=== PATIENT | female | born 2000 | race Caucasian/White ===

== ENCOUNTER 2019-07-27 10:28 | Emergency (ER) | payer OTHER, SELFPAY ==
--- NOTE | ~2019-07-27 | XR_ITS ---
EXAMINATION: XR chest 2V DATE: 07/27/2019 11:31 INDICATION: Chest pain. TECHNIQUE: Frontal and lateral views of the chest were obtained. COMPARISON: Chest 2 views 02/06/2019 FINDINGS: The chest demonstrates clear lungs without pneumonia, pleural effusion, or pneumothorax. Th e heart size is normal. IMPRESSION: 1. No acute cardiopulmonary disease. Reviewed, dictated and finalized at location A.
--- NOTE | 2019-07-27 10:30 | ECG_ITS ---
Measurements Intervals [place] Rate: 88 P: 65 SD: 150 QRS: 83 QRSD: 92 T: 60 QT: 338 QTc: 410 Interpretive Statements SINUS RHYTHM BASELINE ARTIFACT- I, AVR, AVL NORMAL ECG Electronically Signed On 07-27-2019 11:29:17 CDT by Axel Nelson D.O.
[2019-07-27 10:42] VITALS: BP 95/68; PULSE 73; RESP 16; TEMP 36.7; O2SAT 99
[2019-07-27 11:09] LABS: Blood Urea Nitrogen 13 mg/dL (7-17); Carbon Dioxide 23 mmol/L (22-30); Chloride 104 mmol/L (98-107); Estimated CRCL calculation 77 ml/min; Estimated Glomerular Filt Rate > 60; Potassium 3.8 mmol/L (3.4-5.0); Sodium 134 mmol/L (137-145)
[2019-07-27 11:10] LABS: Calcium 9.1 mg/dL (8.4-10.2); Glucose 92 mg/dL (65-105)
[2019-07-27 11:21] LABS: Troponin I < 0.012 ng/mL (0.000-0.034)
--- NOTE | 2019-07-27 11:25 | PC.NURSE ---
Pt taken to Xray
[2019-07-27 11:27] LABS: Hematocrit 36.9 % (37.0-47.0); Mean Corpuscular HGB Conc 35.2 g/dl (32-36); Mean Corpuscular Hemoglobin 30.8 pg (26-34); Mean Corpuscular Volume 87.4 fl (80-100); Mean Platelet Volume 10.4 fl (7.4-10.4); Platelet Count Result 282 k/mm3 (150-375); Red Blood Count 4.22 M/mm3 (4.2-5.4); White Blood Count 6.3 K/mm3 (4.5-10.0)
[2019-07-27 11:28] LABS: Basophils Percent Auto 0.5 % (0.2-1.2); Eosinophils Absolute Auto 0.1 K/mm3 (0-0.3); Eosinophils Percent Auto 2.1 % (0-4.4); Immature Granulocyte Absolute 0.02 K/mm3 (0.00-0.031); Immature Granulocyte Percent A 0.3 % (0-0.5); Lymphocytes Percent Auto 39.7 % (18.3-44.2); Monocytes Absolute Auto 0.4 K/mm3 (0.1-0.6); Monocytes Percent Auto 6.5 % (2.6-8.5); Neutrophils Absolute Auto 3.2 K/mm3 (1.3-6.7); Neutrophils Percent Auto 50.9 % (45.5-73.1)
--- NOTE | 2019-07-27 12:03 | ED.CHESTPAIN ---
HPI - Chest Pain General Chief Complaint: Chest Pain Stated Complaint: CHEST PAIN FOR AWHILE Time Seen by Provider: 07/27/19 11:13 Source: patient Mode of arrival: ambulatory Limitations: no limitations History of Present Illness HPI narrative: Patient is a 19-year-old female who presents to emergency department for evaluation of left-sided chest pain x1 month occurs daily aching pain worse with deep breathing sometimes has some associated nausea. Patient denies injury trauma or URI symptoms. Patient has not taken anything for her symptoms nor she been seen for this. Pain does not radiate Related Data Home Medications Medication Instructions Recorded Confirmed citalopram [Celexa] 30 mg PO DAILY 01/28/19 02/06/19 fludrocortisone 0.2 mg PO DAILY 01/28/19 02/06/19 prednisone 2 mg PO DAILY 01/28/19 02/06/19 Allergies Allergy/AdvReac Type Severity Reaction Status Date / Time No Known Allergies Allergy Verified 01/28/19 21:02 Review of Systems Review of Systems: All systems reviewed & are unremarkable except as noted in HPI and below PMFSH Past Medical History Medical History (Updated 07/27/19 @ 14:34 by Micheal Montana PA-C) Addisons disease Social History Social History Smoking status: Never smoker Gender identity (if verbalized by the patient): Female Exam Narrative: Exam Narrative: GENERAL: Well-appearing, well-nourished, and in no acute distress. HEAD: Normocephalic, atraumatic. EYES: PERRLA and EOMI. ENT: Nares clear, no rhinorrhea or epistaxis. Mucous membranes moist. Oropharynx without tonsillar hypertrophy exudate or other lesions. NECK: Supple. No adenopathy or masses. CHEST: Clear to auscultation. No respiratory distress. No wheezes rales or rhonchi. Tenderness of the left chest HEART: Regular rate and rhythm. No murmur heard. Normal peripheral pulses. ABDOMEN: Soft, nontender, nondistended EXTREMITIES: Normal range of motion. No edema. SKIN: Warm, dry, no rash. NEURO: No focal deficits. Alert and oriented x3. PSYCH: Normal mood and affect. Course Course Emergency Course: Patient in the room in no distress aware of case findings treatment plan and diagnosis agreeing to follow-up as directed or to return if symptoms worsen or concern Vital Signs Vital signs: Vital Signs Temperature 98.0 F 07/27/19 10:42 Pulse Rate 73 07/27/19 10:42 Respiratory Rate 16 07/27/19 10:42 Blood Pressure 95/68 L 07/27/19 10:42 Pulse Oximetry 99 07/27/19 10:42 Temperature 98.0 F 07/27/19 10:42 Pulse Rate 78 07/27/19 13:34 Respiratory Rate 19 07/27/19 13:34 Blood Pressure 103/62 07/27/19 13:34 Pulse Oximetry 99 07/27/19 13:34 MDM - Chest Pain MDM Narrative Medical decision making narrative: Paitents EKGs and labs are without significant high risk changes. Cardiac risk facotrs were reviewd. Patient is felt likely to be low risk for ACS and resonable for further risk stratification testing as an outpatient. Pain was not suddne or maximal in onset without tearing or ripping. quality. No other signs or symptoms to suggest aortic dissection. A low-risk Wells criteria is noted. PE is felt to be unlikely. No pneumonia or URI symptoms were seen on evaluation today. Patient is felt to b resonable for continued evaluation as an outpatient. Lab Data Result diagrams: 07/27/19 10:42 07/27/19 10:42 Labs: Lab Results 07/27/19 07/27/19 07/27/19 Range/Units 10:42 10:42 10:42 WBC 6.3 (4.5-10.0) K/mm3 RBC 4.22 (4.2-5.4) M/mm3 Hgb 13.0 (12.0-15.0) g/dL Hct 36.9 L (37.0-47.0) % MCV 87.4 (80-100) fl MCH 30.8 (26-34) pg MCHC 35.2 (32-36) g/dl RDW 12.0 (11.5-14.5) % Plt Count 282 (150-375) k/mm3 MPV 10.4 (7.4-10.4) fl Immature Gran % (Auto) 0.3 (0-0.5) % Neut % (Auto) 50.9 (45.5-73.1) % Lymph % (Auto) 39.7 (18.3-44.2) % [place] % (Auto
[2019-07-27 13:07] LABS: Prothrombin Time 12.6 Seconds (11.1-14.7)
[2019-07-27 13:08] LABS: Partial Thromboplastin Time 37.7 SECONDS (22.3-36.8)
[2019-07-27 13:34] VITALS: BP 103/62; PULSE 78; RESP 19; O2SAT 99
[2019-07-27 14:21] LABS: Troponin I < 0.012 ng/mL (0.000-0.034)
[2019-07-27 15:01] VITALS: BP 96/57; PULSE 66; RESP 16; O2SAT 98
[2019-07-27 15:20] LABS: D Dimer < 0.22 ug/mL (<0.48)
== END 2019-07-27 15:40 | disposition home or self-care (01) ==
PROVIDERS: Emergency Medicine Emergency Medical Services; Emergency Provider Emergency Medicine; PCP Pediatrics
DX: E27.1 Primary adrenocortical insufficiency (principal); R07.9 Chest pain, unspecified
CPT/HCPCS: 36415; 71046; 80048; 84484; 85025; 85380; 85610; 85730; 93005; 99284

== ENCOUNTER 2019-09-28 16:53 | Emergency (ER) | payer OTHER, SELFPAY ==
[2019-09-28 16:55] VITALS: BP 125/87; PULSE 130; RESP 18; TEMP 36.5; O2SAT 98
[2019-09-28 17:14] LABS: Basophils Absolute Auto 0.1 K/mm3 (0.0-0.1); Basophils Percent Auto 0.6 % (0.2-1.2); Eosinophils Absolute Auto 0.1 K/mm3 (0-0.3); Eosinophils Percent Auto 1.4 % (0-4.4); Hematocrit 35.6 % (37.0-47.0); Hemoglobin 13.1 g/dL (12.0-15.0); Immature Granulocyte Absolute 0.02 K/mm3 (0.00-0.031); Immature Granulocyte Percent A 0.2 % (0-0.5); Lymphocytes Absolute Auto 1.77 K/mm3 (0.9-3.2); Lymphocytes Percent Auto 20.9 % (18.3-44.2); Mean Corpuscular HGB Conc 36.8 g/dl (32-36); Mean Corpuscular Hemoglobin 31.6 pg (26-34); Mean Platelet Volume 10.1 fl (7.4-10.4); Monocytes Absolute Auto 0.5 K/mm3 (0.1-0.6); Monocytes Percent Auto 5.3 % (2.6-8.5); Neutrophils Absolute Auto 6.1 K/mm3 (1.3-6.7); Neutrophils Percent Auto 71.6 % (45.5-73.1); Platelet Count Result 294 k/mm3 (150-375); Red Blood Count 4.14 M/mm3 (4.2-5.4); Red Cell Distribution Width 11.8 % (11.5-14.5); White Blood Count 8.5 K/mm3 (4.5-10.0)
[2019-09-28 17:26] LABS: Alanine Aminotransferase 13 U/L (4-35); Albumin Level 4.9 g/dL (3.5-5.1); Alkaline Phosphatase 57 U/L (38-126); Aspartate Amino Transferase 28 U/L (14-36); Blood Urea Nitrogen 13 mg/dL (7-17); Calcium 9.5 mg/dL (8.4-10.2); Carbon Dioxide 22 mmol/L (22-30); Chloride 99 mmol/L (98-107); Estimated CRCL calculation 101 ml/min; Estimated Glomerular Filt Rate > 60; Glucose 95 mg/dL (65-105); Sodium 132 mmol/L (137-145)
[2019-09-28 17:27] LABS: Ethanol < 10 mg/dL (<10)
[2019-09-28 17:42] LABS: Add Urine Microscopic? YES; Appearance Urine Clear (Clear); Bilirubin Urine Negative (Negative); Blood Urine Negative (Negative); Color Urine Yellow (Yellow); Glucose Urine UA Negative (Negative); Ketones Urine 2+ mg/dL (Negative); Leukocyte Esterase Ur Trace LEU/UL (Negative); Mucus Urine Rare /lpf; Nitrate Urine Negative (Negative); Protein Urine 1+ mg/dL (Negative); RBC Urine 0-2 /hpf (0-2); Squamous Epithelial Cell Urine Many /hpf (Few); Urobilinogen Urine Negative mg/dL (<2.0); WBC Urine 0-3 /hpf
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
[2019-09-28 17:51] LABS: Specific Grav Ur 1.032 (1.001-1.035)
--- NOTE | 2019-09-28 18:18 | PC.NURSE ---
Pt mother at desk and wishes to be updated on any pt status.
[2019-09-28 19:01] LABS: Amphetamine Screen Urine Negative (Negative); Barbiturate Screen Urine Negative (Negative); Benzodiazepines Screen Urine Negative (Negative); Cannabinoid Screen Urine Negative (Negative); Cocaine Screen Urine Negative (Negative); Methadone Screen Urine Negative (Negative); Opiate Screen Urine Negative (Negative); Phencyclidine Screen Urine Negative (Negative)
--- NOTE | 2019-09-28 19:56 | PC.NURSE ---
Spoke with Kari who stated that [facility] will have to contacted and deny patient prior to them coming to assess the patient. log chain worker notified and [facility] contacted
--- NOTE | 2019-09-28 22:22 | PC.NURSE ---
[address] Dr[address] [place] made aware Crisis looking for placement.
--- NOTE | 2019-09-28 22:28 | PC.NURSE ---
Mother Ashlee Patrick -[phone] would like to be kept up to date on any transfers or facility placement.
--- NOTE | 2019-09-28 23:04 | PC.NURSE ---
Per Nigel worker Maranda [facility]. and we must covid swab her.
--- NOTE | 2019-09-28 23:11 | PC.NURSE ---
RN at bedside to collect covid swab.
[2019-09-29] VITALS: BP 119/68; PULSE 68; RESP 18; TEMP 36.6; O2SAT 98
--- NOTE | 2019-09-29 00:13 | PC.NURSE ---
Ghada from [facility] called and said that they have no female beds at this time. If patient is still not found placement by morning then recheck with them as they have some discharges coming up
[2019-09-29] MEDS: predniSONE 1 MG TABLET 2 MG PO (01:25)
[2019-09-29] MEDS: FLUDROCORTISONE ACETATE 0.1 MG TABLET 0.2 MG PO (01:25)
[2019-09-29] MEDS: ZOLPIDEM TARTRATE 5 MG TABLET PO (01:26)
--- NOTE | 2019-09-29 06:28 | PC.NURSE ---
SPOKE WITH CAYDEN AT [facility]- [phone], SHE GAVE ANOTHER FAX NUMBER TO TRY- [phone] ATTN:PSYCH, THE FAX NUMBER [phone] HAS NOT BEEN ACCEPTING OUR FAXES.
--- NOTE | 2019-09-29 10:37 | PC.NURSE ---
rn dispensed pt's home meds: prednisone 1 mg x 2 tabs, citalopram 20 mg and fludrocortsone 0.1mg. pt allowed to make phone call in hallway with sitter present. pt pleasant and cooperative
--- NOTE | 2019-09-29 11:05 | PC.NURSE ---
[facility] have gone through correctly [facility]
[2019-09-29 11:47] VITALS: BP 102/67; PULSE 103; RESP 16; TEMP 36.9; O2SAT 99
[2019-09-29 14:10] LABS: SARS-CoV-2 RNA PCR Negative
--- NOTE | 2019-09-29 16:46 | PC.NURSE ---
[facility] declined transfer [facility] not available until 8a wednesdayoct 01 [facility] declined transfer [facility] declined transfer [facility] declined transfer [facility] declined transfer [facility] accepted coming from [place]
--- NOTE | 2019-09-29 16:49 | PC.NURSE ---
pt aware of transfer to [facility] pt allowed to make several calls to immediate family. mom to bring clothing items to ed for pt to take to new facility
--- NOTE | 2019-09-29 16:58 | PC.NURSE ---
informed by smelter charger that no local [facility] crews can transport pt to [facility] until wednesday
--- NOTE | 2019-09-29 17:28 | PC.NURSE ---
[facility] transport service will arrive to [facility] pt at approx 1830. [id number] will need to be called once pt picked up at 1830. call [phone]
--- NOTE | 2019-09-29 18:38 | PC.NURSE ---
[facility] service accepted [facility] cancelled
--- NOTE | 2019-09-29 18:42 | PC.NURSE ---
transport present to take pt to [facility]. phone, bunny and black bag of personal effects given to bf per pt request. home meds and red bag full of clothing sent with diesel pile driver operator. pt tearful saying good bye to but cooperative
== END 2019-09-29 18:52 ==
PROVIDERS: Emergency Medicine; Emergency Provider Emergency Medicine; PCP Family Medicine
DX: F99 Mental disorder, not otherwise specified (principal); R45.850 Homicidal ideations; Z20.828 Contact with and (suspected) exposure to other viral communicable diseases; E27.1 Primary adrenocortical insufficiency
CPT/HCPCS: 36415; 80053; 80307; 81001; 81025; 84443; 85025; 87635; 99285; A9270; C9803; U0003

== ENCOUNTER 2020-01-04 17:42 | Emergency (ER) | payer OTHER, SELFPAY ==
[2020-01-04 17:54] VITALS: BP 104/61; PULSE 99; RESP 14; TEMP 37.1; O2SAT 100
--- NOTE | 2020-01-04 18:02 | ED.GENADULT ---
HPI - General Adult General Chief complaint: Extremity Injury, Upper Stated complaint: shoulder pain Time Seen by Provider: 01/04/20 18:02 Source: patient Mode of arrival: ambulatory Limitations: no limitations History of Present Illness HPI narrative: 19-year-old female patient presents to the [facility] with complaints of left shoulder neck pain for the past 2 days. Patient states that she tripped over her dog and fell on landing on a tile floor hitting her head neck and left shoulder. Patient states this was approximately 2 days ago. Patient states that since then she has been trying to take ibuprofen and Aleve without much relief. Patient states that her neck is pretty painful especially when turning it to the left side. Patient also complaining most painful left shoulder. Patient states she is also had a headache with some nausea. Denies any loss of consciousness at the time of the fall. Denies any lightheadedness dizziness or vision changes. Related Data Home Medications Medication Instructions Recorded Confirmed fludrocortisone 0.2 mg PO DAILY 01/28/19 11/23/19 prednisone 2 mg PO DAILY 01/28/19 11/23/19 clonazepam 0.5 mg tablet 0.5 mg PO BID PRN tablet 10/18/19 11/23/19 aripiprazole 5 mg tablet 5 mg PO DAILY 11/23/19 11/23/19 escitalopram oxalate 10 mg tablet 15 mg PO DAILY tablet 11/23/19 11/23/19 Allergies Allergy/AdvReac Type Severity Reaction Status Date / Time No Known Allergies Allergy Verified 01/04/20 18:01 Review of Systems Review of Systems: Narrative: CONSTITUTIONAL: Denies fever, chills, or sweats. EYES: Denies visual changes, redness, or discharge. ENT: Denies rhinorrhea, congestion, sore throat, or otalgia. CARDIOVASCULAR: Denies chest pain, palpitations, or edema. RESPIRATORY: Denies cough or dyspnea. GASTROINTESTINAL: Denies abdominal pain, nausea, vomiting, or diarrhea. GENITOURINARY: Denies dysuria or hematuria. SKIN: Denies rash or itching. MUSCULOSKELETAL: Denies back pain, joint pain, or myalgia. Positive left shoulder and neck pain NEUROLOGIC: Positive headache, numbness, or weakness. PSYCHIATRIC: Denies anxiety or depression. [facility] Past Medical History Medical History (Updated 01/04/20 @ 18:21 by KRISTINA Tapia) Addisons disease Anxiety Depression Hypothyroidism OCD (obsessive compulsive disorder) Surgical History Surgical History H/O wrist surgery Social History Social History Smoking status: Never smoker Gender identity (if verbalized by the patient): Female Comments At the time of my signature I agree with nursing past medical history, surgical, social, and family history. There is no relevant family history pertinent to the presenting complaint. Exam Narrative: Exam Narrative: GENERAL: Well-appearing, well-nourished, and in no acute distress. HEAD: Normocephalic, atraumatic. EYES: PERRLA and EOMI. ENT: Nares clear, no rhinorrhea or epistaxis. Mucous membranes moist. NECK: Supple, no lymphadenopathy. No surface trauma, no soft tissue or muscle tenderness or spasm noted. Trachea midline. No subq emphysema or crepitus. cinthia tendernessto firm Palpation at posterior midline to the C5 and C6 area. Pain to the left lateral and posterior neck with movement towards the left. CHEST: Clear to auscultation. No respiratory distress. HEART: Regular rate and rhythm. No murmur heard. Normal peripheral pulses. ABDOMEN: Soft, nontender, nondistended, normal active bowel sounds. EXTREMITIES: The L shoulder is without obvious asymmetry or deformity when compared to the R shoulder. No surface trauma, ecchymosis, crepitus. No bony deformity or prominence of the humeral head No erythema, warmth, swelling. no tenderness to palpation to clavicle, A to C joint, acromion, scapula or humeral head. Patient does have some muscle spasms noted to the left scapular area. No tenderne
[2020-01-04 18:05] VITALS: BP 104/61; PULSE 99; RESP 14; TEMP 37.1; O2SAT 100
== END 2020-01-04 18:20 | disposition short-term general hospital (02) ==
PROVIDERS: Emergency Provider Nurse Practitioner Family; PCP Nurse Practitioner Family
DX: S09.90XA Unspecified injury of head, initial encounter (principal); W01.0XXA Fall on same level from slipping, tripping and stumbling without subsequent striking against object, initial encounter; S19.9XXA Unspecified injury of neck, initial encounter; M62.838 Other muscle spasm; E27.1 Primary adrenocortical insufficiency; E03.9 Hypothyroidism, unspecified; F41.9 Anxiety disorder, unspecified; F32.9 Major depressive disorder, single episode, unspecified
CPT/HCPCS: 99212; G0463; L0140

== ENCOUNTER → 2021-02-19 02:59 | Outpatient (CLI) | payer OTHER, SELFPAY ==
[2021-02-20 02:22] LABS: SARS-CoV-2 RNA PCR Negative
== END ==
PROVIDERS: PCP Family Medicine; Visit Provider Nurse Practitioner Family
DX: R09.89 Other specified symptoms and signs involving the circulatory and respiratory systems (principal); Z20.822 Contact with and (suspected) exposure to COVID-19
CPT/HCPCS: C9803; U0003; U0005

== ENCOUNTER 2021-11-18 14:46 | Outpatient (CLI) | payer OTHER, SELFPAY ==
--- NOTE | ~2021-11-18 | XR_ITS ---
EXAMINATION: XR chest 2V 11/18/2021 15:03 INDICATION: Personal history of pneumonia PROCEDURE: 2 view chest COMPARISON: Comparison to multiple prior studies sequentially, with oldest reviewed study dated 09/2018. FINDINGS: The lungs are clear. The cardiomediastinal silhouette is within normal limits. There are no pleural effusions. There is no pneumothorax suspected. IMPRESSION: 1: NO ACUTE CARDIOPULMONARY DISEASE. Reviewed, dictated and finalized at location B.
== END 2021-11-18 14:47 | disposition home or self-care (01) ==
PROVIDERS: PCP Family Medicine; Visit Provider Nurse Practitioner Family
DX: Z87.01 Personal history of pneumonia (recurrent) (principal); R06.02 Shortness of breath; R05.9 Cough, unspecified
CPT/HCPCS: 71046

== ENCOUNTER 2022-07-03 08:33 | Emergency (ER) | payer OTHER, SELFPAY ==
--- NOTE | ~2022-07-03 | XR_ITS ---
XR hand RT min 3V 07/03/2022 09:00 INDICATION: Right hand pain PROCEDURE: 3 views right hand COMPARISON: No prior studies for comparison. FINDINGS: Fracture, dislocation or subluxation is not identified. The soft tissues appear within norm al limits. No foreign bodies are identified. IMPRESSION: 1: NO ACUTE BONE OR JOINT ABNORMALITY IDENTIFIED. Reviewed, dictated and finalized at location B.
--- NOTE | 2022-07-03 08:41 | ED.UPPEXIN ---
HPI - Extremity Injury (Upper) General Chief Complaint: Extremity Injury, Upper Stated Complaint: HEAD/NECK/R HAND INJURY Time Seen by Provider: 07/03/22 08:41 Source: patient Mode of arrival: ambulatory Limitations: no limitations History of Present Illness HPI narrative: Patient is a 22-year-old female who presents with right hand pain primarily in her ring finger along with left sided neck pain after falling off of a horse last night. Patient denies LOC but does state she hit her forehead on the ground. Patient does state she has had a headache since the fall but denies any vision changes, numbness, tingling or weakness in extremities. Patient also reports mild nausea. Has taken 400 mg of ibuprofen for pain with moderate relief. Related Data Home Medications Medication Instructions Recorded Confirmed fludrocortisone 0.1 mg tablet 0.1 mg PO DAILY 01/28/19 07/03/22 hydrocortisone 5 mg tablet 5 mg PO TID 06/03/22 07/03/22 Allergies Allergy/AdvReac Type Severity Reaction Status Date / Time No Known Allergies Allergy Verified 07/03/22 08:42 Review of Systems Review of Systems: All systems reviewed & are unremarkable except as noted in HPI and below Constitutional: Constitutional: Denies body ache(s), Denies fever(s), Reports headache(s), Denies malaise and Denies weakness Eyes: Eyes: Denies loss of vision ENT: Denies otalgia, Reports headache(s), Denies nasal discharge, Denies sinus pain and Denies sore throat Cardiovascular: Cardiovascular: Denies chest pain, Denies irregular heart rhythm and Denies dyspnea Respiratory: Respiratory: Denies dyspnea Gastrointestinal: Gastrointestinal: Denies abdominal pain, Denies melena, Denies hematochezia, Denies diarrhea, Denies nausea and Denies vomiting Musculoskeletal: Musculoskeletal: Denies back pain, Denies myalgias and Reports arthralgias Integumentary/Breasts: Skin/Breast: Denies pruritus and Denies rash Neurologic: Denies headache(s), Denies loss of vision and Denies weakness Psychiatric: Psychiatric: Reports no additional psychiatric complaints [facility] Past Medical History Medical History Addisons disease Adult BMI 26.0-26.9 kg/sq m Anxiety BMI 24.0-24.9, adult BMI 25.0-25.9,adult BMI 28.0-28.9,adult BMI 32.0-32.9,adult COVID-19 Depression Hypothyroidism OCD (obsessive compulsive disorder) SARS-CoV-2 positive Surgical History Surgical History H/O wrist surgery Family History Family History Father Rheumatoid arthritis COVID-19 Mother COVID-19 Sibling Mental and behavioral disorders d/t use of alcohol, acute intoxication COVID-19 Social History Social History Smoking status: Never smoker Second hand tobacco smoke exposure: Yes Alcohol intake: current Alcohol use details: occasionally Substance use: never Substance use type: does not use Lack of Transportation: No Lack of Food: Never True Current Housing: I Have Housing Concerned About Future Housing: No Difficulty Paying Gas/Electric Bills: No Difficulty Paying for Meds: No Currently Unemployed: No Education: High School Diploma/GED Difficulty w/ Childcare or Family Care: No Living arrangements: with family Additional living arrangements comments: [place] [address] [place] [address] [facility] [address]. 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 There is no relevant family history pertinent to the presenting complaint. Exam Const: General: cooperative, healthy appearing, comfortable, no acute distress and well nourished Nutriti
[2022-07-03 08:42] VITALS: BP 119/84; PULSE 94; RESP 16; TEMP 36.3; O2SAT 98
[2022-07-03 08:43] VITALS: BP 119/84; PULSE 94; RESP 16; TEMP 36.3; O2SAT 98
== END 2022-07-03 09:22 | disposition home or self-care (01) ==
PROVIDERS: Emergency Provider Nurse Practitioner Family; PCP Family Medicine
DX: S63.654A Sprain of metacarpophalangeal joint of right ring finger, initial encounter (principal); V80.010A Animal-rider injured by fall from or being thrown from horse in noncollision accident, initial encounter; S09.90XA Unspecified injury of head, initial encounter; E27.1 Primary adrenocortical insufficiency; E03.9 Hypothyroidism, unspecified; Z86.16 Personal history of COVID-19; F32.A Depression, unspecified
CPT/HCPCS: 73130; 99213; G0463

== ENCOUNTER 2022-08-25 09:27 | Emergency (ER) | payer OTHER, SELFPAY ==
[2022-08-25 09:49] VITALS: BP 120/79; PULSE 92; RESP 16; TEMP 36.7; O2SAT 100
--- NOTE | 2022-08-25 10:12 | ED.SKABFB ---
HPI - Skin/Abscess/Foreign Bdy General Chief complaint: Skin/Abscess/Foreign Body Stated complaint: HIVES Time Seen by Provider: 08/25/22 10:12 Source: patient, RN notes reviewed and old records reviewed Mode of arrival: ambulatory Limitations: no limitations History of Present Illness HPI narrative: 22-year-old female presents to the [facility] complaints of hives to her bilateral hands and arms. Patient states it started on her hands a couple of days ago after wearing gloves. States that the gloves at work sometimes breaks her out because of the powder. Denies any chest pain, shortness of breath. No lip or tongue swelling. States that she tried increasing her steroid that she takes normally as well as taking Benadryl with minimal relief. Onset (ago): day(s) (For) Related Data Home Medications Medication Instructions Recorded Confirmed fludrocortisone 0.1 mg tablet 0.1 mg PO DAILY 01/28/19 08/25/22 hydrocortisone 5 mg tablet 5 mg PO TID 06/03/22 08/25/22 Allergies Allergy/AdvReac Type Severity Reaction Status Date / Time No Known Allergies Allergy Verified 08/25/22 09:51 Review of Systems Review of Systems: All systems reviewed & are unremarkable except as noted in HPI and below Constitutional: Constitutional: Reports no additional constitutional complaints Eyes: Eyes: Reports no additional eye complaints ENT: Reports system reviewed and no additional complaints, except as documented Cardiovascular: Cardiovascular: Reports no additional cardiovascular complaints, Denies chest pain and Denies dyspnea Respiratory: Respiratory: Reports no additional respiratory complaints, Denies chest congestion, Denies cough and Denies dyspnea Gastrointestinal: Gastrointestinal: Reports no additional gastrointestinal complaints, Denies abdominal pain, Denies nausea and Denies vomiting Musculoskeletal: Musculoskeletal: Reports no additional musculoskeletal complaints Integumentary/Breasts: Skin/Breast: Reports as per HPI and Reports rash Neurologic: Reports system reviewed and no additional complaints, except as documented Psychiatric: Psychiatric: Reports no additional psychiatric complaints Allergic/Immunologic: Allergic/Immunologic: Reports no additional allergic/immunologic complaints PMFSH Past Medical History Medical History Addisons disease Adult BMI 26.0-26.9 kg/sq m Anxiety BMI 24.0-24.9, adult BMI 25.0-25.9,adult BMI 28.0-28.9,adult BMI 32.0-32.9,adult COVID-19 Depression Hypothyroidism OCD (obsessive compulsive disorder) SARS-CoV-2 positive Surgical History Surgical History H/O wrist surgery Family History Family History Father Rheumatoid arthritis COVID-19 Mother COVID-19 Sibling Mental and behavioral disorders d/t use of alcohol, acute intoxication COVID-19 Social History Social History Smoking status: Never smoker Second hand tobacco smoke exposure: Yes Alcohol intake: current Alcohol use details: occasionally Substance use: never Substance use type: does not use Lack of Transportation: No Lack of Food: Never True Current Housing: I Have Housing Concerned About Future Housing: No Difficulty Paying Gas/Electric Bills: No Difficulty Paying for Meds: No Currently Unemployed: No Education: High School Diploma/GED Difficulty w/ Childcare or Family Care: No Living arrangements: with family Additional living arrangements comments: [facility] [address] [id number]. 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
== END 2022-08-25 10:31 | disposition home or self-care (01) ==
PROVIDERS: Emergency Provider Nurse Practitioner; PCP Family Medicine
DX: L50.9 Urticaria, unspecified (principal); E27.1 Primary adrenocortical insufficiency; E03.9 Hypothyroidism, unspecified; Z86.16 Personal history of COVID-19; F41.9 Anxiety disorder, unspecified; F32.A Depression, unspecified
CPT/HCPCS: 99213; G0463

== ENCOUNTER 2022-12-07 17:38 | Emergency (ER) | payer OTHER, SELFPAY ==
--- NOTE | 2022-12-07 17:43 | ED.URI ---
HPI - URI/Sore Throat General Chief Complaint: Upper Respiratory Infection Stated Complaint: COUGH/SOB/CHEST PRESSURE Time Seen by Provider: 12/07/22 17:43 Source: patient Mode of arrival: ambulatory Limitations: no limitations History of Present Illness HPI Narrative: Patient is a 22-year-old female who presents with cough, wheezing and chest pressure with coughing for 3 days. Denies any fever, chills, ear pain, congestion, sore throat. Reports she had pneumonia in September and was treated in the hospital. Has history of [place]illas's disease. Related Data Home Medications Medication Instructions Recorded Confirmed fludrocortisone 0.1 mg tablet 0.1 mg PO DAILY 01/28/19 12/07/22 hydroxyzine HCl 25 mg tablet 25 mg PO ONCE 11/12/22 12/07/22 levothyroxine 75 mcg tablet 75 mcg PO DAILY 12/07/22 12/07/22 Allergies Allergy/AdvReac Type Severity Reaction Status Date / Time No Known Allergies Allergy Verified 12/07/22 18:12 Review of Systems Review of Systems: All systems reviewed & are unremarkable except as noted in HPI and below Constitutional: Constitutional: Denies body ache(s), Denies chills, Denies fatigue, Denies fever(s), Denies headache(s), Denies malaise and Denies weakness Eyes: Eyes: Denies blurry vision, Denies itchy eyes and Denies loss of vision ENT: Denies otalgia, Denies headache(s), Denies nasal congestion, Denies sinus pain and Denies sore throat Cardiovascular: Cardiovascular: Denies chest pain, Denies irregular heart rhythm and Denies dyspnea Respiratory: Respiratory: Reports chest congestion, Reports cough, Denies dyspnea and Reports dyspnea on exertion Gastrointestinal: Gastrointestinal: Denies abdominal pain, Denies diarrhea, Denies nausea and Denies vomiting Musculoskeletal: Musculoskeletal: Denies back pain, Denies myalgias and Denies arthralgias Integumentary/Breasts: Skin/Breast: Denies pruritus and Denies rash Neurologic: Denies headache(s), Denies loss of vision and Denies weakness Psychiatric: Psychiatric: Reports no additional psychiatric complaints Endocrine: Endocrine: Denies fatigue Allergic/Immunologic: Allergic/Immunologic: Denies itchy eyes PMFSH Past Medical History Medical History Addisons disease Adult BMI 26.0-26.9 kg/sq m Anxiety BMI 24.0-24.9, adult BMI 25.0-25.9,adult BMI 27.0-27.9,adult BMI 28.0-28.9,adult BMI 32.0-32.9,adult COVID-19 Depression Hypothyroidism OCD (obsessive compulsive disorder) SARS-CoV-2 positive Surgical History Surgical History H/O wrist surgery Family History Family History Father Rheumatoid arthritis COVID-19 Mother COVID-19 Sibling Mental and behavioral disorders d/t use of alcohol, acute intoxication COVID-19 Social History Social History Smoking status: Never smoker Second hand tobacco smoke exposure: Yes Alcohol intake: current Alcohol use details: occasionally Substance use: never Substance use type: does not use Lack of Transportation: No Lack of Food: Never True Current Housing: I Have Housing Concerned About Future Housing: No Difficulty Paying Gas/Electric Bills: No Difficulty Paying for Meds: No Currently Unemployed: No Education: High School Diploma/GED Difficulty w/ Childcare or Family Care: No Living arrangements: with family Additional living arrangements comments: [facility] [address] [facility] [id number]. 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 There is no relevant family history pertinent to the presenting complaint. Exam Co
[2022-12-07 17:47] VITALS: BP 115/68; PULSE 85; RESP 16; TEMP 36.7; O2SAT 100
== END 2022-12-07 18:20 | disposition home or self-care (01) ==
PROVIDERS: Emergency Provider Nurse Practitioner Family; PCP Family Medicine
DX: J40 Bronchitis, not specified as acute or chronic (principal); E27.1 Primary adrenocortical insufficiency; E03.9 Hypothyroidism, unspecified; F41.9 Anxiety disorder, unspecified; Z86.16 Personal history of COVID-19; F32.A Depression, unspecified
CPT/HCPCS: 99213; G0463

== ENCOUNTER 2022-12-16 16:37 | Outpatient (CLI) | payer OTHER, SELFPAY ==
--- NOTE | ~2022-12-16 | MR_ITS ---
EXAMINATION: MR brain/brain stem wo con DATE: 12/16/2022 17:39 INDICATION: Pituitary tumor. Other specified abnormal findings of blood chemistry. TECHNIQUE: Magnetic resonance imaging (MRI) of the brain and brainstem was performed without intraven ous contrast. COMPARISON: Head CT 02/06/2019 FINDINGS: The pituitary is normal in size with height of 3 mm and concave superior margin. The cerebe llar tonsils extend 6 mm inferior to foramen magnum, consistent with Chiari I malformation. There is no intracranial hemorrhage, acute infarction, or abnormal intracranial mass lesion. The ventricles ar e normal in size. The paranasal sinuses are clear. The orbits are normal. The mastoid air cells are n ormal. IMPRESSION: 1. Normal pituitary. 2. Chiari I malformation. Reviewed, dictated and finalized at location E.
== END 2022-12-16 16:38 | disposition home or self-care (01) ==
PROVIDERS: PCP Family Medicine; Visit Provider Nurse Practitioner Family
DX: G93.5 Compression of brain (principal); R79.89 Other specified abnormal findings of blood chemistry
CPT/HCPCS: 70551

== ENCOUNTER 2023-03-28 13:41 | Emergency (ER) | payer OTHER, SELFPAY ==
[2023-03-28] VITALS (8 sets, daily range): BP systolic 72–98; BP diastolic 35–59; PULSE 104–132; RESP 16; TEMP 36.8; O2SAT 100
--- NOTE | 2023-03-28 13:58 | PC.NURSE ---
PT TAKEN TO ROOM IN WHEELCHAIR
--- NOTE | 2023-03-28 14:29 | ED.NAVMDI ---
HPI - Nausea/Vomiting/Diarrhea General Chief complaint: Nausea/Vomiting/Diarrhea Stated complaint: Light Headed/Vomiting/Headache Time Seen by Provider: 03/28/23 14:05 Source: patient, RN notes reviewed and old records reviewed Mode of arrival: ambulatory Limitations: no limitations History of Present Illness HPI Narrative: 22 year old female accompanied by father presents to express care with complaints of being ill since Wednesday evening with nausea and vomiting, body aches, dizziness. Patient is 7weeks verified per ultrasound, states menses are irregular. Patient reports that she does have a sore throat. denies any acute cough,states some headache discomfort. Patient reports that she is not able to eat or drink. 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 MD elicited complaint: nausea, vomiting and other (body aches) Pertinent past history: other (7 weeks ) Onset (ago): day(s) (day 3 of symptoms) Associated nausea: Yes Pain scale (0-10): 3 Treatment prior to arrival: other (Tylenol) Related Data Home Medications Medication Instructions Recorded Confirmed fludrocortisone 0.1 mg tablet 0.1 mg PO BID 01/28/19 03/29/23 hydrocortisone 5 mg tablet 5 mg PO DIRECTED 03/28/23 03/29/23 levothyroxine 88 mcg tablet 88 mcg PO DAILY 03/29/23 03/29/23 Allergies Allergy/AdvReac Type Severity Reaction Status Date / Time No Known Allergies Allergy Verified 03/29/23 07:43 Review of Systems Review of Systems: CONSTITUTIONAL: Denies fever, chills, or sweats. ENT: Denies rhinorrhea, congestion, reports sore throat, no otalgia. CARDIOVASCULAR: Denies chest pain, palpitations, or edema. RESPIRATORY: Denies cough or dyspnea. GASTROINTESTINAL: Reports no abdominal pain, positive for nausea, vomiting,no diarrhea. GENITOURINARY: Denies dysuria or hematuria. SKIN: Denies rash or itching. MUSCULOSKELETAL: Denies back pain, joint pain, or myalgia. NEUROLOGIC: Denies headache, numbness, reports weakness. All systems reviewed & are unremarkable except as noted in HPI and below PMFSH Past Medical History Medical History Addisons disease Adult BMI 26.0-26.9 kg/sq m Anxiety BMI 24.0-24.9, adult BMI 25.0-25.9,adult BMI 27.0-27.9,adult BMI 28.0-28.9,adult BMI 32.0-32.9,adult COVID-19 Depression Hypothyroidism OCD (obsessive compulsive disorder) SARS-CoV-2 positive Surgical History Surgical History H/O wrist surgery Family History Family History (Updated 03/29/23 @ 15:08 by Mary Seals RN) Father Rheumatoid arthritis COVID-19 Mother COVID-19 Sibling COVID-19 Mental and behavioral disorders d/t use of alcohol, acute intoxication Grandparent Congestive heart failure Social History Social History Smoking status: Never smoker Second hand tobacco smoke exposure: Yes Alcohol intake: former Alcohol use details: occasionally Substance use: never Substance use type: does not use Do You Feel Safe in your Home?: Yes Lack of Transportation: No Lack of Food: Never True Current Housing: I Have Housing Concerned About Future Housing: No Difficulty Paying Gas/Electric Bills: No Difficulty Paying for Meds: No Currently Unemployed: No Education: Trade/Vocational Certificate Difficulty w/ Childcare or Family Care: No Living arrangements: with family Additional living arrangements comments: [facility] [address] [facility] [id number]. 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 There is no relevant family history pertinent to the prese
[2023-03-28] MEDS: ONDANSETRON HCL ODT 4 MG TABLET SUBLINGUAL (14:46)
--- NOTE | 2023-03-28 15:00 | PC.NURSE ---
PT DENIES ACTIVE NAUSEA AFTER ZOFRAN GIVEN AND WILL START FLUID CHALLENGE AT THIS TIME.
--- NOTE | 2023-03-28 16:10 | PC.NURSE ---
AMBULATORY TO BATHROOM WITH STANDBY. PT AMBULATED WITH STEADY GAIT AND REPORTS SHE FEELS BETTER. HAS DRANK 360 ML
== END 2023-03-28 16:30 | disposition home or self-care (01) ==
PROVIDERS: Emergency Provider Registered Nurse; PCP Family Medicine
DX: O98.511 Other viral diseases complicating pregnancy, first trimester (principal); B34.9 Viral infection, unspecified; Z3A.01 Less than 8 weeks gestation of pregnancy; O99.891 Other specified diseases and conditions complicating pregnancy; R42 Dizziness and giddiness; O21.9 Vomiting of pregnancy, unspecified; Z20.822 Contact with and (suspected) exposure to COVID-19; O99.280 Endocrine, nutritional and metabolic diseases complicating pregnancy, unspecified trimester; E27.1 Primary adrenocortical insufficiency; E03.9 Hypothyroidism, unspecified; E06.3 Autoimmune thyroiditis; Z86.16 Personal history of COVID-19
CPT/HCPCS: 81003; 87081; 87426; 87804; 87880; 99213; A9270; G0463

== ENCOUNTER 2023-03-29 06:09 | Inpatient (IN) | payer OTHER, SELFPAY ==
[2023-03-29] VITALS (63 sets, daily range): BP systolic 61–98; BP diastolic 44–66; PULSE 84–129; RESP 12–24; TEMP 36.3–37.2; O2SAT 93–100; BMI 26.2
--- NOTE | ~2023-03-29 | US_ITS ---
EXAMINATION: US OB <=14 wk fetus w TV INDICATION: new TECHNIQUE: Sonography of the pelvis was performed by transabdominal and transvaginal techniques. COMPARISON: None. RESULT: Uterus: 6.2 x 5.1 x 5.8 cm. Retroverted. Homogenous myometrium. Intrauterine gestational sac: Single present. Mean Sac Diameter: 2.27 cm, corresponding gestational age 7 week 2 days. Yolk sac: 0.6 cm . Embryo: Single present. [place] rump length: 0.95 cm, corresponding gestational age 7 weeks, 0 days. Gestational heart rate: present 150 bpm. Subgestational hematoma: Absent . Right ovary: Obscured by bowel. Left ovary: Obscured by bowel. Pelvis free fluid: None. IMPRESSION: Single, live intrauterine gestation. Estimated Gestational Age: 7 weeks, 2 days by crown rump length. CONNIE by ultrasound 11/14/2023. Reviewed, dictated and finalized at location K. 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 Estimated Gestational Age: 7 weeks, 2 days by crown rump length. CONNIE by ultras ound 11/14/2023.
--- NOTE | 2023-03-29 07:17 | ED.GENADULT ---
HPI - General Adult General Chief complaint: Nausea/Vomiting/Diarrhea Stated complaint: lightheaded, can't keep anything down, N/V Time Seen by Provider: 03/29/23 06:57 History of Present Illness HPI narrative: 22-year-old female that is 7 weeks presents to the emergency department for evaluation nausea vomiting lightheaded dizziness. Patient did follow up with the urgent care and was diagnosed with influenza B. patient was provided a prescription for Zofran but states she has not been able to fill it. Patient states she still has persistent nausea vomiting and lightheadedness. Patient denies any vaginal bleeding, vaginal discharge or abdominal pain. Patient does have history of Merlin's and has been unable to keep down her steroids since Wednesday. Related Data Home Medications Medication Instructions Recorded Confirmed fludrocortisone 0.1 mg tablet 0.1 mg PO BID 01/28/19 03/29/23 hydrocortisone 5 mg tablet 5 mg PO DIRECTED 03/28/23 03/29/23 levothyroxine 88 mcg tablet 88 mcg PO DAILY 03/29/23 03/29/23 Allergies Allergy/AdvReac Type Severity Reaction Status Date / Time No Known Allergies Allergy Verified 03/29/23 07:43 Review of Systems Review of Systems: All systems reviewed & are unremarkable except as noted in HPI and below PMFSH Past Medical History Medical History Addisons disease Adult BMI 26.0-26.9 kg/sq m Anxiety BMI 24.0-24.9, adult BMI 25.0-25.9,adult BMI 27.0-27.9,adult BMI 28.0-28.9,adult BMI 32.0-32.9,adult COVID-19 Depression Hypothyroidism OCD (obsessive compulsive disorder) SARS-CoV-2 positive Surgical History Surgical History H/O wrist surgery Family History Family History (Updated 03/29/23 @ 15:08 by Mary Seals RN) Father Rheumatoid arthritis COVID-19 Mother COVID-19 Sibling COVID-19 Mental and behavioral disorders d/t use of alcohol, acute intoxication Grandparent Congestive heart failure Social History Social History Smoking status: Never smoker Second hand tobacco smoke exposure: Yes Alcohol intake: former Alcohol use details: occasionally Substance use: never Substance use type: does not use Do You Feel Safe in your Home?: Yes Lack of Transportation: No Lack of Food: Never True Current Housing: I Have Housing Concerned About Future Housing: No Difficulty Paying Gas/Electric Bills: No Difficulty Paying for Meds: No Currently Unemployed: No Education: Trade/Vocational Certificate Difficulty w/ Childcare or Family Care: No Living arrangements: with family Additional living arrangements comments: Lives with boyfriend [address] [place] [id number]. 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 HEAD: normocephalic, atraumatic. EYES: PERRLA/EOMI, conjunctivae clear. NOSE: Normal no drainage NECK: Supple. No adenopathy, no masses. RESPIRATORY: Airway patent, respirations nonlabored. Clear to auscultation bilaterally, no rales, rhonchi, wheezing. CARDIOVASCULAR: Regular rate and rhythm without murmurs rubs or gallops. ABDOMINAL: Soft, nontender, nondistended, normal bowel sounds MUSCULOSKELETAL: Moves all extremities. Strength/ROM intact, No edema, No calf tenderness. NEURO: Alert. Cranial nerves II through XII intact. Good gait. Good coordination SKIN: Warm, dry. Normal Color Course Course Emergency Course: 22-year-old female presenting ED for evaluation nausea vomiting diarrhea with influenza B diagnosis. Patient states he has not been able to keep her steroids down since Wednesday afternoon. Patient was treated with 2 L
[2023-03-29 07:20] LABS: Basophils Percent Auto 0.3 % (0.2-1.2); Eosinophils Absolute Auto 0.3 K/mm3 (0-0.3); Eosinophils Percent Auto 2.6 % (0-4.4); Hematocrit 37.7 % (37.0-47.0); Hemoglobin 13.5 g/dL (12.0-15.0); Immature Granulocyte Absolute 0.08 K/mm3 (0.00-0.031); Immature Granulocyte Percent A 0.7 % (0-0.5); Lymphocytes Absolute Auto 1.57 K/mm3 (0.9-3.2); Lymphocytes Percent Auto 13.4 % (18.3-44.2); Mean Corpuscular HGB Conc 35.8 g/dl (32-36); Mean Corpuscular Volume 86.7 fl (80-100); Mean Platelet Volume 9.6 fl (7.4-10.4); Monocytes Percent Auto 8.3 % (2.6-8.5); Neutrophils Absolute Auto 8.8 K/mm3 (1.3-6.7); Neutrophils Percent Auto 74.7 % (45.5-73.1); Platelet Count Result 201 k/mm3 (150-375); Red Blood Count 4.35 M/mm3 (4.2-5.4); Red Cell Distribution Width 12.3 % (11.5-14.5); White Blood Count 11.8 K/mm3 (4.5-10.0)
[2023-03-29] MEDS: ONDANSETRON INJ 4 MG/2 ML VIAL IV PUSH (07:21)
[2023-03-29] MEDS: SODIUM CHLORIDE 0.9% IV 1,000 ML 999 ML IV CONT ×3 (07:21→09:33)
[2023-03-29 07:30] LABS: Alanine Aminotransferase 11 U/L (6-35); Albumin Level 4.1 g/dL (3.5-5.1); Alkaline Phosphatase 71 U/L (38-126); Anion Gap 14 mmol/L (8-16); Aspartate Amino Transferase 25 U/L (14-36); Bilirubin,Total 1.5 mg/dL (0.2-1.3); Blood Urea Nitrogen 13 mg/dL (7-17); Calcium 9.5 mg/dL (8.4-10.2); Carbon Dioxide 20 mmol/L (22-30); Chloride 94 mmol/L (98-107); Estimated CRCL calculation 76 ml/min; Estimated Glomerular Filt Rate > 60; Glucose 74 mg/dL (65-110); Lipase 43 U/L (23-300); Potassium 3.5 mmol/L (3.4-5.0); Sodium 128 mmol/L (137-145)
[2023-03-29 08:02] LABS: Strep Group A RT-PCR NOT DETECTED (Negative)
[2023-03-29 08:14] LABS: Influenza A QL RT-PCR Negative (Negative); Influenza B QL RT-PCR Negative (Negative); RSV RNA, RT-PCR Negative (Negative); SARS-CoV-2 RNA PCR Negative (Negative)
[2023-03-29 08:38] LABS: Appearance Urine Cloudy (Clear); Bacteria Urine Rare /hpf; Bilirubin Urine Negative (Negative); Blood Urine 1+ (Negative); Color Urine Yellow (Yellow); Glucose Urine UA Negative (Negative); Ketones Urine 4+ mg/dL (Negative); Leukocyte Esterase Ur 2+ LEU/UL (Negative); Nitrate Urine Negative (Negative); Protein Urine Negative (Negative); RBC Urine 0-2 /hpf (0-2); Specific Grav Ur 1.011 (1.001-1.035); Squamous Epithelial Cell Urine Moderate /hpf (Few); WBC Urine 21-50 /hpf
[2023-03-29 08:50] LABS: Add Urine Microscopic? YES
[2023-03-29] MEDS: FLUDROCORTISONE ACETATE 0.1 MG TABLET PO (09:45)
[2023-03-29] MEDS: HYDROCORTISONE 5 MG TABLET PO (09:54)
[2023-03-29] MEDS: HYDROCORTISONE 10 MG TABLET PO (09:54)
[2023-03-29] MEDS: HYDROCORTISONE SODIUM SUCCINATE 100 MG/2 ML VIAL IV PUSH (11:36)
--- NOTE | 2023-03-29 12:27 | PM.IMHP ---
H&P: HPI History of Present Illness Date/Time: 03/29/23 12:27 Chief Complaint: Nausea vomiting and lightheadedness Narrative: 22-year-old female that is 7 weeks presents to the emergency department for evaluation nausea vomiting lightheaded dizziness.? Patient did follow up with the urgent care and was diagnosed with influenza B. patient was provided a prescription for Zofran but states she has not been able to fill it.? Patient states she still has persistent nausea vomiting and lightheadedness.? Patient denies any vaginal bleeding, vaginal discharge or abdominal pain. Patient came to ED for evaluation treatment, in the ED, patient was found have hypertension, tachycardia tachypnea, leukocytosis 11,800, with a left shift, hyponatremia 128, metabolic acidosis 20 bicarbonate glucose 74, glucose 74, urinalysis shows cloudy urine, positive ketone, 4+, pyuria white blood cell 21-50, urine casts 3-5 Review of Systems Review of Systems: ROS negative except above PMFSH Past Medical History Medical History Addisons disease Adult BMI 26.0-26.9 kg/sq m Anxiety BMI 24.0-24.9, adult BMI 25.0-25.9,adult BMI 27.0-27.9,adult BMI 28.0-28.9,adult BMI 32.0-32.9,adult COVID-19 Depression Hypothyroidism OCD (obsessive compulsive disorder) SARS-CoV-2 positive Surgical History Surgical History H/O wrist surgery Family History Family History (Updated 03/29/23 @ 15:08 by Mary Seals RN) Father Rheumatoid arthritis COVID-19 Mother COVID-19 Sibling COVID-19 Mental and behavioral disorders d/t use of alcohol, acute intoxication Grandparent Congestive heart failure Social History Social History Smoking status: Never smoker Second hand tobacco smoke exposure: Yes Alcohol intake: former Alcohol use details: occasionally Substance use: never Substance use type: does not use Do You Feel Safe in your Home?: Yes Lack of Transportation: No Lack of Food: Never True Current Housing: I Have Housing Concerned About Future Housing: No Difficulty Paying Gas/Electric Bills: No Difficulty Paying for Meds: No Currently Unemployed: No Education: Trade/Vocational Certificate Difficulty w/ Childcare or Family Care: No Living arrangements: with family Additional living arrangements comments: Lives with boyfriend [address] [id number]. 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 patient): Female Spiritual care concerns: No Meds Home Medications and Allergies Home Medications Medication Instructions Recorded Confirmed Type fludrocortisone 0.1 mg tablet 0.1 mg PO BID 01/28/19 03/29/23 History inhalational spacing device #1 ea 12/07/22 03/28/23 Rx (Aerochamber MV spacer) hydrocortisone 5 mg tablet 5 mg PO DIRECTED 03/28/23 03/29/23 History levothyroxine 88 mcg tablet 88 mcg PO DAILY 03/29/23 03/29/23 History Allergies Allergy/AdvReac Type Severity Reaction Status Date / Time No Known Allergies Allergy Verified 03/29/23 07:43 Vital Signs Vital Signs - 24 hr 03/29/23 06:12 03/29/23 07:26 03/29/23 07:26 Temperature 97.3 F L Pulse Rate 129 H 84 107 H Respiratory Rate 16 Blood Pressure 98/56 L 82/56 L 85/63 L Pulse Oximetry 100 Oxygen Delivery Room Air 03/29/23 07:26 03/29/23 07:20 03/29/23 07:21 Temperature Pulse Rate 123 H 101 H 99 Respiratory Rate 20 21 H Blood Pressure 69/59 L 81/57 L 82/56 L Pulse Oximetry 100 100 Oxygen Delivery 03/29/23 07:22 03/29/23 07:23 03/29/23 07:26 Temperature Pulse Rate 94 107 H 102 H Respiratory Rate 22 H 17 16 Blood Pressure 85/63 L 69/59 L Pulse Oximetry 100 100 98 Oxygen Delivery 03/29/23 07:30 03/29/23 07:31
--- NOTE | 2023-03-29 13:06 | ADMGEN ---
This patient, Rafael Pat, was admitted to IMU Room 207-01. Patient/family oriented to hospital policies and general routines including ID bracelet, bed and alarms, visiting hours, pain management, procedures, bathroom and other care routines, personal items, smoking policy, room service/diet, and visiting hours. Information on how to activate the Rapid Response Team has been discussed. Patient/Family are encouraged to report perceived risks to care and to ask questions if they do not understand what they are told or what they should do.
[2023-03-29 14:12] LABS: Magnesium 1.8 mg/dL (1.6-2.3); Phosphorus 3.1 mg/dL (2.5-4.5)
[2023-03-29] MEDS: DEXTROSE 5%/0.9% SOD CHL 1,000 ML 150 ML IV CONT (14:51)
--- NOTE | 2023-03-29 16:28 | PC.NURSE ---
Dr. Quinonez at bedside, orders to give Solu-Cortef now
[2023-03-29] MEDS: HYDROCORTISONE SODIUM SUCCINATE 100 MG/2 ML VIAL 50 MG IV PUSH ×2 (16:31→23:41)
[2023-03-29 18:20] LABS: Glucose Point of Care 277 mg/dl (65-105)
--- NOTE | 2023-03-29 19:04 | WPDCN ---
Assessment and Plan Assessment and plan (1) First trimester : Code(s): Z34.91 - Encounter for supervision of normal , unspecified, first trimester Status: Acute Assessment and Plan: this patient is 22 year old female 1 at eight weeks gestation who presented to the emergency department for severe nausea and vomiting. She is found to be an adrenal crisis. Has [employer]'s disease. She was admitted to the hospital. She denies any cramping or vaginal bleeding. She denies any movement. She has no known complications of her thus far. This is her 1st . We have ordered ultrasound. She should complete this ultrasound shortly. She is believed to be 8 weeks gestation. She had ultrasound last week showed a 7 week 4 day gestation. HPI Data of Consult Date/Time: 03/29/23 19:04 Requesting Physician: Stanford Keith MD Primary Care Provider: Steven Garcia MD Consult Narrative Narrative: this patient is 22 year old female 1 at eight weeks gestation who presented to the emergency department for severe nausea and vomiting. She is found to be an adrenal crisis. Has Merlin's disease. She was admitted to the hospital. She denies any cramping or vaginal bleeding. She denies any movement. She has no known complications of her thus far. This is her 1st . We have ordered ultrasound. She should complete this ultrasound shortly. She is believed to be 8 weeks gestation. She had ultrasound last week showed a 7 week 4 day gestation. Review of Systems Review of Systems: All systems reviewed & are unremarkable except as noted in HPI and below Constitutional: Constitutional: Denies chills, Denies fatigue, Denies fever(s) and Denies weakness Eyes: Eyes: Denies blurry vision, Denies change in vision, Denies loss of peripheral vision, Denies loss of vision, Denies other visual disturbances and Denies eye pain ENT: Denies vertigo, Denies dizziness, Denies hearing loss, Denies mouth pain, Denies nasal obstruction, Denies neck mass and Denies neck pain Cardiovascular: Cardiovascular: Denies chest pain, Denies diaphoresis, Denies syncope, Denies leg edema and Denies dyspnea Respiratory: Respiratory: Denies chest congestion, Denies cough, Denies hemoptysis, Denies dyspnea and Denies wheezing Gastrointestinal: Gastrointestinal: Denies abdominal pain, Denies constipation, Denies diarrhea, Denies nausea and Denies vomiting Genitourinary: Genitourinary: Denies hematuria, Denies change in libido, Denies nocturia, Denies genital lesions, Denies flank pain and Denies urinary urgency Musculoskeletal: Musculoskeletal: Denies abnormal gait, Denies back pain, Denies myalgias, Denies arthralgias, Denies joint swelling, Denies muscle weakness and Denies neck pain Integumentary/Breasts: Skin/Breast: Denies swelling, Denies breast pain, Denies breast mass, Denies dry skin, Denies nipple discharge, Denies unusual bruising and Denies jaundice Neurologic: Denies Neuro-related abnormal movements, Denies Abnormal speech present, Denies abnormal gait, Denies behavioral changes, Denies confusion, Denies vertigo, Denies dizziness, Denies syncope, Denies loss of vision, Denies memory loss, Denies convulsions and Denies weakness Psychiatric: Psychiatric: Denies abnormal sleep pattern, Denies behavioral changes, Denies change in libido, Denies confusion, Denies depression, Denies anhedonia and Denies memory loss Endocrine: Endocrine: Reports no additional endocrine complaints, Denies change in libido and Denies fatigue Hematologic/Lymphatic: Hematologic/Lymphatic: Reports no additional hematologic/lymphatic complaints Allergic/Immunologic: Allergic/Immunologic: Reports no additional allergic/immunologic complaints and Denies wheezing PMFSH Past Medical History Medical History Addisons disease Adult BMI 26.0-26.9
[2023-03-30] VITALS (20 sets, daily range): BP systolic 81–100; BP diastolic 40–66; PULSE 60–104; RESP 14–18; TEMP 36.2–36.8; O2SAT 99–100
[2023-03-30 00:01] LABS: Glucose Point of Care 139 mg/dl (65-105)
[2023-03-30] MEDS: DEXTROSE 5%/0.9% SOD CHL 1,000 ML 100 ML IV CONT (01:54)
[2023-03-30] MEDS: LEVOTHYROXINE SODIUM 75 MCG TABLET PO (06:21)
[2023-03-30] MEDS: HYDROCORTISONE SODIUM SUCCINATE 100 MG/2 ML VIAL 50 MG IV PUSH (06:22)
[2023-03-30 06:26] LABS: Glucose Point of Care 158 mg/dl (65-105)
--- NOTE | 2023-03-30 08:35 | PC.NURSE ---
BP 87/56. Dr. Keith made aware. New orders noted for 500 ml NS bolus, change maintenance fluids to NS at 100 ml/hr.
[2023-03-30] MEDS: SODIUM CHLORIDE 0.9% IV 1,000 ML 100 ML IV CONT ×2 (09:16→21:12)
[2023-03-30] MEDS: SODIUM CHLORIDE 0.9% IV 500 ML 999 ML IV CONT (09:16)
[2023-03-30] MEDS: FLUDROCORTISONE ACETATE 0.1 MG TABLET PO ×2 (09:21→17:07)
[2023-03-30 09:51] LABS: Basophils Percent Auto 0.3 % (0.2-1.2); Hematocrit 29.6 % (37.0-47.0); Hemoglobin 10.2 g/dL (12.0-15.0); Immature Granulocyte Absolute 0.14 K/mm3 (0.00-0.031); Immature Granulocyte Percent A 1.3 % (0-0.5); Lymphocytes Absolute Auto 0.52 K/mm3 (0.9-3.2); Lymphocytes Percent Auto 4.9 % (18.3-44.2); Mean Corpuscular HGB Conc 34.5 g/dl (32-36); Mean Corpuscular Hemoglobin 30.4 pg (26-34); Mean Corpuscular Volume 88.4 fl (80-100); Mean Platelet Volume 10.4 fl (7.4-10.4); Monocytes Absolute Auto 0.3 K/mm3 (0.1-0.6); Monocytes Percent Auto 3.2 % (2.6-8.5); Neutrophils Absolute Auto 9.5 K/mm3 (1.3-6.7); Neutrophils Percent Auto 90.3 % (45.5-73.1); Platelet Count Result 174 k/mm3 (150-375); Red Blood Count 3.35 M/mm3 (4.2-5.4); Red Cell Distribution Width 12.9 % (11.5-14.5); White Blood Count 10.5 K/mm3 (4.5-10.0)
[2023-03-30 10:03] LABS: Alanine Aminotransferase 14 U/L (6-35); Albumin Level 3.3 g/dL (3.5-5.1); Alkaline Phosphatase 56 U/L (38-126); Anion Gap 6 mmol/L (8-16); Aspartate Amino Transferase 19 U/L (14-36); Bilirubin,Total 0.4 mg/dL (0.2-1.3); Blood Urea Nitrogen 3 mg/dL (7-17); Calcium 8.7 mg/dL (8.4-10.2); Carbon Dioxide 19 mmol/L (22-30); Chloride 110 mmol/L (98-107); Estimated CRCL calculation 115 ml/min; Estimated Glomerular Filt Rate > 60; Glucose 214 mg/dL (65-110); Potassium 3.4 mmol/L (3.4-5.0); Sodium 135 mmol/L (137-145)
--- NOTE | 2023-03-30 10:57 | PC.NURSE ---
Repeat BP 93/56. Dr. Keith made aware. New orders noted to increase Solu-Cortef to 100 mg q 8 hours.
[2023-03-30 11:54] LABS: Glucose Point of Care 136 mg/dl (65-105)
[2023-03-30] MEDS: HYDROCORTISONE SODIUM SUCCINATE 100 MG/2 ML VIAL IV PUSH ×2 (14:09→21:13)
--- NOTE | 2023-03-30 17:00 | PM.IMPN ---
Progress Note: A&P Assessment and Plan (1) Adrenal crisis syndrome: Code(s): E27.2 - Addisonian crisis Status: Acute Assessment and Plan: Patient with nausea, vomiting and weakness. She tested positive for influenza B at urgent care center but was negative here. Suspect she has either viral gastroenteritis and/or influenza causing the adrenal crisis. She was HoTN from Addisons crisis +/- hypovolemia. Started on Solu-Cortef 50mg Q6hr. BP still soft so dose advances. Glucose elevated due to steroids - add slidiing scale She is feeling better and now able to tolerate oral intake Continue S-C. Add back her Florinef (2) Severe sepsis: Code(s): A41.9 - Sepsis, unspecified organism; R65.20 - Severe sepsis without septic shock Status: Acute Assessment and Plan: Related to to viral syndrome BCx NGTD Symptoms better. Continue to monitor off abx (3) Acute gastroenteritis: Code(s): K52.9 - Noninfective gastroenteritis and colitis, unspecified Status: Acute Assessment and Plan: As above Toleratinig oral intake Follow (4) Hyponatremia: Code(s): E87.1 - Hypo-osmolality and hyponatremia Status: Acute Assessment and Plan: Sodium mildly low but dropped to 128 felt related to Addiosns With above treatment, Na level tiff Follow (5) 7 weeks gestation of : Code(s): Z3A.01 - Less than 8 weeks gestation of Status: Acute Assessment and Plan: No vaginal bleeding or spotting She was aware about the potential side effects of hydrocortisone including cleft lip. Explained the hydrocortisone is the drug of choice for female patients. She voices understanding and all questions asnwered. (6) Metabolic acidosis: Code(s): E87.20 - Acidosis, unspecified Status: Acute Assessment and Plan: Patient with mild nongap acidosis. [place] related to above Follow (7) Addisons disease: Code(s): E27.1 - Primary adrenocortical insufficiency Status: Acute Assessment and Plan: As above Resume Florinef Continue IV Solu-Coretef and transtion to oral in 1-2 days (8) Hypothyroidism: Qualifiers: Hypothyroidism type: unspecified Qualified Code(s): E03.9 - Hypothyroidism, unspecified Code(s): E03.9 - Hypothyroidism, unspecified Status: Acute Assessment and Plan: TSH normal. Continue Synthroid (9) Complicated UTI (urinary tract infection): Code(s): N39.0 - Urinary tract infection, site not specified Status: Acute Assessment and Plan: UCx negative. UTI ruled out Plan DVT prophylaxis - SCDs Code status - full Subjective Date/time seen: 03/30/23 17:00 Interval history: 22yo female 7weeks IUP and [place]'s disease here for nausea, vomiting and lightheadedness. She is feeling better today. No CP or SOb. Tolerating oral intake. No further nausea. Weakness is better. Exam Narrative: AF 98.0 100/66 80 16 100% ra Gen - NARD Chest - CTA bilaterally, nml RR CV - RRR S1/S2. Tele showing occasional sinus arrhythmias Abd - Soft, NT/ND, Positive BS Ext - No pedal edema Neuro - Alert and oriented. Nonfocal exam. Psych - Nml mood and affect Skin - Warm and dry Objective Data Vital Signs Vital Signs: Vital Signs - 24 hr 03/29/23 18:31 03/29/23 19:42 03/29/23 20:00 Temperature 98.7 F Pulse Rate 103 H 88 Respiratory Rate 16 Blood Pressure 90/49 L 92/51 L Pulse Oximetry 100 Oxygen Delivery 03/29/23 20:00 03/29/23 22:00 03/29/23 23:54 Temperature 97.9 F Pulse Rate 93 87 Respiratory Rate 16 Blood Pressure 96/54 L Pulse Oximetry 98 Oxygen Delivery Room Air 03/30/23 00:00 03/30/23 00:00 03/30/23 03:21 Temperature 98.2 F Pulse Rate 73 77 Respiratory Rate 18 Blood Pressure 81/50 L Pulse Oximetry 100 Oxygen Delivery Room Air 03/30/23 0
--- NOTE | 2023-03-30 18:48 | PM.OBPNVD ---
OB - PN: Subj Subjective Date/time seen: 03/30/23 18:48 Patient's status is unchanged. She denies any cramping or bleeding. Too early to appreciate heart tones. Continue observation. Interval history: 22yo female 7weeks IUP and [place]'s disease here for nausea, vomiting and lightheadedness. She is feeling better today. No CP or SOb. Tolerating oral intake. No further nausea. Weakness is better. OB - PN: Obj Data Labs 03/30/23 09:24 03/30/23 09:24 Labs: Laboratory Results - last 24 hr 03/29/23 03/29/23 03/30/23 13:28 23:58 06:23 WBC RBC Hgb Hct MCV MCH MCHC RDW Plt Count MPV Immature Gran % (Auto) Neut % (Auto) Lymph % (Auto) [place] % (Auto) Eos % (Auto) Baso % (Auto) Lymph # (Auto) [place] # (Auto) Eos # (Auto) Baso # (Auto) Abs Immat Gran (auto) Absolute Neuts (auto) Absolute Nucleated RBC Nucleated RBC % Sodium Potassium Chloride Carbon Dioxide Anion Gap BUN Creatinine Estim Creat Clear Calc Estimated GFR Glucose POC Capillary Glucose 139 H 158 H Calcium Total Bilirubin AST ALT Alkaline Phosphatase Total Protein Albumin TSH (Reflex) Beta HCG, Quant 03184.00 03/30/23 03/30/23 09:24 11:23 WBC 10.5 H RBC 3.35 L Hgb 10.2 L D Hct 29.6 L MCV 88.4 MCH 30.4 MCHC 34.5 RDW 12.9 Plt Count 174 MPV 10.4 Immature Gran % (Auto) 1.3 H Neut % (Auto) 90.3 H Lymph % (Auto) 4.9 L [place] % (Auto) 3.2 Eos % (Auto) 0.0 Baso % (Auto) 0.3 Lymph # (Auto) 0.52 L [place] # (Auto) 0.3 Eos # (Auto) 0.0 Baso # (Auto) 0.0 Abs Immat Gran (auto) 0.14 H Absolute Neuts (auto) 9.5 H Absolute Nucleated RBC 0.0 Nucleated RBC % 0.0 Sodium 135 L Potassium 3.4 Chloride 110 H Carbon Dioxide 19 L Anion Gap 6 L BUN 3 L D Creatinine 0.50 L Estim Creat Clear Calc 115 Estimated GFR > 60 Glucose 214 H POC Capillary Glucose 136 H Calcium 8.7 Total Bilirubin 0.4 AST 19 ALT 14 Alkaline Phosphatase 56 Total Protein 6.0 L Albumin 3.3 L TSH (Reflex) 2.680 Beta HCG, Quant Imaging Radiologist's impression: Impressions Obstetrics Ultrasound 03/29/23 20:14 IMPRESSION: Single, live intrauterine gestation. Estimated Gestational Age: 7 weeks, 2 days by crown rump length. CONNIE by ultrasound 11/14/2023. OB - PN A/P Assessment and Plan (1) 7 weeks gestation of : Code(s): Z3A.01 - Less than 8 weeks gestation of Status: Acute Assessment and Plan: Patient's status is unchanged. She denies any cramping or bleeding. Too early to appreciate heart tones. Continue observation. Time Spent With Patient Time: Total time spent is greater than 50% in coordination of care (as documented) at patient's floor/unit and/or counseling patient:
[2023-03-30 20:36] LABS: Glucose Point of Care 117 mg/dl (65-105)
[2023-03-31] VITALS (17 sets, daily range): BP systolic 90–116; BP diastolic 53–75; PULSE 55–94; RESP 15–23; TEMP 36.5–36.9; O2SAT 99–100
[2023-03-31] MEDS: SODIUM CHLORIDE 0.9% IV 1,000 ML 100 ML IV CONT ×3 (00:26→20:51)
[2023-03-31] MEDS: LEVOTHYROXINE SODIUM 88 MCG TABLET PO (05:19)
[2023-03-31] MEDS: HYDROCORTISONE SODIUM SUCCINATE 100 MG/2 ML VIAL IV PUSH ×3 (05:19→22:35)
[2023-03-31 05:29] LABS: Hematocrit 27.3 % (37.0-47.0); Hemoglobin 9.6 g/dL (12.0-15.0); Mean Corpuscular HGB Conc 35.2 g/dl (32-36); Mean Corpuscular Hemoglobin 31.2 pg (26-34); Mean Corpuscular Volume 88.6 fl (80-100); Mean Platelet Volume 10.6 fl (7.4-10.4); Platelet Count Result 178 k/mm3 (150-375); Red Blood Count 3.08 M/mm3 (4.2-5.4); White Blood Count 10.5 K/mm3 (4.5-10.0)
[2023-03-31 05:40] LABS: Albumin Level 3.2 g/dL (3.5-5.1); Anion Gap 7 mmol/L (8-16); Blood Urea Nitrogen 4 mg/dL (7-17); Calcium 8.4 mg/dL (8.4-10.2); Carbon Dioxide 20 mmol/L (22-30); Chloride 110 mmol/L (98-107); Estimated CRCL calculation 130 ml/min; Estimated Glomerular Filt Rate > 60; Glucose 121 mg/dL (65-110); Magnesium 1.8 mg/dL (1.6-2.3); Phosphorus 3.4 mg/dL (2.5-4.5); Potassium 3.2 mmol/L (3.4-5.0); Sodium 137 mmol/L (137-145)
[2023-03-31 08:00] LABS: Glucose Point of Care 114 mg/dl (65-105)
[2023-03-31] MEDS: FLUDROCORTISONE ACETATE 0.1 MG TABLET PO ×2 (09:11→17:23)
[2023-03-31 10:49] LABS: Hemoglobin A1C 4.7 % (<5.7)
[2023-03-31 11:52] LABS: Glucose Point of Care 95 mg/dl (65-105)
--- NOTE | 2023-03-31 13:29 | PM.IMPN ---
Progress Note: A&P Assessment and Plan (1) Adrenal crisis syndrome: Code(s): E27.2 - Addisonian crisis Status: Acute Assessment and Plan: Patient with nausea, vomiting and weakness. She tested positive for influenza B at urgent care center but was negative here. Suspect she has either viral gastroenteritis and/or influenza causing the adrenal crisis. She was HoTN from Addisons crisis +/- hypovolemia. Started on Solu-Cortef 50mg Q6hr. BP still soft so dose advances. Glucose elevated due to steroids - add slidiing scale She is feeling better and now able to tolerate oral intake Continue S-C. Add back her Florinef (2) Severe sepsis: Code(s): A41.9 - Sepsis, unspecified organism; R65.20 - Severe sepsis without septic shock Status: Acute Assessment and Plan: Related to to viral syndrome BCx NGTD Symptoms better. Continue to monitor off abx (3) Acute gastroenteritis: Code(s): K52.9 - Noninfective gastroenteritis and colitis, unspecified Status: Acute Assessment and Plan: As above Toleratinig oral intake Follow (4) Hyponatremia: Code(s): E87.1 - Hypo-osmolality and hyponatremia Status: Acute Assessment and Plan: Sodium mildly low but dropped to 128 felt related to Addioson's 03/31/23: Improved Na (5) 7 weeks gestation of : Code(s): Z3A.01 - Less than 8 weeks gestation of Status: Acute Assessment and Plan: No vaginal bleeding or spotting She was aware about the potential side effects of hydrocortisone including cleft lip. Explained the hydrocortisone is the drug of choice for female patients. She voices understanding and all questions asnwered. (6) Metabolic acidosis: Code(s): E87.20 - Acidosis, unspecified Status: Acute Assessment and Plan: Patient with mild nongap acidosis. [place] related to above Follow (7) Addisons disease: Code(s): E27.1 - Primary adrenocortical insufficiency Status: Acute Assessment and Plan: As above Resume Florinef Continue IV Solu-Coretef and transtion to oral in 1-2 days (8) Hypothyroidism: Qualifiers: Hypothyroidism type: unspecified Qualified Code(s): E03.9 - Hypothyroidism, unspecified Code(s): E03.9 - Hypothyroidism, unspecified Status: Acute Assessment and Plan: TSH normal. Continue Synthroid (9) Complicated UTI (urinary tract infection): Code(s): N39.0 - Urinary tract infection, site not specified Status: Acute Assessment and Plan: UCx negative. UTI ruled out (10) Hypokalemia: Code(s): E87.6 - Hypokalemia Status: Acute Assessment and Plan: Replete and monitor Plan Disposition: Will DC once electrolytes are improved DVT prophylaxis - SCDs Code status - nc manager Spent With Patient Time with patient: 25 - 35 minutes Subjective Date/time seen: 03/31/23 13:29 Interval history: 22yo female 7weeks IUP and [place]'s disease here for nausea, vomiting and lightheadedness. She is feeling better today. No CP or SOb. Tolerating oral intake. No further nausea. Weakness is better. Review of Systems Review of Systems: ROS negative except above Exam Narrative: AF 98.0 100/66 80 16 100% ra Gen - NARD Chest - CTA bilaterally, nml RR CV - RRR S1/S2. Tele showing occasional sinus arrhythmias Abd - Soft, NT/ND, Positive BS Ext - No pedal edema Neuro - Alert and oriented. Nonfocal exam. Psych - Nml mood and affect Skin - Warm and dry Objective Data Vital Signs Vital Signs: Vital Signs - 24 hr 03/30/23 15:44 03/30/23 16:00 03/30/23 14:00 Temperature 98 F Pulse Rate 80 82 Respiratory Rate 16 Blood Pressure 100/66 Pulse Oximetry 100 Oxygen Delivery Room Air 03/30/23 16:00 03/30/23 18:00 03/30/23 20:15 Temperature 97.9 F Pulse Rate 71 104 H 75 Respiratory
[2023-03-31] MEDS: POTASSIUM CHLORIDE 20 MEQ PACKET (FOR LIQUID) 40 MEQ PO (14:36)
[2023-03-31 15:10] LABS: Basophils Percent Auto 0.3 % (0.2-1.2); Hematocrit 29.8 % (37.0-47.0); Hemoglobin 9.9 g/dL (12.0-15.0); Immature Granulocyte Absolute 0.12 K/mm3 (0.00-0.031); Immature Granulocyte Percent A 1.2 % (0-0.5); Mean Corpuscular HGB Conc 33.2 g/dl (32-36); Mean Corpuscular Hemoglobin 30.5 pg (26-34); Mean Corpuscular Volume 91.7 fl (80-100); Mean Platelet Volume 10.3 fl (7.4-10.4); Monocytes Absolute Auto 0.5 K/mm3 (0.1-0.6); Monocytes Percent Auto 5.2 % (2.6-8.5); Neutrophils Absolute Auto 7.8 K/mm3 (1.3-6.7); Neutrophils Percent Auto 78.3 % (45.5-73.1); Platelet Count Result 188 k/mm3 (150-375); Red Blood Count 3.25 M/mm3 (4.2-5.4); Red Cell Distribution Width 13.3 % (11.5-14.5)
[2023-03-31 16:54] LABS: Glucose Point of Care 102 mg/dl (65-105)
[2023-03-31 20:20] LABS: Glucose Point of Care 136 mg/dl (65-105)
[2023-04-01] VITALS: PULSE 52; O2SAT 100
[2023-04-01 04:00] VITALS: PULSE 51; O2SAT 100
[2023-04-01 04:46] VITALS: BP 108/71; PULSE 67; RESP 18; TEMP 36.9; O2SAT 100
[2023-04-01] MEDS: HYDROCORTISONE SODIUM SUCCINATE 100 MG/2 ML VIAL IV PUSH (05:30)
[2023-04-01] MEDS: LEVOTHYROXINE SODIUM 88 MCG TABLET PO (05:31)
[2023-04-01 05:55] LABS: Basophils Percent Auto 0.2 % (0.2-1.2); Hematocrit 29.2 % (37.0-47.0); Hemoglobin 9.9 g/dL (12.0-15.0); Immature Granulocyte Absolute 0.13 K/mm3 (0.00-0.031); Immature Granulocyte Percent A 1.6 % (0-0.5); Lymphocytes Absolute Auto 1.37 K/mm3 (0.9-3.2); Mean Corpuscular HGB Conc 33.9 g/dl (32-36); Mean Corpuscular Volume 91.5 fl (80-100); Mean Platelet Volume 10.6 fl (7.4-10.4); Monocytes Absolute Auto 0.3 K/mm3 (0.1-0.6); Monocytes Percent Auto 4.1 % (2.6-8.5); Neutrophils Absolute Auto 6.2 K/mm3 (1.3-6.7); Neutrophils Percent Auto 77.1 % (45.5-73.1); Platelet Count Result 194 k/mm3 (150-375); Red Blood Count 3.19 M/mm3 (4.2-5.4); Red Cell Distribution Width 13.2 % (11.5-14.5); White Blood Count 8.1 K/mm3 (4.5-10.0)
[2023-04-01 06:09] LABS: Alanine Aminotransferase 14 U/L (6-35); Albumin Level 3.1 g/dL (3.5-5.1); Alkaline Phosphatase 48 U/L (38-126); Anion Gap 6 mmol/L (8-16); Aspartate Amino Transferase 17 U/L (14-36); Bilirubin,Total 0.2 mg/dL (0.2-1.3); Blood Urea Nitrogen 4 mg/dL (7-17); Calcium 8.3 mg/dL (8.4-10.2); Carbon Dioxide 24 mmol/L (22-30); Chloride 108 mmol/L (98-107); Estimated CRCL calculation 132 ml/min; Estimated Glomerular Filt Rate > 60; Glucose 112 mg/dL (65-110); Potassium 3.2 mmol/L (3.4-5.0); Sodium 138 mmol/L (137-145)
[2023-04-01 07:39] VITALS: BP 108/71; PULSE 58; RESP 14; TEMP 36.4; O2SAT 100
[2023-04-01 08:00] VITALS: PULSE 60
[2023-04-01 08:52] LABS: Glucose Point of Care 115 mg/dl (65-105)
[2023-04-01] MEDS: POTASSIUM CHLORIDE 20 MEQ PACKET (FOR LIQUID) 40 MEQ PO (09:22)
[2023-04-01] MEDS: FLUDROCORTISONE ACETATE 0.1 MG TABLET PO (09:22)
[2023-04-01 10:00] VITALS: PULSE 95
[2023-04-01 12:07] LABS: Glucose Point of Care 92 mg/dl (65-105)
--- NOTE | 2023-04-01 13:14 | PM.DS ---
DS: Admitting Diagnosis Discharge Date 04/01/2023 Admitting Diagnosis 1. Gastroenteritis 2. Sepsis 3. UTI 4. Hyponatremia 5. Cyesis 6. Hypothyroidism 7. Influenza B infection 8. Adrenal crisis syndrome DS: Discharge Diagnosis Discharge Diagnosis (1) Acute gastroenteritis: Code(s): K52.9 - Noninfective gastroenteritis and colitis, unspecified Status: Acute (2) Hypotension due to hypovolemia: Code(s): E86.1 - Hypovolemia Status: Acute (3) 7 weeks gestation of : Code(s): Z3A.01 - Less than 8 weeks gestation of Status: Acute (4) Metabolic acidosis: Code(s): E87.20 - Acidosis, unspecified Status: Acute (5) Adrenal crisis syndrome: Code(s): E27.2 - Addisonian crisis Status: Acute (6) Orthostatic hypotension: Code(s): I95.1 - Orthostatic hypotension Status: Acute (7) Hypokalemia: Code(s): E87.6 - Hypokalemia Status: Acute (8) Complicated UTI (urinary tract infection): Code(s): N39.0 - Urinary tract infection, site not specified Status: Acute (9) Severe sepsis: Code(s): A41.9 - Sepsis, unspecified organism; R65.20 - Severe sepsis without septic shock Status: Acute DS: Summary Time Spent with Patient Time attestation: Total time spent providing and/or coordinating discharge services: DS: Data Data Completed and Pending Labs on day of discharge: Labs from last 24 hours 04/01/23 04/01/23 04/01/23 11:34 07:33 04:53 WBC 8.1 RBC 3.19 L Hgb 9.9 L Hct 29.2 L MCV 91.5 MCH 31.0 MCHC 33.9 RDW 13.2 Plt Count 194 MPV 10.6 H Immature Gran % (Auto) 1.6 H Neut % (Auto) 77.1 H Lymph % (Auto) 17.0 L [place] % (Auto) 4.1 Eos % (Auto) 0.0 Baso % (Auto) 0.2 Lymph # (Auto) 1.37 [place] # (Auto) 0.3 Eos # (Auto) 0.0 Baso # (Auto) 0.0 Abs Immat Gran (auto) 0.13 H Absolute Neuts (auto) 6.2 Absolute Nucleated RBC 0.0 Nucleated RBC % 0.0 Sodium 138 Potassium 3.2 L Chloride 108 H Carbon Dioxide 24 Anion Gap 6 L BUN 4 L Creatinine 0.50 L Estim Creat Clear Calc 132 Estimated GFR > 60 Glucose 112 H POC Capillary Glucose 92 115 H Calcium 8.3 L Total Bilirubin 0.2 AST 17 ALT 14 Alkaline Phosphatase 48 Total Protein 6.0 L Albumin 3.1 L 03/31/23 03/31/23 03/31/23 20:10 16:46 15:02 WBC 10.0 RBC 3.25 L Hgb 9.9 L Hct 29.8 L MCV 91.7 MCH 30.5 MCHC 33.2 RDW 13.3 Plt Count 188 MPV 10.3 Immature Gran % (Auto) 1.2 H Neut % (Auto) 78.3 H Lymph % (Auto) 15.0 L [place] % (Auto) 5.2 Eos % (Auto) 0.0 Baso % (Auto) 0.3 Lymph # (Auto) 1.50 [place] # (Auto) 0.5 Eos # (Auto) 0.0 Baso # (Auto) 0.0 Abs Immat Gran (auto) 0.12 H Absolute Neuts (auto) 7.8 H Absolute Nucleated RBC 0.0 Nucleated RBC % 0.0 Sodium Potassium Chloride Carbon Dioxide Anion Gap BUN Creatinine Estim Creat Clear Calc Estimated GFR Glucose POC Capillary Glucose 136 H 102 Calcium Total Bilirubin AST ALT Alkaline Phosphatase Total Protein Albumin Preliminary micro results at discharge 03/29/23 13:28 Blood Culture - Preliminary Blood 03/29/23 13:28 Blood Culture - Preliminary Blood Discharge Plan Discharge Attending physician on discharge: Edward Sanchez Consulting providers: Adolph Steven Discharging Clinician: Edward Sanchez Patient Disposition: Home, Self-Care Activity: as tolerated Diet: regular Patient Instructions: Antibiotic Form Stand Alone Forms: General Discharge Information Follow-up/Referrals: Adolph Steven MD [Physician] - Steven Garcia MD [Primary Care Provider] - Discharge Medications: Continued fludrocortisone 0.1 mg tablet 0.1 mg PO BID hydrocortisone 5 mg tablet 5 mg PO DIRE
--- NOTE | 2023-04-01 13:49 | PM.DS ---
DS: Admitting Diagnosis Discharge Date 04/01/23 Admitting Diagnosis 1. Influenza B infection 2. Gastroenteritis 3. Sepsis 4. Cyesis 5. Merlin's disease 6. Hypothyroidism 7. Suspected UTI 8. Hypokalemia 9. Nausea; Vomiting; Dehydration DS: Discharge Diagnosis Discharge Diagnosis (1) Acute gastroenteritis: Code(s): K52.9 - Noninfective gastroenteritis and colitis, unspecified Status: Acute Assessment and Plan: As above Toleratinig oral intake Follow (2) Hypotension due to hypovolemia: Code(s): E86.1 - Hypovolemia Status: Acute (3) 7 weeks gestation of : Code(s): Z3A.01 - Less than 8 weeks gestation of Status: Acute Assessment and Plan: No vaginal bleeding or spotting She was aware about the potential side effects of hydrocortisone including cleft lip. Explained the hydrocortisone is the drug of choice for female patients. She voices understanding and all questions asnwered. (4) Metabolic acidosis: Code(s): E87.20 - Acidosis, unspecified Status: Acute Assessment and Plan: Patient with mild nongap acidosis. [place] related to above Follow (5) Adrenal crisis syndrome: Code(s): E27.2 - Addisonian crisis Status: Acute Assessment and Plan: Patient with nausea, vomiting and weakness. She tested positive for influenza B at urgent care center but was negative here. Suspect she has either viral gastroenteritis and/or influenza causing the adrenal crisis. She was HoTN from Addisons crisis +/- hypovolemia. Started on Solu-Cortef 50mg Q6hr. BP still soft so dose advances. Glucose elevated due to steroids - add slidiing scale She is feeling better and now able to tolerate oral intake Continue S-C. Add back her Florinef (6) Orthostatic hypotension: Code(s): I95.1 - Orthostatic hypotension Status: Acute (7) Hypokalemia: Code(s): E87.6 - Hypokalemia Status: Acute Assessment and Plan: Replete and monitor (8) Complicated UTI (urinary tract infection): Code(s): N39.0 - Urinary tract infection, site not specified Status: Acute Assessment and Plan: UCx negative. UTI ruled out (9) Severe sepsis: Code(s): A41.9 - Sepsis, unspecified organism; R65.20 - Severe sepsis without septic shock Status: Acute Assessment and Plan: Related to to viral syndrome BCx NGTD Symptoms better. Continue to monitor off abx Plan Disposition: Will DC once electrolytes are improved DVT prophylaxis - SCDs Code status - full DS: Summary Hospital Course Reason for hospitalization: 1. Influenza B infection 2. Gastroenteritis 3. Sepsis 4. Cyesis 5. Hoke's disease 6. Hypothyroidism 7. UTI, complicated 8. Hypokalemia 9. Nausea; Vomiting; Dehydration 10. Leucocytosis. due to steroids. Hospital Course: 22-year-old female that is 7 weeks presents to the emergency department for evaluation nausea vomiting lightheaded dizziness.? Patient did follow up with the urgent care and was diagnosed with influenza B. patient was provided a prescription for Zofran but states she has not been able to fill it.? Patient states she still has persistent nausea vomiting and lightheadedness.? Patient denies any vaginal bleeding, vaginal discharge or abdominal pain.? Patient came to ED for evaluation treatment, in the ED, patient was found have hypertension, tachycardia tachypnea, leukocytosis 11,800, with a left shift, ECG: NSR; no ST-T wave changes hyponatremia 128, metabolic acidosis 20 bicarbonate glucose 74, glucose 74, urinalysis shows cloudy urine, positive ketone, 4+, pyuria white blood cell 21-50, urine casts 3-5 Obstetric US: IMPRESSION: Single, live intrauterine gestation. She was placed on Solu-cortef, Potassium, ; UTI was ruled out. With her electrolytes and vitals signs improved, she was discharged on 04/01/2023 Status at Discharg
== END 2023-04-01 13:27 | disposition home or self-care (01) | DRG 872 ==
LOC: ANHED 07:41 → ANHIMU 12:42
PROVIDERS: Emergency Medicine; Hospitalist; Obstetrics & Gynecology; Admitting Provider Internal Medicine; Emergency Provider Emergency Medicine; PCP Family Medicine; Visit Provider Internal Medicine
DX: A41.9 Sepsis, unspecified organism (principal); O98.811 Other maternal infectious and parasitic diseases complicating pregnancy, first trimester; A08.39 Other viral enteritis; E27.2 Addisonian crisis; E87.1 Hypo-osmolality and hyponatremia; O16.1 Unspecified maternal hypertension, first trimester; R65.20 Severe sepsis without septic shock; O99.281 Endocrine, nutritional and metabolic diseases complicating pregnancy, first trimester; E03.9 Hypothyroidism, unspecified; E87.6 Hypokalemia; Z20.822 Contact with and (suspected) exposure to COVID-19
CPT/HCPCS: 36415; 76801; 76817; 80053; 80069; 81001; 81025; 82533; 82948; 83036; 83690; 83735; 84100; 84443; 84702; 85025; 85027; 87040; 87086; 87637; 87651; 96361; 96374; 96375; 96376; 99285; A9270; G0378; J1720; J2405; J7030; J7042

== ENCOUNTER 2023-08-02 20:21 | Emergency (ER) | payer OTHER, SELFPAY ==
--- NOTE | 2023-08-02 20:22 | ECG_ITS ---
Test Date: 2023-08-02 20:27:03 Measurements Intervals [place] Rate: 93 P: 29 CO: 144 QRS: 65 QRSD: 86 T: 38 QT: 304 QTc: 379 Interpretive Statements SINUS RHYTHM No previous ECG available for comparison Electronically Signed On 08-03-2023 10:51:44 CDT by Sherley Light M.D.
[2023-08-02 20:38] VITALS: BP 107/69; PULSE 96; RESP 20; TEMP 36.4; O2SAT 100
[2023-08-02 21:04] LABS: Basophils Absolute Auto 0.1 K/mm3 (0.0-0.1); Basophils Percent Auto 0.4 % (0.2-1.2); Eosinophils Absolute Auto 0.1 K/mm3 (0-0.3); Eosinophils Percent Auto 0.3 % (0-4.4); Hematocrit 35.6 % (37.0-47.0); Hemoglobin 12.7 g/dL (12.0-15.0); Immature Granulocyte Absolute 0.57 K/mm3 (0.00-0.031); Immature Granulocyte Percent A 3.3 % (0-0.5); Lymphocytes Absolute Auto 1.95 K/mm3 (0.9-3.2); Lymphocytes Percent Auto 11.4 % (18.3-44.2); Mean Corpuscular HGB Conc 35.7 g/dl (32-36); Mean Corpuscular Hemoglobin 33.2 pg (26-34); Mean Platelet Volume 9.9 fl (7.4-10.4); Monocytes Absolute Auto 0.8 K/mm3 (0.1-0.6); Monocytes Percent Auto 4.9 % (2.6-8.5); Neutrophils Absolute Auto 13.6 K/mm3 (1.3-6.7); Neutrophils Percent Auto 79.7 % (45.5-73.1); Platelet Count Result 258 k/mm3 (150-375); Red Blood Count 3.83 M/mm3 (4.2-5.4); Red Cell Distribution Width 13.2 % (11.5-14.5); White Blood Count 17.1 K/mm3 (4.5-10.0)
[2023-08-02 21:14] LABS: INR 0.9; Partial Thromboplastin Time 28.2 Seconds (22.3-36.8); Prothrombin Time 12.8 Seconds (11.1-14.7)
[2023-08-02 21:19] LABS: Alanine Aminotransferase 9 U/L (6-35); Albumin Level 4.1 g/dL (3.5-5.1); Alkaline Phosphatase 70 U/L (38-126); Anion Gap 8 mmol/L (4-12); Aspartate Amino Transferase 16 U/L (14-36); Bilirubin,Total 0.4 mg/dL (0.2-1.3); Blood Urea Nitrogen 7 mg/dL (7-17); Calcium 9.3 mg/dL (8.4-10.2); Carbon Dioxide 22 mmol/L (22-30); Chloride 104 mmol/L (98-107); Estimated CRCL calculation 137 ml/min; Estimated Glomerular Filt Rate > 60; Glucose 99 mg/dL (65-110); Lipase 47 U/L (23-300); Potassium 3.8 mmol/L (3.4-5.0); Sodium 134 mmol/L (137-145)
[2023-08-02 21:31] LABS: Troponin I < 0.012 ng/mL (0.000-0.034)
[2023-08-02 22:08] VITALS: O2SAT 100
[2023-08-02 22:09] VITALS: PULSE 106
[2023-08-02 22:10] VITALS: BP 107/72; PULSE 106; RESP 20; O2SAT 100
[2023-08-02 22:35] LABS: D Dimer 0.75 ug/mL (<0.48)
--- NOTE | 2023-08-02 22:37 | ED.GENADULT ---
HPI - General Adult General Chief complaint: Arrhythmia/Palpitations Stated complaint: chest pain, heart palpitations Time Seen by Provider: 08/02/23 22:13 Source: patient Mode of arrival: ambulatory Limitations: no limitations History of Present Illness HPI narrative: 23-year-old male here for chest pain. Has been on and off with some associated on of shortness of breath the last 5 days as well as on the palpitations it places it centrally in her chest. The it was being caused by her but not sure this point. Nothing seems to make it better or worse. She gets worsening shortness of breath however when she does walk up stairs. Denies any related complaints Related Data Home Medications Medication Instructions Recorded Confirmed fludrocortisone 0.1 mg tablet 0.1 mg PO BID 01/28/19 04/14/23 hydrocortisone 5 mg tablet 5 mg PO DIRECTED 03/28/23 04/14/23 levothyroxine 88 mcg tablet 88 mcg PO DAILY 03/29/23 04/14/23 albuterol sulfate 90 mcg/actuation inhalation 06/02/23 aerosol inhaler vitamin no.167-folic acid tablet PO 06/02/23 400 mcg-dha 25 mg chewable tablet Allergies Allergy/AdvReac Type Severity Reaction Status Date / Time No Known Allergies Allergy Verified 06/02/23 11:22 Review of Systems Review of Systems: All systems reviewed & are unremarkable except as noted in HPI and below PMFSH Past Medical History Medical History Addisons disease Adult BMI 26.0-26.9 kg/sq m Anxiety BMI 24.0-24.9, adult BMI 25.0-25.9,adult BMI 27.0-27.9,adult BMI 28.0-28.9,adult BMI 32.0-32.9,adult COVID-19 Depression Hypothyroidism OCD (obsessive compulsive disorder) SARS-CoV-2 positive Surgical History Surgical History H/O wrist surgery Family History Family History Father Rheumatoid arthritis COVID-19 Mother COVID-19 Sibling COVID-19 Mental and behavioral disorders d/t use of alcohol, acute intoxication Grandparent Congestive heart failure Social History Social History Smoking status: Never smoker Second hand tobacco smoke exposure: Yes Alcohol intake: former Alcohol use details: occasionally Substance use: never Substance use type: does not use Do You Feel Safe in your Home?: Yes Lack of Transportation: No Lack of Food: Never True Current Housing: I Have Housing Concerned About Future Housing: No Difficulty Paying Gas/Electric Bills: No Difficulty Paying for Meds: No Currently Unemployed: No Education: Trade/Vocational Certificate Difficulty w/ Childcare or Family Care: No Living arrangements: with family Additional living arrangements comments: Lives with boyfriend Yashira [place] [id number]. 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 Eyes: Pupils equal, round, and reactive to light. Neck: Supple, no tracheal deviation, no JVD. ENMT: Mucous membranes moist Cardiovascular: tachycardicS1, S2 auscultated. No murmurs, rubs, or gallops. No S3/S4. Normal Distal pulses. No peripheral edema. Respiratory: Lung sounds equal. No wheezes, rales, or rhonchi. Gastrointestinal: Abdomen was soft and non-tender. Non-distended. No rebound or guarding. Genitourinary: Deferred Musculoskeletal: Normal muscle tone and bulk. No obvious deformities or tenderness over extremities. Skin: No rashes. Neurological: Strength 5/5 in extremities. Cranial nerves I-XII grossly intact. Distal sensation intact. Mental Status: Awake, alert and oriented x3. Follows commands C
--- NOTE | 2023-08-02 22:48 | PC.NURSE ---
Patient states she is 26 weeks and does not want to have a CT scan done. Notified EDP Dr. Lopes
[2023-08-02] MEDS: SODIUM CHLORIDE 0.9% IV 1,000 ML 999 ML IV CONT (22:53)
[2023-08-02 23:20] LABS: NT Pro B Type Natriuretic Pept < 20 pg/mL (19.9-100)
--- NOTE | 2023-08-02 23:39 | ECG_ITS ---
Test Date: 2023-08-02 23:43:24 Measurements Intervals [place] Rate: 86 P: 27 [place]: 137 QRS: 52 QRSD: 87 T: 38 QT: 330 QTc: 395 Interpretive Statements SINUS RHYTHM Compared to ECG 08/02/2023 20:27:03 No significant changes Electronically Signed On 08-03-2023 10:52:17 CDT by Sherley Light M.D.
[2023-08-02 23:46] LABS: Troponin I < 0.012 ng/mL (0.000-0.034)
[2023-08-03 00:37] VITALS: BP 95/68; PULSE 103; RESP 20; O2SAT 100
== END 2023-08-03 01:08 | disposition home or self-care (01) ==
PROVIDERS: Student in an Organized Health Care Education/Training Program; Emergency Provider Emergency Medicine; PCP Family Medicine
DX: R07.9 Chest pain, unspecified (principal); R06.02 Shortness of breath; E27.1 Primary adrenocortical insufficiency; E03.9 Hypothyroidism, unspecified; Z86.16 Personal history of COVID-19; Z79.899 Other long term (current) drug therapy
CPT/HCPCS: 36415; 80053; 83690; 83880; 84443; 84484; 85025; 85380; 85610; 85730; 93005; 96360; 99284; J7030

== ENCOUNTER 2023-08-17 12:34 | Outpatient (CLI) | payer OTHER, SELFPAY ==
--- NOTE | 2023-08-23 12:05 | WPDHOLTEREM ---
Holter/Event Monitor Holter/Event Monitor Date of procedure: 08/17/23 Holter/Event Procedure: 48 Hr Holter Monitor Indications: Palpitations Conclusion: 1. 48 hour holter monitor on 08/17/23. 2. Underlying rhythm is sinus rhythm. HR range 70-188 bpm; average HR 107 bpm. HR at 188 bpm was at 11:03. 3. There are 25 premature supraventricular complexes. No supraventricular tachycardia. 4. There are 7 premature ventricular complexes and 2 ventricular couplets. No ventricular tachycardia. 5. No sinoatrial or atrioventricular blocks. No significant pauses greater than 2 seconds. 6. Patient reports symptoms of palpitations which demonstrate sinus rhythm, HR range 103-124 bpm.
== END 2023-08-17 12:35 | disposition home or self-care (01) ==
LOC: ANHCARD 12:35
PROVIDERS: PCP Family Medicine; Visit Provider Obstetrics & Gynecology
DX: R00.2 Palpitations (principal)
CPT/HCPCS: 93225; 93226

== ENCOUNTER 2023-09-02 15:50 | Observation (INO) | payer OTHER, SELFPAY ==
[2023-09-02 16:24] VITALS: BP 102/72; PULSE 93; BMI 33.0
--- NOTE | 2023-09-02 16:24 | OBADM ---
This patient, Rafael Pat, admitted to the OB room 116 for observation for vaginal spotting. Patient/family oriented to hospital policies and general routines including ID bracelet, bed and alarms, visiting hours, pain management, procedures, bathroom and other care routines, personal items, smoking policy, room service/diet, and visiting hours. Patient/Family are encouraged to report perceived risks to care and to ask questions if they do not understand what they are told or what they should do.
[2023-09-02 16:30] VITALS: BP 109/80; PULSE 92
[2023-09-02 16:45] VITALS: BP 102/75; PULSE 96
[2023-09-02 17:00] VITALS: BP 107/73; PULSE 103
--- NOTE | 2023-10-03 21:21 | PM.OBTRLD ---
OB - Triage/Final Diagnosis Visit Information Comments/Additional reasons for admission: I have assessed the risk for this patient, Rafael Clarke Bi, and determined that she would benefit from observation care. Final Diagnosis (1) Vaginal bleeding during : Code(s): O46.90 - Antepartum hemorrhage, unspecified, unspecified trimester Status: Acute
== END 2023-09-02 18:01 | disposition home or self-care (01) ==
PROVIDERS: Admitting Provider Obstetrics & Gynecology; PCP Family Medicine; Visit Provider Obstetrics & Gynecology
DX: O46.90 Antepartum hemorrhage, unspecified, unspecified trimester (principal)
CPT/HCPCS: G0378; G0379

== ENCOUNTER 2023-10-11 13:50 | Observation (INO) | payer OTHER, SELFPAY ==
--- NOTE | 2023-10-11 13:50 | LDADM ---
This patient, Rafael Pat, was admitted to OB Post 116 on 10/11/23 at 13:50. Plans for labor, pain management and were discussed with patient. Patient/family oriented to hospital policies and general routines including ID bracelet, bed and alarms, visiting hours, pain management, procedures, bathroom and other care routines, personal items, smoking policy, room service/diet and guest tray routines, infant security routines, and visiting hours. Patient/Family are encouraged to report perceived risks to care and to ask questions if they do not understand what they are told or what they should do. See OBIX for further documentation.
--- NOTE | 2023-10-11 14:54 | PC.NURSE ---
Dr Steven notified of c/o of fall and hitting the left side of abd on stairs. Informed of no bleeding, no leaking, reactive tracing and RH positive. Monitor for 2 hours and dc home with precautions if FHT's remain reactive.
--- NOTE | 2023-11-02 08:12 | PM.OBTRLD ---
OB - Triage/Final Diagnosis Visit Information Comments/Additional reasons for admission: I have assessed the risk for this patient, Rafael Pat, and determined that she would benefit from observation care. Final Diagnosis (1) Fall: Code(s): W19.XXXA - Unspecified fall, initial encounter Status: Acute
== END 2023-10-11 16:10 ==
PROVIDERS: Admitting Provider Obstetrics & Gynecology; PCP Family Medicine; Visit Provider Obstetrics & Gynecology
DX: O9A.219 Injury, poisoning and certain other consequences of external causes complicating pregnancy, unspecified trimester (principal); S39.91XA Unspecified injury of abdomen, initial encounter; W19.XXXA Unspecified fall, initial encounter
CPT/HCPCS: G0378; G0379

== ENCOUNTER 2023-10-11 21:02 | Observation (INO) | payer OTHER, SELFPAY ==
[2023-10-11] VITALS (43 sets, daily range): BP systolic 94–109; BP diastolic 61–73; PULSE 79–141; TEMP 36.8; O2SAT 95–100; BMI 32.0
--- NOTE | 2023-10-11 21:02 | PC.NURSE ---
Pt arrives to unit with decreased movement post fall this afternoon.
--- NOTE | 2023-10-11 21:27 | OBADM ---
This patient, Rafael Pat, admitted to the OB room OB Post 117 for observation. Patient/family oriented to hospital policies and general routines including ID bracelet, bed and alarms, visiting hours, pain management, procedures, bathroom and other care routines, personal items, smoking policy, room service/diet, and visiting hours. Patient/Family are encouraged to report perceived risks to care and to ask questions if they do not understand what they are told or what they should do.
--- NOTE | 2023-10-11 22:09 | PC.NURSE ---
Called Dr. Steven, update on pt, DFM, lower abdomen and hip pain, tachycardia, and tracing. Orders received to administer Flexeril 10 mg and continuous heart monitoring through the night.
[2023-10-11] MEDS: CYCLOBENZAPRINE HCL 10 MG TABLET PO (22:32)
[2023-10-12] VITALS (94 sets, daily range): BP systolic 89–99; BP diastolic 46–67; PULSE 70–122; RESP 14; TEMP 36.3–36.9; O2SAT 93–100
== END 2023-10-12 08:00 | disposition home or self-care (01) ==
PROVIDERS: Admitting Provider Obstetrics & Gynecology; PCP Family Medicine; Visit Provider Obstetrics & Gynecology
DX: O36.8190 Decreased fetal movements, unspecified trimester, not applicable or unspecified (principal); O99.891 Other specified diseases and conditions complicating pregnancy; R00.0 Tachycardia, unspecified; M25.559 Pain in unspecified hip; O26.899 Other specified pregnancy related conditions, unspecified trimester; R10.30 Lower abdominal pain, unspecified
CPT/HCPCS: A9270; G0378; G0379

== ENCOUNTER 2023-11-03 06:03 | Inpatient (IN) | payer OTHER, SELFPAY ==
[2023-11-03] VITALS (264 sets, daily range): BP systolic 47–138; BP diastolic 20–89; PULSE 25–186; TEMP 36.4–36.6; O2SAT 78–100; BMI 32.0
--- NOTE | 2023-11-03 07:00 | LDADM ---
This patient, Rafael Pat, was admitted to Labor/Delivery/Recovery 101 on 11/03/23 at 06:03. Plans for labor, pain management and were discussed with patient. Patient/family oriented to hospital policies and general routines including ID bracelet, bed and alarms, visiting hours, pain management, procedures, bathroom and other care routines, personal items, smoking policy, room service/diet and guest tray routines, security routines, and visiting hours. Patient/Family are encouraged to report perceived risks to care and to ask questions if they do not understand what they are told or what they should do. See OBIX for further documentation.
[2023-11-03 07:22] LABS: Basophils Percent Auto 0.3 % (0.2-1.2); Eosinophils Percent Auto 0.1 % (0-4.4); Hematocrit 33.2 % (37.0-47.0); Hemoglobin 11.4 g/dL (12.0-15.0); Immature Granulocyte Absolute 0.15 K/mm3 (0.00-0.031); Immature Granulocyte Percent A 1.4 % (0-0.5); Immature Platelet Fraction Pct 3.6 % (0.9-11.2); Lymphocytes Absolute Auto 2.25 K/mm3 (0.9-3.2); Lymphocytes Percent Auto 21.7 % (18.3-44.2); Mean Corpuscular HGB Conc 34.3 g/dl (32-36); Mean Corpuscular Hemoglobin 32.2 pg (26-34); Mean Corpuscular Volume 93.8 fl (80-100); Mean Platelet Volume 10.4 fl (7.4-10.4); Monocytes Absolute Auto 0.7 K/mm3 (0.1-0.6); Monocytes Percent Auto 7.1 % (2.6-8.5); Neutrophils Absolute Auto 7.2 K/mm3 (1.3-6.7); Neutrophils Percent Auto 69.4 % (45.5-73.1); Platelet Count Result 209 k/mm3 (150-375); Red Blood Count 3.54 M/mm3 (4.2-5.4); Red Cell Distribution Width 13.1 % (11.5-14.5); White Blood Count 10.4 K/mm3 (4.5-10.0)
[2023-11-03 08:01] LABS: Glucose Point of Care 68 mg/dl (65-105)
[2023-11-03 08:03] LABS: Rapid Plasma Reagin Non-Reactive (NonReactive)
[2023-11-03 08:22] LABS: HIV 1/2 Ab P24 Ag Result Negative (Negative)
[2023-11-03] MEDS: OXYTOCIN 30 UNITS/NS 500 ML 30 UNITS/500 ML BAG 6 UNITS IV CONT (08:29)
[2023-11-03] MEDS: LACTATED RINGERS 1,000 ML 125 ML IV CONT ×3 (08:29→17:50)
--- NOTE | 2023-11-03 09:35 | WPDHPUPDATE1 ---
History and Physical Update Update Date/Time: 11/03/23 09:35 23-year-old multiparous female and 39 weeks gestation who presents induction of labor. She has [place]'s disease. She is 2 cm/ 50%/ -3. Artificial rupture membranes was performed. Clear fluid. Pitocin was started earlier. Reassuring status. Expectant management. stress dose of steroids will be required. History and Physical has been reviewed, including an updated exam of the patient. There are NO changes in the patient's condition. Risks, benefits, and alternatives have been discussed and questions answered. Patient agrees to proceed with procedure.
[2023-11-03 12:14] LABS: Glucose Point of Care 74 mg/dl (65-105)
--- NOTE | 2023-11-03 12:22 | WPDANESEPP ---
Anes - Eval Pre Procedure Procedure: labor Epidural Date/Time: 11/03/23 12:22 Surgeon: Maurizio Preop Diagnosis: Labor Pain Pre Op Diagnosis: IOL Patient Data Age: 23 Gender: F Height: 1.57 m Weight: 79.5 kg Last Vital Signs Temp 36.6 C 11/03/23 12:07 Pulse 81 11/03/23 12:15 BP 61/32 L 11/03/23 12:15 Pulse Ox 100 11/03/23 12:19 O2 Del Method Room Air 11/03/23 07:14 Allergies Allergy/AdvReac Type Severity Reaction Status Date / Time No Known Allergies Allergy Verified 11/03/23 06:57 Home Medications Medication Instructions Recorded Confirmed Type fludrocortisone 0.1 mg tablet 0.1 mg PO BID 01/28/19 10/11/23 History inhalational spacing device #1 ea 12/07/22 10/11/23 Rx (Aerochamber MV spacer) albuterol sulfate 90 mcg/actuation 2 puff inhalation Q4H PRN 06/02/23 11/03/23 History aerosol inhaler Shortness Of Breath Or Wheezing vitamin no.167-folic acid 1 tablet PO DAILY 06/02/23 10/11/23 History 400 mcg-dha 25 mg chewable tablet levothyroxine 100 mcg tablet 100 mcg PO DAILY 09/02/23 10/11/23 History Laboratory Tests 11/03/23 11/03/23 11/03/23 06:22 07:49 12:08 WBC 10.4 H K/mm3 (4.5-10.0) RBC 3.54 L M/mm3 (4.2-5.4) Hgb 11.4 L g/dL (12.0-15.0) Hct 33.2 L % (37.0-47.0) MCV 93.8 fl (80-100) MCH 32.2 pg (26-34) MCHC 34.3 g/dl (32-36) RDW 13.1 % (11.5-14.5) Plt Count 209 k/mm3 (150-375) MPV 10.4 fl (7.4-10.4) Immature Gran % (Auto) 1.4 H % (0-0.5) Neut % (Auto) 69.4 % (45.5-73.1) Lymph % (Auto) 21.7 % (18.3-44.2) Knox % (Auto) 7.1 % (2.6-8.5) Eos % (Auto) 0.1 % (0-4.4) Baso % (Auto) 0.3 % (0.2-1.2) Lymph # (Auto) 2.25 K/mm3 (0.9-3.2) Knox # (Auto) 0.7 H K/mm3 (0.1-0.6) Eos # (Auto) 0.0 K/mm3 (0-0.3) Baso # (Auto) 0.0 K/mm3 (0.0-0.1) Abs Immat Gran (auto) 0.15 H K/mm3 (0.00-0.031) Absolute Neuts (auto) 7.2 H K/mm3 (1.3-6.7) Absolute Nucleated RBC 0.000 K/mm3 (0.0-0.012) Nucleated RBC % 0.0 % (0.0-0.2) % Immature Plt Fraction 3.6 % (0.9-11.2) POC Capillary Glucose 68 mg/dl 74 mg/dl (65-105) (65-105) RPR Non-reactive (NonReactive) HIV 1&2 Ab/P24 Ag 4thGn Negative (Negative) Blood Type O Positive Antibody Screen Negative : gestational age (, CONNIE 11/09/23) Patient hx anesthesia problems: none Family hx anesthesia problems: none Results Review: All pre-operative results and documents have been reviewed as part of the pre-operative evaluation. [facility] Past Medical History Medical History Addisons disease Adult BMI 26.0-26.9 kg/sq m Anxiety BMI 24.0-24.9, adult BMI 25.0-25.9,adult BMI 27.0-27.9,adult BMI 28.0-28.9,adult BMI 32.0-32.9,adult COVID-19 Depression Hypothyroidism OCD (obsessive compulsive disorder) SARS-CoV-2 positive Surgical History Surgical History H/O wrist surgery Family History Family History Father Rheumatoid arthritis COVID-19 Mother COVID-19 Sibling COVID-19 Mental and behavioral disorders d/t use of alcohol, acute intoxication Grandparent Congestive heart failure Social History Social History Smoking status: Never smoker Second hand tobacco smoke exposure: No Alcohol intake: former Alcohol use details: occasionally Substance use: never Substance use type: does not use Do You Feel Safe in your Home?: Yes Lack of Transportation: No Lack of Food: Never True Current Housing: I Do Not Have Housing Concerned About Future H
[2023-11-03] MEDS: ONDANSETRON INJ 4 MG/2 ML VIAL IV PUSH (12:24)
[2023-11-03 16:27] LABS: Glucose Point of Care 67 mg/dl (65-105)
[2023-11-03] MEDS: HYDROCORTISONE SODIUM SUCCINATE 100 MG/2 ML VIAL IV PUSH (18:28)
[2023-11-03 18:38] LABS: Glucose Point of Care 97 mg/dl (65-105)
--- NOTE | 2023-11-03 19:24 | PM.OBPRVD ---
OB - Vaginal Delivery Note Procedure Delivery date: 11/03/23 Induction method: AROM and Per Pitocin Protocol Delivery monitor: External FHT and Internal Uterine Route of delivery: Episiotomy description: Midline Laceration Description: None Delivery repair: vicryl Quantitative Blood Loss (ml): 200 Complications: No immediate complications Baby Date of : 11/03/23 Time of : 19:11 score one minute: 7 score five minutes: 8
[2023-11-03] MEDS: OXYTOCIN 30 UNITS/NS 500 ML 30 UNITS/500 ML BAG 125 UNITS IV CONT (19:39)
[2023-11-03] MEDS: OXYTOCIN 30 UNITS/NS 500 ML 30 UNITS/500 ML BAG 999 UNITS IV CONT (19:39)
--- NOTE | 2023-11-03 23:43 | OBPPTRN ---
Patient transferred to post room #278 via wheelchair @ [id number]. Support person present. Oriented to unit, room, information board, rooming in, admission packet and security measures. Patient verbalizes understanding.
[2023-11-04 00:12] VITALS: BP 89/54; PULSE 72; RESP 20; TEMP 37.6; O2SAT 97
[2023-11-04] MEDS: HYDROCORTISONE SODIUM SUCCINATE 100 MG/2 ML VIAL 50 MG IV PUSH ×3 (00:37→23:55)
[2023-11-04] MEDS: ACETAMINOPHEN 325 MG TABLET 650 MG PO ×4 (00:37→20:53)
[2023-11-04 03:54] VITALS: BP 83/50; PULSE 52; RESP 12; TEMP 36.9; O2SAT 95
[2023-11-04 04:33] LABS: Hematocrit 34.1 % (37.0-47.0); Hemoglobin 11.6 g/dL (12.0-15.0)
[2023-11-04] MEDS: SODIUM CHLORIDE 0.9% IV 1,000 ML 999 ML IV CONT (06:02)
[2023-11-04] MEDS: HYDROCORTISONE SODIUM SUCCINATE 100 MG/2 ML VIAL IV PUSH (06:02)
[2023-11-04] MEDS: LEVOTHYROXINE SODIUM 100 MCG TABLET PO (07:12)
[2023-11-04] MEDS: IBUPROFEN 600 MG TABLET PO ×3 (07:12→20:53)
[2023-11-04 07:15] VITALS: BP 95/63; PULSE 61; RESP 16; TEMP 36.4; O2SAT 100
[2023-11-04 07:19] LABS: Anion Gap 7 mmol/L (4-12); Blood Urea Nitrogen 3 mg/dL (7-17); Carbon Dioxide 20 mmol/L (22-30); Chloride 107 mmol/L (98-107); Estimated CRCL calculation 141 ml/min; Estimated Glomerular Filt Rate > 60; Glucose 94 mg/dL (65-110); Potassium 3.8 mmol/L (3.4-5.0); Sodium 134 mmol/L (137-145)
--- NOTE | 2023-11-04 08:36 | P.PNOB_ITS ---
OB - PN: Subj Subjective Date/time seen: 11/04/23 08:36 Interval history: Denies any syncope, shortness of breath, dizziness, diaphoresis, tremor Patient comments: no complaints, pain well controlled, incisional pain, tolerat ing diet and flatus present OB - PN: Obj Data Labs 11/04/23 04:12 11/04/23 06:54 Labs: Laboratory Results - last 24 hr 11/03/23 11/03/23 11/03/23 12:08 16:25 18:30 Hgb Hct Sodium Potassium Chloride Carbon Dioxide Anion Gap BUN Creatinine Estim Creat Clear Calc Estimated GFR Glucose POC Capillary Glucose 74 67 97 Calcium Blood Type Antibody Screen Screen Baby's Blood Type Baby's MADELEINE Doses of RhIg Required 11/04/23 11/04/23 04:12 06:54 Hgb 11.6 L Hct 34.1 L Sodium 134 L Potassium 3.8 Chloride 107 Carbon Dioxide 20 L Anion Gap 7 BUN 3 L Creatinine 0.50 L Estim Creat Clear Calc 141 Estimated GFR > 60 Glucose 94 POC Capillary Glucose Calcium 8.0 L Blood Type O Positive Antibody Screen Negative Screen Not Reportable Baby's Blood Type A neg Baby's MADELEINE Negative Doses of RhIg Required 0 OB - PN A/P Assessment and Plan (1) Addisons disease: 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 Seen by Medicine. Treated. Will need to taper down to regular steroid dose. Plan day: 1 Plan: routine care Comments: No problems, routine care Time Spent With Patient Time: Total time spent is greater than 50% in coordination of care (as documented) at patient's floor/unit and/or counseling patient: Exam Const: General: comfortable, no acute distress and alert Resp: Effort & Inspection: normal respiratory effort Auscultation: no crackles, no rales and no rhonchi Cardio: Rate: regular rate Heart sounds: no click, no murmurs and no rubs GI: Inspection: non-distended GI Palp: No Tenderness to palpation present (GI) Auscultation: normal bowel sounds Other: Incision - CDI Extrem: General: normal to inspection, no pedal edema and no calf tenderness
--- NOTE | 2023-11-04 09:40 | PC.NURSE ---
Introductions were made, then consulted with patient to assess needs related to . Mother led the conversation with her?plans to feed?her and the?experience so far. Mother works well with her . Reviewed positioning and ear, shoulder, hip alignment, supporting the breast to facilitate a deep latch, asymmetrical latch (off-center), leading with the chin with a big, open, wide gape and body close to mother. latched optimally to the right breast in cross cradle position. Mother was able to latch independently without pain. Education given to the mother of how to visualize the suckling (with good rocking jaw motion), swallows (dropping of the lower jaw) and how to listen for drinking at the breast (the ka sound). was able to maintain latch without pain to mother protecting the nipple with optimal positioning and latching. Mother voiced understanding of skin to skin, stimulating with massage touch, responsive feedings, hand expressed colostrum, talking to to encourage if it has been 2 -2.5 hours since the start of the last , to call if does not latch, or if there is discomfort with . Name written on the communication board with telephone number. Parents voiced understanding of information, demonstrated learning and will call if there is a request for assistance. Reported to the Primary RN.
--- NOTE | 2023-11-04 09:48 | PM.IMPN ---
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 -Patient electrolytes including the glucose are within normal limits. -Patient was previously on hydrocortisone 50 mg q.6 hours that has been recently changed to hydrocortisone 100 mg Q 8hrs. -Started the fluid and change the hydrocortisone to 50 mg q.6 hours. -Since the patient received the stress dose hydrocortisone upon discharge she can continue only her home medication fludrocortisone 0.1 mg P O b.i.d. and does not need oral hydrocortisone. 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 Subjective Date/time seen: 11/04/23 09:48 Interval history: Patient is a 23-year-old female with a past medical history of Mccormick's and hypothyroidism. Patient was consulted due to low blood pressure. We believe the low blood pressure secondary to the stress of the . Patient electrolytes including the glucose are within normal limits. Patient is asymptomatic in regards to hypotension. Patient was previously on hydrocortisone 50 mg q.6 hours that has been recently changed to hydrocortisone 100 mg Q 8hrs. We started the fluid and changed the hydrocortisone to 50 mg q.6 hours. Since the patient received the stress dose hydrocortisone upon discharge she can continue only her home medication fludrocortisone 0.1 mg P O b.i.d. and does not need oral hydrocortisone. Also patient needs to follow-up with her cloth shearing supervisor in a week. Exam Const: General: comfortable, no acute distress and alert Resp: Effort & Inspection: normal respiratory effort Auscultation: no crackles, no rales and no rhonchi Cardio: Rate: regular rate Heart sounds: no click, no murmurs and no rubs GI: Inspection: non-distended Auscultation: normal bowel sounds Other: Incision - CDI Extrem: General: normal to inspection, no pedal edema and no calf tenderness Objective Data Vital Signs Vital Signs: Vital Signs - 24 hr 11/03/23 09:50 11/03/23 09:55 11/03/23 10:00 Temperature Pulse Rate Respiratory Rate Blood Pressure Pulse Oximetry 95 100 100 Oxygen Delivery 11/03/23 10:04 11/03/23 10:07 11/03/23 10:07 Temperature Pulse Rate Respiratory Rate Blood Pressure Pulse Oximetry 100 100 100 Oxygen Delivery 11/03/23 10:12 11/03/23 10:17 11/03/23 10:19 Temperature Pulse Rate Respiratory Rate Blood Pressure Pulse Oximetry 100 100 100 Oxygen Delivery 11/03/23 10:19 11/03/23 10:20 11/03/23 10:24 Temperature Pulse Rate 91 Respiratory Rate Blood Pressure 100/62 Pulse Oximetry 100 100 Oxygen Delivery 11/03/23 10:25 11/03/23 10:25 11/03/23 10:25 Temperature Pulse Rate Respiratory Rate Blood Pressure Pulse Oximetry 100 100 100 Oxygen Delivery 11/03/23 10:29 11/03/23 10:30 11/03/23 10:30 Temperature Pulse Rate 108 H Respiratory Rate Blood Pressure 101/65 Pulse Oximetry 87 L 98 99 Oxygen Delivery 11/03/23 10:31 11/03/23 10:32 11/03/23 10:34 Temperature Pulse Rate Respiratory Rate Blood Pressure Pulse Oximetry 98 98 91 Oxygen Delivery 11/03/23 10:35 11/03/23 10:35 11/03/23 10:40 Temperature Pulse Rate Respiratory Rate Blood Pressure Pulse Oximetry 90 90 100 Oxygen Delivery 11/03/23 10:45 11/03/23 10:49 11/03/23 10:54 Temperature Pulse Rate 102 H Respiratory Rate Blood Pressure 104/72 Pulse Oximetry 100 100 100 Oxygen Delivery 11/03/23 10:57 11/03/23 11:00 11/03/23 11:02 Temperature Pulse Rate 96 Respiratory Rate Blood Pressure 100/66 Pulse Oximetry 100 90 Oxygen Delivery 11/03/23 11:02 11/03/23 11:02 11/03/23 11:10 Temperature Pulse R
[2023-11-04] MEDS: MULTIVIT/MIN/PREN/FOL AC/IRON TABLET 1 TAB PO (09:51)
[2023-11-04] MEDS: DOCUSATE SODIUM 100 MG CAPSULE PO ×2 (09:51→17:10)
[2023-11-04] MEDS: SODIUM CHLORIDE 0.9% IV 1,000 ML 100 ML IV CONT ×2 (10:28→20:49)
--- NOTE | 2023-11-04 10:50 | WPDANLDPN2 ---
Anes-Prog Note L&D Date/Time: 11/04/23 10:50 Comfortable throughout: labor and delivery Neuraxial method: epidural Epidural/Spinal procedure site: clean & non-tender Neuro status: Neuro function grossly intact. Cardiovascular status: normal Respiratory status: normal Airway patency: baseline Mental status: baseline Post-Op hydration status: normal Vital Signs: Last Vital Signs Temp 36.4 C 11/04/23 07:15 Pulse 61 11/04/23 07:15 Resp 16 11/04/23 07:15 BP 95/63 L 11/04/23 07:15 Pulse Ox 100 11/04/23 07:15 O2 Del Method Room Air 11/04/23 07:15 Pain score (VAS): 03/03 I/O: Intake & Output 11/03/23 11/04/23 11/04/23 23:59 07:59 15:59 Intake Total 1000 1000 Output Total 75 Balance 925 1000 Post-procedural complaints: none Patient feedback: Patient satisfied with anesthetic care.
[2023-11-04 11:30] VITALS: BP 98/61; PULSE 85; RESP 16; TEMP 36.5; O2SAT 98
[2023-11-04] MEDS: TETANUS,DIPHTHERIA,AC PERTUSSIS ADULT (0.5 ML) BOOSTRIX IM (13:46)
--- NOTE | 2023-11-04 14:53 | PC.NURSE ---
1430. Mom called for assistance with latch. Mom expressed that she had been trying to latch baby for the last hour or so on and off and baby has been super sleepy. Baby last ate @1045. Attempts made to latch infant. Infant sleepy/reluctant, showing no feeding cues. Reviewed hand expression with mom. Mom expressed 6-8 drops of colostrum and fed to . Attempted to latch on the opposite R breast and infant remained sleepy/reluctant. Mom plans to do S2S for 20-30 min and repeat attempts. Mom encouraged to call again for assistance if needed.
[2023-11-04 15:45] VITALS: BP 100/67; PULSE 75; RESP 16; TEMP 36.8; O2SAT 100
[2023-11-04 19:26] VITALS: BP 102/62; PULSE 70; RESP 12; TEMP 36.9; O2SAT 99
[2023-11-05 04:42] LABS: Hematocrit 27.6 % (37.0-47.0); Hemoglobin 9.4 g/dL (12.0-15.0); Mean Corpuscular HGB Conc 34.1 g/dl (32-36); Mean Corpuscular Hemoglobin 33.2 pg (26-34); Mean Corpuscular Volume 97.5 fl (80-100); Mean Platelet Volume 10.5 fl (7.4-10.4); Platelet Count Result 211 k/mm3 (150-375); Red Blood Count 2.83 M/mm3 (4.2-5.4); Red Cell Distribution Width 13.2 % (11.5-14.5)
[2023-11-05 04:58] LABS: Alanine Aminotransferase 9 U/L (6-35); Albumin Level 2.3 g/dL (3.5-5.1); Alkaline Phosphatase 104 U/L (38-126); Anion Gap 7 mmol/L (4-12); Aspartate Amino Transferase 16 U/L (14-36); Bilirubin,Total < 0.1 mg/dL (0.2-1.3); Blood Urea Nitrogen 6 mg/dL (7-17); Calcium 8.2 mg/dL (8.4-10.2); Carbon Dioxide 20 mmol/L (22-30); Chloride 109 mmol/L (98-107); Estimated CRCL calculation 141 ml/min; Estimated Glomerular Filt Rate > 60; Glucose 120 mg/dL (65-110); Potassium 3.2 mmol/L (3.4-5.0); Sodium 136 mmol/L (137-145)
[2023-11-05 07:45] VITALS: BP 98/63; PULSE 61; RESP 16; TEMP 36.4; O2SAT 98
--- NOTE | 2023-11-05 08:00 | PM.OBPNVD ---
OB - PN: Subj Subjective Date/time seen: 11/05/23 08:00 Interval history: pp day 2 will await orders from hospitalist pt still receiving IV fluids no complaints OB - PN: Obj Data Labs 11/05/23 04:33 11/05/23 04:33 Labs: Laboratory Results - last 24 hr 11/05/23 04:33 WBC 18.0 H RBC 2.83 L Hgb 9.4 L Hct 27.6 L MCV 97.5 MCH 33.2 MCHC 34.1 RDW 13.2 Plt Count 211 MPV 10.5 H Sodium 136 L Potassium 3.2 L Chloride 109 H Carbon Dioxide 20 L Anion Gap 7 BUN 6 L Creatinine 0.50 L Estim Creat Clear Calc 141 Estimated GFR > 60 Glucose 120 H Calcium 8.2 L Total Bilirubin < 0.1 L AST 16 ALT 9 Alkaline Phosphatase 104 Total Protein 5.0 L Albumin 2.3 L OB - PN A/P Plan day: 2 Plan: routine care Time Spent With Patient Time: Total time spent is greater than 50% in coordination of care (as documented) at patient's floor/unit and/or counseling patient: Review of Systems Review of Systems: All systems reviewed & are unremarkable except as noted in HPI and below Exam Const: General: cooperative, healthy appearing and comfortable Chest: Chest palpation & inspection: normal inspection of the chest Resp: Effort & Inspection: normal respiratory effort GI: Inspection: normal to inspection Skin: General skin exam: normal color
[2023-11-05] MEDS: SODIUM CHLORIDE 0.9% IV 1,000 ML 100 ML IV CONT (08:19)
[2023-11-05] MEDS: POTASSIUM CHLORIDE 20 MEQ ER TABLET 40 MEQ PO (08:19)
[2023-11-05] MEDS: HYDROCORTISONE SODIUM SUCCINATE 100 MG/2 ML VIAL 50 MG IV PUSH (08:19)
[2023-11-05] MEDS: MULTIVIT/MIN/PREN/FOL AC/IRON TABLET 1 TAB PO (08:20)
[2023-11-05] MEDS: LEVOTHYROXINE SODIUM 100 MCG TABLET PO (08:20)
[2023-11-05] MEDS: DOCUSATE SODIUM 100 MG CAPSULE PO (08:20)
[2023-11-05] MEDS: ACETAMINOPHEN 325 MG TABLET 650 MG PO (08:25)
--- NOTE | 2023-11-05 09:00 | PC.NURSE ---
This RN was called to room to observe latch and evaluate nipple soreness. is latched appropriately and mother denies pain while infant is latched. Mother states that it is just a little sore. Hydrogel cooling pads given, explained to mother that she should follow the instructions on the hydrogel pads and place them on her nipples after feedings to relieve some of the soreness. Mother states understanding and will call for further questions or concerns. Otherwise, mother is independently feeding infant. Mother is feeding appropriately for growth of and understands stimulating to eat if needed. Infant has had appropriate feedings in the last 24 hours meets the outcomes for weight, output, blood sugar and jaundice at this time. Reinforced understanding of milk production, transition of milk, signs of adequate intake, transition of stool, prevention/relief of engorgement, plugged ducts, mastitis, responsive watching for feeding cues, the different methods of stimulating infant to breastfeed 1-3 hours after the start of the last feeding, community resources, and when to call a provider using the resource of the feeding sheet along with the mom and baby guide. Mother voiced understanding of the information shared, is confident to continue effectively her infant at home, when to call for assistance, denies any additional assistance or education at this time. Reported to the Primary RN.
--- NOTE | 2023-11-05 10:35 | PM.OBDSVD ---
DS: Admitting Diagnosis Discharge Date 11/05/23 Admitting Diagnosis IOL OB - DS: Summary OB Procedures : None OB Procedures Intrapartum: Spontaneous Vag Delivery OB Procedures: : None Peripartum Data Laceration Description: None Episiotomy description: Midline Time Spent with Patient Time attestation: Total time spent providing and/or coordinating discharge services: DS: Data Data Completed and Pending Labs on day of discharge: Labs from last 24 hours 11/05/23 04:33 WBC 18.0 H RBC 2.83 L Hgb 9.4 L Hct 27.6 L MCV 97.5 MCH 33.2 MCHC 34.1 RDW 13.2 Plt Count 211 MPV 10.5 H Sodium 136 L Potassium 3.2 L Chloride 109 H Carbon Dioxide 20 L Anion Gap 7 BUN 6 L Creatinine 0.50 L Estim Creat Clear Calc 141 Estimated GFR > 60 Glucose 120 H Calcium 8.2 L Total Bilirubin < 0.1 L AST 16 ALT 9 Alkaline Phosphatase 104 Total Protein 5.0 L Albumin 2.3 L Discharge Plan Discharge Attending physician on discharge: Carloz Steven Consulting providers: Susie Rojo V. Discharging Clinician: Comfort Dumont Patient Disposition: Home, Self-Care Activity: pelvic rest Diet: as tolerated Patient Instructions: Antibiotic Form Stand Alone Forms: General Discharge Information Follow-up/Referrals: Carloz Steven MD [Physician] - 4 Weeks Discharge Medications: Continued fludrocortisone 0.1 mg tablet 0.1 mg PO BID albuterol sulfate 90 mcg/actuation HFA aerosol inhaler 2 puff inhalation Q4H PRN (Reason: Shortness Of Breath Or Wheezing) no.167-folic acid-dha 400 mcg- 25 mg tablet,chewable 1 tablet PO DAILY levothyroxine 100 mcg tablet 100 mcg PO DAILY No Action (DME) Aerochamber MV Spacer See Rx Instructions .Route Qty: 1 0RF Rx Instructions: As directed Date of admission: 11/03/23 06:03 Primary Care Provider: Steven Garcia Admitting Provider: Carloz Steven Attending physician on admission: Carloz Steven Condition: Stable
--- NOTE | 2023-11-05 11:22 | PM.IMPN ---
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 -Patient electrolytes including the glucose are within normal limits. -Patient was previously on hydrocortisone 50 mg q.6 hours that has been recently changed to hydrocortisone 100 mg Q 8hrs. -Started the fluid and change the hydrocortisone to 50 mg q.6 hours. -Since the patient received the stress dose hydrocortisone upon discharge she can continue only her home medication fludrocortisone 0.1 mg P O b.i.d. and does not need oral hydrocortisone. -Also patient needs to follow-up with her coke still cleaner in a week. Subjective Date/time seen: 11/05/23 11:22 Interval history: Patient is a 23-year-old female with a past medical history of Cassia's and hypothyroidism. Patient was consulted due to low blood pressure. We believe the low blood pressure secondary to the stress of the . Patient electrolytes including the glucose are within normal limits. Patient is asymptomatic in regards to hypotension. Patient was previously on hydrocortisone 50 mg q.6 hours that has been recently changed to hydrocortisone 100 mg Q 8hrs. We started the fluid and changed the hydrocortisone to 50 mg q.6 hours. Since the patient received the stress dose hydrocortisone upon discharge she can continue only her home medication fludrocortisone 0.1 mg P O b.i.d. and does not need oral hydrocortisone. Also patient needs to follow-up with her coke still cleaner in a week. 11/05/2023: Patient denies any complaint. Patient completed the stress dose of hydrocortisone. Patient can be discharged home with the fludrocortisone 0.1 mg p.o. b.i.d. and follow-up with her coke still cleaner within a week of discharge. Recommended to check her blood pressure at home regularly. Exam Const: General: comfortable, no acute distress and alert Resp: Effort & Inspection: normal respiratory effort Auscultation: no crackles, no rales and no rhonchi Cardio: Rate: regular rate Heart sounds: no click, no murmurs and no rubs GI: Inspection: non-distended Auscultation: normal bowel sounds Other: Incision - CDI Extrem: General: normal to inspection, no pedal edema and no calf tenderness Objective Data Vital Signs Vital Signs: Vital Signs - 24 hr 11/04/23 11:30 11/04/23 11:30 11/04/23 15:45 Temperature 97.7 F 98.3 F Pulse Rate 85 75 Respiratory Rate 16 16 Blood Pressure 98/61 L 100/67 Pulse Oximetry 98 100 Oxygen Delivery Room Air 11/04/23 19:26 11/05/23 07:45 Temperature 98.4 F 97.6 F Pulse Rate 70 61 Respiratory Rate 12 16 Blood Pressure 102/62 98/63 L Pulse Oximetry 99 98 Oxygen Delivery Intake/Output Intake/Output: Intake & Output 11/02/23 11/03/23 11/04/23 11/05/23 23:59 23:59 23:59 23:59 Intake Total 1999 1999 102 Output Total Balance 1924 1999 1023 Meds/Results Medications: Active Medications Generic Name Dose Route Start Last Admin Trade Name Freq PRN Reason Stop Dose Admin Acetaminophen 650 mg 11/03/23 21:13 11/05/23 08:25 Acetaminophen 325 Mg Tablet PO 650 mg Q6H PRN Administration Mild Pain (1-3) or Headache Albuterol 2 puff 11/03/23 21:13 Albuterol Sulfate (*Sp) Aerosol 1 Puff INHALATION Q4HRT PRN Shortness Of Breath Or Wheezing Benzocaine 1 spray 11/03/23 21:13 Benzocaine 20% Aer Spr (*Sp) 56 Gm Can TOPICAL PRN PRN Perineal Discomfort Dibucaine 1 applic 11/03/23 21:13 Dibucaine 1% Ointment 30 Gm Tube TOPICAL PRN PRN Hemorrhoids Docusate Sodium 100 mg 11/03/23 21:13 11/05/23 08:20 Docusate Sodium 100 Mg Capsule PO 100 mg BID PRN Administration Constipation Emollient Ointment 1 applic 11/03/23 21:13 Lanolin (Lansinoh) 7.5 Gm Cream T
[2023-11-05] MEDS: POLYSACCHARIDE IRON COMPLEX 150 MG CAPSULE PO (13:13)
--- NOTE | 2023-11-05 13:17 | PC.NURSE ---
Patient viewed the discharge video Mother & Baby Care, The First Two Weeks . Patient was given the opportunity and encouraged to ask questions. Patient verbalized understanding of information shared and has been given the mother/baby guide for home reference.
--- NOTE | 2023-11-08 07:49 | PM.OBDSVD ---
DS: Admitting Diagnosis Discharge Date 11/05/23 Admitting Diagnosis IOL DS: Discharge Diagnosis Discharge Diagnosis (1) Vaginal delivery: Code(s): O80 - Encounter for full-term uncomplicated delivery Status: Acute OB - DS: Summary OB Procedures : None OB Procedures Intrapartum: Spontaneous Vag Delivery OB Procedures: : None Peripartum Data Laceration Description: None Episiotomy description: Midline Time Spent with Patient Time attestation: Total time spent providing and/or coordinating discharge services: Discharge Plan Discharge Attending physician on discharge: Carloz Steven Consulting providers: Susie Rojo V. Discharging Clinician: Comfort Dumont Patient Disposition: Home, Self-Care Activity: pelvic rest Diet: as tolerated Discharge Instructions: Education: Mom and Baby Guide Given to: Mother Follow-Up: Call your delivering provider's office for an appointment to be seen in: 4 Weeks [facility]. Appointment Date/Time: November 06, 2023 at 8:00 am What to expect at your follow-up visit: Physical Assessment Call [phone] if you are unable to keep your appointment time. BREAST CARE: * Wear a snug supportive bra. * For engorgement discomfort: Breast Feeding: * Apply warm moist washcloths * Express milk as needed to relieve engorgement * Wear loose clothing Bottle Feeding: * May apply ice packs * For sore nipples: * Identify correct latch-on * Apply warm moist washcloths before and after nursing * Air dry nipples after nursing * May apply Lansinoh cream to nipples ABDOMINAL INCISION: (if applicable) * Allow incision to air dry * Do NOT use lotions for powders on your incision * When showering, allow soap and water to run over the incision, but do not wash incision EPISIOTOMY/PERINEAL CARE: * Until bleeding stops, use your tanisha bottle after urinating * Change your pad frequently throughout the day * You may take sitz baths several times a day (fill your bathtub with warm water and soak for 20 minutes.) Do NOT bathe in the water * No tub baths until seen by your physician - You may shower ACTIVITY: * Rest as much as possible. * Do not exercise or lift anything heavier than your baby (such as laundry or other children.) * Avoid stairs or driving as much as possible. * Do not put anything into the vagina. No douching, tampons, or sexual activity until seen by physician. NOTIFY PHYSICIAN IF YOU HAVE ANY QUESTIONS OR IF ANY OF THE FOLLOWING SYMPTOMS OCCUR: * If your episiotomy or incision becomes red, swollen, or more painful than what you have experienced in the hospital. * If your vaginal bleeding becomes foul smelling. * If your vaginal bleeding becomes more heavy than a period or if your bleeding changes from pink to bright red. However, you may pass an occasional walnut-sized clot once or twice for the first week . * If you experience a sharp, shooting pain in you calves. * If you discover a hard, reddened area on your breast or if you experience flu-like symptoms. DIET: * Eat regular, well-balanced meals. * Drink plenty of fluids daily. If , drink to thirst. Patient Instructions: Antibiotic Form, Depression (DC), and Nipple Soreness (DC), Vaginal Delivery (DC) Stand Alone Forms: General Discharge Information Follow-up/Referrals: Carloz Steven MD [Physician] - 4 Weeks Discharge Medications: Continued fludrocortisone 0.1 mg tablet 0.1 mg PO BID albuterol sulfate 90 mcg/actuation HFA aerosol inhaler 2 puff inhalation Q4H PRN (Reason: Shortness Of Breath Or Wheezing) no.167-folic acid-dha 400 mcg- 25 mg tablet,chewable 1 tablet PO DAILY levothyroxine 100 mcg t
== END 2023-11-05 14:10 | disposition home or self-care (01) | DRG 806 ==
LOC: ANHLDR 06:08 → ANHOB2 23:50
PROVIDERS: General Practice; Admitting Provider Obstetrics & Gynecology; PCP Family Medicine; Visit Provider Obstetrics & Gynecology
DX: O99.284 Endocrine, nutritional and metabolic diseases complicating childbirth (principal); E27.1 Primary adrenocortical insufficiency; Z37.0 Single live birth; E03.9 Hypothyroidism, unspecified; O24.429 Gestational diabetes mellitus in childbirth, unspecified control; O62.3 Precipitate labor; O69.82X0 Labor and delivery complicated by other cord entanglement, without compression, not applicable or unspecified; O26.53 Maternal hypotension syndrome, third trimester; Z3A.39 39 weeks gestation of pregnancy
CPT/HCPCS: 36415; 80048; 80053; 82948; 85014; 85018; 85025; 85027; 85055; 85461; 86592; 86703; 86850; 86900; 86901; 90715; A9270; G0432; J1720; J2405; J2590; J2795; J7030; J7040; J7120

== ENCOUNTER 2024-03-22 08:58 | Outpatient (CLI) | payer OTHER, SELFPAY ==
--- OUTSIDE RECORDS SUMMARY | 2024-03-22 09:27 | XMS_ITS | Encounter Summary ---
Author Organization [facility] Address [address] [place] [address] Care Team Providers Care Bariatric Surgeon Name Role Phone Maureen Rodriguez MD Primary Care Provider [phone] Mark Amaral PA-C Unavailable [phone] Reason for Visit * Reason Onset Date Comments Refill Request 05/25/2018 injectable stres s dose Update 05/25/2018 Rafael was vomit ing yesterday, given injectable stress dose. Please call mom to discuss next appt and transfer of care due to age Encounter Details Date Type Department Care Team (Late st Contact Info) Description 05/25/2018 Telephone [facility] Pediatrics - Endocrinology [address] [place] [address] Kirsten Menjivar Refill Request (injectable stress dose); Update (Rafael was vomiting yesterday, given injectable stress dose. Please call mom to discuss next appt and transfer of care due to age) Social History Tobacco Use Types Packs/Day Years Used Date Smoking Tobacco: Passive Smo ke Exposure - Never Smoker Smokeless Tobacco: Never Alcohol Use Standard Drinks/Week Comments No 0 (1 standard drink = 0.6 oz pur e alcohol) Sex and Gender Information Value Date Recorded Sex Assigned at Not on file Gender Identity Not on file Sexual Orientation Not on file documented as of this encounter Functional Status Functional Status Response Date of Assess ment Is person deaf or have serious hearing difficult y? No 09/16/2013 Is person blind or have serious difficulty seein g? No 09/16/2013 Does person have serious dif ficulty walking/climbing stairs? No 09/16/2013 Does person have difficulty dressing/bathing? No 09/16/2013 Does person have difficulty doing errands alone? No 09/16/2013 Cognitive Status Response Date of Assessm ent Does person have difficulty concentrating/remembering/making decisions? No 09/16/2013 documented as of this encounter Miscellaneous Notes * Telephone Encounter - Sherlyn Martinez DO - 06/14/2018 10:08 AM CDT Rafael had labs collected 05/30/18 at 1340 at [facility]. BMP is normal, TSH is normal. Her renin is elevated, though consistent with her recent baseline and decreased from last renin. documented in this encounter Plan of Treatment Not on file documented as of this encounter Visit Diagnoses Not on filedocumented in this encounter Care Teams Bariatric Surgeon Relationship Specialty Start Date End Date Maureen Rodriguez MD PCP - General Pediatrics 03/31/12 Mark Amaral PA-C [address] [place] [address] Covering Provider Orthopedic 04/05/12 documented as of this encounter
--- OUTSIDE RECORDS SUMMARY | 2024-03-22 09:27 | XMS_ITS | Encounter Summary ---
Author Organization [facility] Address [address] [place] [address] Care Team Providers Care Physician Assistant Psychiatry Name Role Phone Maureen Rodriguez MD Primary Care Provider [phone] Mark Amaral-Johnny Unavailable [phone] Reason for Visit * Reason Onset Date Comments Results 10/06/2013 mom called for r courtney Encounter Details Date Type Department Care Team (Late st Contact Info) Description 10/06/2013 Telephone [facility] Pediatric[facility] - Endocrinology [address] [place] [address] Delma Solis MD [address] [place] [phone] Results (mom called for results) Social History Tobacco Use Types Packs/Day Years Used Date Smoking Tobacco: Never Alcohol Use Standard Drinks/Week Comments [...] No 09/16/2013 documented as of this encounter Plan of Treatment Not on file documented as of this encounter Visit Diagnoses Not on filedocumented in this encounter Care Teams Physician Assistant Psychiatry Relationship Specialty Start Date End Date Maureen Rodriguez MD PCP - General Pediatrics 03/31/12 Mark Amaral, JOSEPHC [address] [place] [phone] Covering Provider Orthopedic 04/05/12 documented as of this encounter
--- OUTSIDE RECORDS SUMMARY | 2024-03-22 09:27 | XMS_ITS | Encounter Summary ---
Author Organization [facility] Address [address] [place] [address] Care Team Providers Care Outbound Supervisor Name Role Phone Maureen Rodriguez MD Primary Care Provider [phone] Mark Amaral PA-C Unavailable Reason for Visit * Reason Onset Date Comments Update 05/25/2017 Patient was at [facility] last night complaining of back pain. PCP calling for instructions. (this message was left on the voicemail of the centralized scheduling department of [facility] at 4:16PM last night) Encounter Details Date Type Department Care Team (Late st Contact Info) Description 05/25/2017 Telephone [facility] Pediatrics - Endocrinology [address] [place] [id number] Delma Solis MD [address] [place] [id number] Update (Patient was at PCP last night complaining of back pain. PCP calling for instructions. (this message was left on the voicemail of the centralized scheduling department of [facility] at 4:16PM last night)) Social History Tobacco Use Types Packs/Day Years [...] encounter Miscellaneous Notes * Telephone Encounter - Delma Solis MD - 05/31/2017 4:32 PM CDT I spoke to a nurse and with Dr. 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 She was seen by Dr. Rodriguez who reports that Rafael had full range of motion, was able to move her legs, ambulate without problems and get up and off the exam table without problems. I am not aware of any Vienna's specific back pain beyondconcern for osteopenia causing a fracture or generalize myopathy causing more generalized aches andpains. She is due for repeat levels after changing to prednisone BID from dexamethasone once daily.If ACTH level is highly elevated, may increase her prednisone dose. Labs ordered for [facility]. documented in this encounter Plan of Treatment Not on file documented as of this encounter Visit Diagnoses Not on filedocumented in this encounter Care Teams Outbound Supervisor Relationship Specialty Start Date End Date Maureen Rodriguez MD PCP - General Pediatrics 03/31/12 Mark Amaral PA-C [facility] [place] [address] Covering Provider Orthopedic 04/05/12 documented as of this encounter
--- OUTSIDE RECORDS SUMMARY | 2024-03-22 09:27 | XMS_ITS | Clinical Summary ---
Author Organization [facility] Address [facility] [facility] [place] [address] [place] [address] Care Team Providers Care Parts Counter Representative Name Role Phone None, Provider MD Primary Care Provider Unavaila ble Allergies No known active allergies Medications levothyroxine (SYNTHROID) 200 MCG tablet Take 1 tablet (200 mcg total) by mouth every morning. Active hydrocortisone (CORTIZONE) 0.5 % cream Apply topically daily. Active fludrocortisone (FLORINEF) 0.1 MG tablet Take 1 tablet (0.1 mg total) by mouth daily. Active vitamin, low iron, ( VITAMIN WITH IRON) 27-0.8 MG tablet Take 1 tablet by mouth daily. Active Social History Tobacco Use Types Packs/Day Years Used Date Smoking Tobacco: Never Smokeless Tobacco: Never Tobacco Cessation:Counseling Given: Not Answered Alcohol Use Standard Drinks/Week Comments Not Currently 0 (1 standard drink = 0.6 oz pur e alcohol) Comments No Sex and Gender Information Value Date Recorded Sex Assigned at Not on file Legal Sex Female 11:07 PM CDT Gender Identity Not on file Sexual Orientation Not on file Last Filed Vital Signs Vital Sign Reading Time Taken Comments Blood Pressure 118/72 09/19/2023 11:14 PM CDT Pulse 96 09/19/2023 11:14 PM CDT Temperature - - Respiratory Rate 16 09/19/2023 11:14 PM CDT Oxygen Saturation - - Inhaled Oxygen Concentration - - Weight 77.1 kg (170 lb) 09/19/2023 11:14 PM CDT Height 157.5 cm (5' 2 ) 09/19/2023 11:14 PM CDT Body Mass Index 31.09 09/19/2023 11:14 PM CDT Plan of Treatment Health Maintenance Due Date Last Done Comments Cervical Cancer Screening Pa p Smear (Age 21 to 29) Every 3 Years 1999 Cervical Cancer Screening 1999 Annual Physical 04/30/2002 HPV Vaccines (1 - 3-dose series) 04/30/2014 Chlamydia Screening Females ages 16-24 2015 Hepatitis C 04/30/2017 DTaP, Tdap and Td Vaccines ( 1 - Tdap) 04/30/2018 Hepatitis B Vaccines (1 of 3 - 19+ 3-dose series) 04/30/2018 COVID-19 Vaccine (4 - 2023-2 5 season) 2023 05/30/2021, 03/26/2020, 02/27/2020 Influenza Adult (#1) 2023 12/12/2021 Meningococcal B Vaccine Aged Out No l onger eligible based on patient's age to complete this topic Meningococcal Vaccine Aged Out No clark eric eligible based on patient's age to complete this topic Pneumococcal Vaccine: Pediatrics (0 to 5 Years) and At-Risk Patients (6 to 64 Years) Aged Out No longer eligible b ased on patient's age to complete this topic RSV Immunizations Under 20 Months Aged Out No longer eligible b ased on patient's age to complete this topic Insurance [employer] Care Teams Parts Counter Representative Relationship Specialty Start Date End Date None, Provider, MD PCP - General UNKNOWN PHYSICIAN SPECIALTY 09/19/23
--- OUTSIDE RECORDS SUMMARY | 2024-03-22 09:27 | XMS_ITS | Encounter Summary ---
Author Organization [facility] Address [address] [facility] [place] [address] Care Team Providers Care Linter Saw Sharpener Name Role Phone Maureen Rodriguez MD Primary Care Provider [phone] Mark Amaral-Johnny Unavailable [phone] Reason for Visit * Reason Onset Date Comments Results 06/23/2017 Please give mom a call with lab results. Encounter Details Date Type Department Care Team (Late st Contact Info) Description 06/23/2017 Telephone [facility] Pediatric[facility] - Endocrinology [address] [place] [address] Delma Solis MD [address] [place] [phone] Results (Please give mom a call with lab results.) Social History Tobacco Use Types Packs/Day Years [...] Telephone Encounter - Delma Solis MD - 06/23/2017 2:43 PM CDT I returned the call to Rafael's mother and left a message for her to call back. documented in this encounter Plan of Treatment Not on file documented as of this encounter Visit Diagnoses Not on filedocumented in this encounter Care Teams Linter Saw Sharpener Relationship Specialty Start Date End Date Maureen Rodriguez MD PCP - General Pediatrics 03/31/12 Mark Amaral, PAAshleeC [address] [place] [address] Covering Provider Orthopedic 04/05/12 documented as of this encounter
--- OUTSIDE RECORDS SUMMARY | 2024-03-22 09:27 | XMS_ITS | Referral Summary ---
Author Organization [facility] Address [address] [place] [address] Care Team Providers Care Commercial Fisherman Name Role Phone Maureen Rodriguez MD Primary Care Provider [phone] Mark Amaral PA-C Unavailable [phone] Source Comments [facility],non-owned Affiliates and Associated Physician Practices is amultiple site organization consisting of ambulatory clinics and hospital sitesin [place], [place], [place] and [place]. This disclosure is being madepursuant to the Care Everywhere program and may not contain all information available regarding this patient. Last updated 17.[facility] Allergies No known active allergies Medications * Be aware that medications may not be up to date on this document. Alwaysverify current medications with the patient. Medication Sig Dispensed Refills Start Date End Date Status fludrocortisone (FLORINEF) 0.1 MG tabletIndication s:Leander disease (HCC) Take 1 tab in AM and 1 tab in the evening. 180 tablet 1 05/05/2018 Active hydrocortisone (Cortef) 5 MG tablet TAKE 3 TABLETS WITH BREAKFAST, ONE TABLET WITH LUNCH AND TWO TABLETS WITH DINNER 11/01/2022 Active levothyroxine (Synthroid) 100 MCG tablet 04/30/2023 Active Vit-Fe Fumarate-FA ( vitamin) 28-0.8 MG tablet Take 1 (one) tablet by mouth once daily Active hydrocortisone sodium succinate PF (Solu-CORTEF) injectionIndicat ions:Leander's disease (HCC) 100 (one hundred) mg by Intravenous route as needed for Hypersensitivity (lightheadedness, unconsciousness, inability to tolerate oral mediations) 3 Each 1 07/09/2023 Active Active Problems Problem Noted Date Diagnosed Date consult 09/10/2023 GERD (gastroesophageal reflux disease) 4 Chest pain 05/07/2023 Arnold-Chiari malformation 05/07/2023 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 Barrientos tapered UP, repeat labs 4-6 wks 100mcg/daily as of [address] 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 Found to have undetectable cortisol level <1 ug/dL and elevated ACTH 956 pg/mL. Rafael has required high doses of hydrocortisone (12-15 mg/m2/day) and fludrocortisone (0.25 mg/day) with concern about compliance with elevated ACTH and renin levels. Clinical picture initially complicated by onset of anxiety disorder and panic attacks which were similar to her symptoms of Leander's disease. At her visit in September 2014, Rafael was switched to dexamethasone once a day to improve compliance. January 2016 with low ACTH level so decreased dexamethasone to 0.5 mg tablets - take 1/2 tablet (0.25 mg) daily in morning. (Equivalent to 1 mg dex = 50 mg hydocortisone -> 6.8 mg/m2/day of hydrocortisone.) Stress dose coverage with dexamethasone 1-1/2 tablets (0.75 mg) PO daily or dexamethasone injection 4 mg IM. Continued on Fludrocortisone (0.1 mg tablet): take 2 tablets (0.2 mg) daily in AM. 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 Continue home medications at current doses while lab results pending. Maintenance daily dose: - Dexamethasone (0.75 mg tablet) - take a half tablet (0.375 mg) daily in the morning. - Fludrocortisone (0.1 mg tablet) - take 2 tablets (0.2 mg) daily in the morning and 1 tablet (0.1 mg) at night. Recommend for stress dose steroids: 1) for moderate stress (moderate fever 101-103; illness resulting in poor PO intake; vomiting once or twice in a 24-hour period) oral dexamethasone (0.75 mg tablets) take 1-1/2 tablets. We should be notified if there is a need for more than 3 days on this. ?? 2) for severe stress (anesthesia or surgery; fever >103; repeated vomiting; loss of consciousness for any reason including seizure, trauma) 4 mg dexamethasone IM and we should be notified. 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 Plan to change to dexamethasone for the next month to get ACTH levels suppressed. Maintenance daily dose: - Dexamethasone (0.75 mg tablet) - take a half tablet (0.375 mg) daily in the morning. - Fludrocortisone (0.1 mg tablet) - take 2 tablets daily in the morning Recommend for stress dose steroids: 1) for moderate stress (moderate fever 101-103; illness resulting in poor PO intake; vomiting once or twice in a 24-hour period) oral dexamethasone (0.75 mg tablets) take 3 tablets. We should be notified if there is a need for more than 3 days on this. 2) for severe stress (anesthesia or surgery; fever >103; repeated vomiting; loss of consciousness for any reason including seizure, trauma) 4 mg dexamethasone IM and we should be notified. Plan to get repeat labs in one month (ACTh, renin and BMP) - lab slip given to mother. If develop muscle cramping - call the office to discuss getting potassium and sodium levels checked sooner (given change in Fludrocortisone dose) Follow up in clinic in 3 months. Assessment & Plan (04/01/2014 3:28 PM INTERNATIONAL MARKETING EXECUTIVE): Rafael is a 13 year old girl with Merlin's disease/primary adrenal insufficiency. - Wean maintenance hydrocortisone dose slowly Hydrocortisone (5 mg tablets): Morning take 10 mg (2 tablets); afternoon take 5 mg (1 tablet); evening take 2.5 mg (1/2 tablet) (gives 10.5 mg/m2/day) In one month, decrease dose again: Morning take 7.5 mg (1.5 tablets); afternoon take 5 mg (1 tablet); evening take 2.5 mg (1/2 tablet) (gives 9 mg/m2/day) - For stress dose: hydrocortisone 15 mg (3 tablets) 3 times a day (Stress is fever >101; vomiting/diarrheal illness or sedation/anesthesia for a procedure) If unable to tolerate oral dose, take dexamethasone injection 4 mg (1 mL) She will require IV Hydrocortisone (80 mg) [50 mg/meter sq/dose] for any procedure involving general anesthesia; folowed by 40 mg IV every 6 hours [100 mg/m2/day] until recovered. If she develops hypotension, hypoglycemia or hypoperfusion for unclear reasons, assume that adrenal insufficiency and give Hydrocortisone 80 mg. - Fludrocortisone - no change in dose: Morning take 1.5 tablets (0.15 mg) and evening take 1 tablet (0.1 mg) - Get and wear a medic alert identifications (cortisol dependent). - Will get repeat lab values (BMP, ACTH and Renin) at next appointment. Follow up in 2 months Assessment & Plan (01/09/2014 8:23 PM INTERNATIONAL MARKETING EXECUTIVE): 1. Cortef (5 mg tablet) 10 mg am; 7.5 mg mid-day; 5 mg pm (15 mg/meter sq/day) 2. Cortef 22.5 mg (4.5 tablets) every 8 hours as needed for vomiting or febrile illness. 3. Dexamethasone (4 mg/mL) 1 mL IM in case of emergency. 4. Fludrocortisone (0.1 mg tablet) 1.5 tablets daily 5. NaCl 1 g tablets - 1 tablet three times daily 6. Wear medic-alert identification ( cortisol dependent ) at all times. 7. Child with Leander's disease and at risk of adrenal insufficiency at times of stress. She will require IV Hydrocortisone (80 mg) [50 mg/meter sq/dose] for any procedure involving general anesthesia; followed by 40 mg IV every 6 hours [100 mg/meter sq/day] until recovered. If patient develops hypotension, hypoglycemia, or hypoperfusion for unclear reasons, assume that adrenal insufficiency and give 80 mg (50 mg meter/sq) hydrocortisone. 8. Obtain serum ACTH and plasma renin in one month. 9. I will contact Rafael's mother by telephone ([phone]) when I have received a copy of these test results and make the necessary medication dose adjustments. 10. Return appointment in two months. 11. I reviewed my impression and recommendations with Rafael's mother at the time of the office visit and she was in agreement. Assessment & Plan (12/29/2013 4:42 PM INTERNATIONAL MARKETING EXECUTIVE): Clinically stable. 1. Cortef (5 mg tablet) 10 mg am; 7.5 mg mid-day; 5 mg pm (15 mg/meter sq/day) 2. Cortef 22.5 mg (4.5 tablets) every 8 hours as needed for vomiting or febrile illness. 3. Dexamethasone (4 mg/mL) 1 mL IM in case of emergency. 4. Fludrocortisone (0.1 mg tablet) 1 tablet in am; 0.5 tablet in pm 5. Obtain and wear medic-alert identification ( cortisol dependent ) at all times. 6. Child with Merlin's disease and at risk of adrenal insufficiency at times of stress. She will require IV Hydrocortisone (80 mg) [50 mg/meter sq/dose] for any procedure involving general anesthesia; followed by 40 mg IV every 6 hours [100 mg/meter sq/day] until recovered. If patient develops hypotension, hypoglycemia, or hypoperfusion for unclear reasons, assume that adrenal insufficiency and give 80 mg (50 mg meter/sq) hydrocortisone. 7. Obtain serum ACTH and plasma renin level following today's office appointment. 8. I will contact Rafael's mother by telephone ([phone]) when I have received a copy of these test results and make the necessary medication dose adjustments. 9. Return appointment in three months. 10. I reviewed my impression and recommendations with Rafael's mother at the time of the office visit and she was in agreement. Assessment & Plan (10/17/2013 11:19 AM CDT): Rafael is a 13 year old girl with Merlin's disease. Screening for thyroid, celiac and hypocalcemia negative. Treatment plan - Increase hydrocortisone to: 7.5 mg in the morning (1 and a half tablets) 5 mg in the afternoon (1 tablet) 5 mg in the evening (1 tablet) - Continue the fludrocortisone 0.1 mg 1 tablet - Stress dose: Hydrocortisone 15 mg (3 tablets) three times a day or Dexamethasone injection if unable to tolerate oral pills. - Give stress dose if fever >101 or vomiting illness or trauma (broken bones,) or prior to surgical procedures involving anesthesia. - Wear medic alert at all times. Postural lightheadedness 09/12/2013 Resolved Problems Problem Noted Date Diagnosed Date Resolved Date Club foot of fetus affecting antepartum care of mother 07/08/2023 11/16/2023 Overview (07/08/2023): MFM Referral faxed 06/23 [facility]- Scheduled [facility] 07/07 US & Consult INTERMEDIATE: abnormality in pr anthonycy (HCC) - Bilateral club feet 07/08/2023 11/16/2023 Overview (09/14/2023): Images from the original note were not included. Care Provider: Dr. Adolph Steven [place] [facility] consultants involved: RN-Aníbal; Ped Ortho- Moses Tijerina Diagnosis: Bilateral club feet Planned surveillance: Ortho consult only - Patient was not seen by MFM in INTERMEDIATE follow up per Pediatric Orthopedics: I invited Ms. Pat to contact us once the baby has been born to let us know whether the baby has a clubfoot or not. If the baby does, we would be happy to evaluate the baby and start casting at one to two months of age. To schedule, patient should call [phone], option 4 Bioprocess Engineer: Care plan based on evaluation and is subject to change based on assessment. See Images or Cardiac under Chart Review for US/ ECHO/ MRI reports. Immunizations Name Administration Dates Next Due INFLUENZA VACCINE, QUADR. (F LUZONE; FLULAVAL; FLUARIX; AFLURIA QUADRIVALENT; 6MO+), 0.5 ML (IIV4) 12/12/2021 Social History Tobacco Use Types Packs/Day Years Used Date Smoking Tobacco: Passive Smo ke Exposure - Never Smoker Smokeless Tobacco: Never Alcohol Use Standard Drinks/Week Comments No 0 (1 standard drink = 0.6 oz pur e alcohol) AUDIT-C Answer Date Recorded Q1: How often do you have a drink containing alcohol? Never 09/08/2023 Q2: How many drinks containi ng alcohol do you have on a typical day when you are drinking? Patient does not drink Q3: How often do you have si x or more drinks on one occasion? Never 09/08/2023 Overall Financial Resource Strain (CARDIA) Answe r Date Recorded How hard is it for you to pa y for the very basics like food, housing, medical care, and heating? Not very hard 09/08/2023 [facility] - Occupational Stress Questionnaire Answer Date Recorded Do you feel stress - tense, restless, nervous, or anxious, or unable to sleep at night because your mind is troubled all the time - these days? Not at all 09/08/2023 Hunger Vital Sign Answer Date Recorded Within the past 12 months, y ou worried that your food would run out before you got the money to buy more. Never true 09/08/19 24 Within the past 12 months, t he food you bought just didn't last and you didn't have money to get more. Never true 09/08/2023 PRAPARE - Transportation Answer Date Re corded In the past 12 months, has l ack of transportation kept you from medical appointments or from getting medications? No 08/22 In the past 12 months, has l ack of transportation kept you from meetings, work, or from getting things needed for daily living? No 09/08/2023 Housing Stability Vital Sign Answer Wojciech e Recorded In the last 12 months, was t here a time when you were not able to pay the mortgage or rent on time? No 09/08/2023 In the last 12 months, how many places have you lived? 2 09/08/2023 In the last 12 months, was t here a time when you did not have a steady place to sleep or slept in a retirement (including now)? No 09/08/2023 [place] Depression Scale Answer Date Recorded [place] Depression Scale Total 7 05/06/2023 The thought of harming myself has occurred to me . Hardly ever 05/06/2023 Sex and Gender Information Value Date Recorded Sex Assigned at Not on file Gender Identity Not on file Sexual Orientation Not on file Last Filed Vital Signs Vital Sign Reading Time Taken Comments Blood Pressure 101/71 09/13/2023 9:00 AM CDT Pulse 117 09/13/2023 10:15 AM CDT Temperature 36.2 ??C (97.2 ??F) 12/03/2016 8:13 AM CD T per pcp Respiratory Rate 16 05/06/2023 10:48 AM CDT Oxygen Saturation 98% 09/16/2013 11:20 AM CDT Inhaled Oxygen Concentration 100% 09/15/2013 7 :42 AM CDT Weight 78.9 kg (174 lb) 09/13/2023 8:55 AM CDT Height 159.3 cm (5' 2.7 ) 09/13/2023 8:55 AM CDT Body Mass Index 31.12 09/13/2023 8:55 AM CDT Functional Status Functional Status Response Date of [...] person have difficulty concentrating/remembering/making decisions? No 09/16/2013 Plan of Treatment Not on file Care Teams Commercial Fisherman Relationship Specialty Start Date End Date Maureen Rodriguez MD PCP - General Pediatrics 03/31/12 Mark Amaral, PAAshleeC [address] [place] [address] Covering Provider Orthopedic 04/05/12
--- OUTSIDE RECORDS SUMMARY | 2024-03-22 09:27 | XMS_ITS | Clinical Summary ---
Author Organization [facility] Address [address] [place] [address] Phone Care Team Providers Care Corporate Development Officer Name Role Phone Jayden Noriega APRN, CNP Primary Care Provider Floyd Hsieh MD Unavailable Allergies No known active allergies Medications diclofenac (VOLTAREN) 50 MG Tablet Delayed Response Take 1 Tab by mouth 3 times daily. 45 Tab 01/04/20 20 Active diazePAM (VALIUM) 5 MG Tablet Take 1 Tab by mouth every 8 hours as needed for Muscle spasms. 30 Tab 01/04/20 20 Active escitalopram (LEXAPRO) 20 MG Tablet Take 30 mg by mouth daily. Active hydrOXYzine (ATARAX) 25 MG Tablet hydroxyzine HCl 25 mg tablet Active ondansetron (ZOFRAN) 4 MG Tablet Take 1 Tablet by mouth every 8 hours as needed for Nausea - 1st line. 10 Tablet 06/19/19 21 Active zolpidem (AMBIEN) 5 MG Tablet zolpidem 5 mg tablet Active triamcinolone (KENALOG) 0.1 % Cream triamcinolone acetonide 0.1 % topical cream Active traMADol (ULTRAM) 50 MG Tablet tramadol 50 mg tablet Active Syringe/Needle , Disp, (SYRINGE 3CC/23GX1 ) 23G X 1 3 ML Misc To be used for dexamethasone administration 08/13/19 18 Active prochlorperazi ne (COMPAZINE) 10 MG Tablet prochlorperazine maleate 10 mg tablet Acti ve predniSONE (DELTASONE) 1 MG Tablet prednisone 1 mg tablet 08/13/19 18 Active Norgestimate-e thinyl estradiol (Estarylla) 0.25-35 MG-MCG Tablet Take 1 Tablet by mouth daily. 05/04/19 18 Active naproxen (NAPROSYN) 500 MG Tablet naproxen 500 mg tablet 01/01/20 17 Active mupirocin (BACTROBAN) 2 % Ointment mupirocin 2 % topical ointment Active metoclopramide (REGLAN) 10 MG Tablet metoclopramide 10 mg tablet Active meloxicam (MOBIC) 15 MG Tablet meloxicam 15 mg tablet TAKE 1 TABLET BY MOUTH DAILY Active Hydrocortisone Sod Suc, PF, (Solu-CORTEF) 100 MG Recon Soln 100 mg. Active Etonogestrel-E thinyl Estradiol 0.12-0.015 MG/24HR RING EluRyng 0.12 mg-0.015 mg/24 hr vaginal ring Active dexamethasone (DECADRON) 4 MG/ML Solution 1 mL. 05/26/19 19 Active cyclobenzaprin e (FLEXERIL) 10 MG Tablet cyclobenzaprine 10 mg tablet TAKE 1 TABLET BY MOUTH 3 TIMES DAILY NEEDED FOR MUSCLE SPASM Active clonazePAM (KlonoPIN) 0.5 MG Tablet clonazepam 0.5 mg tablet Active citalopram (CeleXA) 20 MG Tablet citalopram 20 mg tablet 12/12/19 17 Active ARIPiprazole (ABILIFY) 10 MG Tablet aripiprazole 10 mg tablet Active fludrocortison e (FLORINEF) 0.1 MG Tablet TAKE 1 TABLET BY MOUTH TWICE A DAY 180 Tablet 05/12/19 24 Active fludrocortison e (FLORINEF) 0.1 MG Tablet Take 1 Tablet by mouth 2 times daily. 180 Tablet 09/27/19 24 Active levothyroxine (SYNTHROID) 100 MCG Tablet Take 1 Tablet by mouth daily. 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 Never 01/04/2020 Average Number of Drinks Not on file Frequency of Binge Drinking Not on file 12/23 Comments Unknown Sex and Gender Information Value Date Recorded Sex Assigned at Female 03/08/2023 9:40 AM TRAUMA PROGRAM MANAGER Legal Sex Female 10:15 PM TRAUMA PROGRAM MANAGER Gender Identity Female 03/08/2023 9:40 AM TRAUMA PROGRAM MANAGER Sexual Orientation Straight 03/08/2023 9: 40 AM TRAUMA PROGRAM MANAGER Last Filed Vital Signs Vital Sign Reading Time Taken Comments Blood Pressure 109/63 09/27/2023 9:42 AM CDT Pulse 128 09/27/2023 9:42 AM CDT Temperature 36.7 ??C (98.1 ??F) 09/27/2023 9:42 AM CD T Respiratory Rate 18 09/27/2023 9:42 AM CDT Oxygen Saturation 99% 09/27/2023 9:42 AM CDT Inhaled Oxygen Concentration - - Weight 79.4 kg (175 lb) 09/27/2023 9:42 AM CDT Height 157.5 cm (5' 2 ) 03/11/2023 7:41 PM TRAUMA PROGRAM MANAGER Body Mass Index 32.01 03/11/2023 7:41 PM TRAUMA PROGRAM MANAGER Plan of Treatment Health Maintenance Due Date Last Done Comments TdaP Immunization 1999 Human Papillomavirus (HPV) Immunization (1 - 3-dose series) 04/30/2014 Hepatitis B Immunization (1 of 3 - 19+ 3-dose series) 04/30/2018 Pap Smear 04/30/2020 Influenza Immunization (#1) 2023 12/12/2021 SARS-COV-2 Immunization ( season) 2023 05/30/2021, 03/26/2020, 02/27/2020 Respiratory Syncytial Virus (RSV) Immunization (Adult) (1 - 1-dose 75+ series) 04/30/2074 Hepatitis C Virus (HCV) Screening Completed 04/26/2023 Meningococcal Immunization (ACWY) Aged Out No longer eligible b ased on patient's age to complete this topic Pneumococcal Immunization Combined Aged Out No longer eligible b ased on patient's age to complete this topic Rotavirus Immunization Aged Out No lo nger eligible based on patient's age to complete this topic Insurance [employer] Advance Directives * Full Code (Latest Code Status on File) Date Activated Date Inactivated Comments 09/22/2021 3:36 PM 09/24/2021 3:33 PM CPR-Full Treat ment: FULL ARREST: Attempt Resuscitation/CPR wit intubation and mechanical ventilation. PRE-ARREST: Use entire range of life support measures to stabilize the patient. Care Teams Corporate Development Officer Relationship Specialty Start Date End Date Jayden Noriega APRN, DISTRICT MANAGER PRIMARY CARE SALES [address] [place] [address] PCP - General Advanced Practice Nurse 01/04/20 Floyd Hsieh MD [address] [address] Consulting Physician Endocrinology 10/23/21
--- OUTSIDE RECORDS SUMMARY | 2024-03-22 09:27 | XMS_ITS | Encounter Summary ---
Author Organization [facility] Address [address] [facility] [place] [address] Care Team Providers Care Lens Coating Technician Name Role Phone Maureen Rodriguez MD Primary Care Provider [phone] Mark Amaral-Johnny Unavailable [phone] Reason for Visit * Reason Onset Date Comments Request Lab Order 03/07/2015 Mom is request ing an order for labs to be sent lab on file. Encounter Details Date Type Department Care Team (Late st Contact Info) Description 03/07/2015 Telephone [facility] Pediatrics - Endocrinology [address] [place] [id number] Delma Solis MD [address] [place] [address] [phone] Request Lab Order (Mom is requesting an order for labs to be sent lab on file.) Social History Tobacco Use Types Packs/Day Years [...] on filedocumented in this encounter Care Teams Lens Coating Technician Relationship Specialty Start Date End Date Maureen Rodriguez MD PCP - General Pediatrics 03/31/12 Mark Amaral, PAAshleeC [facility] [place] [address] Covering Provider Orthopedic 04/05/12 documented as of this encounter
--- OUTSIDE RECORDS SUMMARY | 2024-03-22 09:27 | XMS_ITS | Clinical Summary ---
Author Organization [facility] Address [address] [facility] [place] [address] Care Team Providers Care Shop Coordinator Name Role Phone Maureen Rodriguez MD Primary Care Provider [phone] Mark Amaral PA-C Unavailable [phone] Source Comments [facility],non-owned Affiliates and Associated Physician Practices is amultiple site organization consisting of ambulatory clinics and hospital sitesin [place], [place], [place] and [place]. This disclosure is being madepursuant to the Care Everywhere program and may not contain all information available regarding this patient. Last updated 17.[facility] Allergies No known active allergies Medications * Be aware that medications may not be up to date on this document. Alwaysverify current medications with the patient. Medication Sig Dispensed Refills Start Date End Date Status fludrocortisone (FLORINEF) 0.1 MG tabletIndication s:Charlestown disease (HCC) Take 1 tab in AM [...] Active hydrocortisone sodium succinate PF (Solu-CORTEF) injectionIndicat ions:Charlestown's disease (HCC) 100 (one hundred) mg by [...] which were similar to her symptoms of Charlestown's disease. At her visit in September 2014, [...] recent adrenal crisis, treated with steroids by process manager recent adrenal crisis, treated with steroids by process manager- 05/[address] 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 Assessment & Plan (04/01/2014 3:28 PM ENTRY CLERK): Rafael is a 13 year old girl [...] months Assessment & Plan (01/09/2014 8:23 PM ENTRY CLERK): 1. Cortef (5 mg tablet) 10 mg [...] ) at all times. 7. Child with Charlestown's disease and at risk of adrenal insufficiency [...] I will contact Rafael's mother by telephone ([phone]) when I have received a copy of these test results and make the necessary medication dose adjustments. 10. Return appointment in two months. 11. I reviewed my impression and recommendations with Rafael's mother at the time of the office visit and she was in agreement. Assessment & Plan (12/29/2013 4:42 PM ENTRY CLERK): Clinically stable. 1. Cortef (5 mg tablet) [...] I will contact Rafael's mother by telephone ([phone]) when I have received a copy of [...] 11/16/2023 Overview (07/08/2023): MFM Referral faxed 06/23 [facility]- Scheduled [facility] 07/07 US & Consult LONG-TERM: abnormality in pr anthonycy (HCC) - Bilateral club feet 07/08/2023 11/16/2023 Overview (09/14/2023): Images from the original note were not included. Care Provider: Dr. Adolph Steven [place] [facility] consultants involved: RN-Aníbal; Ped Ortho- Moses Tijerina Diagnosis: Bilateral club feet Planned surveillance: Ortho consult only - Patient was not seen by MFM in LONG-TERM follow up per Pediatric Orthopedics: I invited Ms. Pat to contact us once the baby has been born to let us know whether the baby has a clubfoot or not. If the baby does, we would be happy to evaluate the baby and start casting at one to two months of age. To schedule, patient should call [phone], option 4 Personnel Arbitrator: Care plan based on evaluation and is subject to change based on assessment. See Images or Cardiac under Chart Review for US/ ECHO/ MRI reports. Immunizations Name Administration Dates Next Due INFLUENZA VACCINE, QUADR. (F LUZONE; FLULAVAL; FLUARIX; AFLURIA QUADRIVALENT; 6MO+), 0.5 ML (IIV4) 12/12/2021 Family History Medical History Relation Name Comments SD<65(female) Maternal Grandmother Other Paternal Grandfather palpita tions Arrhythmia Neg Hx CVA<55(male) Neg Hx CVA<65(female) Neg Hx Cardiomyopathy Neg Hx Congenital Heart defect Neg Hx Heart Surgery Neg Hx Long QT Syndrome Neg Hx SD<55(male) Neg Hx Marfan Syndrome Neg Hx Pacemaker Neg Hx Sudd. <30 Neg Hx Relation Name Status Comments Maternal Grandmother Paternal Grandfather Social History Tobacco Use Types Packs/Day Years [...] care, and heating? Not very hard 09/08/2023 [facility] [place] of Occupat ional Health - Occupational Stress [...] place to sleep or slept in a usp (including now)? No 09/08/2023 [place] Depression Scale Answer Date Recorded [place] Depression Scale Total 7 05/06/2023 The thought [...] Mass Index 31.12 09/13/2023 8:55 AM CDT Plan of Treatment Health Maintenance Due Date Last Done Comments HIV SCREENING 04/30/2014 HPV VACCINE (1 - 3-dose series) 04/30/2014 CHLAMYDIA/GONORRHEA SCREENING 2015 HEPATITIS C SCREENING 04/26/2017 DTAP/TDAP/TD VACCINES (1 - Tdap) 04/30/2018 HEPATITIS B VACCINE (1 of 3 - 19+ 3-dose series) 04/30/2018 COVID-19 VACCINE (4 - season) 2023 05/30/2021, 03/26/2020, 02/27/2020 INFLUENZA VACCINE (#1) 2023 12/12/2021 DEPRESSION SCREENING 02/23/2024 05/06/2023 PAP SMEAR 10/28/2026 10/29/2023, 09/22, 03/23/2023, Additional history exists ZOSTER VACCINE (1 of 2) 04/30/2049 HIB VACCINE Aged Out No longer eligi ble based on patient's age to complete this topic MENINGOCOCCAL (Group B) VACCINE Aged Out No longer eligible based on patient's age to complete this topic MENINGOCOCCAL VACCINE Aged Out No clark eric eligible based on patient's age to complete this topic PNEUMOCOCCAL VACCINE Aged Out No long er eligible based on patient's age to complete this topic Care Teams Shop Coordinator Relationship Specialty Start Date End Date Maureen Rodriguez MD PCP - General Pediatrics 03/31/12 Mark Amaral PA-C [address] [place] [address] Covering Provider Orthopedic 04/05/12
--- OUTSIDE RECORDS SUMMARY | 2024-03-22 09:27 | XMS_ITS | Referral Summary ---
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 Never 10/20/2023 Q2: How many drinks containi ng alcohol do you have on a typical day when you are drinking? Patient does not drink 4 Q3: How often do you have si x or more drinks on one occasion? Never 10/20/2023 Overall Financial Resource Strain (CARDIA) Answe r Date Recorded How hard is it for you to pa y for the very basics like food, housing, medical care, and heating? Not hard at all 10/20/2023 PHQ-2 Answer Date Recorded PHQ-2 Total Score (If total score is 3 or more points, staff should administer the PHQ-9) 0 10/20/2023 [facility] [place] of Occupat ional Health - Occupational Stress Questionnaire Answer Date Recorded Do you feel stress - tense, restless, nervous, or anxious, or unable to sleep at night because your mind is troubled all the time - these days? To some extent 10/20/2023 Hunger Vital Sign Answer Date Recorded Within the past 12 months, y ou worried that your food would run out before you got the money to buy more. Never true 10/20/19 24 Within the past 12 months, t he food you bought just didn't last and you didn't have money to get more. Never true 10/20/2023 PRAPARE - Transportation Answer Date Re corded In the past 12 months, has l ack of transportation kept you from medical appointments or from getting medications? No 09/23 In the past 12 months, has l ack of transportation kept you from meetings, work, or from getting things needed for daily living? No 10/20/2023 Housing Stability Vital Sign Answer Wojciech e Recorded In the last 12 months, was t here a time when you were not able to pay the mortgage or rent on time? No 10/20/2023 In the past 12 months, how m any times have you moved where you were living? 1 10/20/2023 At any time in the past 12 m onths, were you homeless or living in a prison (including now)? No 10/20/2023 Personal Safety Answer Date Recorded Have you ever been in or are you currently in a harmful physical or emotional relationship or is someone making you feel afraid or unsafe? Denies 10/20/2023 Comments No Sex and Gender Information Value Date Recorded Sex Assigned at Not on file Legal Sex Female 5:01 AM ROOM SERVER Gender Identity Not on file Sexual Orientation Not on file Last Filed Vital Signs Vital Sign Reading Time Taken Comments Blood Pressure 89/59 10/20/2023 2:48 PM CDT Pulse 109 10/20/2023 2:48 PM CDT Temperature 36.7 ??C (98 ??F) 10/20/2023 1:19 PM CDT Respiratory Rate 20 10/20/2023 1:19 PM CDT Oxygen Saturation 99% 11/02/2022 4:03 PM CDT Inhaled Oxygen Concentration - - Weight 70 kg (154 lb 4.8 oz) 11/02/2022 4:03 PM CDT Height 156.2 cm (5' 1.5 ) 11/02/2022 4:03 PM CDT Body Mass Index 28.69 11/02/2022 4:03 PM CDT Plan of Treatment Not on file Insurance AETNA SELECT AETNA SELECT Care Teams Stroboroma Operator Relationship Specialty Start Date End Date Steven Garcia MD [address] [place] [address] PCP - General Family Medicine 10/20/23
--- OUTSIDE RECORDS SUMMARY | 2024-03-22 09:28 | XMS_ITS | Clinical Summary ---
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 Medical History Medical History Date Comments Personal history of other di seases of the nervous system and sense organs History of amblyop ia - (Added by TW Conv) Strabismic amblyopia Strabismic amblyopia - (Added by TW Conv) Greenfield's disease (HCC) Diabetes mellitus (HCC) Mazin's disease Social History Tobacco Use Types Packs/Day Years [...] staff should administer the PHQ-9) 0 10/20/2023 [facility] of Occupat ional [facility] - Occupational Stress Questionnaire Answer Date Recorded [...] any time in the past 12 m [facility], were you homeless or living in a long-term (including now)? No 10/20/2023 Personal Safety Answer Date Recorded Have you ever been in or are you currently in a harmful physical or emotional relationship or is someone making you feel afraid or unsafe? Denies 10/20/2023 Comments No Sex and Gender Information Value Date Recorded Sex Assigned at Not on file Legal Sex Female 5:01 AM DRUG SAFETY SPECIALIST Gender Identity Not on file Sexual Orientation Not on file Obstetrics History Para Term AB IAB SAB Ectopic Multiple Livin g Live Births 1 Date Outcome GA Total Labor Labor/2nd/3rd Weight Sex Type Anes PTL Rica A1 A5 Name Clin Last Filed Vital Signs Vital Sign Reading [...] 11/02/2022 4:03 PM CDT Plan of Treatment Health Maintenance Due Date Last Done Comments Cervical Cancer Screening 1999 Hepatitis C Screening 1999 DTaP/Tdap/Td Vaccine (1 - Tdap) 04/30/2010 Varicella Vaccines (1 of 2 - 13+ 2-dose series) 04/30/2012 HPV Vaccines (1 - 3-dose series) 04/30/2014 Hepatitis B Screening 04/30/2017 Regular Well Visit/Exam 18-64 04/30/2017 Covid-19 Vaccine ( - 2023-2 5 season) 2023 05/30/2021, 03/26/2020, 02/27/2020 Influenza Vaccine (#1) 2023 12/12/2021 Depression Screening 10/19/2024 10/20/2023 Pneumococcal vaccine <65 Aged Out No longer eligible based on patient's age to complete this topic Insurance AETNA SELECT AETNA SELECT Care Teams Mineral Surveyor Relationship Specialty Start Date End Date Steven Garcia MD [address] [place] [address] PCP - General Family Medicine 10/20/23
--- OUTSIDE RECORDS SUMMARY | 2024-03-22 09:28 | XMS_ITS | Encounter Summary ---
Author Organization [facility] Address [address] [address] Care Team Providers Care Middle School Humanities Teacher Name Role Phone Maureen Rodriguez MD Primary Care Provider [phone] Mark Amaral-C Unavailable Reason for Visit * Reason Onset Date Comments Letter for School or Work 04/08/2016 2nd re quest: Mother is requesting a letter stating Rafael should NOT participate in gym for the school year. Please fax to [phone], [place]. Encounter Details Date Type Department Care Team (Late st Contact Info) Description 04/08/2016 Telephone [facility] Pediatrics - Endocrinology [address] [place] [address] Delma Solis MD [address] [place] [id number] Letter for School or Work (2nd request: Mother is requesting a letter stating Rafael should NOT participate in gym for the school year. Please fax to [phone], [place]. ) Social History Tobacco Use Types Packs/Day Years [...] on filedocumented in this encounter Care Teams Middle School Humanities Teacher Relationship Specialty Start Date End Date Maureen Rodriguez MD PCP - General Pediatrics 03/31/12 Mark Amaral, PAAshleeC [address] [place] [address] Covering Provider Orthopedic 04/05/12 documented as of this encounter
--- OUTSIDE RECORDS SUMMARY | 2024-03-22 09:28 | XMS_ITS | Encounter Summary ---
Author Organization [facility] Address [address] [facility] [place] [address] Care Team Providers Care Conflict Resolution Professional Name Role Phone Maureen Rodriguez MD Primary Care Provider [phone] Mark Amaral-Johnny Unavailable [phone] Reason for Visit * Reason Onset Date Comments Refill Request 07/04/2014 Please call in D ex injection Encounter Details Date Type Department Care Team (Late st Contact Info) Description 07/04/2014 Telephone [facility] Pediatrics - Endocrinology [address] [place] [address] Delma Soils MD [address] [place] [phone] Refill Request (Please call in Dex injection) Social History Tobacco Use Types Packs/Day Years [...] on filedocumented in this encounter Care Teams Conflict Resolution Professional Relationship Specialty Start Date End Date Maureen Rodriguez MD PCP - General Pediatrics 03/31/12 Mark Amaral, JOSEPHC [address] [place] [phone] Covering Provider Orthopedic 04/05/12 documented as of this encounter
--- OUTSIDE RECORDS SUMMARY | 2024-03-22 09:28 | XMS_ITS | Encounter Summary ---
Author Organization [facility] Address [address] [facility] [place] [address] Care Team Providers Care Camp Guard Name Role Phone Maureen Rodriguez MD Primary Care Provider [phone] Mark Amaral-Johnny Unavailable [phone] Reason for Visit * Reason Onset Date Comments Question 03/15/2014 Mom wanted to to uch base with you regarding treatment. She was supposed to call some time ago, but had a in the family. Encounter Details Date Type Department Care Team (Late st Contact Info) Description 03/15/2014 Telephone [facility] Pediatrics - Endocrinology [address] [place] [address] Delma Solis MD [address] [place] [phone] Question (Mom wanted to touch base with you regarding treatment. She was supposed to call some time ago, but had a in the family. ) Social History Tobacco Use Types Packs/Day [...] on filedocumented in this encounter Care Teams Camp Guard Relationship Specialty Start Date End Date Maureen Rodriguez MD PCP - General Pediatrics 03/31/12 Mark Amaral, PAAshleeC [address] [place] [address] Covering Provider Orthopedic 04/05/12 documented as of this encounter
--- OUTSIDE RECORDS SUMMARY | 2024-03-22 09:28 | XMS_ITS | Encounter Summary ---
Author Organization [facility] Address [address] [place] [address] Care Team Providers Care Dramatic Coach Name Role Phone Maureen Rodriguez MD Primary Care Provider [phone] Mark Amaral-Johnny Unavailable [phone] Reason for Visit * Reason Onset Date Comments Request Lab Order 06/19/2014 Appt on 06/21 , mom need lab orders for renin,Dhea, and acth put in for [facility] Encounter Details Date Type Department Care Team (Late st Contact Info) Description 06/19/2014 Telephone [facility] Pediatrics - Endocrinology [address] [place] [address] Delma Solis MD [address] [place] [phone] Request Lab Order (Appt on 06/21 , mom need lab orders for renin,Dhea, and acth put in for [facility]) Social History Tobacco Use Types Packs/Day Years [...] encounter Miscellaneous Notes * Telephone Encounter - Mariah Coyne RN - 06/19/2014 12:39 PM CDT What labs need to be ordered? documented in this encounter Plan of Treatment Not on file documented as of this encounter Visit Diagnoses Not on filedocumented in this encounter Care Teams Dramatic Coach Relationship Specialty Start Date End Date Maureen Rodriguez MD PCP - General Pediatrics 03/31/12 Mark Amaral PAAshleeC [address] [place] [address] Covering Provider Orthopedic 04/05/12 documented as of this encounter
--- OUTSIDE RECORDS SUMMARY | 2024-03-22 09:28 | XMS_ITS | Patient Health Summary ---
Author Organization [facility] Address [address] [place] [address] Care Team Providers Care Behaviour Support Teacher Name Role Phone Maureen Rodriguez MD Primary Care Provider [phone] Mark Amaral-Johnny Unavailable [phone] Note from [facility],non-owned Affiliates and Associated Physician Practices is amultiple site organization consisting of ambulatory clinics and hospital sitesin [place] and [place]. This disclosure is being madepursuant to the Care Everywhere program and may not contain all information available regarding this patient. Last updated 17.[facility] Allergies No known active allergies Medications * Be aware that medications may not be up to date on this document. Alwaysverify current medications with the patient. * fludrocortisone (FLORINEF) 0.1 MG tablet(Started 05/05/2018) Take 1 tab in AM and 1 tab in the evening. 1 refill remaining * hydrocortisone (Cortef) 5 MG tablet(Started 11/01/2022) TAKE 3 TABLETS WITH BREAKFAST, ONE TABLET WITH LUNCH AND TWO TABLETS WITH DINNER * levothyroxine (Synthroid) 100 MCG tablet(Started 04/30/2023) * Vit-Fe Fumarate-FA ( vitamin) 28-0.8 MG tablet Take 1 (one) tablet by mouth once daily * hydrocortisone sodium succinate PF (Solu-CORTEF) injection(Started 07/09/2023) 100 (one hundred) mg by Intravenous route as needed for Hypersensitivity (lightheadedness, unconsciousness, inability to tolerate oral mediations) 1 refill by 07/08/2024 Active Problems Problem Noted Date Diagnosed Date consult 09/10/2023 GERD (gastroesophageal reflux disease) 4 Chest pain 05/07/2023 Arnold-Chiari malformation 05/07/2023 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 (FLUZONE; FLULAVAL; FLUARIX; AFLURIA QUADRIVALENT; 6MO+), 0.5 ML (IIV4)(Given 12/12/2021) Social History Tobacco Use Types Packs/Day Years [...] Not very hard 09/08/2023 [facility] [place] [facility] - Occupational Stress [...] place to sleep or slept in a care home (including now)? No 09/08/2023 Brock[place] Depression Scale Answer Date Recorded [place] Depression Scale Total 7 05/06/2023 The thought [...] Mass Index 31.12 09/13/2023 8:55 AM CDT Procedures * T4 FREE(Performed 09/13/2023) Performed for Hypothyroidism, unspecified type * TSH(Performed 09/13/2023) Performed for Hypothyroidism, unspecified type * URINALYSIS - POCT (IP) BEAKER INTERFACE(Performed 09/13/2023) * SONOGRAM - COMPLETE(Performed 09/13/2023) Performed for Encounter for follow-up ultrasound of anatomy (HCC) * URINALYSIS - POCT (IP) BEAKER INTERFACE(Performed 07/08/2023) * SONOGRAM - COMPLETE(Performed 07/08/2023) Performed for Queens's disease (HCC), Abnormal finding on ultrasound * HEMOGLOBIN A1C(Performed 05/06/2023) Performed for Supervision of high risk , antepartum (HCC) * COMPREHENSIVE METABOLIC PANEL(Performed 05/06/2023) Performed for Supervision of high risk , antepartum (HCC) * URINALYSIS - POCT (IP) BEAKER INTERFACE(Performed 05/06/2023) * SONOGRAM - COMPLETE(Performed 05/06/2023) Performed for Encounter for routine screening for malformation using ultrasound, Queens's disease (HCC) * TSH(Performed 05/30/2018) * RENIN ACTIVITY(Performed 05/30/2018) * BASIC METABOLIC PANEL (CALCIUM TOTAL)(Performed 05/30/2018) * RENIN ACTIVITY(Performed 08/12/2017) Performed for Merlin's disease (HCC) * BASIC METABOLIC PANEL (CALCIUM TOTAL)(Performed 08/12/2017) Performed for Queens's disease (HCC) * ACTH(Performed 05/28/2017) * RENIN ACTIVITY(Performed 05/28/2017) * BASIC METABOLIC PANEL (CALCIUM TOTAL)(Performed 05/28/2017) * THYROID PEROXIDASE ANTIBODY(Performed 03/31/2017) Performed for Queens's disease (HCC) * TSH(Performed 03/31/2017) Performed for Queens's disease (HCC) * RENIN ACTIVITY(Performed 03/31/2017) Performed for Queens's disease (HCC) * ACTH(Performed 03/31/2017) Performed for Merlin's disease (HCC) * BASIC METABOLIC PANEL (CALCIUM TOTAL)(Performed 03/31/2017) Performed for Queens's disease (HCC) * MRI BRAIN WWO CONTRAST(Performed 01/20/2017) Performed for New daily persistent headache * RENIN ACTIVITY(Performed 11/17/2016) Performed for Merlin disease (HCC), Nausea and vomiting, intractability of vomiting not specified,unspecified vomiting type * CBC W AUTO DIFFERENTIAL(Performed 11/17/2016) Performed for Queens disease (HCC), Nausea and vomiting, intractability of vomiting not specified,unspecified vomiting type * COMPREHENSIVE METABOLIC PANEL(Performed 11/17/2016) Performed for Queens disease (HCC), Nausea and vomiting, intractability of vomiting not specified,unspecified vomiting type * ACTH(Performed 11/17/2016) Performed for Queens's disease (HCC) * ACTH(Performed 10/27/2016) * RENIN ACTIVITY(Performed 10/27/2016) * BASIC METABOLIC PANEL (CALCIUM TOTAL)(Performed 10/27/2016) * ACTH(Performed 08/05/2016) Performed for Queens's disease (HCC) * RENIN ACTIVITY(Performed 08/05/2016) Performed for Queens's disease (HCC) * BASIC METABOLIC PANEL (CALCIUM TOTAL)(Performed 08/05/2016) Performed for Queens's disease (HCC) * TSH(Performed 02/06/2016) Performed for Merlin's disease (HCC) * RENIN ACTIVITY(Performed 02/06/2016) Performed for Merlin's disease (HCC) * ACTH(Performed 02/06/2016) Performed for Queens's disease (HCC) * BASIC METABOLIC PANEL (CALCIUM TOTAL)(Performed 02/06/2016) Performed for Queens's disease (HCC) * RENIN ACTIVITY(Performed 10/16/2015) Performed for Queens's disease (HCC) * ACTH(Performed 10/16/2015) Performed for Queens's disease (HCC) * BASIC METABOLIC PANEL (CALCIUM TOTAL)(Performed 10/16/2015) Performed for Queens's disease (HCC) * ACTH(Performed 08/09/2015) * RENIN ACTIVITY(Performed 08/09/2015) * BASIC METABOLIC PANEL (CALCIUM TOTAL)(Performed 08/09/2015) * ACTH(Performed 03/25/2015) Performed for Queens's disease (HCC) * BASIC METABOLIC PANEL (CALCIUM TOTAL)(Performed 03/25/2015) Performed for Queens's disease (HCC) * RENIN ACTIVITY(Performed 01/29/2015) Performed for Queens's disease (HCC) * BASIC METABOLIC PANEL (CALCIUM TOTAL)(Performed 01/29/2015) Performed for Queens disease (HCC) * RENIN ACTIVITY(Performed 12/28/2014) Performed for Merlin's disease (HCC) * BASIC METABOLIC PANEL (CALCIUM TOTAL)(Performed 12/28/2014) Performed for Queens's disease (HCC) * TISSUE TRANSGLUTAMINASE AB IGA(Performed 12/28/2014) Performed for Queens's disease (HCC) * RENIN ACTIVITY(Performed 12/04/2014) Performed for Merlin's disease (HCC), Hypercalcemia * BASIC METABOLIC PANEL (CALCIUM TOTAL)(Performed 12/04/2014) Performed for Merlin's disease (HCC), Hypercalcemia * ACTH(Performed 12/04/2014) Performed for Queens's disease (HCC), Hypercalcemia * RENIN ACTIVITY(Performed 10/25/2014) Performed for Merlin's disease (HCC) * ACTH(Performed 10/25/2014) Performed for Queens's disease (HCC) * BASIC METABOLIC PANEL (CALCIUM TOTAL)(Performed 10/25/2014) Performed for Queens's disease (HCC) * CBC W/O DIFFERENTIAL(Performed 09/14/2014) Performed for Queens disease (HCC) * TISSUE TRANSGLUTAMINASE AB IGA(Performed 09/14/2014) Performed for Queens disease (HCC) * C-REACTIVE PROTEIN(Performed 09/14/2014) Performed for Queens disease (HCC) * ERYTHROCYTE SEDIMENTATION RATE(Performed 09/14/2014) Performed for Queens disease (HCC) * COMPREHENSIVE METABOLIC PANEL(Performed 09/14/2014) Performed for Queens disease (HCC) * RENIN ACTIVITY(Performed 09/14/2014) Performed for Queens disease (HCC) * ACTH(Performed 09/14/2014) Performed for Queens disease (HCC) * CBC W AUTO DIFFERENTIAL(Performed 06/21/2014) Performed for Queens's disease (HCC) * FERRITIN(Performed 06/21/2014) Performed for Merlin's disease (HCC) * IRON BLOOD(Performed 06/21/2014) Performed for Queens's disease (HCC) * PTH INTACT W/O CALCIUM(Performed 06/21/2014) Performed for Merlin's disease (HCC) * COMPREHENSIVE METABOLIC PANEL(Performed 06/21/2014) Performed for Merlin's disease (HCC) * THYROID AB PANEL (TPO AB+THYROGLOB AB)(Performed 06/21/2014) Performed for Merlin's disease (HCC) * T4 TOTAL(Performed 06/21/2014) Performed for Merlin's disease (HCC) * T4 FREE(Performed 06/21/2014) Performed for Queens's disease (HCC) * TSH(Performed 06/21/2014) Performed for Queens's disease (HCC) * RENIN ACTIVITY(Performed 06/21/2014) Performed for Queens's disease (HCC) * ACTH(Performed 06/21/2014) Performed for Queens's disease (HCC) * MAGNESIUM BLOOD(Performed 03/19/2014) Performed for Queens's disease (HCC) * BASIC METABOLIC PANEL (CALCIUM TOTAL)(Performed 03/19/2014) Performed for Queens's disease (HCC) * RENIN ACTIVITY(Performed 02/06/2014) Performed for Queens's disease (HCC) * ACTH(Performed 02/06/2014) Performed for Queens's disease (HCC) * BASIC METABOLIC PANEL (CALCIUM TOTAL)(Performed 02/06/2014) Performed for Queens's disease (HCC) * LAB RESULTS ORDER(Performed 01/30/2014) * HCG URINE QUALITATIVE - POCT (IP) BEAKER(Performed 01/25/2014) * DHEA SULFATE(Performed 01/25/2014) * DHEA(Performed 01/25/2014) * RENIN ACTIVITY(Performed 01/25/2014) * ACTH(Performed 01/25/2014) * BASIC METABOLIC PANEL (CALCIUM TOTAL)(Performed 01/25/2014) * LAB RESULTS ORDER(Performed 01/16/2014) * LAB RESULTS ORDER(Performed 12/09/2013) * RENIN ACTIVITY(Performed 10/04/2013) Performed for Adrenal insufficiency, primary (HCC) * TISSUE TRANSGLUTAMINASE AB IGA(Performed 10/04/2013) Performed for Adrenal insufficiency, primary (HCC) * IGA BLOOD(Performed 10/04/2013) Performed for Adrenal insufficiency, primary (HCC) * THYROID AB PANEL (TPO AB+THYROGLOB AB)(Performed 10/04/2013) Performed for Adrenal insufficiency, primary (HCC) * BASIC METABOLIC PANEL (CALCIUM TOTAL)(Performed 10/04/2013) Performed for Adrenal insufficiency, primary (HCC) * CYTOMEGALOVIRUS ANTIBODY IGG/IGM BLOOD(Performed 09/16/2013) * MADAN-BARRON VIRUS ANTIBODY PANEL(Performed 09/16/2013) * LAB MISC TEST(Performed 09/16/2013) * PHOSPHORUS BLOOD(Performed 09/16/2013) * MAGNESIUM BLOOD(Performed 09/16/2013) * BASIC METABOLIC PANEL (CALCIUM TOTAL)(Performed 09/16/2013) * PHOSPHORUS BLOOD(Performed 09/15/2013) * MAGNESIUM BLOOD(Performed 09/15/2013) * BASIC METABOLIC PANEL (CALCIUM TOTAL)(Performed 09/15/2013) * XR CHEST 1VW(Performed 09/15/2013) Performed for Hypoxia * BASIC METABOLIC PANEL (CALCIUM TOTAL)(Performed 09/15/2013) * PHOSPHORUS BLOOD(Performed 09/15/2013) * MAGNESIUM BLOOD(Performed 09/15/2013) * BASIC METABOLIC PANEL (CALCIUM TOTAL)(Performed 09/14/2013) * PHOSPHORUS BLOOD(Performed 09/14/2013) * MAGNESIUM BLOOD(Performed 09/14/2013) * BASIC METABOLIC PANEL (CALCIUM TOTAL)(Performed 09/14/2013) * PHOSPHORUS BLOOD(Performed 09/13/2013) * MAGNESIUM BLOOD(Performed 09/13/2013) * BASIC METABOLIC PANEL (CALCIUM TOTAL)(Performed 09/13/2013) * MRI BRAIN WWO CONTRAST(Performed 09/13/2013) Performed for Hypocortisolism (HCC) * ECHO CONSULT - PEDIATRIC(Performed 09/13/2013) * MISAEL BLOOD SCREEN W/REFLEX TITER(Performed 09/13/2013) * C-REACTIVE PROTEIN(Performed 09/13/2013) * ERYTHROCYTE SEDIMENTATION RATE(Performed 09/13/2013) * CT ABDOMEN PELVIS W CONTRAST(Performed 09/13/2013) Performed for Hypocortisolism (HCC) * XR CHEST 1VW(Performed 09/13/2013) Performed for S/P PICC central line placement * BASIC METABOLIC PANEL (CALCIUM TOTAL)(Performed 09/13/2013) * PHOSPHORUS BLOOD(Performed 09/13/2013) * MAGNESIUM BLOOD(Performed 09/13/2013) * BLOOD GASES CAP + LYTES GLUC CA+ PANEL(Performed 09/13/2013) * ACTH(Performed 09/12/2013) * CARDIAC RHYTHM STRIP ORDER(Performed 09/12/2013) * CORTISOL BLOOD(Performed 09/12/2013) * PHOSPHORUS BLOOD(Performed 09/12/2013) * MAGNESIUM BLOOD(Performed 09/12/2013) * PTH INTACT(Performed 09/12/2013) * URINE MICROSCOPIC ONLY(Performed 09/12/2013) * URINALYSIS REFLEX TO MICROSCOPIC NO CULTURE(Performed 09/12/2013) * CULTURE URINE(Performed 09/12/2013) * DRUG ABUSE URINE PANEL(Performed 09/12/2013) * HCG URINE QUALITATIVE - POCT (IP) BEAKER(Performed 09/12/2013) * T3 FREE(Performed 09/12/2013) * PREALBUMIN(Performed 09/12/2013) * T4 TOTAL(Performed 09/12/2013) * T4 FREE(Performed 09/12/2013) * TSH(Performed 09/12/2013) * LDH BLOOD(Performed 09/12/2013) * COMPREHENSIVE METABOLIC PANEL(Performed 09/12/2013) * CBC W AUTO DIFFERENTIAL(Performed 09/12/2013) * ECHO CONSULT - PEDIATRIC(Performed 09/07/2013) Performed for Palpitations * EKG 15-LEAD(Performed 09/07/2013) Performed for Palpitations * IMAGING/RADIOLOGY/XRAY RESULTS ORDER(Performed 05/10/2012) Results * TSH (09/13/2023 9:45 AM CDT) Only the most recent of6 resultswithin the time period is included. TSH 1.2098 0.35 - 4.94 uIU/mL 09/13/2023 12:19 PM CDT [facility] Blood BLOOD SPECIMEN / Unknown Venipuncture / Unknown 09/13/2023 9:45 AM CDT 09/13/2023 11:39 AM CDT Domonique Tatum MD LAB - C HEMISTRY ORDERABLES [facility] [address] [place] [address] * T4 FREE (09/13/2023 9:45 AM CDT) Only the most recent of3 resultswithin the time period is included. T4 Free 1.05 0.70 - 1.50 ng/dL 09/13/2023 12:19 PM CDT [facility] Blood BLOOD SPECIMEN / Unknown Venipuncture / Unknown 09/13/2023 9:45 AM CDT 09/13/2023 11:39 AM CDT Domonique Tatum MD LAB - C HEMISTRY ORDERABLES Performing Organization Address City/[facility]/ZIP Co de Phone Number [facility] [address] [phone] * (ABNORMAL) URINALYSIS - POCT (IP) BEAKER INTERFACE (09/13/2023 9:04 AM CDT) Only the most recent of3 resultswithin the time period is included. Color UA POCT Light Yellow Straw, Yellow, Dark Yellow, Light Yellow 09/13/2023 9:05 AM CDT [facility] Clarity UA POCT Slightly Cloudy(A) Clear 09/13/2023 9:05 AM CDT [facility] Specific [place] UA POCT 1.015 1.005 - 1.030 09/13/2023 9:05 AM CDT [facility] pH UA POCT 7.0 5.0 - 8.0 pH 09/13/2023 9:05 AM CDT [facility] Protein UA POCT Negative Negative 9:05 AM CDT [facility] Blood UA POCT Negative Negative 09/13/2023 9:05 AM CDT [facility] Leukocyte UA POCT 2+(A) Negative 09/13/2023 9:05 AM CDT [facility] Nitrite UA POCT Negative Negative 9:05 AM CDT [facility] Glucose UA POCT Trace(A) Negative 9:05 AM CDT [facility] Ketone UA POCT Negative Negative 09/13/2023 9:05 AM CDT [facility] Bilirubin UA POCT Negative Negative 09/13/2023 9:05 AM CDT [facility] Urobilinogen UA POCT 0.2 0.1 - 1.0 EU/dL 09/13/2023 9:05 AM CDT [facility] Urine URINE / Unknown 09/13/2023 9 :04 AM CDT 09/13/2023 9:05 AM CDT Domonique Tatum MD LAB - P OINT OF CARE ORDERABLES Performing Organization Address City/[facility]/ZIP Co de Phone Number [facility] [address] [place] [address] [phone] * SONOGRAM - COMPLETE (09/13/2023 8:31 AM CDT) Only the most recent of3 resultswithin the time period is included. Anatomical Region Laterality Modality Other 09/13/2023 8:31 AM CDT Narrative 09/13/2023 9:08 AM CDT ?[facility] [place] [facility] ?PHONE: ??FAX: Pat. Name: ?MYA PAT Pat. No: ?[id number] Study Date: ?? 09/13/2023 ??8:31am , Age: ? 2000, 23 Pregnancies: ?? 1, Para 0000 Height: ? 62 in Weight: ? 140 lb LMP: ?Unknown GA by Base: ?? 31w6d ?? CONNIE: 11/09/2023 GA by US: ? 32w0d ?? CONNIE: 11/08/2023 GA Selected: ??31w6d (From [facility]) CONNIE: ?11/09/2023 Referring MD: Carloz Steven MD Stick Inserter: ??Ashia Lynne RDMS CPT4: ? 70243 BMI: ?25.6 Hist/Ind: ? Bilateral club feet, Low-risk cf-DNA ?Addisons disease on hydrocortisone & fludrocortisone ?Hypothyroid on levothyroxine MEASUREMENTS & AGE ? GROWTH EVALUATION Measurement ??GA ? Range ? Srce %for GA Ratios ----- ---- ------- BPD ??8.1 cm 32w3d (10h3p-31u2e) Hadl BPD 56% FL/BPD 0.73 (0.71 - 0.87) HC ??29.0 cm 31w6d (78l2c-49k7t) Hadl HC ??14% FL/AC ??0.20 (0.20 - 0.24) AC ??28.9 cm 32w6d (82j0x-73m8l) Hadl AC ??76% HC/AC ??1.00 (0.96 - 1.15) FL ?? 5.9 cm 30w5d (49n1x-23w9v) Hadl FL ??12% CI ? 0.81 (0.70 - 0.86) HL ?? 5.2 cm 30w2d (98x8q-96p0w) Noe HL ??25% Cere 3.9 cm 32w0d (56j7u-60l2s) Hill Cere53% GA for sonogram 32w0d (29f1f-10t5o) ?? Weight Estimate: based on (BPD,HC,AC,FL) Avg ?Weight: 1901 gm (1623-2178gm) Had ? : 4lbs, 3oz ? Normal: 1924 gm (1443- 2405gm) Had ? Wt% ? 46% for 31w6d Heart Rate: 143 bpm Amniotic Fluid Index: 12.0cm (08.6-24.1) Q1: 1.5cm ??Q2: 4.0cm ??Q3: 3.7cm ??Q4: 2.8cm ?? PROCEDURE, TECHNIQUE Procedure: Rate of growth Technique: transabdominal EVAL, PLACENTA Presentation: cephalic Umbilical Cord: 3 Vessels Placenta: posterior Heart Rate: 143 bpm Amniotic Fluid Volume: normal Anatomy!Normal!Abnormal!Suboptimal!Prev. Seen!Comments Cranium ?! ?! ?! ?! ? x ?! Mdl (CSP/Thal! ?! ?! ?! ? x ?! Ventricles ?? ! ?! ?! ?! ? x ?! Choroid Plexu! ?! ?! ?! ? x ?! Cerebellum ?? ! ?? x ??! ?! ?! ?! Cisterna M. ??! ?! ?! ?! ? x ?! Nuchal Fold ??! ?! ?! ?! ? x ?! Orbits ? ! ?! ?! ?! ? x ?! Profile ?! ?! ?! ?! ? x ?! Nasal Bone ?? ! ?! ?! ?! ? x ?! Lip ?! ?! ?! ?! ? x ?! Spine ?! ?? x ??! ?! ?! ?! Lungs ?! ?? x ??! ?! ?! ?! 4 Chamber Hea! ?? x ??! ?! ?! ?! LVOT ? ! ?! ?! ?! ? x ?! RVOT ? ! ?! ?! ?! ? x ?! 3 Vessel View! ?! ?! ?! ? x ?! 3 Vessel Trac! ?! ?! ?! ? x ?! Cross-over ?? ! ?! ?! ?! ? x ?! Ductal Arch ??! ?! ?! ?! ? x ?! Aortic Arch ??! ?! ?! ?! ? x ?! Caval View ?? ! ?! ?! ?! ? x ?! Situs ?! ?! ?! ?! ? x ?! Diaphragm ?! ?? x ??! ?! ?! ? x ?! Stomach ?! ?? x ??! ?! ?! ? x ?! Bowel ?! ?! ?! ?! ? x ?! Kidneys ?! ?? x ??! ?! ?! ? x ?! Bladder ?! ?? x ??! ?! ?! ? x ?! 3 Vessel Cord! ?? x ??! ?! ?! ? x ?! Cord In! ?! ?! ?! ? x ?! Upper Extremi! ?! ?! ?! ? x ?! Hands ?! ?! ?! ?! ? x ?! Lower Extremi! ?! ?! ?! ? x ?! Feet ? ! ?! ?! ?! ? x ?!Bilateral club ?feet previously ?seen External Kirsten! ?! ?! ?! ? x ?! Placental Cor! ?! ?! ?! ? x ?! CLINICAL SUMMARY IMPRESSION: Single, live, intrauterine at 31w6d ?? size & amniotic fluid volume are within normal limits ?? No malformations were seen within the limitations of ultrasound RECOMMEND: Ultrasound in 4 weeks for growth & amniotic fluid volume Thank you for allowing us the opportunity to care for your patient Won Head MD <Electronic Signature> ??09/13/2023 09:08am Chelita Steven MD [facility] ORDERABLES * HEMOGLOBIN A1C (05/06/2023 12:02 PM CDT) Pathologist [facility] Hemoglobin A1c 4.8 <5.7 % 05/06/2023 12:55 PM CDT [facility] Estimated Average Glucose 91 mg/dL 05/06/2023 12:55 PM CDT [facility] Blood BLOOD SPECIMEN / Unknown Venipuncture / Unknown 05/06/2023 12:02 PM CDT 05/06/2023 12:42 PM CDT Narrative [facility] - 05/06/2023 12:55 PM CDT HbA1c Interpretation: Normal: < 5.7% Pre-diabetes: 5.7-6.4% Diabetes: Equal to or greater than 6.5% Test results diagnostic of diabetes should be repeated for confirmation. Treatment target values recommended by ADA and other clinical organizations should be used to evaluate metabolic control in patients. This test should not replace glucose testing for patients with Type 1 diabetes, pediatric patients, or women. ??Falsely low HbA1c results may be observed in patients with clinical conditions that shorten erythrocyte life span or decrease mean erythrocyte age such as the presence of unstable hemoglobin variants, elevated hemoglobin F level or other causes of hemolytic anemia. ??HbA1c may not accurately reflect glycemic control when clinical conditions that affect erythrocyte survival are present. ??Severe Iron deficiency anemia may yield falsely high results. ??Hemoglobin A1c assay should not be used to diagnose or monitor diabetes in patients with malignancy, recent blood transfusion, chronic kidney or liver disease. ?? This method may yield falsely low results when hemoglobin (HbF) exceeds 5% in the specimen. The [employer] Alinity assay for the measurement of HbA1c is a National Glycohemoglobin Standardization Program (NGSP) certified method. Atif Ko MD LAB - CHEMISTRY DESIRAE [facility] Organization Address City/State/ZIP Co de Phone Number [facility] [address] [place] [address] * (ABNORMAL) COMPREHENSIVE METABOLIC PANEL (05/06/2023 12:02 PM CDT) Only the most recent of5 resultswithin the time period is included. [facility] Glucose 76 70 - 105 mg/dL 05/06/2023 1:02 PM CDT [facility] Sodium 135(L) 136 - 145 mmol/L 05/06/2023 1:02 PM CDT [facility] Potassium 3.8 3.5 - 5.1 mmol/L 05/06/2023 1:02 PM CDT [facility] Chloride 104 98 - 107 mmol/L 05/06/2023 1:02 PM CDT [facility] CO2 23 22 - 29 mmol/L 05/06/2023 1:02 PM CDT [facility] Calcium 9.8 8.4 - 10.4 mg/dL 05/06/2023 1:02 PM [facility] Anion Gap 8 6 - 16 mmol/L 05/06/2023 1:02 PM CDT [facility] BUN 6 5.3 - 18.7 mg/dL 05/06/2023 1:02 PM T [facility] Creatinine 0.69 0.57 - 1.11 mg/dL 05/06/2023 1:02 PM [facility] Alkaline Phosphatase 51 40 - 150 U/L 05/06/2023 1:02 PM T [facility] ALT 8 0 - 55 U/L 05/06/2023 1:02 PM [facility] AST 14 5 - 34 U/L 05/06/2023 1:02 PM [facility] Protein Total 7.8 6.4 - 8.3 gm/dL 05/06/2023 1:02 PM [facility] Albumin 4.2 3.4 - 5.0 gm/dL 05/06/2023 1:02 PM [facility] Bilirubin Total 0.8 0.2 - 1.2 mg/dL 05/06/2023 1:02 PM [facility] eGFR by CKD-EPI >90 >=90 mL/min/1.7 3 m2 05/06/2023 1:02 PM [facility] Blood BLOOD SPECIMEN / Unknown Venipuncture / Unknown 05/06/2023 12:02 PM CDT 05/06/2023 12:42 PM CDT Atif Ko MD LAB - CHEMISTRY ORDE [facility] Organization Address City/State/ZIP Co de Phone Number [facility] [address] [place] [address] * (ABNORMAL) RENIN ACTIVITY (05/30/2018 1:40 PM CDT) Only the most recent of19 resultswithin the time period is included. [facility] Signature Plasma Renin Activity 14.31(H) 0.25 - 5.82 ng/mL/h [facility] Comment: This test was developed and its analytical performance characteristics have been determined by [facility]. It has not been cleared or approved by FDA. This assay has been validated pursuant to the CLIA regulations and is used for clinical purposes. Test Performed at: [facility] [place] [address] [place], [place] ??[id number] PEYTON MONTES MD,PHD,CHERRI 05/30/2018 1:40 PM CDT 05/30/2018 1:41 PM CDT Delma Solis MD LAB - CHEMISTRY DESIRAE CHARLES Performing Organization Address City/[facility] Co de Phone Number [facility] [phone] [place] [address] * BASIC METABOLIC PANEL (CALCIUM TOTAL) (05/30/2018 1:40 PM CDT) Only the most recent of25 resultswithin the time period is included. Pathologist [facility] Glucose 92 65 - 139 mg/dL [facility] Comment: ? Non-fasting reference interval BUN 9 7 - 20 mg/dL [facility] Creatinine 0.74 0.50 - 1.00 mg/dL [facility] eGFR by MDRD 117 > OR = 60 mL/min/1. 73m2 [facility] eGFR by MDRD 136 > OR = 60 mL/min/1. 73m2 [facility] BUN/Creatinine Ratio NOT APPLICABLE 6 - 22 (calc) [facility] Sodium 138 135 - 146 mmol/L [facility] Potassium 4.2 3.8 - 5.1 mmol/L [facility] Chloride 104 98 - 110 mmol/L [facility] CO2 26 20 - 32 mmol/L [facility] Calcium 9.2 8.9 - 10.4 mg/dL [facility] Comment: Test Performed at: [facility] [address] [place], [place] ??[phone] HOLLY GRAHAM DO,MPH 05/30/2018 1:40 PM CDT 05/30/2018 1:41 PM CDT Delma Solis MD LAB - CHEMISTRY DESIRAE CHARLES Performing Organization Address City/[facility] Co de Phone Number [facility] [address] [place] [address] * (ABNORMAL) ACTH (05/28/2017 9:16 AM CDT) Only the most recent of16 resultswithin the time period is included. [facility] ACTH 526(H) 6 - 50 pg/mL [facility] Comment: Reference range applies only to specimens collected between 7am-10am REPORT COMMENT: FASTING:NO Test Performed at: [facility] [address] ??[phone] HOLLY GRAHAM DO,MPH 05/28/2017 9:16 AM CDT 05/28/2017 9:17 AM CDT Delma Solis MD LAB - CHEMISTRY DESIRAE CHARLES Performing Organization Address City/[facility]/ZIP Co de Phone Number [facility] [address] [place] [address] * THYROID PEROXIDASE ANTIBODY (03/31/2017 11:16 AM END FINDER TWISTING DEPARTMENT) [facility] Thyroid Peroxidase TPO Antibody 16 0 - 26 IU/mL 04/01/2017 5:13 AM END FINDER TWISTING DEPARTMENT [facility] ([facility]) Blood BLOOD SPECIMEN / Unknown Lab Venipuncture / Unknown 03/31/2017 11:16 AM END FINDER TWISTING DEPARTMENT 03/31/2017 12:04 PM END FINDER TWISTING DEPARTMENT Narrative [facility] ([facility]) - 04/01/2017 5:13 AM END FINDER TWISTING DEPARTMENT Performed at: ??01 - [facility] [address] ??[id number] Shear Tender: Tyler Grigsby PhD, Phone: ??[phone] Delma Solis MD LAB - CHEMISTRY DESIRAE CHARLES Performing Organization Address City/[facility]/ZIP Co de Phone Number [facility] ([facility]) [address] [place] [address] * MRI BRAIN WITH AND WITHOUT CONTRAST (01/20/2017 3:21 PM END FINDER TWISTING DEPARTMENT) Only the most recent of2 resultswithin the time period is included. Anatomical Region Laterality Modality Head Magnetic Resonan ce 01/20/2017 3:45 PM END FINDER TWISTING DEPARTMENT Impressions 01/20/2017 4:16 PM END FINDER TWISTING DEPARTMENT 1. Normal MRI of the brain. Dictated by Astrid Arita on 01/20/2017 4:16 PM I, Driss Lal, have personally reviewed the images and I agree with this report. Narrative 01/20/2017 4:16 PM END FINDER TWISTING DEPARTMENT EXAMINATION: Magnetic resonance imaging (MRI) of the brain without and with contrast HISTORY: New daily persistent headache TECHNIQUE: MRI of the brain was performed prior to and following the uneventful administration of 8 mL intravenous gadolinium contrast according to standard protocol. FINDINGS: Comparison is made with MR brain dated 09/13/2013. No evidence of acute or chronic hemorrhage is identified. No evidence of acute cerebral infarction is seen. The ventricles are of normal size, shape, and morphology. No mass effect or midline shift is seen. The corpus callosum and sella appear normal. The posterior fossa, brainstem, and craniocervical junction appear normal. There is a small focus of apparent enhancement within the anterior cervical spine at the level of C2-3 which most likely represents artifact. This is only seen on coronal postcontrast images. The visualized portions of the orbits, paranasal sinuses, and mastoids appear normal. Normal flow voids are demonstrated in the carotid arteries and basilar artery. The calvarium and visualized cervical spine otherwise appear normal. Procedure Note Driss Lal MD - 01/20/2017 EXAMINATION: Magnetic resonance imaging (MRI) of the brain without and with contrast HISTORY: New daily persistent headache TECHNIQUE: MRI of the brain was performed prior to and following the uneventful administration of 8 mL intravenous gadolinium contrast according to standard protocol. FINDINGS: Comparison is made with MR brain dated 09/13/2013. No evidence of acute or chronic hemorrhage is identified. No evidence of acute cerebral infarction is seen. The ventricles are of normal size, shape, and morphology. No mass effect or midline shift is seen. The corpus callosum and sella appear normal. The posterior fossa, brainstem, and craniocervical junction appear normal. There is a small focus of apparent enhancement within the anterior cervical spine at the level of C2-3 which most likely represents artifact. This is only seen on coronal postcontrast images. The visualized portions of the orbits, paranasal sinuses, and mastoids appear normal. Normal flow voids are demonstrated in the carotid arteries and basilar artery. The calvarium and visualized cervical spine otherwise appear normal. IMPRESSION 1. Normal MRI of the brain. Dictated by Astrid Arita on 01/20/2017 4:16 PM I, Driss Lal, have personally reviewed the images and I agree with this report. Deborahmana Still COMM[facility]ICATION CENTER COORDINATOR-SLABBING MACHINE OPERATOR MR ORDERAB LES * CBC W DIFFERENTIAL (11/17/2016 10:16 AM CDT) Only the most recent of3 resultswithin the time period is included. White Blood Cell Count 10.9 4.5 - 13.0 Thousand/u L [facility] RBC 4.41 3.80 - 5.10 Million/uL [facility] Hemoglobin 13.1 11.5 - 15.3 g/dL [facility] Hematocrit 38.6 34.0 - 46.0 % [facility] MCV 87.5 78.0 - 98.0 fL [facility] MCH 29.7 25.0 - 35.0 pg [facility] MCHC 33.9 31.0 - 36.0 g/dL [facility] RDW 12.3 11.0 - 15.0 % [facility] Platelet Count 310 140 - 400 Thousand/u L [facility] MPV 10.4 7.5 - 12.5 fL [facility] Neutrophil Absolute 7870 1800 - 8000 cells/uL [facility] Lymphocytes Absolute 2322 1200 - 5200 cells/uL [facility] Absolute Monocytes 556 200 - 900 cells/uL [facility] Eosinophils Absolute 98 15 - 500 cells/uL [facility] Basophils Absolute 55 0 - 200 cells/uL [facility] Granulocytes % 72.2 % [facility] Lymphocytes % 21.3 % [facility] Monocytes % 5.1 % [facility] Eosinophils % 0.9 % [facility] Basophils % 0.5 % [facility] Comment: Test Performed at: [facility] [address] ??[phone] HOLLY GRAHAM DO,MPH Blood BLOOD SPECIMEN / Unknown 11/17/2016 10:16 AM CDT 11/17/2016 10:17 AM CDT Delma Solis MD LAB - HEMATOLOGY ORD ERABLES [facility] [address] [place] [address] * TISSUE TRANSGLUTAMINASE AB IGA (12/28/2014 8:08 AM END FINDER TWISTING DEPARTMENT) Only the most recent of3 resultswithin the time period is included. Pathologist [facility] TTG Antibody IgA 1 <4 U/mL [facility] Comment: ?Value ??Interpretation ?<4 U/mL: No Antibody Detected ? >or=4 U/mL: Antibody Detected REPORT COMMENT: 1 OF 2 FASTING:YES Test Performed at: [facility]/[address] ??[phone] PAOLO BABCOCK MD,PHD Blood specimen (specimen) BLOOD SPECIMEN / Unknown 12/28/2014 8:08 AM END FINDER TWISTING DEPARTMENT 12/28/2014 8:09 AM END FINDER TWISTING DEPARTMENT Delma Solis MD LAB - SEROLOGY ORDER ARNAUD Performing Organization Address [facility] de Phone Number [address] [address] * CRP (INFLAMMATORY) (09/14/2014 8:49 AM CDT) Only the most recent of2 resultswithin the time period is included. C-Reactive Protein <0.10 <0.80 mg/dL [facility] Comment: Please be advised that patients taking Carboxypenicillins may exhibit falsely decreased C-Reactive Protein levels due to an analytical interference in this assay. Test Performed at: [facility] [address] [place], [place] ??[phone] HOLLY GRAHAM DO,MPH Blood specimen (specimen) BLOOD SPECIMEN / Unknown 09/14/2014 8:49 AM CDT 09/14/2014 8:51 AM CDT Delma Solis MD LAB - CHEMISTRY ORDE RABLEELA Performing Organization Address [facility] Co de Phone Number [address] [address] * SED RATE WESTERGREN (09/14/2014 8:49 AM CDT) Only the most recent of2 resultswithin the time period is included. Erythrocyte Sedimentation Rate Westergren 5 < OR = 20 mm/h [facility] Comment: Test Performed at: [facility] ??[phone] BRITTNEY VICK MD Blood specimen (specimen) BLOOD SPECIMEN / Unknown 09/14/2014 8:49 AM CDT 09/14/2014 8:51 AM CDT Delma Solis MD LAB - HEMATOLOGY ORD ERABLES Performing Organization Address [facility] Co de Phone Number [address] [address] * CBC NO DIFFERENTIAL (09/14/2014 8:49 AM CDT) Pathologist [facility] White Blood Cell Count 6.4 4.5 - 13.0 Thousand/u L [facility] RBC 3.87 3.80 - 5.10 Million/uL [facility] Hemoglobin 11.5 11.5 - 15.3 g/dL [facility] Hematocrit 35.1 34.0 - 46.0 % [facility] MCV 90.8 78.0 - 98.0 fL [facility] MCH 29.8 25.0 - 35.0 pg [facility] MCHC 32.8 31.0 - 36.0 g/dL [facility] RDW 12.5 11.0 - 15.0 % [facility] Platelet Count 185 140 - 400 Thousand/u L [facility] Comment: Test Performed at: [facility] ??[phone] BRITTNEY VICK MD Blood specimen (specimen) BLOOD SPECIMEN / Unknown 09/14/2014 8:49 AM CDT 09/14/2014 8:51 AM CDT Delma Solis MD LAB - HEMATOLOGY ORD ERABLES Performing Organization Address City/[facility]/ZIP Co de Phone Number [facility] [address] [place] [address] * PTH INTACT W/O CALCIUM (06/21/2014 12:22 PM CDT) Pathologist [facility] PTH Intact 34 14 - 72 pg/mL 06/21/2014 3:56 PM CDT [facility] Blood BLOOD SPECIMEN / Unknown Lab Venipuncture / Unknown 06/21/2014 12:22 PM CDT 06/21/2014 12:42 PM CDT Delma Solis MD LAB - CHEMISTRY DESIRAE CHARLES [facility] [address] [place] [address] * THYROID AB PANEL (TPO AB+THYROGLOB AB) (06/21/2014 12:22 PM CDT) Only the most recent of2 resultswithin the time period is included. Thyroid Peroxidase TPO Antibody 1.0 0.0 - 9.0 IU/mL 06/22/2014 10:18 AM CDT [facility] ([facility]) Thyroglobulin Antibody <0.9 0.0 - 4.0 IU/mL 06/22/2014 10:18 AM CDT [facility] ([facility]) Comment: INTERPRETIVE INFORMATION: Thyroglobulin Antibody ? A value of 4.0 IU/mL or less indicates a negative result for thyroglobulin antibodies. The Thyroglobulin Antibody assay is being performed using the [employer] Access DxI method. Blood specimen (specimen) BLOOD SPECIMEN / Unknown Lab Venipuncture / Unknown 06/21/2014 12:22 PM CDT 06/21/2014 12:42 PM CDT Delma Solis MD LAB - CHEMISTRY DESIRAE CHARLES Performing Organization Address City/[facility]/ZIP Co de Phone Number [facility] ([facility]) [address] * IRON BLOOD (06/21/2014 12:22 PM CDT) Pathologist [facility] Iron 137 25 - 156 ug/dL 06/21/2014 1:42 PM CDT [facility] Blood BLOOD SPECIMEN / Unknown Lab Venipuncture / Unknown 06/21/2014 12:22 PM CDT 06/21/2014 12:41 PM CDT Delma Solis MD LAB - CHEMISTRY DESIRAE CHARLES [facility] [place] [address] * T4 TOTAL (06/21/2014 12:22 PM CDT) Only the most recent of2 resultswithin the time period is included. Pathologist [facility] T4 Total 4.91 4.87 - 11.7 ug/dL 06/21/2014 1:56 PM CDT [facility] Blood BLOOD SPECIMEN / Unknown Lab Venipuncture / Unknown 06/21/2014 12:22 PM CDT 06/21/2014 12:41 PM CDT Delma Solis MD LAB - CHEMISTRY DESIRAE CHARLES Performing Organization Address [facility]/ZIP Co de Phone Number [facility] [address] [place] [address] * FERRITIN (06/21/2014 12:22 PM CDT) [facility] Ferritin 43 10 - 140 ng/mL 06/21/2014 1:44 PM CDT [facility] Blood BLOOD SPECIMEN / Unknown Lab Venipuncture / Unknown 06/21/2014 12:22 PM CDT 06/21/2014 12:41 PM CDT Delma Solis MD LAB - CHEMISTRY DESIRAE CHARLES Performing Organization Address [facility]/ZIP Co de Phone Number [facility] [address] [place] [address] * MAGNESIUM BLOOD (03/19/2014 9:46 AM END FINDER TWISTING DEPARTMENT) Only the most recent of8 resultswithin the time period is included. [facility] Magnesium 2.2 1.5 - 2.5 mg/dL [facility] Comment: Test Performed at: [facility]avorite Words[address] ??[phone] HOLLY GRAHAM DO,MPH Blood specimen (specimen) BLOOD SPECIMEN / Unknown 03/19/2014 9:46 AM END FINDER TWISTING DEPARTMENT 03/19/2014 9:49 AM END FINDER TWISTING DEPARTMENT Delma Solis MD LAB - CHEMISTRY DESIRAE CHARLES Performing Organization Address [facility]/ZIP Co de Phone Number [facility] [address] [place] [address] * LAB RESULTS ORDER (01/30/2014 12:31 PM END FINDER TWISTING DEPARTMENT) Only the most recent of3 resultswithin the time period is included. Narrative 01/30/2014 12:31 PM END FINDER TWISTING DEPARTMENT Ordered by an unspecified provider. Scanned Document LAB - THERAPEUTIC DR EVELIA MONITORING ORDERABLES * HCG URINE QUALITATIVE - POCT (IP) BEAKER (01/25/2014 12:25 PM END FINDER TWISTING DEPARTMENT) Only the most recent of2 resultswithin the time period is included. HCG Qual Urine Negative Negative [facility] POCT TESTING QC Verified Yes Yes [facility] PO CT TESTING Urine specimen (specimen) URINE / Unknown 01/25/2014 12:25 PM END FINDER TWISTING DEPARTMENT Betty Cancino DO LAB - POINT OF CARE ORDERABLES Performing Organization Address [facility] Co de Phone Number [facility] PO[facility] [address] * (ABNORMAL) DHEA SULFATE (01/25/2014 12:14 PM END FINDER TWISTING DEPARTMENT) Dehydroepiandrosterone Sulfate (DHEAS) 7(L) 22 - 255 ug/dL 01/26/2014 3:19 PM END FINDER TWISTING DEPARTMENT [employer] ([facility]) Comment: Brian Stage Reference Intervals ?Male ?Female Brian Stage I ?7-209 ug/dL ? 7-126 ug/dL Brian Stage II ?28-260 ug/dL ?13-241 ug/dL Brian Stage III ? 39-390 ug/dL ?32-446 ug/dL Brian Stage IV and V ??81-488 ug/dL ?65-371 ug/dL REFERENCE INTERVAL: DHEAS Access complete set of age- and/or gender-specific reference intervals for this test in the [employer] Laboratory Test Directory (Ofelia Feliz). Blood specimen (specimen) BLOOD SPECIMEN / Unknown 01/25/2014 12:14 PM END FINDER TWISTING DEPARTMENT 01/25/2014 12:25 PM END FINDER TWISTING DEPARTMENT Betty Cancino DO LAB - CHEMISTRY DESIRAE CHARLES Performing Organization Address [facility] Co de Phone Number [employer] ([facility]) [address] * (ABNORMAL) DHEA (01/25/2014 12:14 PM END FINDER TWISTING DEPARTMENT) Dehydroepiandrosterone (DHEA) 0.329(L) 1.220 - 7.010 ng/mL 01/27/2014 7:35 AM END FINDER TWISTING DEPARTMENT [employer] ([facility]) Comment: INTERPRETIVE INFORMATION: Dehydroepiandrosterone, Female Brian Stage ??Brian Stage I ? 0.14-2.76 ng/mL ??Brian Stage II ?0.83-4.87 ng/mL ??Brian Stage III ?? 1.08-7.56 ng/mL ??Brian Stage IV-V ??1.24-7.88 ng/mL REFERENCE INTERVAL: Dehydroepiandrosterone by TMS Access complete set of age- and/or gender-specific reference intervals for this test in the [employer] Laboratory Test Directory (Ofelia Feliz). Test developed and characteristics determined by [employer] See Compliance Statement B: [employer]/ Blood specimen (specimen) BLOOD SPECIMEN / Unknown 01/25/2014 12:14 PM END FINDER TWISTING DEPARTMENT 01/25/2014 12:24 PM END FINDER TWISTING DEPARTMENT Betty Cancino DO LAB - CHEMISTRY DESIRAE CHARLES Performing Organization Address [facility]/ZIP Co de Phone Number [employer] ([facility]) [address] * IGA BLOOD (10/04/2013 1:24 PM CDT) IgA 115 65 - 421 mg/dL 10/04/2013 5:56 PM CDT [facility] Blood BLOOD SPECIMEN / Unknown Lab Venipuncture / Unknown 10/04/2013 1:24 PM CDT 10/04/2013 2:26 PM CDT Delma Solis MD LAB - CHEMISTRY MORALESVince CHARLES Performing Organization Address [facility] Co de Phone Number [facility] [address] [place] [address] * LAB MISC TEST (09/16/2013 10:06 AM CDT) Pathologist [facility] Test Name 21 hydroxylsae antibody 10/09/2013 9:12 AM CDT [facility] Test Result See Scanned Report 10/09/2013 9:12 AM CDT [facility] Other (qualifier value) BLOOD SPECIMEN / Unknown 09/16/2013 10:06 AM CDT 09/16/2013 10:[address] Gonzalez DO LAB SEND OUT Performing Organization Address [facility] de Phone Number [facility] [address] [place] [address] * CMV ANTIBODY IGG IGM BLOOD PANEL (09/16/2013 10:06 AM CDT) [facility] Cytomegalovirus Antibody IgG <0.20 U/mL 09/18/2013 4:12 AM CDT [facility] [employer] ([facility]) Comment: INTERPRETIVE INFORMATION: Cytomegalovirus Antibody, IgG ??0.59 U/mL or less......... Not Detected ??0.6 - 0.69 U/mL........... Indeterminate-Repeat testing in ? 10-14 days may be helpful. ??0.70 U/mL or greater...... Detected In immunocompromised patients, CMV serology (IgG or IgM antibody titers) may not be reliable and may be misleading in the diagnosis of acute or reactivation CMV disease. The preferred method for diagnosis is culture of virus and/or demonstration of viral antigen in peripheral white cells (buffy coat), bronchoalveolar lavage (BAL) cells, or tissue biopsies. The best evidence for current infection is a significant change on two appropriately timed specimens, where both tests are done in the same laboratory at the same time. Cytomegalovirus Antibody IgM <8.0 <=29.9 AU/mL 09/18/2013 4:12 AM CDT [facility] ([facility]) Comment: INTERPRETIVE INFORMATION: Cytomegalovirus Antibody, IgM ??29.9 AU/mL or Less ....... Not Detected ??30.0-34.9 AU/mL........... Indeterminate-Repeat testing ? in 10-14 days may be helpful. ??35.0 AU/mL or Greater .... Detected-IgM antibody to CMV ? detected which may indicate a ? current or recent infection. ? However, low levels of IgM ? antibodies may occasionally ? persist for more than 12 ? months post-infection. CMV serology is not useful for the evaluation of active or reactivated infection in immunocompromised patients. Molecular diagnostic tests (i.e. PCR)are preferred in these cases. Blood specimen (specimen) BLOOD SPECIMEN / Unknown 09/16/2013 10:06 AM CDT 09/16/2013 10:[address] Gonzalez DO LAB - CHEMISTRY DESIRAE Zamora Organization Address City/State/ZIP Co de Phone Number [facility] ([facility]) [address] * (ABNORMAL) MADAN-BAR VIRUS PANEL (09/16/2013 10:06 AM [facility]) Madan-Barron Virus Antibody IgG Early Antigen <5.0 0.0 - 10.9 U/mL 09/18/2013 4:16 AM [facility] ([facility]) Comment: INTERPRETIVE INFORMATION: Madan-Barron Virus Antibody to ?Early D Antigen (EA-D), IgG ??8.9 U/mL or less........Not Detected ??9.0-10.9 U/mL...........Indeterminate - Repeat testing in ?10-14 may be helpful. ??11.0 U/mL or greater....Detected Interpretive information regarding serologic features of EBV-associated diseases is available at [email or web address]. Madan-Barron Virus Antibody IgG Viral Capsid Antigen 65.7(H) 0.0 - 21.9 U/mL 09/18/2013 4:16 AM [facility] [employer] ([facility]) Comment: INTERPRETIVE INFORMATION: Madan-Barron Virus Antibody to ?Viral Capsid Antigen, IgG ??17.9 U/mL or less.......Not Detected ??18.0-21.9 U/mL..........Indeterminate - Repeat testing in ?10-14 days may be helpful. ??22.0 U/mL or greater....Detected Interpretive information regarding serologic features of EBV-associated diseases is available at [email or web address]. Madan-Barron Virus Antibody IgM Viral Capsid Antigen <10.0 0.0 - 43.9 U/mL 09/18/2013 4:16 AM [facility] [employer] ([facility]) Comment: INTERPRETIVE INFORMATION: Madan-Barron Virus Antibody to ?Viral Capsid Antigen, IgM ??35.9 U/mL or less.......Not Detected ??36.0-43.9 U/mL..........Indeterminate - Repeat testing in ?10-14 days may be helpful. ??44.0 U/mL or greater....Detected Interpretive information regarding serologic features of EBV-associated diseases is available at [email or web address]. Madan-Barron Virus Antibody IgG Nuclear Antigen 562.0(H) 0.0 - 21.9 U/mL 09/18/2013 4:16 AM CDT [facility] [employer] ([facility]) Comment: INTERPRETIVE INFORMATION: Madan-Barron Virus Antibody to ?Nuclear Antigen, IgG ??17.9 U/mL or less.......Not Detected ??18.0-21.9 U/mL..........Indeterminate - Repeat testing in ?10-14 days may be helpful. ??22.0 U/mL or greater....Detected Interpretive information regarding serologic features of EBV-associated diseases is available at [email or web address]. Blood specimen (specimen) BLOOD SPECIMEN / Unknown 09/16/2013 10:06 AM CDT 09/16/2013 10:[address] Gonzalez DO LAB - CHEMISTRY DESIRAE Zamora Organization Address City/State/ZIP Co de Phone Number [facility] [facility]) [address] [place] [id number] * (ABNORMAL) PHOSPHORUS BLOOD (09/16/2013 12:39 AM CDT) Only the most recent of7 resultswithin the time period is included. Phosphorus 2.06(L) 2.94 - 5.67 mg/dL 09/16/2013 1:40 AM CDT [facility] Blood BLOOD SPECIMEN / Unknown 09/16/2013 12:39 AM CDT 09/16/2013 1:00 AM CDT Savannah Paige MD LAB - CHEMISTRY DESIRAE CHARLES [facility] Organization Address City/State/ZIP Co de Phone Number [facility] [address] [place] [address] * XR CHEST PORTABLE/BEDSIDE (09/15/2013 3:05 AM CDT) Only the most recent of2 resultswithin the time period is included. Anatomical Region Laterality Modality Chest Radiographic Mar ging 09/15/2013 8:01 AM CDT Impressions 09/15/2013 11:42 AM CDT Clear lungs. I, Savannah Moran, have personally reviewed the images and I agree with this report. Narrative 09/15/2013 11:42 AM CDT Exam: Chest, one view History: Coarse breath sounds overnight Comparison: September 13, 2013 Findings: Right upper extremity PICC is seen with the tip followed to the SVC/RA junction. The lungs are clear. There is no evidence of pleural effusion or pneumothorax. Heart is within normal limits in size and the pulmonary vascularity is within normal limits. The visualized osseous structures are intact. Procedure Note Savannah Moran MD - 09/15/2013 Exam: Chest, one view History: Coarse breath sounds overnight Comparison: September 13, 2013 Findings: Right upper extremity PICC is seen with the tip followed to the SVC/RA junction. The lungs are clear. There is no evidence of pleural effusion or pneumothorax. Heart is within normal limits in size and the pulmonary vascularity is within normal limits. The visualized osseous structures are intact. IMPRESSION Clear lungs. I, Savannah Moran, have personally reviewed the images and I agree with this report. Alaina Lainez MD DIAGNOSTIC IMAGING O RDERABLES * ECHO CONSULT - PEDIATRIC (09/13/2013 1:24 PM CDT) Only the most recent of2 resultswithin the time period is included. 09/13/2013 1:24 PM CDT Narrative [facility] - 09/13/2013 2:46 PM CDT [facility] , Transthoracic Echocardiogram 2D, M-mode, Doppler, and Color Doppler Name: MYA PAT MR #: [id number] Study date: 09/13/2013 Age: 13 years : 2000 Gender: Female Ht: 62.8 in / 159.5 cm Wt: 112.4 lb / 51.1 kg BSA: 1.51 m?? HR: BP: 78 mmHg / 36 mmHg age: CONNIE: Maternal age: HAND BUTTON SPLITTER: ??Avtar Sweeney MD PEDIATRIC ECHO AIR CONDITIONER INSTALLER HELPER: ??Norman Higgins RDCS History/ Indications: Syncope. Hypotension. Procedure: The procedure was performed at the bedside. Anatomic relationships: Visceral situs: normal. Left sided cardiac apex (levocardia). Normal atrial situs (atrial situs solitus). Concordant atrioventricular alignment. Ventricular d-loop. Normal infundibular anatomy. Concordant ventriculoarterial connection. Normally related great vessels. Systemic veins: SVC: The superior vena cava and left innominate vein appeared of normal caliber, with normal flow. IVC: The inferior vena cava was normal in size and course. IVC Doppler: The flow pattern was normal. Pulmonary veins: The pulmonary veins drained normally to the left atrium. Doppler: Doppler flow pattern was normal in the pulmonary vein(s). Right atrium: Size was normal. Left atrium: Size was normal. Tricuspid valve: The valve structure was normal. Doppler: The transtricuspid velocity was within the normal range. There was no evidence for tricuspid stenosis. There was trivial regurgitation. Mitral valve: Valve structure was normal. There is no mitral valve prolapse. Doppler: The transmitral velocity was within the normal range. There was no evidence for stenosis. There was no regurgitation. Right ventricle: The cavity size was normal. Wall thickness was normal. Systolic function was normal. Doppler: The tricuspid jet envelope definition was inadequate for estimation of RV systolic pressure. There are no indirect findings (abnormal RV volume or geometry, altered pulmonary flow velocity profile, or leftward septal displacement) which would suggest moderate or severe pulmonary hypertension. RV outflow tract: There was no obstruction. Left ventricle: The cavity size was normal. Wall thickness was normal. Systolic function was normal. There were no regional wall motion abnormalities. Doppler: Left ventricular diastolic function parameters were normal. LV outflow tract: There was no outflow obstruction. Ventricular septum: Thickness was normal. The septum was intact. Pulmonic valve: Leaflets exhibited normal thickness and normal cuspal separation. Doppler: The transpulmonic velocity was within the normal range. Aortic valve: The valve was trileaflet. Leaflets exhibited normal thickness and normal cuspal separation. Doppler: Transaortic velocity was within the normal range. There was no stenosis. There was no regurgitation. Pulmonary artery: The main pulmonary artery was normal, with normal-sized, confluent proximal branch pulmonary arteries. Aorta: There was a normal-sized aortic arch with normal brachiocephalic branching. The root was normal in size. The ascending aorta size was normal. Coronary arteries: The size and course of the left main, proximal left anterior descending, and proximal right coronary arteries were normal. Right coronary artery: Flow was normal. Left main coronary artery: Flow was normal. Left anterior descending: Flow was normal. Extracardiac shunting: No ductal shunt was detected by Doppler. Pericardium: There was no pericardial effusion. The pericardium was normal in appearance. Summary: - ??Diagnoses: Normal intracardiac anatomy. Prepared and signed by Avtar Sweeney MD Signed 09/13/2013 14:45:58 System measurement tables CW MPA Vmax: 0.9 m/s MPA maxP.1 mmHg PRend P.4 mmHg PRend Vmax: 1.2 m/s MM %FS: 38.5 % Ao Diam: 24.8 mm EDV(Teich): 64.8 ml EF(Teich): 69.4 % ESV(Teich): 19.8 ml IVSd: 6.5 mm IVSs: 7.4 mm LA Diam: 21.8 mm LA/Ao: 0.9 LVIDd: 38.7 mm LVIDs: 23.8 mm LVPWd: 5.5 mm LVPWs: 11.4 mm LVd Mass: 61.1 g LVd Mass (ASE): 60.3 g LVd Mass Ind (ASE): 43.7 g/m2 LVd Mass Index: 44.2 g/m2 LVs Mass: 53.3 g LVs Mass (ASE): 54.1 g LVs Mass Ind (ASE): 39.2 g/m2 LVs Mass Index: 38.6 g/m2 SV(Teich): 45 ml PW LPA Vmax: 0.7 m/s LPA maxP.9 mmHg RPA Vmax: 0.7 m/s RPA maxP.7 mmHg Procedure Note Unknown, Provider - 09/13/2013 [facility] , Transthoracic Echocardiogram 2D, M-mode, Doppler, and Color Doppler Name: MYA PAT MR #: [id number] Study date: 09/13/2013 Age: 13 years : 2000 Gender: Female Ht: 62.8 in / 159.5 cm Wt: 112.4 lb / 51.1 kg BSA: 1.51 m?? HR: BP: 78 mmHg / 36 mmHg age: CONNIE: Maternal age: HAND BUTTON SPLITTER: Avtar Sweeney MD PEDIATRIC ECHO [employer] CONDITIONER INSTALLER HELPER: Norman Higgins [facility] History/ Indications: Syncope. Hypotension. Procedure: The procedure was performed at the bedside. Anatomic relationships: Visceral situs: normal. Left sided cardiac apex (levocardia). Normal atrial situs (atrial situs solitus). Concordant atrioventricular alignment. Ventricular d-loop. Normal infundibular anatomy. Concordant ventriculoarterial connection. Normally related great vessels. Systemic veins: SVC: The superior vena cava and left innominate vein appeared of normal caliber, with normal flow. IVC: The inferior vena cava was normal in size and course. IVC Doppler: The flow pattern was normal. Pulmonary veins: The pulmonary veins drained normally to the left atrium. Doppler: Doppler flow pattern was normal in the pulmonary vein(s). Right atrium: Size was normal. Left atrium: Size was normal. Tricuspid valve: The valve structure was normal. Doppler: The transtricuspid velocity was within the normal range. There was no evidence for tricuspid stenosis. There was trivial regurgitation. Mitral valve: Valve structure was normal. There is no mitral valve prolapse. Doppler: The transmitral velocity was within the normal range. There was no evidence for stenosis. There was no regurgitation. Right ventricle: The cavity size was normal. Wall thickness was normal. Systolic function was normal. Doppler: The tricuspid jet envelope definition was inadequate for estimation of RV systolic pressure. There are no indirect findings (abnormal RV volume or geometry, altered pulmonary flow velocity profile, or leftward septal displacement) which would suggest moderate or severe pulmonary hypertension. RV outflow tract: There was no obstruction. Left ventricle: The cavity size was normal. Wall thickness was normal. Systolic function was normal. There were no regional wall motion abnormalities. Doppler: Left ventricular diastolic function parameters were normal. LV outflow tract: There was no outflow obstruction. Ventricular septum: Thickness was normal. The septum was intact. Pulmonic valve: Leaflets exhibited normal thickness and normal cuspal separation. Doppler: The transpulmonic velocity was within the normal range. Aortic valve: The valve was trileaflet. Leaflets exhibited normal thickness and normal cuspal separation. Doppler: Transaortic velocity was within the normal range. There was no stenosis. There was no regurgitation. Pulmonary artery: The main pulmonary artery was normal, with normal-sized, confluent proximal branch pulmonary arteries. Aorta: There was a normal-sized aortic arch with normal brachiocephalic branching. The root was normal in size. The ascending aorta size was normal. Coronary arteries: The size and course of the left main, proximal left anterior descending, and proximal right coronary arteries were normal. Right coronary artery: Flow was normal. Left main coronary artery: Flow was normal. Left anterior descending: Flow was normal. Extracardiac shunting: No ductal shunt was detected by Doppler. Pericardium: There was no pericardial effusion. The pericardium was normal in appearance. Summary: - Diagnoses: Normal intracardiac anatomy. Prepared and signed by Avtar Sweeney MD Signed 09/13/2013 14:45:58 System measurement tables CW MPA Vmax: 0.9 m/s MPA maxP.1 mmHg PRend P.4 mmHg PRend Vmax: 1.2 m/s MM %FS: 38.5 % Ao Diam: 24.8 mm EDV(Teich): 64.8 ml EF(Teich): 69.4 % ESV(Teich): 19.8 ml IVSd: 6.5 mm IVSs: 7.4 mm LA Diam: 21.8 mm LA/Ao: 0.9 LVIDd: 38.7 mm LVIDs: 23.8 mm LVPWd: 5.5 mm LVPWs: 11.4 mm LVd Mass: 61.1 g LVd Mass (ASE): 60.3 g LVd Mass Ind (ASE): 43.7 g/m2 LVd Mass Index: 44.2 g/m2 LVs Mass: 53.3 g LVs Mass (ASE): 54.1 g LVs Mass Ind (ASE): 39.2 g/m2 LVs Mass Index: 38.6 g/m2 SV(Teich): 45 ml PW LPA Vmax: 0.7 m/s LPA maxP.9 mmHg RPA Vmax: 0.7 m/s RPA maxP.7 mmHg Jose D Bowman MD ECHO ORDERABLES Performing Organization Address City/[facility]/ZIP Co de Phone Number [facility] [address] [place] [address] * MISAEL BLOOD SCREEN W/REFLEX TITER (09/13/2013 11:53 AM CDT) IMSAEL Negative Negative 09/18/2013 11:13 AM CDT [facility] Blood BLOOD SPECIMEN / Unknown Venipuncture / Unknown 09/13/2013 11:53 AM CDT 09/13/2013 12:13 PM CDT Jose D Bowman MD LAB - CHEMISTRY ORD ERABLES Performing Organization Address [facility] Co de Phone Number [facility] [address] [place] [address] * CT ABDOMEN AND PELVIS WITH IV CONTRAST (09/13/2013 11:32 AM CDT) Anatomical Region Laterality Modality Abdomen, Pelvis Computed Tomogra phy 09/13/2013 12:3 1 PM CDT Impressions 09/13/2013 12:48 PM CDT 1. Bilateral L5 spondylolyses. 2. The solid visceral organs are normal in appearance. There is a trace amount of free intraperitoneal fluid inferior to the spleen. 3. Mesenteric lymph nodes in the right lower quadrant. These are a common finding in children and of uncertain significance relative to the patient's clinical problems. Narrative 09/13/2013 12:48 PM CDT Contrast-enhanced CT scan of the abdomen and pelvis performed September 13, 2013. History: 13-year-old with weakness hypotension anorexia and low cortisol level. Previously diagnosed with mononucleosis. Helical axial sections were obtained from the dome of the diaphragm to the symphysis pubis following the intravenous administration of 90 cc of Optiray-320. Oral contrast was not administered. Coronal and sagittal reformatted images were created. No prior CT scans are available for comparison. Mild dependent atelectasis is present at both lung bases. The lung bases are otherwise unremarkable. The heart is within normal limits in size and the peripheral pulmonary vascularity is within normal limits. The liver and spleen are of normal size and uniform attenuation without focal parenchymal abnormality. Specifically the spleen measures 11.7 cm in length. The gallbladder and pancreas are normal in appearance and there is no evidence of intra-or extra hepatic bile duct dilatation. There is no evidence of adrenal mass. The kidneys are functioning bilaterally without evidence of hydronephrosis or focal cortical abnormality. No abnormal perinephric fluid collections are seen. Without the use of oral contrast evaluation of the gastrointestinal tract is somewhat limited. There is no evidence of intestinal obstruction or free intraperitoneal air. A minimal amount of free fluid is noted along the inferior aspect of the spleen, best seen on the coronal images. No additional free intraperineal fluid is seen in the abdomen or pelvis. A normal appendix is identified. The bladder is moderately distended with urine but otherwise unremarkable. The uterus and adnexal structures are grossly unremarkable as well. The abdominal aorta and inferior vena cava are normal in appearance. There is no evidence of significant retroperitoneal lymphadenopathy. Multiple tiny mesenteric lymph nodes are however identified, most numerous in the right lower quadrant and all well under 1 cm in short axis dimension. There is bilateral spondylolyses involving the pars interarticularis at the level of L5. There is no significant anterior displacement of L5 relative to S1 on the supine sagittal reformatted images. The visualized bony structures are otherwise unremarkable. Procedure Note Faiza Vogel MD - 09/13/2013 Contrast-enhanced CT scan of the abdomen and pelvis performed September 13, 2013. History: 13-year-old with weakness hypotension anorexia and low cortisol level. Previously diagnosed with mononucleosis. Helical axial sections were obtained from the dome of the diaphragm to the symphysis pubis following the intravenous administration of 90 cc of Optiray-320. Oral contrast was not administered. Coronal and sagittal reformatted images were created. No prior CT scans are available for comparison. Mild dependent atelectasis is present at both lung bases. The lung bases are otherwise unremarkable. The heart is within normal limits in size and the peripheral pulmonary vascularity is within normal limits. The liver and spleen are of normal size and uniform attenuation without focal parenchymal abnormality. Specifically the spleen measures 11.7 cm in length. The gallbladder and pancreas are normal in appearance and there is no evidence of intra-or extra hepatic bile duct dilatation. There is no evidence of adrenal mass. The kidneys are functioning bilaterally without evidence of hydronephrosis or focal cortical abnormality. No abnormal perinephric fluid collections are seen. Without the use of oral contrast evaluation of the gastrointestinal tract is somewhat limited. There is no evidence of intestinal obstruction or free intraperitoneal air. A minimal amount of free fluid is noted along the inferior aspect of the spleen, best seen on the coronal images. No additional free intraperineal fluid is seen in the abdomen or pelvis. A normal appendix is identified. The bladder is moderately distended with urine but otherwise unremarkable. The uterus and adnexal structures are grossly unremarkable as well. The abdominal aorta and inferior vena cava are normal in appearance. There is no evidence of significant retroperitoneal lymphadenopathy. Multiple tiny mesenteric lymph nodes are however identified, most numerous in the right lower quadrant and all well under 1 cm in short axis dimension. There is bilateral spondylolyses involving the pars interarticularis at the level of L5. There is no significant anterior displacement of L5 relative to S1 on the supine sagittal reformatted images. The visualized bony structures are otherwise unremarkable. IMPRESSION 1. Bilateral L5 spondylolyses. 2. The solid visceral organs are normal in appearance. There is a trace amount of free intraperitoneal fluid inferior to the spleen. 3. Mesenteric lymph nodes in the right lower quadrant. These are a common finding in children and of uncertain significance relative to the patient's clinical problems. Delfino Alicea MD CT ORDERABLES * (ABNORMAL) BLOOD GASES CAP + LYTES GLUC CA+ PANEL (09/13/2013 3:47 AM CDT) pH Capillary 7.33(L) 7.35 - 7.45 pH 09/13/2013 3:53 AM T [facility] pCO2 Capillary 36 32 - 45 mm hg 09/13/2013 3:53 AM T [facility] pO2 Capillary 59(H) 40 - 50 mm hg 09/13/2013 3:53 AM [facility] Hemoglobin Capillary 10.8(L) 12.0 - 16.0 gm/dL 09/13/2013 3:53 AM [facility] O2 Saturation Capillary 90(L) 95 - 99 % 09/13/2013 3:53 AM [facility] Oxyhemoglobin Capillary 88.4(L) 94 - 98 % 09/13/2013 3:53 AM [facility] Carboxyhemoglobin Capillary 0.9 0.5 - 1.5 % 09/13/2013 3:53 AM [facility] Methemoglobin Capillary 0.7 0.0 - 1.5 % 09/13/2013 3:53 AM [facility] O2 Content Capillary 13.5(L) 15.0 - 23.0 % 09/13/2013 3:53 AM [facility] BE Capillary -6.1(L) -2.0 - 2.0 mmol/L 09/13/2013 3:53 AM [facility] P50 Capillary 27.13(H) 25.3 - 26.8 mm hg 09/13/2013 3:53 AM [facility] Sodium Whole Blood 134(L) 136 - 146 mmol/L 09/13/2013 3:53 AM [facility] Potassium Whole Blood 4.6(H) 3.4 - 4.5 mmol/L 09/13/2013 3:53 AM [facility] Chloride WB 106 98 - 106 mmol/L 09/13/2013 3:53 AM [facility] TCO2 Capillary 19.8 18 - 27 mmol/L 09/13/2013 3:53 AM [facility] Glucose WB 121(H) 70 - 106 mg/dL 09/13/2013 3:53 AM [facility] Calcium Ionized 1.31 mmol/L 09/13/2013 3:53 AM [facility] Calcium Ionized Adjusted 1.26 1.15 - 1.29 mmol/L 09/13/2013 3:53 AM [facility] Temp 37.0 C 09/13/2013 3:53 AM [facility] Blood CAPILLARY BLOOD / Unknown Lab Venipuncture / Unknown 09/13/2013 3:47 AM T 09/13/2013 3:50 AM T Norman Orellana MD LAB - BLOOD GASES OR DERABLES [facility] [address] [place] [address] * CARDIAC RHYTHM STRIP ORDER (09/12/2013 10:28 PM CDT) Provider Unknown CARDIAC SERVICES ORD ERABLES * (ABNORMAL) PTH INTACT (09/12/2013 9:29 PM CDT) PTH Intact <6(L) 14 - 72 pg/mL 09/13/2013 1:04 PM CDT [facility] Calcium 9.1 8.5 - 10.1 mg/dL 09/13/2013 1:04 PM CDT [facility] Blood BLOOD SPECIMEN / Unknown Venipuncture / Unknown 09/12/2013 9:29 PM CDT 09/12/2013 9:48 PM CDT Betsy Young MD LAB - CHEMISTRY OR DERABLES Performing Organization Address City/[facility] Co de Phone Number [facility] [address] [place] [address] * CORTISOL BLOOD (09/12/2013 9:29 PM CDT) Cortisol <1.0 ug/dL 09/12/2013 10:44 PM CDT [facility] Blood BLOOD SPECIMEN / Unknown 09/12/2013 9:29 PM CDT 09/12/2013 9:48 PM CDT Narrative [facility] - 09/12/2013 10:44 PM CDT CORTISOL REFERENCE RANGE COMMENT Cortisol AM (7-10 a.m.) ??3.70 - 19.40 ??ug/dl Cortisol PM (3-5 p.m.) ?? 2.90 - 17.30 ??ug/dl Note: No reference range available for random cortisol levels. All results interpreted by ordering physician. Normal cortisol levels are generally highest in the morning hours and lowest from late evening through the director wholesale hours (8 PM to 4 AM). ??The PM measurements of cortisol run approximately one-half to one-third of the AM values. Jose Oconnor MD LAB - CHEMISTRY ORDERABLES Performing Organization Address [facility] Co de Phone Number [facility] [address] [place] [address] * (ABNORMAL) URINALYSIS ROUTINE AUTO (09/12/2013 9:03 PM CDT) Color UA Straw Straw, Yellow, Dark Yellow 09/12/2013 9:45 PM CDT [facility] Clarity UA Clear 09/12/2013 9:45 PM CDT [facility] Specific [place] UA <=1.005 1.005 - 1.030 09/12/2013 9:45 PM CDT [facility] pH UA 6.0 5.0 - 8.0 pH 09/12/2013 9:45 PM CDT [facility] Protein UA Negative Negative 09/12/2013 9:45 PM CDT [facility] Blood UA Negative Negative 09/12/2013 9:45 PM CDT [facility] Leukocyte UA Trace(A) Negative 09/12/2013 9:45 PM CDT [facility] Nitrite UA Negative Negative 09/12/2013 9:45 PM CDT [facility] Glucose UA Negative Negative 09/12/2013 9:45 PM CDT [facility] Ketone UA Negative Negative 09/12/2013 9:45 PM CDT [facility] Bilirubin UA Negative Negative 09/12/2013 9:45 PM CDT [facility] Urobilinogen UA 0.2 0.1 - 1.0 EU/dL 09/12/2013 9:45 PM T [facility] Urine URINE SPECIMEN OBTAINED BY CLEAN CATCH PROCEDURE / Unknown 09/12/2013 9:03 PM CDT 09/12/2013 9:30 PM CDT Betsy Young MD LAB - URINALYSIS O RDERABLES Performing Organization Address [facility] Co de Phone Number [facility] [address] [place] [address] * URINALYSIS MICROSCOPIC ONLY (09/12/2013 9:03 PM CDT) RBC UA 0-2 0-2, 2-5 # /hpf 09/12/2013 9:51 PM CDT [facility] WBC UA 2-5 0-2, 2-5 # /hpf 09/12/2013 9:51 PM CDT [facility] Bacteria UA None Seen None Seen, Trace 09/12/2013 9:51 PM CDT [facility] Epithelial Cell UA 2-5 0-2, 2-5 09/12/2013 9:51 PM CDT [facility] Urine URINE SPECIMEN OBTAINED BY CLEAN CATCH PROCEDURE / Unknown 09/12/2013 9:03 PM CDT 09/12/2013 9:30 PM CDT Betsy Young MD LAB - URINALYSIS O RDERABLES [facility] [address] [place] [address] * CULTURE URINE (09/12/2013 9:03 PM CDT) [facility] Culture 10,000-50,000 CFU/mL normal urogenital ashley ANGEL 09/15/2013 10:00 AM CDT [facility] Urine URINE SPECIMEN OBTAINED BY CLEAN CATCH PROCEDURE / Unknown 09/12/2013 9:03 PM CDT 09/12/2013 9:31 PM CDT Betsy Young MD LAB - MICROBIOLOGY ORDERABLES [facility] [address] [place] [address] * DRUG ABUSE URINE PANEL (09/12/2013 6:27 PM CDT) Pathologist [facility] Amphetamines Screen Urine Not Detected Not Detected 09/12/2013 9:13 PM CDT [facility] Barbiturates Screen Urine Not Detected Not Detected 09/12/2013 9:13 PM CDT [facility] Benzodiazepines Screen Urine Not Detected Not Detected 09/12/2013 9:13 PM CDT [facility] Cannabinoids Screen Urine Not Detected Not Detected 09/12/2013 9:13 PM CDT [facility] Cocaine Screen Urine Not Detected Not Detected 09/12/2013 9:13 PM CDT [facility] Opiate Screen Urine Not Detected Not Detected 09/12/2013 9:13 PM T [facility] Phencyclidine Screen Urine Not Detected Not Detected 09/12/2013 9:13 PM CDT [facility] Urine URINE / Unknown 09/12/2013 6 :27 PM CDT 09/12/2013 6:33 PM CDT Narrative [facility] - 09/12/2013 9:13 PM CDT Medical urine drug screening is only a qualitative method. A Negative result does not prove the absence of a drug or a drug metabolite. The screening methods used are subject to cross-reactivity from other prescription and nonprescription drugs and should be interpreted carefully along with other pertinent clinical information. Drug Screening Test Cutoff Values: AMPHETAMINES ? 1000 ng/ml BARBITURATES ?200 ng/ml BENZODIAZEPINES ? 200 ng/ml CANNABINOIDS (THC) ?? 50 ng/ml COCAINE ? 300 ng/ml OPIATES ? 300 ng/ml PHENCYCLIDINE (PCP) ??25 ng/ml Betsy Young MD LAB - URINE CHEMIS TRY ORDERABLES Performing Organization Address City/[facility]/ZIP Co de Phone Number [facility] [address] [place] [address] * T3 FREE (09/12/2013 12:57 PM CDT) T3 Free 3.83 2.18 - 3.98 pg/mL 09/12/2013 4:01 PM CDT [facility] Blood BLOOD SPECIMEN / Unknown 09/12/2013 12:57 PM CDT 09/12/2013 1:10 PM CDT Donta Horvath MD LAB - CHEMISTRY ORDE MELVIN Performing Organization Address City/[facility] Co de Phone Number [facility] [address] [place] [address] * (ABNORMAL) PREALBUMIN (09/12/2013 12:04 PM CDT) Prealbumin 12.0(L) 16.0 - 38.0 mg/dL 09/12/2013 12:40 PM CDT [facility] Blood BLOOD SPECIMEN / Unknown 09/12/2013 12:04 PM CDT 09/12/2013 12:16 PM CDT Corey Butterfield MD LAB - CHEMISTRY DESIRAE CHARLES Performing Organization Address [facility] Co de Phone Number [facility] [address] [place] [phone] * LDH BLOOD (09/12/2013 12:03 PM CDT) Pathologist [facility] LDH 202 140 - 260 U/L 09/12/2013 12:39 PM CDT [facility] Blood BLOOD SPECIMEN / Unknown 09/12/2013 12:03 PM CDT 09/12/2013 12:18 PM CDT Donta Horvath MD LAB - CHEMISTRY DESIRAE CHARLES Performing Organization Address [facility] de Phone Number [facility] [address] [place] [phone] * GLUCOSE - POINT OF CARE (09/12/2013 10:49 AM CDT) Blood BLOOD SPECIMEN / Unknown 09/12/2013 10:49 AM CDT 09/12/2013 10:57 AM CDT Provider Unknown LAB - POINT OF CARE ORDERABLES Performing Organization Address [facility] de Phone Number [facility] [address] [place] [id number] * EKG 15-LEAD (09/07/2013 10:12 AM CDT) Ventricular Rate 118 BPM CG MUSE Atrial Rate 118 BPM CG MUSE P-R Interval 148 ms CG MUSE QRS Duration ms 88 ms CG MUSE Q-T Interval ms 320 ms CG MUSE QTC Calculation (Bezet) 448 ms CG MUSE Calculated P [place] 67 degrees CG MUSE Calculated R [place] 88 degrees CG MUSE Calculated T [place] 57 degrees CG MUSE Interpretation EKG * Pediatric ECG Analysis * Normal sinus rhythm Normal ECG No previous ECGs available Confirmed by MD Abrams Wilson ([id number]) on 09/07/2013 10:53:23 AM CG MUSE 09/07/2013 10:1 2 AM CDT 09/07/2013 10:53 AM CDT Renny Abrams MD ECG ORDERABLES CG MUSE * IMAGING/RADIOLOGY/XRAY RESULTS ORDER (05/10/2012 5:20 AM CDT) Anatomical Region Laterality Modality Other Narrative 05/10/2012 5:20 AM CDT Procedure Note Document, Scanned - 05/10/2012 5:20 AM CDT Scanned Document IMAGING Care Teams Behaviour Support Teacher Relationship Specialty Start Date End Date Maureen Rodriguez MD PCP - General Pediatrics 03/31/12 Mark Amaral, PA-C [facility] [place] [address] Covering Provider Orthopedic 04/05/12
--- OUTSIDE RECORDS SUMMARY | 2024-03-22 09:28 | XMS_ITS | Encounter Summary ---
Author Organization [facility] Address [address] [place] [address] Care Team Providers Care Muffle Worker Name Role Phone Maureen Rodriguez MD Primary Care Provider [phone] Mark Amaral PA-C Unavailable [phone] Reason for Visit * Reason Onset Date Comments Results 02/19/2014 Mom called to [facility] lab results. Please call to discuss. Encounter Details Date Type Department Care Team (Late st Contact Info) Description 02/19/2014 Telephone [facility] Pediatrics - Endocrinology [address] [place] [address] Delma Solis MD [address] [place] [address] Results (Mom called to get lab results. Please call to discuss. ) Social History Tobacco Use Types Packs/Day [...] Telephone Encounter - Delma Solis MD - 02/21/2014 2:16 PM CST Spoke to Rafael's mother regarding lab results from February 06, 2014: Component Latest Ref Rng 02/06/2014 01/25/2014 10/04/2013 09/12/2013 ACTH 9 - 57 pg/mL 1318 (H) 209 (H) 956 (H) Renin 17.1 13.9 Plasma Renin Activity 0.25 - 5.82 ng/mL/h 7.71 (H) Component Latest Ref Rng 02/06/2014 Glucose 65 - 99 mg/dL 107 (H) BUN 7 - 20 mg/dL 11 Creatinine 0.40 - 1.00 mg/dL 0.96 BUN/Creat 6 - 22 (calc) NOT APPLICABLE Sodium 135 - 146 mmol/L 139 Potassium 3.8 - 5.1 mmol/L 3.8 Chloride 98 - 110 mmol/L 107 CO2 19 - 30 mmol/L 24 Calcium 8.9 - 10.4 mg/dL 9.3 Rafael has been doing better. She is still having anxiety attacks but mother has decided to not going with psychiatry at this time as she doesn't want Rafael on more medication. Rafael is working with a counselor and will find a psychologist to work with her. Rafael and her mother are happy with this plan for now. 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 For her Jenkins's, Rafael has been taking: - Hydrocortisone 10 mg QAM, 5 mg QPM and 5 mg QHS (BSA - 1.66 m2 give 12 mg/m2/day) - Fludrocortisone 0.15 mg QAM and 0.1 mg QHS (though per my last note, she should be taking 0.15 mgQM and 0.05 mg QHS mother has been giving the higher dose in the evening.) Rafael is also prescribed sodium tablets (1 gram tablets) taking 2 tablets TID but she is not tolerating it and has only been taking 1-2 a day. I discussed this with her mother, if Rafael is doing okotherwise without complaints of dizziness and is salting her food liberally, can try off the sodiumtablets and will get repeat labs in 4-5 days with a basic metabolic panel and mother requests a magnesium level as well. Discussed further decreasing her hydrocortisone dose - will cut back on dose 2-3 weeks prior to next appointment to evaluate on lower dose. Will schedule follow up for end of February 2014. MATION TESTER documented in this encounter Plan of Treatment Not on file documented as of this encounter Visit Diagnoses Diagnosis Adrenogenital disorders (HCC)- Primary Adrenogenital disorders documented in this encounter Care Teams Muffle Worker Relationship Specialty Start Date End Date Maureen Rodriguez MD PCP - General Pediatrics 03/31/12 Mark Amaral, JOSEPHC [address] [place] [address] Covering Provider Orthopedic 04/05/12 documented as of this encounter
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
== END 2024-03-22 08:59 | disposition home or self-care (01) ==
PROVIDERS: PCP Family Medicine; Visit Provider Internal Medicine Cardiovascular Disease
DX: R00.0 Tachycardia, unspecified (principal)
CPT/HCPCS: 93242

== ENCOUNTER 2024-04-18 22:31 | Emergency (ER) | payer OTHER, SELFPAY ==
--- NOTE | ~2024-04-18 | CT_ITS ---
Non-contrast Head CT History: Headache Technique: Axial non-contrast imaging of the brain was performed. Dose reduction technique was used on this scan by utilizing automated exposure control and iterative reconstruction technique. The dose -length product (DLP) was 529.67 mGy-cm. Findings: There is no evidence of intracranial hemorrhage, mass lesion, or acute infarct. Brain par enchyma appears normal. The ventricles and subarachnoid spaces are normal in size. The calvarium ap pears normal. The visualized paranasal sinuses and mastoid air cells are clear. Impression: No significant abnormality seen. Reviewed, dictated and finalized at location . CTOR OF VIDEO ANALYTICS Impression: No significant abnormality seen.
[2024-04-18 22:32] VITALS: BP 101/73; PULSE 90; RESP 16; TEMP 36.2; O2SAT 98
--- OUTSIDE RECORDS SUMMARY | 2024-04-18 22:33 | XMS_ITS | Encounter Summary ---
Author Organization [facility] Address [address] [place] [address] Care Team Providers Care Cylinder Sander Operator Name Role Phone Maureen Rodriguez MD Primary Care Provider [phone] Mark Amaral-Johnny Unavailable [phone] Reason for Visit * Reason Onset Date Comments Results 10/06/2013 mom called for r courtney Encounter Details Date Type Department Care Team (Late st Contact Info) Description 10/06/2013 Telephone [facility] Pediatrics - Endocrinology [address] [place] [address] Delma Solis MD [address] [place] [address] Results (mom called for results) Social [...] on filedocumented in this encounter Care Teams Cylinder Sander Operator Relationship Specialty Start Date End Date Maureen Rodriguez MD PCP - General Pediatrics 03/31/12 Mark Amaral, JOSEPHC [address] [place] [phone] Covering Provider Orthopedic 04/05/12 documented as of this encounter
--- OUTSIDE RECORDS SUMMARY | 2024-04-18 22:33 | XMS_ITS | Encounter Summary ---
Author Organization [facility] Address [address] [facility] [place] [address] Care Team Providers Care Granulating Blender Name Role Phone Maureen Rodriguez MD Primary Care Provider [phone] Mark Amaral-Johnny Unavailable [phone] Reason for Visit * Reason Onset Date Comments Request Lab Order 06/19/2014 Appt on 06/21 , mom need lab orders for renin,Dhea, and acth put in for [facility] Encounter Details Date Type Department Care Team (Late st Contact Info) Description 06/19/2014 Telephone [facility] Pediatrics - Endocrinology [address] [place] [address] Delma Solis MD [address] [place] [address] [phone] Request Lab Order (Appt on 06/21 , [...] on filedocumented in this encounter Care Teams Granulating Blender Relationship Specialty Start Date End Date Maureen Rodriguez MD PCP - General Pediatrics 03/31/12 Mark Amaral PAAshleeC [address] [place] [address] Covering Provider Orthopedic 04/05/12 documented as of this encounter
--- OUTSIDE RECORDS SUMMARY | 2024-04-18 22:33 | XMS_ITS | Encounter Summary ---
Author Organization [facility] Address [address] [facility] [place] [address] Care Team Providers Care Slip Cover Maker Name Role Phone Maureen Rodriguez MD Primary Care Provider [phone] Mark Amaral-Johnny Unavailable [phone] Reason for Visit * Reason Onset Date Comments Request Lab Order 03/07/2015 Mom is request ing an order for labs to be sent lab on file. Encounter Details Date Type Department Care Team (Late st Contact Info) Description 03/07/2015 Telephone [facility] Pediatrics - Endocrinology [address] [place] [address] Delma Solis MD [address] [place] [address] [phone] Request Lab Order (Mom is requesting an [...] on filedocumented in this encounter Care Teams Slip Cover Maker Relationship Specialty Start Date End Date Maureen Rodriguez MD PCP - General Pediatrics 03/31/12 Mark Amaral, PAAshleeC [facility] [place] [address] Covering Provider Orthopedic 04/05/12 documented as of this encounter
--- OUTSIDE RECORDS SUMMARY | 2024-04-18 22:33 | XMS_ITS | Encounter Summary ---
Author Organization [facility] Address [address] [facility] [place] [address] Care Team Providers Care Ranch Rider Name Role Phone Maureen Rodriguez MD Primary Care Provider [phone] Mark Amaral-Johnny Unavailable [phone] Reason for Visit * Reason Onset Date Comments Results 06/23/2017 Please give mom a call with lab results. Encounter Details Date Type Department Care Team (Late st Contact Info) Description 06/23/2017 Telephone [facility] Pediatrics - Endocrinology [address] [place] [address] Delma Solis MD [address] [place] [address] [phone] Results (Please give mom a call with [...] on filedocumented in this encounter Care Teams Ranch Rider Relationship Specialty Start Date End Date Maureen Rodriguez MD PCP - General Pediatrics 03/31/12 Mark Amaral, PAAshleeC [address] [place] [address] Covering Provider Orthopedic 04/05/12 documented as of this encounter
--- OUTSIDE RECORDS SUMMARY | 2024-04-18 22:33 | XMS_ITS | Encounter Summary ---
Author Organization [facility] Address [address] [place] [address] Care Team Providers Care Online Affiliate Marketing Manager Name Role Phone Maureen Rodriguez MD Primary Care Provider [phone] Mark Amaral-C Unavailable [phone] Reason for Visit * Reason Onset Date Comments Letter for School or Work 04/08/2016 2nd re quest: Mother is requesting a letter stating Rafael should NOT participate in gym for the school year. Please fax to [phone], [place]. Encounter Details Date Type Department Care Team (Late st Contact Info) Description 04/08/2016 Telephone [facility] Pediatrics - Endocrinology [address] [place] [address] Delma Solis MD [address] [place] [address] Letter for School or Work (2nd request: Mother is requesting a letter stating Rafael should NOT participate in gym for the school year. Please fax to [phone], [place]. ) Social History Tobacco Use [...] on filedocumented in this encounter Care Teams Online Affiliate Marketing Manager Relationship Specialty Start Date End Date Maureen Rodriguez MD PCP - General Pediatrics 03/31/12 Mark Amaral, PAAshleeC [address] [place] [address] Covering Provider Orthopedic 04/05/12 documented as of this encounter
--- OUTSIDE RECORDS SUMMARY | 2024-04-18 22:33 | XMS_ITS | Referral Summary ---
Author Organization [facility] Address [address] [facility] [place] [address] Care Team Providers Care Director Case Management Name Role Phone Maureen Rodriguez MD Primary Care Provider Mark Amaral PA-C Unavailable [phone] Source Comments [facility],non-owned Affiliates and Associated Physician Practices is amultiple site organization consisting of ambulatory clinics and hospital sitesin [place], [place], [place] and [place]. This disclosure is being madepursuant to the Care Everywhere program and may not contain all information available regarding this patient. Last updated 17.[facility] Allergies No known active allergies Medications * Be aware that medications may not be up to date on this document. Alwaysverify current medications with the patient. 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 Continue [...] 12:43 PM CDT): Rafael has poorly controlled Borden's disease due to medication noncompliance and lack [...] months. 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 - Wean maintenance hydrocortisone [...] months Assessment & Plan (01/09/2014 8:23 PM TRIM MACHINE OPERATOR): 1. Cortef (5 mg tablet) 10 mg [...] ) at all times. 7. Child with Borden's disease and at risk of adrenal insufficiency [...] I will contact Rafael's mother by telephone ([phone]) when I have received a copy of these test results and make the necessary medication dose adjustments. 10. Return appointment in two months. 11. I reviewed my impression and recommendations with Rafael's mother at the time of the office visit and she was in agreement. Assessment & Plan (12/29/2013 4:42 PM TRIM MACHINE OPERATOR): Clinically stable. 1. Cortef (5 mg tablet) [...] ) at all times. 6. Child with Borden's disease and at risk of adrenal insufficiency [...] I will contact Rafael's mother by telephone ([phone]) when I have received a copy of [...] 11/16/2023 Overview (07/08/2023): MFM Referral faxed 06/23 [facility]- Scheduled [facility] 07/07 US & Consult [facility]: abnormality in pr egnancy (HCC) - Bilateral club feet 07/08/2023 11/16/2023 Overview (09/14/2023): Images from the original note were not included. Care Provider: Dr. Adolph [facility] [place] consultants involved: RN-Aníbal; Ped Ortho- Moses Tijerina Diagnosis: Bilateral club feet Planned surveillance: Ortho consult only - Patient was not seen by MFM in [facility] follow up per Pediatric Orthopedics: I invited Ms. Pat to contact us once the baby has been born to let us know whether the baby has a clubfoot or not. If the baby does, we would be happy to evaluate the baby and start casting at one to two months of age. To schedule, patient should call [phone], option 4 Director Internal Control: Care plan based on evaluation and is [...] care, and heating? Not very hard 09/08/2023 [facility] [place] of Occupat ional Health - Occupational Stress [...] place to sleep or slept in a long term (including now)? No 09/08/2023 [place] Depression Scale Answer Date Recorded [place] Depression Scale Total 7 05/06/2023 The thought [...] 117 09/13/2023 10:15 AM CDT Temperature 36.2 C (97.2 F) 12/03/2016 8:13 AM CDT per pcp Respiratory Rate 16 05/06/2023 10:48 [...] of Treatment Not on file Care Teams Director Case Management Relationship Specialty Start Date End Date Maureen Rodriguez MD PCP - General Pediatrics 03/31/12 Mark Amaral, PA-C [address] [place] [phone] Covering Provider Orthopedic 04/05/12
--- OUTSIDE RECORDS SUMMARY | 2024-04-18 22:33 | XMS_ITS | Clinical Summary ---
Author Organization [facility] Address [facility] [place] [address] Care Team Providers Care Banking Pin Adjuster Name Role Phone None, Provider MD Primary [...] Date Last Done Comments Cervical Cancer Screening Carmelo rockwell Smear (Age 21 to 29) Every 3 [...] complete this topic Insurance AETNA Care Teams Banking Pin Adjuster Relationship Specialty Start Date End Date None, Provider, MD PCP - General UNKNOWN PHYSICIAN SPECIALTY 09/19/23
--- OUTSIDE RECORDS SUMMARY | 2024-04-18 22:33 | XMS_ITS | Encounter Summary ---
Author Organization [facility] Address [address] [facility] [place] [address] Care Team Providers Care Assembler Chassis Name Role Phone Maureen Rodriguez MD Primary Care Provider [phone] Mark Amaral-Johnny Unavailable [phone] Reason for Visit * Reason Onset Date Comments Refill Request 07/04/2014 Please call in D ex injection Encounter Details Date Type Department Care Team (Late st Contact Info) Description 07/04/2014 Telephone [facility] Pediatrics - Endocrinology [address] [place] [address] Delma Solis MD [address] [place] [address] Refill Request (Please call in Dex [...] on filedocumented in this encounter Care Teams Assembler Chassis Relationship Specialty Start Date End Date Maureen Rodriguez MD PCP - General Pediatrics 03/31/12 Mark Amaral, JOSEPHC [address] [place] [phone] Covering Provider Orthopedic 04/05/12 documented as of this encounter
--- OUTSIDE RECORDS SUMMARY | 2024-04-18 22:33 | XMS_ITS | Clinical Summary ---
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 Medical History Medical History Date Comments Personal history of other di seases of the nervous system and sense organs History of amblyop ia - (Added by TW Conv) Strabismic amblyopia Strabismic amblyopia - (Added by TW Conv) [place]'s disease (HCC) Diabetes mellitus (HCC) Mazin's disease [...] staff should administer the PHQ-9) 0 10/20/2023 [facility] of Occupat ional [facility] - Occupational Stress Questionnaire Answer Date Recorded [...] any time in the past 12 m [facility], were you homeless or living in a usp (including now)? No 10/20/2023 Personal Safety Answer Date Recorded Have you ever been in or are you currently in a harmful physical or emotional relationship or is someone making you feel afraid or unsafe? Denies 10/20/2023 Comments No Sex and Gender Information Value Date Recorded Sex Assigned at Not on file Legal Sex Female 5:01 AM SUPERVISOR IN CHARGE Gender Identity Not on file Sexual Orientation [...] 109 10/20/2023 2:48 PM CDT Temperature 36.7 C (98 F) 10/20/2023 1:19 PM CDT Respiratory Rate 20 [...] Insurance AETNA SELECT AETNA SELECT Care Teams Larder Cook Relationship Specialty Start Date End Date Steven Garcia MD [address] [place] [address] PCP - General Family Medicine 10/20/23
--- OUTSIDE RECORDS SUMMARY | 2024-04-18 22:33 | XMS_ITS | Encounter Summary ---
Author Organization [facility] Address [address] [facility] [place] [address] Care Team Providers Care Gunner'S Mate Name Role Phone Maureen Rodriguez MD Primary Care Provider [phone] Mark Amaral-Johnny Unavailable [phone] Reason for Visit * Reason Onset Date Comments Question 03/15/2014 Mom wanted to to uch base with you regarding treatment. She was supposed to call some time ago, but had a in the family. Encounter Details Date Type Department Care Team (Late st Contact Info) Description 03/15/2014 Telephone [facility] Pediatrics - Endocrinology [address] [place] [address] Delma Solis MD [address] [place] [address] Question (Mom wanted to touch base [...] on filedocumented in this encounter Care Teams Gunner'S Mate Relationship Specialty Start Date End Date Maureen Rodriguez MD PCP - General Pediatrics 03/31/12 Mark Amaral, PAAshleeC [address] [place] [address] Covering Provider Orthopedic 04/05/12 documented as of this encounter
--- OUTSIDE RECORDS SUMMARY | 2024-04-18 22:33 | XMS_ITS | Clinical Summary ---
Author Organization [facility] Address [address] [place] [address] Phone Care Team Providers Care Engineering Technical Specialist Name Role Phone Jayden Noriega APRN, CNP [...] 09/22/2021 Anxiety 09/22/2021 Depression 09/22/2021 Adrenal insufficiency (Downey's disease) 2021 Hypothyroid 09/22/2021 Chronic hypotension 09/22/2021 [...] Sex Assigned at Female 03/08/2023 9:40 AM SUPERVISOR COOPERAGE SHOP Legal Sex Female 10:15 PM SUPERVISOR COOPERAGE SHOP Gender Identity Female 03/08/2023 9:40 AM SUPERVISOR COOPERAGE SHOP Sexual Orientation Straight 03/08/2023 9: 40 AM SUPERVISOR COOPERAGE SHOP Last Filed Vital Signs Vital Sign Reading Time Taken Comments Blood Pressure 109/63 09/27/2023 9:42 AM CDT Pulse 128 09/27/2023 9:42 AM CDT Temperature 36.7 C (98.1 F) 09/27/2023 9:42 AM CDT Respiratory Rate 18 09/27/2023 9:42 AM CDT Oxygen Saturation 99% 09/27/2023 9:42 AM CDT Inhaled Oxygen Concentration - - Weight 79.4 kg (175 lb) 09/27/2023 9:42 AM CDT Height 157.5 cm (5' 2 ) 03/11/2023 7:41 PM SUPERVISOR COOPERAGE SHOP Body Mass Index 32.01 03/11/2023 7:41 PM SUPERVISOR COOPERAGE SHOP Plan of Treatment Health Maintenance Due Date [...] patient's age to complete this topic Insurance Architectural Daily Advance Directives * Full Code (Latest Code Status on File) Date Activated Date Inactivated Comments 09/22/2021 3:36 PM 09/24/2021 3:33 PM CPR-Full Treat ment: FULL ARREST: Attempt Resuscitation/CPR wit intubation and mechanical ventilation. PRE-ARREST: Use entire range of life support measures to stabilize the patient. Care Teams Engineering Technical Specialist Relationship Specialty Start Date End Date Jayden Noriega APRN, GRAPHICS COORDINATOR [address] [place] [address] PCP - General Advanced Practice Nurse 01/04/20 Floyd Hsieh MD [address] [address] (work) Consulting Physician Endocrinology 10/23/21
--- OUTSIDE RECORDS SUMMARY | 2024-04-18 22:33 | XMS_ITS | Encounter Summary ---
Author Organization [facility] Address [address] [place] [address] Care Team Providers Care Raftsman Name Role Phone Maureen Rodriguez MD Primary Care Provider [phone] Mark Amaral PA-C Unavailable [phone] Reason for Visit * Reason Onset Date Comments Results 02/19/2014 Mom called to [facility] lab results. Please call to discuss. Encounter Details Date Type Department Care Team (Late st Contact Info) Description 02/19/2014 Telephone [facility] Pediatrics - Endocrinology [address] [place] [address] Delma Solis MD [address] [place] [address] Results (Mom called to get lab [...] set up for next week. For her Merlin's, Rafael has been taking: - Hydrocortisone 10 [...] follow up for end of February 2014. ORT MERCHANDISER documented in this encounter Plan of Treatment Not on file documented as of this encounter Visit Diagnoses Diagnosis Adrenogenital disorders (HCC)- Primary Adrenogenital disorders documented in this encounter Care Teams Raftsman Relationship Specialty Start Date End Date Maureen Rodriguez MD PCP - General Pediatrics 03/31/12 Mark Amaral, JOSEPHC [address] [place] [address] Covering Provider Orthopedic 04/05/12 documented as of this encounter
--- OUTSIDE RECORDS SUMMARY | 2024-04-18 22:33 | XMS_ITS | Clinical Summary ---
Author Organization [facility] Address [address] [place] [address] Care Team Providers Care Tax Associate Attorney Name Role Phone Maureen Rodriguez MD Primary Care Provider [phone] Mark Amaral PA-C Unavailable [phone] [facility],non-owned Affiliates and Associated Physician Practices is amultiple site organization consisting of ambulatory clinics and hospital sitesin [place] and [place]. This disclosure is being madepursuant to the Care Everywhere program and may not contain all information available regarding this patient. Last updated 17.[facility] Allergies No known active allergies Medications * Be aware that medications may not be up to date on this document. Alwaysverify current medications with the patient. 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 Continue [...] 12:43 PM CDT): Rafael has poorly controlled Nipomo's disease due to medication noncompliance and lack [...] months. 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 - Wean maintenance hydrocortisone [...] months Assessment & Plan (01/09/2014 8:23 PM GEAR INSPECTOR): 1. Cortef (5 mg tablet) 10 mg [...] ) at all times. 7. Child with Nipomo's disease and at risk of adrenal insufficiency [...] I will contact Rafael's mother by telephone ([phone]) when I have received a copy of these test results and make the necessary medication dose adjustments. 10. Return appointment in two months. 11. I reviewed my impression and recommendations with Rafael's mother at the time of the office visit and she was in agreement. Assessment & Plan (12/29/2013 4:42 PM GEAR INSPECTOR): Clinically stable. 1. Cortef (5 mg tablet) [...] ) at all times. 6. Child with Nipomo's disease and at risk of adrenal insufficiency [...] I will contact Rafael's mother by telephone ([phone]) when I have received a copy of [...] 11/16/2023 Overview (07/08/2023): MFM Referral faxed 06/23 [facility]- Scheduled [facility] 07/07 US & Consult LONG-TERM: abnormality in pr egnancy (HCC) - Bilateral club feet 07/08/2023 11/16/2023 Overview (09/14/2023): Images from the original note were not included. Care Provider: Dr. Adolph [facility] [place] [facility] consultants involved: RN-Aníbal; Ped Ortho- Moses Tijerina [...] of age. To schedule, patient should call [phone], option 4 Assistant Director Of Public Works: Care plan based on evaluation and is subject to change based on assessment. See Images or Cardiac under Chart Review for US/ ECHO/ MRI reports. Immunizations Name Administration Dates Next Due INFLUENZA VACCINE, QUADR. (F LUZONE; FLULAVAL; FLUARIX; AFLURIA QUADRIVALENT; 6MO+), 0.5 ML (IIV4) 12/12/2021 Family History Medical History Relation Name Comments [place]<65(female) Maternal Grandmother Other Paternal Grandfather palpita tions Arrhythmia Neg Hx CVA<55(male) Neg Hx CVA<65(female) Neg Hx Cardiomyopathy Neg Hx Congenital Heart defect Neg Hx Heart Surgery Neg Hx Long QT Syndrome Neg Hx [place]<55(male) Neg Hx Marfan Syndrome Neg Hx Pacemaker [...] care, and heating? Not very hard 09/08/2023 [facility] [place] of Occupat ional Health - Occupational Stress [...] place to sleep or slept in a fci (including now)? No 09/08/2023 [place] Depression Scale Answer Date Recorded [place] Depression Scale Total 7 05/06/2023 The thought [...] 3-dose series) 04/30/2018 COVID-19 VACCINE (4 - 2023- season) 2023 05/30/2021, 03/26/2020, 02/27/2020 INFLUENZA VACCINE [...] age to complete this topic Care Teams Tax Associate Attorney Relationship Specialty Start Date End Date Maureen Rodriguez MD PCP - General Pediatrics 03/31/12 Mark Amaral PA-C [address] [place] [address] Covering Provider Orthopedic 04/05/12
--- OUTSIDE RECORDS SUMMARY | 2024-04-18 22:33 | XMS_ITS | Encounter Summary ---
Author Organization [facility] Address [address] [address] [address] Care [address] Deputy Name Role Phone Maureen Rodriguez MD Primary Care Provider [phone] Mark Amaral PA-C Unavailable [phone] Reason for Visit * Reason Onset Date Comments Update 05/25/2017 Patient was at [facility] last night complaining of back pain. PCP calling for instructions. (this message was left on the voicemail of the centralized scheduling department of [facility] at 4:16PM last night) Encounter Details Date Type Department Care Team (Late st Contact Info) Description 05/25/2017 Telephone [facility] Pediatrics - Endocrinology [address] [place] [id number] Delma Solis MD [address] [place] [id number] Update (Patient was at PCP last night complaining of back pain. PCP calling for instructions. (this message was left on the voicemail of the centralized scheduling department of [facility] at 4:16PM last night)) [...] back pain, which she gets when her [place]'s disease flares up. She was seen by Dr. Rodriguez who reports that Rafael had full range of motion, was able to move her legs, ambulate without problems and get up and off the exam table without problems. I am not aware of any [place]'s specific back pain beyondconcern for osteopenia causing [...] on filedocumented in this encounter Care Teams Court Deputy Relationship Specialty Start Date End Date Maureen Rodriguez MD PCP - General Pediatrics 03/31/12 Mark Amaral PA-C [facility] [place] [address] Covering Provider Orthopedic 04/05/12 documented as of this encounter
--- OUTSIDE RECORDS SUMMARY | 2024-04-18 22:33 | XMS_ITS | Encounter Summary ---
Author Organization [facility] Address [address] [place] [address] Care Team Providers Care Chemistry Quality Control Analyst Name Role Phone Maureen Rodriguez MD Primary Care Provider [phone] Mark Amaral PA-C Unavailable [phone] Reason for Visit * Reason Onset Date Comments Refill Request 05/25/2018 injectable stres s dose Update 05/25/2018 Rafael was vomit ing yesterday, given injectable stress dose. Please call mom to discuss next appt and transfer of care due to age Encounter Details Date Type Department Care Team (Late st Contact Info) Description 05/25/2018 Telephone [facility] Pediatrics - Endocrinology [address] [place] [address] Kirsten Menjivar Refill Request (injectable [...] had labs collected 05/30/18 at 1340 at [facility]. BMP is normal, TSH is normal. Her renin is elevated, though consistent with her recent baseline and decreased from last renin. documented in this encounter Plan of Treatment Not on file documented as of this encounter Visit Diagnoses Not on filedocumented in this encounter Care Teams Chemistry Quality Control Analyst Relationship Specialty Start Date End Date Maureen Rodriguez MD PCP - General Pediatrics 03/31/12 Mark Amaral PA-C [address] [place] [address] Covering Provider Orthopedic 04/05/12 documented as of this encounter
--- OUTSIDE RECORDS SUMMARY | 2024-04-18 22:33 | XMS_ITS | Referral Summary ---
Author Organization [facility] Address [address] [place] [address] Care Team Providers Care Plateman Name Role Phone Steven Garcia MD Primary [...] 1 tablet (100 mcg total) by mouth manufacturing support engineer before breakfast Active Active Problems Problem Noted [...] staff should administer the PHQ-9) 0 10/20/2023 [facility] [place] of Occupat ional Health - Occupational Stress [...] were you homeless or living in a snf (including now)? No 10/20/2023 Personal Safety Answer Date Recorded Have you ever been in or are you currently in a harmful physical or emotional relationship or is someone making you feel afraid or unsafe? Denies 10/20/2023 Comments No Sex and Gender Information Value Date Recorded Sex Assigned at Not on file Legal Sex Female 5:01 AM PROFESSOR OF FAMILY MEDICINE Gender Identity Not on file Sexual Orientation [...] Insurance AETNA SELECT AETNA SELECT Care Teams Plateman Relationship Specialty Start Date End Date Steven Garcia MD [address] [address] PCP - General Family Medicine 10/20/23
--- OUTSIDE RECORDS SUMMARY | 2024-04-18 22:34 | XMS_ITS | Patient Health Summary ---
Author Organization [facility] Address [address] [place] [address] Care Team Providers Care Night Coordinator Name Role Phone Maureen Rodriguez MD Primary Care Provider [phone] Mark Amaral-Johnny Unavailable [phone] Note from [facility],non-owned Affiliates and Associated Physician Practices is amultiple site organization consisting of ambulatory clinics and hospital sitesin [place], [place], [place] and [place]. This disclosure is being madepursuant to the Care Everywhere program and may not contain all information available regarding this patient. 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 Not very hard 09/08/2023 [facility] of Occupat ional Health - Occupational Stress [...] place to sleep or slept in a custodial (including now)? 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 * HEMOGLOBIN A1C(Performed 05/06/2023) Performed for Supervision of high risk , antepartum (HCC) * COMPREHENSIVE METABOLIC PANEL(Performed 05/06/2023) Performed for Supervision of high risk , antepartum (HCC) * URINALYSIS - POCT (IP) BEAKER INTERFACE(Performed 05/06/2023) * SONOGRAM - COMPLETE(Performed 05/06/2023) Performed for Encounter for routine screening for malformation using ultrasound, Merlin's disease (HCC) * TSH(Performed 05/30/2018) * RENIN ACTIVITY(Performed 05/30/2018) * BASIC METABOLIC PANEL (CALCIUM TOTAL)(Performed 05/30/2018) * RENIN ACTIVITY(Performed 08/12/2017) Performed for Itasca's disease (HCC) * BASIC METABOLIC PANEL (CALCIUM TOTAL)(Performed 08/12/2017) Performed for Merlin's disease (HCC) * ACTH(Performed 05/28/2017) * RENIN ACTIVITY(Performed 05/28/2017) * BASIC METABOLIC PANEL (CALCIUM TOTAL)(Performed 05/28/2017) * THYROID PEROXIDASE ANTIBODY(Performed 03/31/2017) Performed for Merlin's disease (HCC) * TSH(Performed 03/31/2017) Performed for Merlin's disease (HCC) * RENIN ACTIVITY(Performed 03/31/2017) Performed for Itasca's disease (HCC) * ACTH(Performed 03/31/2017) Performed for Itasca's disease (HCC) * BASIC METABOLIC PANEL (CALCIUM TOTAL)(Performed 03/31/2017) Performed for Merlin's disease (HCC) * MRI BRAIN WWO CONTRAST(Performed 01/20/2017) Performed for New daily persistent headache * RENIN ACTIVITY(Performed 11/17/2016) Performed for Itasca disease (HCC), Nausea and vomiting, intractability of vomiting not specified,unspecified vomiting type * CBC W AUTO DIFFERENTIAL(Performed 11/17/2016) Performed for [place]asca disease (HCC), Nausea and vomiting, intractability of vomiting not specified,unspecified vomiting type * COMPREHENSIVE METABOLIC PANEL(Performed 11/17/2016) Performed for Merlin disease (HCC), Nausea and vomiting, intractability of vomiting not specified,unspecified vomiting type * ACTH(Performed 11/17/2016) Performed for Itasca's disease (HCC) * ACTH(Performed 10/27/2016) * RENIN ACTIVITY(Performed 10/27/2016) * BASIC METABOLIC PANEL (CALCIUM TOTAL)(Performed 10/27/2016) * ACTH(Performed 08/05/2016) Performed for Itasca's disease (HCC) * RENIN ACTIVITY(Performed 08/05/2016) Performed for Itasca's disease (HCC) * BASIC METABOLIC PANEL (CALCIUM TOTAL)(Performed 08/05/2016) Performed for Merlin's disease (HCC) * TSH(Performed 02/06/2016) Performed for Itasca's disease (HCC) * RENIN ACTIVITY(Performed 02/06/2016) Performed for Itasca's disease (HCC) * ACTH(Performed 02/06/2016) Performed for [place]asca's disease (HCC) * BASIC METABOLIC PANEL (CALCIUM TOTAL)(Performed 02/06/2016) Performed for Merlin's disease (HCC) * RENIN ACTIVITY(Performed 10/16/2015) Performed for Merlin's disease (HCC) * ACTH(Performed 10/16/2015) Performed for Itasca's disease (HCC) * BASIC METABOLIC PANEL (CALCIUM TOTAL)(Performed 10/16/2015) Performed for Merlin's disease (HCC) * ACTH(Performed 08/09/2015) * RENIN ACTIVITY(Performed 08/09/2015) * BASIC METABOLIC PANEL (CALCIUM TOTAL)(Performed 08/09/2015) * ACTH(Performed 03/25/2015) Performed for Merlin's disease (HCC) * BASIC METABOLIC PANEL (CALCIUM TOTAL)(Performed 03/25/2015) Performed for Itasca's disease (HCC) * RENIN ACTIVITY(Performed 01/29/2015) Performed for Itasca's disease (HCC) * BASIC METABOLIC PANEL (CALCIUM TOTAL)(Performed 01/29/2015) Performed for Merlin disease (HCC) * RENIN ACTIVITY(Performed 12/28/2014) Performed for [place]asca's disease (HCC) * BASIC METABOLIC PANEL (CALCIUM TOTAL)(Performed 12/28/2014) Performed for Merlin's disease (HCC) * TISSUE TRANSGLUTAMINASE AB IGA(Performed 12/28/2014) Performed for Merlin's disease (HCC) * RENIN ACTIVITY(Performed 12/04/2014) Performed for Merlin's disease (HCC), Hypercalcemia * BASIC METABOLIC PANEL (CALCIUM TOTAL)(Performed 12/04/2014) Performed for Merlin's disease (HCC), Hypercalcemia * ACTH(Performed 12/04/2014) Performed for Itasca's disease (HCC), Hypercalcemia * RENIN ACTIVITY(Performed 10/25/2014) Performed for Itasca's disease (HCC) * ACTH(Performed 10/25/2014) Performed for Merlin's disease (HCC) * BASIC METABOLIC PANEL (CALCIUM TOTAL)(Performed 10/25/2014) Performed for Itasca's disease (HCC) * CBC W/O DIFFERENTIAL(Performed 09/14/2014) Performed for Merlin disease (HCC) * TISSUE TRANSGLUTAMINASE AB IGA(Performed 09/14/2014) Performed for [place]asca disease (HCC) * C-REACTIVE PROTEIN(Performed 09/14/2014) Performed for Itasca disease (HCC) * ERYTHROCYTE SEDIMENTATION RATE(Performed 09/14/2014) Performed for Itasca disease (HCC) * COMPREHENSIVE METABOLIC PANEL(Performed 09/14/2014) Performed for [place]asca disease (HCC) * RENIN ACTIVITY(Performed 09/14/2014) Performed for Merlin disease (HCC) * ACTH(Performed 09/14/2014) Performed for [place]asca disease (HCC) * CBC W AUTO DIFFERENTIAL(Performed 06/21/2014) Performed for Itasca's disease (HCC) * FERRITIN(Performed 06/21/2014) Performed for Itasca's disease (HCC) * IRON BLOOD(Performed 06/21/2014) Performed for [place]asca's disease (HCC) * PTH INTACT W/O CALCIUM(Performed 06/21/2014) Performed for Itasca's disease (HCC) * COMPREHENSIVE METABOLIC PANEL(Performed 06/21/2014) Performed for Merlin's disease (HCC) * THYROID AB PANEL (TPO AB+THYROGLOB AB)(Performed 06/21/2014) Performed for Itasca's disease (HCC) * T4 TOTAL(Performed 06/21/2014) Performed for Itasca's disease (HCC) * T4 FREE(Performed 06/21/2014) Performed for Merlin's disease (HCC) * TSH(Performed 06/21/2014) Performed for Itasca's disease (HCC) * RENIN ACTIVITY(Performed 06/21/2014) Performed for Merlin's disease (HCC) * ACTH(Performed 06/21/2014) Performed for [place]asca's disease (HCC) * MAGNESIUM BLOOD(Performed 03/19/2014) Performed for Itasca's disease (HCC) * BASIC METABOLIC PANEL (CALCIUM TOTAL)(Performed 03/19/2014) Performed for Itasca's disease (HCC) * RENIN ACTIVITY(Performed 02/06/2014) Performed for Itasca's disease (HCC) * ACTH(Performed 02/06/2014) Performed for [place]asca's disease (HCC) * BASIC METABOLIC PANEL (CALCIUM TOTAL)(Performed 02/06/2014) Performed for Merlin's disease (HCC) * LAB RESULTS ORDER(Performed 01/30/2014) [...] - 4.94 uIU/mL 09/13/2023 12:19 PM CDT [facility] Blood BLOOD SPECIMEN / Unknown Venipuncture / Unknown 09/13/2023 9:45 AM CDT 09/13/2023 11:39 AM CDT Domonique Tatum MD LAB - C HEMISTRY ORDERABLES [facility] [address] [place] [address] * T4 FREE (09/13/2023 9:45 AM CDT) Only the most recent of3 resultswithin the time period is included. T4 Free 1.05 0.70 - 1.50 ng/dL 09/13/2023 12:19 PM CDT [facility] Blood BLOOD SPECIMEN / Unknown Venipuncture / Unknown 09/13/2023 9:45 AM CDT 09/13/2023 11:39 AM CDT Domonique Tatum MD LAB - C HEMISTRY ORDERABLES Performing Organization Address City/[facility]/ZIP Co de Phone Number [facility] [address] [place] [address] * (ABNORMAL) URINALYSIS - POCT (IP) BEAKER INTERFACE (09/13/2023 9:04 AM CDT) Only the most recent of3 resultswithin the time period is included. Color UA POCT Light Yellow Straw, Yellow, Dark Yellow, Light Yellow 09/13/2023 9:05 AM CDT [facility] Clarity UA POCT Slightly Cloudy(A) Clear 09/13/2023 9:05 AM CDT [facility] Specific Reynolds UA POCT 1.015 1.005 - 1.030 09/13/2023 9:05 AM CDT [facility] pH UA POCT 7.0 5.0 - 8.0 pH 09/13/2023 9:05 AM CDT [facility] Protein UA POCT Negative Negative 9:05 AM CDT [facility] Blood UA POCT Negative Negative 09/13/2023 9:05 AM CDT [facility] Leukocyte UA POCT 2+(A) Negative 09/13/2023 9:05 AM CDT [facility] Nitrite UA POCT Negative Negative 9:05 AM CDT [facility] Glucose UA POCT Trace(A) Negative 9:05 AM CDT [facility] Ketone UA POCT Negative Negative 09/13/2023 9:05 AM CDT [facility] Bilirubin UA POCT Negative Negative 09/13/2023 9:05 AM CDT [facility] Urobilinogen UA POCT 0.2 0.1 - 1.0 EU/dL 09/13/2023 9:05 AM CDT [facility] Urine URINE / Unknown 09/13/2023 9 :04 AM CDT 09/13/2023 9:05 AM CDT Domonique Tatum MD LAB - P OINT OF CARE ORDERABLES [facility] [address] [place] [address] * SONOGRAM - COMPLETE (09/13/2023 8:31 AM CDT) Only the most recent of3 resultswithin the time period is included. Anatomical Region Laterality Modality Other 09/13/2023 8:31 AM CDT Narrative 09/13/2023 9:08 AM CDT [facility] PHONE: FAX: Pat. Name: MYA PAT Gina. 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 disease on hydrocortisone & fludrocortisone Hypothyroid on levothyroxine MEASUREMENTS & AGE GROWTH EVALUATION Measurement GA Range Srce %for GA Ratios ----- ---- ------- BPD 8.1 cm 32w3d (57g3e-93c3r) Hadl BPD 56% FL/BPD 0.73 (0.71 - 0.87) HC 29.0 cm 31w6d (29n9c-34d6m) Hadl HC 14% FL/AC 0.20 (0.20 - 0.24) AC 28.9 cm 32w6d (12v2f-34d6z) Hadl AC 76% HC/AC 1.00 (0.96 - 1.15) FL 5.9 cm 30w5d (57g9v-51r9i) Hadl FL 12% CI 0.81 (0.70 - 0.86) HL 5.2 cm 30w2d (25n9n-94o0o) Noe HL 25% Cere 3.9 cm 32w0d (06o9s-54a9y) Luc Cere53% GA for sonogram 32w0d (00f2b-95h2k) Weight Estimate: based on (BPD,HC,AC,FL) Avg Weight: 1901 gm (1623-2178gm) Had : 4lbs, 3oz Normal: 1924 gm (1443-2405gm) Had Wt% 46% for 31w6d Heart Rate: 143 bpm Amniotic Fluid Index: 12.0cm (08.6-24.1) Q1: 1.5cm Q2: 4.0cm Q3: 3.7cm Q4: 2.8cm PROCEDURE, TECHNIQUE Procedure: Rate of growth Technique: transabdominal EVAL, PLACENTA Presentation: cephalic Umbilical Cord: 3 Vessels Placenta: posterior Heart Rate: 143 bpm Amniotic Fluid Volume: normal Anatomy!Normal!Abnormal!Suboptimal!Prev. Seen!Comments Cranium ! ! ! ! x ! Mdl (CSP/Thal! ! ! ! x ! Ventricles ! ! ! ! x ! Choroid Plexu! ! ! ! x ! Cerebellum ! x ! ! ! ! Cisterna M. ! ! ! ! x ! Nuchal Fold ! ! ! ! x ! Orbits ! ! ! ! x ! Profile ! ! ! ! x ! Nasal Bone ! ! ! ! x ! Lip ! ! ! ! x ! Spine ! x ! ! ! ! Lungs ! x ! ! ! ! 4 Chamber Hea! x ! ! ! ! LVOT ! ! ! ! x ! RVOT ! ! ! ! x ! 3 Vessel View! ! ! ! x ! 3 Vessel Trac! ! ! ! x ! Cross-over ! ! ! ! x ! Ductal Arch ! ! ! ! x ! Aortic Arch ! ! ! ! x ! Caval View ! ! ! ! x ! Situs ! ! ! ! x ! Diaphragm ! x ! ! ! x ! Stomach ! x ! ! ! x ! Bowel ! ! ! ! x ! Kidneys ! x ! ! ! x ! Bladder ! x ! ! ! x ! 3 Vessel Cord! x ! ! ! x ! Cord In! ! ! ! x ! Upper Extremi! ! ! ! x ! Hands ! ! ! ! x ! Lower Extremi! ! ! ! x ! Feet ! ! ! ! x !Bilateral club feet previously seen External Kirsten! ! ! ! x ! Placental Cor! ! ! ! x ! CLINICAL SUMMARY IMPRESSION: Single, live, intrauterine at 31w6d size & amniotic fluid volume are within normal limits No malformations were seen within the limitations of ultrasound RECOMMEND: Ultrasound in 4 weeks for growth & amniotic fluid volume Thank you for allowing us the opportunity to care for your patient Won Head MD <Electronic Signature> 09/13/2023 09:08am R Sachin Steven MD [facility] ORDERABLES * HEMOGLOBIN A1C (05/06/2023 12:02 PM CDT) Pathologist [facility] Hemoglobin A1c 4.8 <5.7 % 05/06/2023 12:55 PM CDT [facility] Estimated Average Glucose 91 mg/dL 05/06/2023 12:55 PM CDT [facility] Blood BLOOD SPECIMEN / Unknown Venipuncture / Unknown 05/06/2023 12:02 PM CDT 05/06/2023 12:42 PM CDT [facility] - 05/06/2023 12:55 PM CDT HbA1c [...] Type 1 diabetes, pediatric patients, or women. Falsely low HbA1c results may be observed in patients with clinical conditions that shorten erythrocyte life span or decrease mean erythrocyte age such as the presence of unstable hemoglobin variants, elevated hemoglobin F level or other causes of hemolytic anemia. HbA1c may not accurately reflect glycemic control when clinical conditions that affect erythrocyte survival are present. Severe Iron deficiency anemia may yield falsely high results. Hemoglobin A1c assay should not be used to diagnose or monitor diabetes in patients with malignancy, recent blood transfusion, chronic kidney or liver disease. This method may yield falsely low results when hemoglobin (HbF) exceeds 5% in the specimen. The Reagan Alinity assay for the measurement of HbA1c is a National Glycohemoglobin Standardization Program (NGSP) certified method. Atif Ko MD LAB - CHEMISTRY DESIRAE CHARLES [facility] Organization Address City/State/ZIP Co de Phone Number [facility] [address] [place] [address] * (ABNORMAL) COMPREHENSIVE METABOLIC PANEL (05/06/2023 12:02 PM CDT) Only the most recent of5 resultswithin the time period is included. Glucose 76 70 - 105 mg/dL 05/06/2023 1:02 PM CDT [facility] Sodium 135(L) 136 - 145 mmol/L 05/06/2023 1:02 PM CDT [facility] Potassium 3.8 3.5 - 5.1 mmol/L 05/06/2023 1:02 PM CDT [facility] Chloride 104 98 - 107 mmol/L 05/06/2023 1:02 PM CDT [facility] CO2 23 22 - 29 mmol/L 05/06/2023 1:02 PM CDT [facility] Calcium 9.8 8.4 - 10.4 mg/dL 05/06/2023 1:02 PM T [facility] Anion Gap 8 6 - 16 mmol/L 05/06/2023 1:02 PM CDT [facility] BUN 6 5.3 - 18.7 mg/dL 05/06/2023 1:02 PM T [facility] Creatinine 0.69 0.57 - 1.11 mg/dL 05/06/2023 1:02 PM [facility] Alkaline Phosphatase 51 40 - 150 U/L 05/06/2023 1:02 PM CDT [facility] ALT 8 0 - 55 U/L 05/06/2023 1:02 PM T [facility] AST 14 5 - 34 U/L 05/06/2023 1:02 PM [facility] Protein Total 7.8 6.4 - 8.3 gm/dL 05/06/2023 1:02 PM [facility] Albumin 4.2 3.4 - 5.0 gm/dL 05/06/2023 1:02 PM [facility] Bilirubin Total 0.8 0.2 - 1.2 mg/dL 05/06/2023 1:02 PM [facility] eGFR by CKD-EPI >90 >=90 mL/min/1.7 3 m2 05/06/2023 1:02 PM [facility] Blood BLOOD SPECIMEN / Unknown Venipuncture / Unknown 05/06/2023 12:02 PM CDT 05/06/2023 12:42 PM CDT Atif Ko MD LAB - CHEMISTRY DESIRAE CHARLES Performing Organization Address City/[facility]/ZIP Co de Phone Number [facility] [address] [place] [address] * (ABNORMAL) RENIN ACTIVITY (05/30/2018 1:40 PM CDT) Only the most recent of19 resultswithin the time period is included. Pathologist [facility] Plasma Renin Activity 14.31(H) 0.25 - 5.82 ng/mL/h [facility] Comment: This test was developed and its analytical performance characteristics have been determined by [facility] [employer] [facility]. It has not been cleared or approved by FDA. This assay has been validated pursuant to the CLIA regulations and is used for clinical purposes. Test Performed at: [facility] [address] [place] [address] PEYTON MONTES MD,PHD,CHERRI 05/30/2018 1:40 PM CDT 05/30/2018 1:41 PM CDT Delma Solis MD LAB - CHEMISTRY DESIRAE CHARLES Performing Organization Address [facility] Co de Phone Number [facility] [address] [place] [address] * BASIC METABOLIC PANEL (CALCIUM TOTAL) (05/30/2018 1:40 PM CDT) Only the most recent of25 resultswithin the time period is included. Pathologist [facility] Glucose 92 65 - 139 mg/dL [facility] Comment: Non-fasting reference interval BUN 9 7 - [...] 10.4 mg/dL [facility] Comment: Test Performed at: [facility] [address] [place] [address] HOLLY GRAHAM DO,MPH 05/30/2018 1:40 PM CDT 05/30/2018 1:41 PM CDT Delma Solis MD LAB - CHEMISTRY DESIRAE CHARLES Performing Organization Address [facility] Co de Phone Number [facility] [address] [place] [address] * (ABNORMAL) ACTH (05/28/2017 9:16 AM CDT) Only the most recent of16 resultswithin the time period is included. ACTH 526(H) 6 - 50 pg/mL [facility] Comment: Reference range applies only to specimens collected between 7am-10am REPORT COMMENT: FASTING:NO Test Performed at: [place] [address] HOLLY GRAHAM DO,MPH 05/28/2017 9:16 AM CDT 05/28/2017 9:17 AM CDT Delma Solis MD LAB - CHEMISTRY DESIRAE CHARLES Performing Organization Address City/[facility] Co de Phone Number [facility] [address] [place] [address] * THYROID PEROXIDASE ANTIBODY (03/31/2017 11:16 AM [facility]) Thyroid Peroxidase TPO Antibody 16 0 - 26 IU/mL 04/01/2017 5:13 AM [facility] ([facility]) Blood BLOOD SPECIMEN / Unknown Lab Venipuncture / Unknown 03/31/2017 11:16 AM [facility] 03/31/2017 12:04 PM [facility] Narrative [facility] ([facility]) - 04/01/2017 5:13 AM [facility] Performed at: - [address] [id number] Car Oiler: Tyler Grigsby PhD, Phone: [phone] Delma Solis MD LAB - CHEMISTRY DESIRAE CHARLES [facility] Organization Address City/State/ZIP Co de Phone Number [facility]) [address] [place] [address] * MRI BRAIN WITH AND WITHOUT CONTRAST (01/20/2017 3:21 PM [facility]) Only the most recent of2 resultswithin the time period is included. Anatomical Region Laterality Modality Head Magnetic Resonan ce 01/20/2017 3:45 PM [facility] Impressions 01/20/2017 4:16 PM [facility] 1. Normal MRI of the brain. Dictated by Astrid Arita on 01/20/2017 4:16 PM I, Driss Lal, have personally reviewed the images and I agree with this report. Narrative 01/20/2017 4:16 PM [facility] [facility] EXAMINATION: Magnetic resonance imaging (MRI) of the [...] images and I agree with this report. Deborah Still COMPOSITION WEATHERBOARD APPLIER-TURN MACHINE OPERATOR MR ORDERAB LES * CBC [...] 0.5 % [facility] Comment: Test Performed at: [facility] [address] [place] [address] HOLLY GRAHAM DO,MPH Blood BLOOD SPECIMEN / Unknown 11/17/2016 10:16 AM CDT 11/17/2016 10:17 AM CDT Delma Solis MD LAB - HEMATOLOGY ORD ERABLES Performing Organization Address [facility] [place] [address] * TISSUE TRANSGLUTAMINASE AB IGA (12/28/2014 8:08 AM [facility]) Only the most recent of3 resultswithin the time period is included. [facility] TTG Antibody IgA 1 <4 U/mL [facility] Comment: Value Interpretation <4 U/mL: No Antibody Detected >or=4 U/mL: Antibody Detected REPORT COMMENT: 1 OF 2 FASTING:YES Test Performed at: [facility]/[address] [address] PAOLO BABCOCK MD,PHD Blood specimen (specimen) BLOOD SPECIMEN / Unknown 12/28/2014 8:08 AM [facility] 12/28/2014 8:09 AM [facility] Delma Solis MD LAB - SEROLOGY ORDER ARNAUD Performing Organization Address [facility] [place] [address] * CRP (INFLAMMATORY) (09/14/2014 8:49 AM CDT) Only the most recent of2 resultswithin the time period is included. [facility] C-Reactive Protein <0.10 <0.80 mg/dL [facility] Comment: Please be advised that patients taking Carboxypenicillins may exhibit falsely decreased C-Reactive Protein levels due to an analytical interference in this assay. Test Performed at: [facility] [address] [facility] [place] [address] HOLLY GRAHAM DO,MPH Blood specimen (specimen) BLOOD SPECIMEN / Unknown 09/14/2014 8:49 AM CDT 09/14/2014 8:51 AM CDT Delma Solis MD LAB - CHEMISTRY DESIRAE CHARLES Performing Organization Address [facility] Co de Phone Number [address] [address] * SED RATE WESTERGREN (09/14/2014 8:49 AM CDT) Only the most recent of2 resultswithin the time period is included. Pathologist [facility] Erythrocyte Sedimentation Rate [place] 5 < OR = 20 mm/h [facility] Comment: Test Performed at: [facility] [address] BRITTNEY VICK MD Blood specimen (specimen) BLOOD SPECIMEN / Unknown 09/14/2014 8:49 AM CDT 09/14/2014 8:51 AM CDT Delma Solis MD LAB - HEMATOLOGY ORD ERABLES Performing Organization Address [facility] [place] [address] * CBC NO DIFFERENTIAL (09/14/2014 8:49 AM CDT) Pathologist [facility] White Blood Cell Count 6.4 4.5 - [...] Thousand/u L [facility] Comment: Test Performed at: [facility] [address] BRITTNEY VICK MD Blood specimen (specimen) BLOOD SPECIMEN / Unknown 09/14/2014 8:49 AM CDT 09/14/2014 8:51 AM CDT Delma Solis MD LAB - HEMATOLOGY ORD ERABLES Performing Organization Address [facility] [place] [address] * PTH INTACT W/O CALCIUM (06/21/2014 12:22 PM CDT) Pathologist [facility] PTH Intact 34 14 - 72 pg/mL 06/21/2014 3:56 PM [address] [facility] Blood BLOOD SPECIMEN / Unknown Lab Venipuncture / Unknown 06/21/2014 12:22 PM CDT 06/21/2014 12:42 PM CDT Delma Solis MD LAB - CHEMISTRY DESIRAE CHARLES [facility] [address] [place] [address] * THYROID AB PANEL (TPO AB+THYROGLOB AB) (06/21/2014 12:22 PM CDT) Only the most recent of2 resultswithin the time period is included. Pathologist [facility] Thyroid Peroxidase TPO Antibody 1.0 0.0 - 9.0 IU/mL 06/22/2014 10:18 AM CDT [facility] ([facility]) Thyroglobulin Antibody <0.9 0.0 - 4.0 IU/mL 06/22/2014 10:18 AM CDT [facility] ([facility]) Comment: INTERPRETIVE INFORMATION: Thyroglobulin Antibody A value of 4.0 IU/mL or less indicates a negative result for thyroglobulin antibodies. The Thyroglobulin Antibody assay is being performed using the Blaze [employer] Access DxI method. Blood specimen (specimen) BLOOD SPECIMEN / Unknown Lab Venipuncture / Unknown 06/21/2014 12:22 PM CDT 06/21/2014 12:42 PM CDT Delma Solis MD LAB - CHEMISTRY DESIRAE CHARLES [facility] ([facility]) [address] * IRON BLOOD (06/21/2014 12:22 PM CDT) Pathologist [facility] Iron 137 25 - 156 ug/dL 06/21/2014 1:42 PM CDT [facility] Blood BLOOD SPECIMEN / Unknown Lab Venipuncture / Unknown 06/21/2014 12:22 PM CDT 06/21/2014 12:41 PM CDT Delma Solis MD LAB - CHEMISTRY DESIRAE CHARLES Performing Organization Address [facility] Co de Phone Number [facility] [address] [place] [address] * T4 TOTAL (06/21/2014 12:22 PM CDT) Only the most recent of2 resultswithin the time period is included. [facility] T4 Total 4.91 4.87 - 11.7 ug/dL 06/21/2014 1:56 PM CDT [facility] Blood BLOOD SPECIMEN / Unknown Lab Venipuncture / Unknown 06/21/2014 12:22 PM CDT 06/21/2014 12:41 PM CDT Delma Solis MD LAB - CHEMISTRY DESIRAE CHARLES Performing Organization Address [facility] Co de Phone Number [facility] [address] [place] [address] * FERRITIN (06/21/2014 12:22 PM CDT) [facility] Ferritin 43 10 - 140 ng/mL 06/21/2014 1:44 PM CDT [facility] Blood BLOOD SPECIMEN / Unknown Lab Venipuncture / Unknown 06/21/2014 12:22 PM CDT 06/21/2014 12:41 PM CDT Delma Solis MD LAB - CHEMISTRY DESIRAE CHARLES Performing Organization Address [facility] de Phone Number [facility] [address] [place] [address] * MAGNESIUM BLOOD (03/19/2014 9:46 AM BLAST[employer]LAY [employer]ER) Only the most recent of8 resultswithin the time period is included. [facility] Magnesium 2.2 1.5 - 2.5 mg/dL [facility] Comment: Test Performed at: [employer] [employer] [place] [address] [place] [address] HOLLY GRAHAM DO,MPH Blood specimen (specimen) BLOOD SPECIMEN / Unknown 03/19/2014 9:46 AM [employer] 03/19/2014 9:49 AM [employer] Delma Solis MD LAB - CHEMISTRY ORDVince PREMALEELA [facility] [address] [place] [address] * LAB RESULTS ORDER (01/30/2014 12:31 PM [employer]) Only the most recent of3 resultswithin the time period is included. Narrative 01/30/2014 12:31 PM [employer] Ordered by an unspecified provider. Scanned Document LAB - THERAPEUTIC DR EVELIA MONITORING ORDERABLES * HCG URINE QUALITATIVE - POCT (IP) BEAKER (01/25/2014 12:25 PM [employer]) Only the most recent of2 resultswithin the time period is included. HCG Qual Urine Negative Negative [facility] POCT TESTING QC Verified Yes Yes [facility] PO CT TESTING Urine specimen (specimen) URINE / Unknown 01/25/2014 12:25 PM [employer] Betty Cancino DO LAB - POINT OF CARE ORDERABLES Performing Organization Address [facility] Co de Phone Number [facility] POCT TESTING [address] * (ABNORMAL) DHEA SULFATE (01/25/2014 12:14 PM [employer]) Dehydroepiandrosterone Sulfate (DHEAS) 7(L) 22 - 255 ug/dL 01/26/2014 3:19 PM BLASTING [employer]ER [employer] ([facility]) Comment: Brian Stage Reference Intervals Male Female Brian Stage I 7-209 ug/dL 7-126 ug/dL Brian Stage II 28-260 ug/dL 13-241 ug/dL Brian Stage III 39-390 ug/dL 32-446 ug/dL Brian Stage IV and V 81-488 ug/dL 65-371 ug/dL REFERENCE INTERVAL: DHEAS Access complete set of age- and/or gender-specific reference intervals for this test in the [facility] Test Directory (Qian Xiao'er). Blood specimen (specimen) BLOOD SPECIMEN / Unknown 01/25/2014 12:14 PM [employer] 01/25/2014 12:25 PM [employer] Betty Cancino LAB - CHEMISTRY DESIRAE CHARLES Performing Organization Address [facility]/ZIP Co de Phone Number [facility] ([facility]) [address] * (ABNORMAL) DHEA (01/25/2014 12:14 PM [employer]ER) Dehydroepiandrosterone (DHEA) 0.329(L) 1.220 - 7.010 ng/mL 01/27/2014 7:35 AM BLAST[employer]ER [employer] ([facility]) Comment: INTERPRETIVE INFORMATION: Dehydroepiandrosterone, Female Brian Stage Brian Stage I 0.14-2.76 ng/mL Brian Stage II 0.83-4.87 ng/mL Brian Stage III 1.08-7.56 ng/mL Brian Stage IV-V 1.24-7.88 ng/mL REFERENCE INTERVAL: Dehydroepiandrosterone by [facility] Access complete set of age- and/or gender-specific reference intervals for this test in the [facility] Test Directory (Qian Xiao'er). Test developed and characteristics determined by [employer]. See Compliance Statement B: [email or web address]/ Blood specimen (specimen) BLOOD SPECIMEN / Unknown 01/25/2014 12:14 PM [employer]ER 01/25/2014 12:24 PM [employer] Betty Cancino DO LAB - CHEMISTRY DESIRAE CHARLES Performing Organization Address [facility]/ZIP Co de Phone Number [facility] ([facility]) [address] * IGA BLOOD (10/04/2013 1:24 PM CDT) IgA 115 65 - 421 mg/dL 10/04/2013 5:56 PM CDT [facility] Blood BLOOD SPECIMEN / Unknown Lab Venipuncture / Unknown 10/04/2013 1:24 PM CDT 10/04/2013 2:26 PM CDT Delma Solis MD LAB - CHEMISTRY DESIRAE CHARLES [facility] [address] [place] [address] * LAB MISC TEST (09/16/2013 10:06 AM CDT) Test Name 21 hydroxylsae antibody 10/09/2013 9:12 AM CDT [facility] Test Result See Scanned Report 10/09/2013 9:12 AM CDT [facility] Other (qualifier value) BLOOD SPECIMEN / Unknown 09/16/2013 10:06 AM CDT 09/16/2013 10:[address] Gonzalez DO LAB SEND OUT Performing Organization Address [facility] Co de Phone Number [facility] [address] [place] [address] * CMV ANTIBODY IGG IGM BLOOD PANEL (09/16/2013 10:06 AM CDT) Pathologist [facility] Cytomegalovirus Antibody IgG <0.20 U/mL 09/18/2013 4:12 AM [employer] [facility] ([facility]) Comment: INTERPRETIVE INFORMATION: Cytomegalovirus Antibody, IgG 0.59 U/mL or less......... Not Detected 0.6 - 0.69 U/mL........... Indeterminate-Repeat testing in 10-14 days may be helpful. 0.70 U/mL or greater...... Detected In immunocompromised patients, [...] IgM <8.0 <=29.9 AU/mL 09/18/2013 4:12 AM T [facility] ([facility]) Comment: INTERPRETIVE INFORMATION: Cytomegalovirus Antibody, IgM 29.9 AU/mL or Less ....... Not Detected 30.0-34.9 AU/mL........... Indeterminate-Repeat testing in 10-14 days may be helpful. 35.0 AU/mL or Greater .... Detected-IgM antibody to CMV detected which may indicate a current or recent infection. However, low levels of IgM antibodies may occasionally persist for more than 12 months post-infection. CMV serology is not useful for the evaluation of active or reactivated infection in immunocompromised patients. Molecular diagnostic tests (i.e. PCR)are preferred in these cases. Blood specimen (specimen) BLOOD SPECIMEN / Unknown 09/16/2013 10:06 AM CDT 09/16/2013 10:[address] Gonzalez DO LAB - CHEMISTRY DESIRAE CHARLES [employer] [facility]) [address] [place] [address] * (ABNORMAL) MADAN-BAR VIRUS PANEL (09/16/2013 10:06 AM CDT) Pathologist [facility] Madan-Barron Virus Antibody IgG Early Antigen <5.0 0.0 - 10.9 U/mL 09/18/2013 4:16 AM T [facility] ([facility]) Comment: INTERPRETIVE INFORMATION: Madan-Barron Virus Antibody to Early D Antigen (EA-D), IgG 8.9 U/mL or less........Not Detected 9.0-10.9 U/mL...........Indeterminate - Repeat testing in - may be helpful. 11.0 U/mL or greater....Detected Interpretive information regarding serologic features of EBV-associated diseases is available at [email or web address]. Madan-Barron Virus Antibody IgG Viral Capsid Antigen 65.7(H) 0.0 - 21.9 U/mL 09/18/2013 4:16 AM CDT [facility] ([facility]) Comment: INTERPRETIVE INFORMATION: Madan-Barron Virus Antibody to Viral Capsid Antigen, IgG 17.9 U/mL or less.......Not Detected 18.0-21.9 U/mL..........Indeterminate - Repeat testing in 10-14 days may be helpful. 22.0 U/mL or greater....Detected Interpretive information regarding serologic features of EBV-associated diseases is available at [email or web address]. Madan-Barron Virus Antibody IgM Viral Capsid Antigen <10.0 0.0 - 43.9 U/mL 09/18/2013 4:16 AM CDT [facility] ([facility]) Comment: INTERPRETIVE INFORMATION: Madan-Barron Virus Antibody to Viral Capsid Antigen, IgM 35.9 U/mL or less.......Not Detected 36.0-43.9 U/mL..........Indeterminate - Repeat testing in 10-14 days may be helpful. 44.0 U/mL or greater....Detected Interpretive information regarding serologic features of EBV-associated diseases is available at [email or web address]. Madan-Barron Virus Antibody IgG Nuclear Antigen 562.0(H) 0.0 - 21.9 U/mL 09/18/2013 4:16 AM CDT [facility] ([facility]) Comment: INTERPRETIVE INFORMATION: Madan-Barron Virus Antibody to Nuclear Antigen, IgG 17.9 U/mL or less.......Not Detected 18.0-21.9 U/mL..........Indeterminate - Repeat testing in 10-14 days may be helpful. 22.0 U/mL or greater....Detected Interpretive information regarding serologic features of EBV-associated diseases is available at [email or web address]. Blood specimen (specimen) BLOOD SPECIMEN / Unknown 09/16/2013 10:06 AM CDT 09/16/2013 10:[address] Gonzalez DO LAB - CHEMISTRY DESIRAE Zamora Organization Address City/State/ZIP Co de Phone Number [facility] [employer] [facility]) [address] [place], [place] [address] * (ABNORMAL) PHOSPHORUS BLOOD (09/16/2013 12:39 AM CDT) Only the most recent of7 resultswithin the time period is included. Phosphorus 2.06(L) 2.94 - 5.67 mg/dL 09/16/2013 1:40 AM CDT [facility] Blood BLOOD SPECIMEN / Unknown 09/16/2013 12:39 AM CDT 09/16/2013 1:00 AM CDT Savannah Paige MD LAB - CHEMISTRY DESIRAE CHARLES [facility] Organization Address City/State/ZIP Co de Phone Number [facility] [address] [place] [address] * XR CHEST PORTABLE/BEDSIDE (09/15/2013 3:05 AM [...] is included. 09/13/2013 1:24 PM CDT Narrative [facility] CARDIAC SERVICES - 09/13/2013 2:46 PM T [facility] , Transthoracic Echocardiogram 2D, M-mode, Doppler, and Color Doppler Name: MYA PAT MR #: [id number] Study date: 09/13/2013 Age: 13 years : 2000 Gender: Female Ht: 62.8 in / 159.5 cm Wt: 112.4 lb / 51.1 kg BSA: 1.51 m HR: BP: 78 mmHg / 36 mmHg age: CONNIE: Maternal age: HYDRAULIC PILE HAMMER OPERATOR: Avtar Sweeney MD PEDIATRIC ECHO ARMHOLE FELLER HANDSTITCHING MACHINE: Norman Higgins LUCIANO History/ Indications: Syncope. Hypotension. Procedure: The procedure [...] mmHg Procedure Note Unknown, Provider - 09/13/2013 [facility] , Transthoracic Echocardiogram 2D, M-mode, Doppler, and Color Doppler Name: MYA PAT MR #: [id number] Study date: 09/13/2013 Age: 13 years : 2000 Gender: Female Ht: 62.8 in / 159.5 cm Wt: 112.4 lb / 51.1 kg BSA: 1.51 m HR: BP: 78 mmHg / 36 mmHg age: CONNIE: Maternal age: HYDRAULIC PILE HAMMER OPERATOR: Avtar Sweeney MD PEDIATRIC ECHO ARMHOLE FELLER HANDSTITCHING MACHINE: Norman Higgins RDCS History/ Indications: Syncope. Hypotension. Procedure: [...] mmHg Jose D Bowman MD ECHO ORDERABLES [facility] [address] [place] [address] * MISAEL BLOOD SCREEN W/REFLEX TITER (09/13/2013 11:53 AM CDT) MISAEL Negative Negative 09/18/2013 11:13 AM CDT [facility] Blood BLOOD SPECIMEN / Unknown Venipuncture / Unknown 09/13/2013 11:53 AM CDT 09/13/2013 12:13 PM CDT Jose D Bowman MD LAB - CHEMISTRY ORD ERABLES Performing Organization Address [facility] Co de Phone Number [facility] [address] [place] [address] * CT ABDOMEN AND PELVIS WITH IV [...] - 7.45 pH 09/13/2013 3:53 AM T [facility] pCO2 Capillary 36 32 - 45 mm hg 09/13/2013 3:53 AM T [facility] pO2 Capillary 59(H) 40 - 50 mm hg 09/13/2013 3:53 AM T [facility] Hemoglobin Capillary 10.8(L) 12.0 - 16.0 gm/dL 09/13/2013 3:53 AM [facility] O2 Saturation Capillary 90(L) 95 - 99 % 09/13/2013 3:53 AM [facility] Oxyhemoglobin Capillary 88.4(L) 94 - 98 % 09/13/2013 3:53 AM [facility] Carboxyhemoglobin Capillary 0.9 0.5 - 1.5 % 09/13/2013 3:53 AM [facility] Methemoglobin Capillary 0.7 0.0 - 1.5 % 09/13/2013 3:53 AM [facility] O2 Content Capillary 13.5(L) 15.0 - 23.0 % 09/13/2013 3:53 AM [facility] BE Capillary -6.1(L) -2.0 - 2.0 mmol/L 09/13/2013 3:53 AM [facility] P50 Capillary 27.13(H) 25.3 - 26.8 mm hg 09/13/2013 3:53 AM [facility] Sodium Whole Blood 134(L) 136 - 146 mmol/L 09/13/2013 3:53 AM [facility] Potassium Whole Blood 4.6(H) 3.4 - 4.5 mmol/L 09/13/2013 3:53 AM [facility] Chloride WB 106 98 - 106 mmol/L 09/13/2013 3:53 AM [facility] TCO2 Capillary 19.8 18 - 27 mmol/L 09/13/2013 3:53 AM [facility] Glucose WB 121(H) 70 - 106 mg/dL 09/13/2013 3:53 AM [facility] Calcium Ionized 1.31 mmol/L 09/13/2013 3:53 AM [facility] Calcium Ionized Adjusted 1.26 1.15 - 1.29 mmol/L 09/13/2013 3:53 AM [facility] Temp 37.0 C 09/13/2013 3:53 AM [facility] Blood CAPILLARY BLOOD / Unknown Lab Venipuncture / Unknown 09/13/2013 3:47 AM T 09/13/2013 3:50 AM T Norman Orellana MD LAB - BLOOD GASES OR DERABLES Performing Organization Address City/[facility] Co de Phone Number [facility] [address] [place] [address] * CARDIAC RHYTHM STRIP ORDER (09/12/2013 10:28 PM CDT) Provider Unknown CARDIAC SERVICES ORD ERABLES * (ABNORMAL) PTH INTACT (09/12/2013 9:29 PM CDT) PTH Intact <6(L) 14 - 72 pg/mL 09/13/2013 1:04 PM CDT [facility] Calcium 9.1 8.5 - 10.1 mg/dL 09/13/2013 1:04 PM CDT [facility] Blood BLOOD SPECIMEN / Unknown Venipuncture / Unknown 09/12/2013 9:29 PM CDT 09/12/2013 9:48 PM CDT Betsy Young MD LAB - CHEMISTRY OR DERABLES Performing Organization Address City/[facility] Co de Phone Number [facility] [address] [place] [address] * CORTISOL BLOOD (09/12/2013 9:29 PM CDT) Cortisol <1.0 ug/dL 09/12/2013 10:44 PM CDT [facility] Blood BLOOD SPECIMEN / Unknown 09/12/2013 9:29 PM CDT 09/12/2013 9:48 PM CDT Narrative [facility] - 09/12/2013 10:44 PM CDT CORTISOL REFERENCE RANGE COMMENT Cortisol AM (7-10 a.m.) 3.70 - 19.40 ug/dl Cortisol PM (3-5 p.m.) 2.90 - 17.30 ug/dl Note: No reference range available for random cortisol levels. All results interpreted by ordering physician. Normal cortisol levels are generally highest in the morning hours and lowest from late evening through the disc recordist hours (8 PM to 4 AM). The PM measurements of cortisol run approximately one-half to one-third of the AM values. Joes Oconnor MD LAB - CHEMISTRY ORDERABLES Performing Organization Address City/[facility]/ZIP Co de Phone Number [facility] [address] [place] [address] * (ABNORMAL) URINALYSIS ROUTINE AUTO (09/12/2013 9:03 PM CDT) Color UA Straw Straw, Yellow, Dark Yellow 09/12/2013 9:45 PM CDT [facility] Clarity UA Clear 09/12/2013 9:45 PM CDT [facility] Specific Reynolds UA <=1.005 1.005 - 1.030 09/12/2013 9:45 PM CDT [facility] pH UA 6.0 5.0 - 8.0 pH 09/12/2013 9:45 PM CDT [facility] Protein UA Negative Negative 09/12/2013 9:45 PM CDT [facility] Blood UA Negative Negative 09/12/2013 9:45 PM CDT [facility] Leukocyte UA Trace(A) Negative 09/12/2013 9:45 PM CDT [facility] Nitrite UA Negative Negative 09/12/2013 9:45 PM CDT [facility] Glucose UA Negative Negative 09/12/2013 9:45 PM CDT [facility] Ketone UA Negative Negative 09/12/2013 9:45 PM CDT [facility] Bilirubin UA Negative Negative 09/12/2013 9:45 PM CDT [facility] Urobilinogen UA 0.2 0.1 - 1.0 EU/dL 09/12/2013 9:45 PM T [facility] Urine URINE SPECIMEN OBTAINED BY CLEAN CATCH PROCEDURE / Unknown 09/12/2013 9:03 PM CDT 09/12/2013 9:30 PM CDT Betsy Young MD LAB - URINALYSIS O RDERABLES Performing Organization Address [facility] Co de Phone Number [facility] [address] [place] [address] * URINALYSIS MICROSCOPIC ONLY (09/12/2013 9:03 PM CDT) RBC UA 0-2 0-2, 2-5 # /hpf 09/12/2013 9:51 PM CDT [facility] WBC UA 2-5 0-2, 2-5 # /hpf 09/12/2013 9:51 PM CDT [facility] Bacteria UA None Seen None Seen, Trace 09/12/2013 9:51 PM CDT [facility] Epithelial Cell UA 2-5 0-2, 2-5 09/12/2013 9:51 PM CDT [facility] Urine URINE SPECIMEN OBTAINED BY CLEAN CATCH PROCEDURE / Unknown 09/12/2013 9:03 PM CDT 09/12/2013 9:30 PM CDT Betsy Young MD LAB - URINALYSIS O RDERABLES Performing Organization Address City/[facility]/ZIP Co de Phone Number [facility] [address] [place] [address] * CULTURE URINE (09/12/2013 9:03 PM CDT) [facility] Culture 10,000-50,000 CFU/mL normal urogenital ashley ANGEL 09/15/2013 10:00 AM CDT [facility] Urine URINE SPECIMEN OBTAINED BY CLEAN CATCH PROCEDURE / Unknown 09/12/2013 9:03 PM CDT 09/12/2013 9:31 PM CDT Betsy Young MD LAB - MICROBIOLOGY ORDERABLES Performing Organization Address City/[facility]/ZIP Co de Phone Number [facility] [address] * DRUG ABUSE URINE PANEL (09/12/2013 6:27 PM CDT) Amphetamines Screen Urine Not Detected Not Detected 09/12/2013 9:13 PM CDT [facility] Barbiturates Screen Urine Not Detected Not Detected 09/12/2013 9:13 PM CDT [facility] Benzodiazepines Screen Urine Not Detected Not Detected 09/12/2013 9:13 PM CDT [facility] Cannabinoids Screen Urine Not Detected Not Detected 09/12/2013 9:13 PM CDT [facility] Cocaine Screen Urine Not Detected Not Detected 09/12/2013 9:13 PM CDT [facility] Opiate Screen Urine Not Detected Not Detected 09/12/2013 9:13 PM CDT [facility] Phencyclidine Screen Urine Not Detected Not Detected 09/12/2013 9:13 PM CDT [facility] Urine URINE / Unknown 09/12/2013 6 :27 PM CDT 09/12/2013 6:33 PM CDT Narrative [facility] - 09/12/2013 9:13 PM CDT Medical urine drug screening is only a qualitative method. A Negative result does not prove the absence of a drug or a drug metabolite. The screening methods used are subject to cross-reactivity from other prescription and nonprescription drugs and should be interpreted carefully along with other pertinent clinical information. Drug Screening Test Cutoff Values: AMPHETAMINES 1000 ng/ml BARBITURATES 200 ng/ml BENZODIAZEPINES 200 ng/ml CANNABINOIDS (THC) 50 ng/ml COCAINE 300 ng/ml OPIATES 300 ng/ml PHENCYCLIDINE (PCP) 25 ng/ml Betsy Young MD LAB - URINE CHEMIS TRY ORDERABLES Performing Organization Address [facility] de Phone Number [facility] [address] [place], [place] [id number] * T3 FREE (09/12/2013 12:57 PM CDT) T3 Free 3.83 2.18 - 3.98 pg/mL 09/12/2013 4:01 PM CDT [facility] Blood BLOOD SPECIMEN / Unknown 09/12/2013 12:57 PM CDT 09/12/2013 1:10 PM CDT Donta Hovrath MD LAB - CHEMISTRY DESIRAE CHARLES Performing Organization Address [facility] de Phone Number [facility] [address] [place] [address] * (ABNORMAL) PREALBUMIN (09/12/2013 12:04 PM CDT) Prealbumin 12.0(L) 16.0 - 38.0 mg/dL 09/12/2013 12:40 PM CDT [facility] Blood BLOOD SPECIMEN / Unknown 09/12/2013 12:04 PM CDT 09/12/2013 12:16 PM CDT Corey Butterfield MD LAB - CHEMISTRY ORDVince CHARLES Performing Organization Address [facility] Co de Phone Number [facility] [address] [place] [address] * LDH BLOOD (09/12/2013 12:03 PM CDT) [facility] LDH 202 140 - 260 U/L 09/12/2013 12:39 PM CDT [facility] Blood BLOOD SPECIMEN / Unknown 09/12/2013 12:03 PM CDT 09/12/2013 12:18 PM CDT Donta Horvath MD LAB - CHEMISTRY DESIRAE CHARLES Performing Organization Address [facility] Co de Phone Number [facility] [address] [place] [address] * GLUCOSE - POINT OF CARE (09/12/2013 10:49 AM CDT) Blood BLOOD SPECIMEN / Unknown 09/12/2013 10:49 AM CDT 09/12/2013 10:57 AM CDT Provider Unknown LAB - POINT OF CARE ORDERABLES Performing Organization Address [facility] Co de Phone Number [facility] [address] [place] [address] * EKG 15-LEAD (09/07/2013 10:12 AM CDT) [facility] Ventricular Rate 118 BPM CG MUSE Atrial Rate 118 BPM CG MUSE P-R Interval 148 ms CG MUSE QRS Duration ms 88 ms CG MUSE Q-T Interval ms 320 ms CG MUSE QTC Calculation (Bezet) 448 ms CG MUSE Calculated P [place] 67 degrees CG MUSE Calculated R [place] 88 degrees CG MUSE Calculated T [place] 57 degrees CG MUSE Interpretation EKG * Pediatric ECG Analysis * Normal sinus rhythm Normal ECG No previous ECGs available Confirmed by MD Abrams Wilson ([id number]) on 09/07/2013 10:53:23 AM CG MUSE 09/07/2013 10:1 2 AM CDT 09/07/2013 10:53 AM CDT Renny Abrams MD ECG ORDERABLES Performing Organization Address [facility]/State/ZIP Co de Phone Number CG MUSE * IMAGING/RADIOLOGY/XRAY RESULTS ORDER (05/10/2012 5:20 AM CDT) Anatomical Region Laterality Modality Other Narrative 05/10/2012 5:20 AM CDT Procedure Note Document, Scanned - 05/10/2012 5:20 AM CDT Scanned Document IMAGING Care Teams Night Coordinator Relationship Specialty Start Date End Date Maureen Rodriguez MD PCP - General Pediatrics 03/31/12 Mark Amaral, PAAshleeC [facility] [place] [address] Covering Provider Orthopedic 04/05/12
--- NOTE | 2024-04-18 22:40 | ECG_ITS ---
Test Date: 2024-04-18 22:46:49 Measurements Intervals [place] Rate: 83 P: 56 FL: 154 QRS: 73 QRSD: 93 T: 56 QT: 389 QTc: 458 Interpretive Statements SINUS RHYTHM MINIMAL Q WAVES- INF/LAT LEADS BORDERLINE ECG Compared to ECG 08/02/2023 23:43:24 NO SIGNIFICANT CHANGE Electronically Signed On 04-19-2024 06:57:38 PLANT [employer] by Axel Nelson D.O.
--- NOTE | 2024-04-18 22:43 | PC.NURSE ---
Pt. requested to be confidential. Registration notified.
[2024-04-18 22:52] LABS: BEDSIDEPREGUCG Negative (Negative)
[2024-04-18 23:10] LABS: Add Urine Microscopic? YES; Appearance Urine Clear (Clear); Bacteria Urine None Seen /hpf; Bilirubin Urine Negative (Negative); Blood Urine Negative (Negative); Color Urine Yellow (Yellow); Glucose Urine UA Negative (Negative); Ketones Urine Negative (Negative); Leukocyte Esterase Ur 2+ LEU/UL (Negative); Nitrate Urine Negative (Negative); Non Pathogenic Casts 0-2; Protein Urine Negative (Negative); RBC Urine 0-2 /hpf (0-2); Specific Grav Ur 1.006 (1.001-1.035); Squamous Epithelial Cell Urine Few /hpf (Few); Urobilinogen Urine 0.2 mg/dL (<2.0); pH Urine 7.5 (5.0-9.0)
[2024-04-19 07:39] VITALS: BP 100/65; PULSE 106; RESP 16; TEMP 36.6; O2SAT 100
--- NOTE | 2024-04-19 09:12 | ED_ITS ---
HPI - Headache General Chief Complaint: Headache Stated Complaint: cp, numbness face/arm left and now right Time Seen by Provider: 04/19/24 09:06 Source: patient Mode of arrival: EMS Limitations: no limitations History of Present Illness HPI Narrative: This is a 23 year old female that presents to the ER for headache. Reports associated tingling in her left arm, which has now mostly resolved. Also reports nausea and vomiting. Reports she has history of headaches and has seen neurology for this. Reports she was told she has Chiari malformation. She has not taken anything for her headache. She was also initially endorsing some dizziness, chest pressure which has resolved. Denies fever, focal numbness weakness. Related Data Home Medications ?Medication ?Instructions ?Recorded ?Confirmed ?Last Taken ?Type fludrocortisone 0.1 mg tablet 0.1 mg PO BID 01/28/19 03/09/24 11/02/23 20:00 History albuterol sulfate 90 mcg/actuation 2 puff inhalation Q4H PRN 06/02/23 03/09/24 11/01/22 00:00 History aerosol inhaler Shortness Of Breath Or Wheezing vitamin no.167-folic acid 1 tablet PO DAILY 06/02/23 03/09/24 11/02/23 08:00 History 400 mcg-dha 25 mg chewable tablet levothyroxine 100 mcg tablet 100 mcg PO DAILY 09/02/23 03/09/24 11/02/23 08:00 History hydrocortisone 5 mg tablet 15 mg PO BID 12/15/23 03/09/24 Unknown History Allergies Allergy/AdvReac Type Severity Reaction Status Date / Time No Known Allergies Allergy Verified 04/18/24 22:38 Review of Systems 2 Review of Systems: CONSTITUTIONAL: Denies fever EYES: Reports blurry vision GASTROINTESTINAL: Reports nausea, vomiting NEUROLOGIC: Reports headache. Denies numbness, or weakness. All systems reviewed & are unremarkable except as noted in HPI and below PMFSH Past Medical History Medical History Leukocytosis Bilateral edema of lower extremity BMI 27.0-27.9,adult BMI 32.0-32.9,adult BMI 28.0-28.9,adult Adult BMI 26.0-26.9 kg/sq m COVID-19 SARS-CoV-2 positive BMI 25.0-25.9,adult BMI 24.0-24.9, adult OCD (obsessive compulsive disorder) Depression Hypothyroidism Anxiety Addisons disease Surgical History Surgical History H/O wrist surgery Family History Family History Father Rheumatoid arthritis COVID-19 Mother COVID-19 Sibling COVID-19 Mental and behavioral disorders d/t use of alcohol, acute intoxication Grandparent Congestive heart failure Social History Social History Smoking status: Never smoker Second hand tobacco smoke exposure: No Alcohol intake: former Alcohol use details: occasionally Substance use: never Substance use type: does not use Do You Feel Safe in your Home?: Yes Lack of Transportation: No Lack of Food: Never True Current Housing: I Do Not Have Housing Concerned About Future Housing: No Difficulty Paying Gas/Electric Bills: No Difficulty Paying for Meds: No Currently Unemployed: No Education: High School Diploma/GED Difficulty w/ Childcare or Family Care: No Living arrangements: with family Additional living arrangements comments: Lives with boyfriend [address] [place] [address]. 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 HEAD: Normocephalic, atraumatic. EYES: PERRLA and EOMI. ENT: Nares clear, no rhinorrhea or epistaxis. Mucous membranes moist. Oropharynx without tonsillar hypertrophy exudate or other lesions. Bilateral TMs pearly cope non-bulging NECK: Supple. No adenopathy or masses. Normal range of motion CHEST: Clear to auscultation. No respiratory distress. No wheezes rales or rhonchi HEART: Regular rate and rhythm. No murmur heard. Normal peripheral pulses. EXTREMITIES: Normal range of motion. No edema. Strength equal in bilateral upper lower extremities (5/5) SKIN: Warm, dry, no rash. NEURO: No focal deficits. Alert and oriented x3. Cranial nerves 2-12 grossly intact PSYCH: Normal mood and affect Course Course Emergency Course: patient updated. resting comfortably Vital Signs Vital signs: Vital Signs Temperature 97.2 F L 04/18/24 22:32 Pulse Rate 90 04/18/24 22:32 Respiratory Rate 16 04/18/24 22:32 Blood Pressure 101/73 04/18/24 22:32 Pulse Oximetry 98 04/18/24 22:32 Oxygen Delivery Room Air 04/18/24 22:32 Temperature 97.9 F 04/19/24 07:39 Pulse Rate 106 H 04/19/24 07:39 Respiratory Rate 16 04/19/24 07:39 Blood Pressure 100/65 04/19/24 07:39 Pulse Oximetry 100 04/19/24 07:39 Oxygen Delivery Room Air 04/18/24 22:32 MDM - Headache MDM Narrative Medical decision making narrative: Patient presents to the emergency department for a headache. Reports longstanding history of headaches for which she has seen Neurology. Reports history of Chiari malformation. She is afebrile and nontoxic appearing. She is neurologically intact. Her vitals are stable. CBC metabolic panel without concerning findings. test is negative. She does have some white blood cells in her urine, but urinary symptoms. This will be sent for culture. CT brain without acute findings. patient updated. resting comfortably. She is to follow up with Neurology. She was given warnings to return to the ER Differential Diagnosis Differential diagnosis: Likely migraine, tension headache, headache, sinusitis and other (dehydration, electrolyte derangement) Lab Data Attestation: I reviewed the patient's lab results. 04/19/24 09:32 04/19/24 09:32 Labs: Lab Results 04/18/24 04/18/24 04/19/24 Range/Units 22:43 22:50 09:32 WBC 6.1 (4.5-10.0) K/mm3 RBC 4.30 (4.2-5.4) M/mm3 Hgb 13.4 D (12.0-15.0) g/dL Hct 37.8 (37.0-47.0) % MCV 87.9 (80-100) fl MCH 31.2 (26-34) pg MCHC 35.4 (32-36) g/dl RDW 12.5 (11.5-14.5) % Plt Count 301 (150-375) k/mm3 MPV 10.3 (7.4-10.4) fl Immature Gran % (Auto) 0.3 (0-0.5) % Neut % (Auto) 56.5 (45.5-73.1) % Lymph % (Auto) 33.1 (18.3-44.2) % Woods % (Auto) 7.2 (2.6-8.5) % Eos % (Auto) 2.4 (0-4.4) % Baso % (Auto) 0.5 (0.2-1.2) % Lymph # (Auto) 2.03 (0.9-3.2) K/mm3 Woods # (Auto) 0.4 (0.1-0.6) K/mm3 Eos # (Auto) 0.2 (0-0.3) K/mm3 Baso # (Auto) 0.0 (0.0-0.1) K/mm3 Abs Immat Gran (auto) 0.02 (0.00-0.031) K/mm3 Absolute Neuts (auto) 3.5 (1.3-6.7) K/mm3 Absolute Nucleated RBC 0.000 (0.0-0.012) K/mm3 Nucleated RBC % 0.0 (0.0-0.2) % Sodium 137 (137-145) mmol/L Potassium 4.1 (3.4-5.0) mmol/L Chloride 104 (98-107) mmol/L Carbon Dioxide 23 (22-30) mmol/L Anion Gap 10 (4-12) mmol/L BUN 8 (7-17) mg/dL Creatinine 0.73 (0.7-1.0) mg/dL Estim Creat Clear Calc 81 ml/min Estimated GFR > 60 (59 - ) Glucose 82 (65-110) mg/dL Calcium 9.6 (8.4-10.2) mg/dL Magnesium 1.8 (1.6-2.3) mg/dL Total Bilirubin 0.9 (0.2-1.3) mg/dL AST 26 (14-36) U/L ALT 17 (6-35) U/L Alkaline Phosphatase 72 (38-126) U/L Troponin I < 0.012 (0.000-0.034) ng/mL Total Protein (6.3-8.2) g/dL Albumin (3.5-5.1) g/dL Urine Color Yellow (Yellow) Urine Appearance Clear (Clear) Urine pH 7.5 (5.0-9.0) Ur Specific [place] 1.006 (1.001-1.035) Urine Protein Negative (Negative) mg/dL Urine Glucose (UA) Negative (Negative) mg/dL Urine Ketones Negative (Negative) mg/dL Ur Blood (Man) Negative (Negative) Urine Nitrate Negative (Negative) Urine Bilirubin Negative (Negative) Urine Urobilinogen 0.2 (<2.0) mg/dL Leukocyte Esterase Rfl 2+ H (Negative) ANDREA/UL Urine RBC 0-2 (0-2) /hpf Urine WBC 11-20 H (0-3) /hpf Ur Squamous Epith Cells Few (Few) /hpf Urine Bacteria None seen /hpf Urine Casts 0-2 POC Urine HCG, Qual Negative (Negative) 04/19/24 Range/Units 09:32 WBC (4.5-10.0) K/mm3 RBC (4.2-5.4) M/mm3 Hgb (12.0-15.0) g/dL Hct (37.0-47.0) % MCV (80-100) fl MCH (26-34) pg MCHC (32-36) g/dl RDW (11.5-14.5) % Plt Count (150-375) k/mm3 MPV (7.4-10.4) fl Immature Gran % (Auto) (0-0.5) % Neut % (Auto) (45.5-73.1) % Lymph % (Auto) (18.3-44.2) % Woods % (Auto) (2.6-8.5) % Eos % (Auto) (0-4.4) % Baso % (Auto) (0.2-1.2) % Lymph # (Auto) (0.9-3.2) K/mm3 Woods # (Auto) (0.1-0.6) K/mm3 Eos # (Auto) (0-0.3) K/mm3 Baso # (Auto) (0.0-0.1) K/mm3 Abs Immat Gran (auto) (0.00-0.031) K/mm3 Absolute Neuts (auto) (1.3-6.7) K/mm3 Absolute Nucleated RBC (0.0-0.012) K/mm3 Nucleated RBC % (0.0-0.2) % Sodium (137-145) mmol/L Potassium (3.4-5.0) mmol/L Chloride (98-107) mmol/L Carbon Dioxide (22-30) mmol/L Anion Gap (4-12) mmol/L BUN (7-17) mg/dL Creatinine (0.7-1.0) mg/dL Estim Creat Clear Calc ml/min Estimated GFR (59 - ) Glucose (65-110) mg/dL Calcium (8.4-10.2) mg/dL Magnesium (1.6-2.3) mg/dL Total Bilirubin (0.2-1.3) mg/dL AST (14-36) U/L ALT (6-35) U/L Alkaline Phosphatase (38-126) U/L Troponin I Cancelled (0.000-0.034) ng/mL Total Protein 7.0 (6.3-8.2) g/dL Albumin 4.4 (3.5-5.1) g/dL Urine Color (Yellow) Urine Appearance (Clear) Urine pH (5.0-9.0) Ur Specific [place] (1.001-1.035) Urine Protein (Negative) mg/dL Urine Glucose (UA) (Negative) mg/dL Urine Ketones (Negative) mg/dL Ur Blood (Man) (Negative) Urine Nitrate (Negative) Urine Bilirubin (Negative) Urine Urobilinogen (<2.0) mg/dL Leukocyte Esterase Rfl (Negative) ANDREA/UL Urine RBC (0-2) /hpf Urine WBC (0-3) /hpf Ur Squamous Epith Cells (Few) /hpf Urine Bacteria /hpf Urine Casts POC Urine HCG, Qual (Negative) Imaging Data Radiologist's impression: ITS Impressions Head CT 04/19/24 10:03 Impression: No significant abnormality seen. ECG Data EKG #1: ECG completion date: 04/19/24 EKG Interpretation: normal rate, sinus rhythm, no ST changes, normal QT and no acute changes (compared to previous EKG 08/15) Critical Care Time Critical Care Time Critical Care Time: No Discharge Plan Discharge Clinical Impression: Headache Qualifiers: Headache type: unspecified Headache chronicity pattern: acute headache I ntractability: not intractable Qualified Code(s): R51.9 - Headache, unspecified Patient Disposition: Home, Self-Care Condition: Improved Instructions: Acute Headache (ED) Additional Instructions: Return to the emergency department if you experience fever, chest pain, shortness of breath, abdominal pain with nausea and vomiting, weakness, numbness, or any other symptoms that are concerning to you. Rest. Remain well hydrated. Over the counter pain medication as needed Follow up with neurology Patient Language: Icelandic Prescriptions: No Action fludrocortisone 0.1 mg tablet 0.1 mg PO BID (DME) Aerochamber MV Spacer See Rx Instructions .Route Qty: 1 0RF Rx Instructions: As directed albuterol sulfate 90 mcg/actuation HFA aerosol inhaler 2 puff inhalation Q4H PRN (Reason: Shortness Of Breath Or Wheezing) no.167-folic acid-dha 400 mcg- 25 mg tablet,chewable 1 tablet PO DAILY hydrocortisone 5 mg tablet 15 mg PO BID levothyroxine 100 mcg tablet 100 mcg PO DAILY Follow-up/Referrals: Girma Abel MD [Physician] - Steven Garcia MD [Primary Care Provider] -
[2024-04-19 09:40] LABS: Basophils Percent Auto 0.5 % (0.2-1.2); Eosinophils Absolute Auto 0.2 K/mm3 (0-0.3); Eosinophils Percent Auto 2.4 % (0-4.4); Hematocrit 37.8 % (37.0-47.0); Hemoglobin 13.4 g/dL (12.0-15.0); Immature Granulocyte Absolute 0.02 K/mm3 (0.00-0.031); Immature Granulocyte Percent A 0.3 % (0-0.5); Lymphocytes Absolute Auto 2.03 K/mm3 (0.9-3.2); Lymphocytes Percent Auto 33.1 % (18.3-44.2); Mean Corpuscular HGB Conc 35.4 g/dl (32-36); Mean Corpuscular Hemoglobin 31.2 pg (26-34); Mean Corpuscular Volume 87.9 fl (80-100); Mean Platelet Volume 10.3 fl (7.4-10.4); Monocytes Absolute Auto 0.4 K/mm3 (0.1-0.6); Monocytes Percent Auto 7.2 % (2.6-8.5); Neutrophils Absolute Auto 3.5 K/mm3 (1.3-6.7); Neutrophils Percent Auto 56.5 % (45.5-73.1); Platelet Count Result 301 k/mm3 (150-375); Red Cell Distribution Width 12.5 % (11.5-14.5); White Blood Count 6.1 K/mm3 (4.5-10.0)
[2024-04-19] MEDS: SODIUM CHLORIDE 0.9% IV 1,000 ML 999 ML IV CONT (09:47)
[2024-04-19] MEDS: diphenhydrAMINE HCl INJ 50 MG/ML VIAL 25 MG IV PUSH (09:48)
[2024-04-19] MEDS: METOCLOPRAMIDE HCL INJ 10 MG/2 ML VIAL IV PUSH (09:48)
[2024-04-19] MEDS: ACETAMINOPHEN 500 MG TABLET 1000 MG PO (09:49)
[2024-04-19 09:51] LABS: Alanine Aminotransferase 17 U/L (6-35); Albumin Level 4.4 g/dL (3.5-5.1); Alkaline Phosphatase 72 U/L (38-126); Anion Gap 10 mmol/L (4-12); Aspartate Amino Transferase 26 U/L (14-36); Bilirubin,Total 0.9 mg/dL (0.2-1.3); Blood Urea Nitrogen 8 mg/dL (7-17); Calcium 9.6 mg/dL (8.4-10.2); Carbon Dioxide 23 mmol/L (22-30); Chloride 104 mmol/L (98-107); Estimated CRCL calculation 81 ml/min; Estimated Glomerular Filt Rate > 60; Glucose 82 mg/dL (65-110); Magnesium 1.8 mg/dL (1.6-2.3); Potassium 4.1 mmol/L (3.4-5.0); Sodium 137 mmol/L (137-145)
[2024-04-19 10:05] LABS: Troponin I < 0.012 ng/mL (0.000-0.034)
--- OUTSIDE RECORDS SUMMARY | 2024-04-19 10:17 | XMS_ITS | Encounter Summary ---
Author Organization [facility] Address [address] [facility] [place] [address] Care Team Providers Care Television Antenna Installer Name Role Phone Maureen Rodriguez MD Primary Care Provider [phone] Mark Amaral-Johnny Unavailable Reason for Visit * Reason Onset Date Comments Request Lab Order 03/07/2015 Mom is request ing an order for labs to be sent lab on file. Encounter Details Date Type Department Care Team (Late st Contact Info) Description 03/07/2015 Telephone [facility] Pediatrics - Endocrinology [address] [place] [address] Delma Solis MD [address] [place] [address] [phone] Request Lab Order (Mom is requesting an [...] on filedocumented in this encounter Care Teams Television Antenna Installer Relationship Specialty Start Date End Date Maureen Rodriguez MD PCP - General Pediatrics 03/31/12 Mark Amaral, PAAshleeC [facility] [place] [address] Covering Provider Orthopedic 04/05/12 documented as of this encounter
--- OUTSIDE RECORDS SUMMARY | 2024-04-19 10:17 | XMS_ITS | Clinical Summary ---
Author Organization [facility] Address [address] [facility] [place] [address] Phone Care Team Providers Care Computer Methods Analyst Name Role Phone Jayden Noriega APRN, CNP [...] 09/22/2021 Anxiety 09/22/2021 Depression 09/22/2021 Adrenal insufficiency (Millen's disease) 2021 Hypothyroid 09/22/2021 Chronic hypotension 09/22/2021 [...] Sex Assigned at Female 03/08/2023 9:40 AM AUTOMOTIVE TECHNICIAN Legal Sex Female 10:15 PM AUTOMOTIVE TECHNICIAN Gender Identity Female 03/08/2023 9:40 AM AUTOMOTIVE TECHNICIAN Sexual Orientation Straight 03/08/2023 9: 40 AM AUTOMOTIVE TECHNICIAN Last Filed Vital Signs Vital Sign Reading [...] cm (5' 2 ) 03/11/2023 7:41 PM AUTOMOTIVE TECHNICIAN Body Mass Index 32.01 03/11/2023 7:41 PM AUTOMOTIVE TECHNICIAN Plan of Treatment Health Maintenance Due Date [...] patient's age to complete this topic Insurance [employer] Advance Directives * Full Code (Latest Code Status on File) Date Activated Date Inactivated Comments 09/22/2021 3:36 PM 09/24/2021 3:33 PM CPR-Full Treat ment: FULL ARREST: Attempt Resuscitation/CPR wit intubation and mechanical ventilation. PRE-ARREST: Use entire range of life support measures to stabilize the patient. Care Teams Computer Methods Analyst Relationship Specialty Start Date End Date Jayden Noriega APRN, LOGISTICS TECHNICIAN [address] [place] [address] PCP - General Advanced Practice Nurse 01/04/20 Floyd Hsieh MD #[address] [address] (work) Consulting Physician Endocrinology 10/23/21
--- OUTSIDE RECORDS SUMMARY | 2024-04-19 10:17 | XMS_ITS | Encounter Summary ---
Author Organization [facility] Address [address] [place] [place] [address] Care Team Providers Care Cio Name Role Phone Maureen Rodriguez MD Primary Care Provider [phone] Mark Amaral PA-C Unavailable [phone] Reason for Visit * Reason Onset Date Comments Refill Request 05/25/2018 injectable stres s dose Update 05/25/2018 Rafael was vomit ing yesterday, given injectable stress dose. Please call mom to discuss next appt and transfer of care due to age Encounter Details Date Type Department Care Team (Late st Contact Info) Description 05/25/2018 Telephone [facility] Pediatrics - Endocrinology [address] [facility] [facility] [place] [address] Kirsten Menjivar Refill Request (injectable [...] had labs collected 05/30/18 at 1340 at [facility]. BMP is normal, TSH is normal. Her renin is elevated, though consistent with her recent baseline and decreased from last renin. documented in this encounter Plan of Treatment Not on file documented as of this encounter Visit Diagnoses Not on filedocumented in this encounter Care Teams Cio Relationship Specialty Start Date End Date Maureen Rodriguez MD PCP - General Pediatrics 03/31/12 Mark Amaral PA-C [address] [place] [address] Covering Provider Orthopedic 04/05/12 documented as of this encounter
--- OUTSIDE RECORDS SUMMARY | 2024-04-19 10:17 | XMS_ITS | Encounter Summary ---
Author Organization [facility] Address [address] [facility] [place] [address] Care Team Providers Care Winding Inspector Name Role Phone Maureen Rodriguez MD Primary Care Provider [phone] Mark Amaral-Johnny Unavailable [phone] Reason for Visit * Reason Onset Date Comments Request Lab Order 06/19/2014 Appt on 06/21 , mom need lab orders for renin,Dhea, and acth put in for [facility] Encounter Details Date Type Department Care Team (Late st Contact Info) Description 06/19/2014 Telephone [facility] Pediatrics - Endocrinology [address] [place] [address] Delma Solis MD [address] [place] [address] [phone] Request Lab Order (Appt on 06/21 , [...] on filedocumented in this encounter Care Teams Winding Inspector Relationship Specialty Start Date End Date Maureen Rodriguez MD PCP - General Pediatrics 03/31/12 Mark Amaral PAAshleeC [address] [place] [address] Covering Provider Orthopedic 04/05/12 documented as of this encounter
--- OUTSIDE RECORDS SUMMARY | 2024-04-19 10:17 | XMS_ITS | Clinical Summary ---
Author Organization [facility] Address [address] [place] [address] Care Team Providers Care Human Capital Manager Name Role Phone Steven Garcia MD Primary Care Provider [phone] Allergies No known active allergies Medications hydrocortisone (CORTEF) 5 mg tablet 1 tablet (5 mg total) 4 tabs in morning, 2 in afternoon 3 Active fludrocortisone 0.1 mg tablet Take 1 tablet (0.1 mg total) by mouth 2 (two) times a day 9 Active levothyroxine (SYNTHROID) 100 mcg tablet Take 1 tablet (100 mcg total) by mouth calendering supervisor before breakfast Active Active Problems Problem Noted Date Diagnosed Date 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 Medical History Medical History Date Comments Personal history of other di seases of the nervous system and sense organs History of amblyop ia - (Added by TW Conv) Strabismic amblyopia Strabismic amblyopia - (Added by TW Conv) Cassia's disease (HCC) Diabetes mellitus (HCC) Mazin's disease [...] staff should administer the PHQ-9) 0 10/20/2023 [facility] - Occupational Stress Questionnaire Answer Date Recorded [...] any time in the past 12 m [facility], were you homeless or living in a correction (including now)? No 10/20/2023 Personal Safety Answer Date Recorded Have you ever been in or are you currently in a harmful physical or emotional relationship or is someone making you feel afraid or unsafe? Denies 10/20/2023 Comments No Sex and Gender Information Value Date Recorded Sex Assigned at Not on file Legal Sex Female 5:01 AM MOTION STUDY ENGINEER Gender Identity Not on file Sexual Orientation [...] Insurance AETNA SELECT AETNA SELECT Care Teams Human Capital Manager Relationship Specialty Start Date End Date Steven Garcia MD [address] [place] [address] PCP - General Family Medicine 10/20/23
--- OUTSIDE RECORDS SUMMARY | 2024-04-19 10:17 | XMS_ITS | Referral Summary ---
Author Organization [facility] Address [address] [place] [address] Care Team Providers Care Steel Rule Inspector Name Role Phone Steven Garcia MD Primary Care Provider [phone] Allergies No known active allergies Medications hydrocortisone (CORTEF) 5 mg tablet 1 tablet (5 mg total) 4 tabs in morning, 2 in afternoon 3 Active fludrocortisone 0.1 mg tablet Take 1 tablet (0.1 mg total) by mouth 2 (two) times a day 9 Active levothyroxine (SYNTHROID) 100 mcg tablet Take 1 tablet (100 mcg total) by mouth loop puller before breakfast Active Active Problems Problem Noted [...] staff should administer the PHQ-9) 0 10/20/2023 [facility] [place] [facility] - Occupational Stress [...] were you homeless or living in a group home (including now)? No 10/20/2023 Personal Safety Answer Date Recorded Have you ever been in or are you currently in a harmful physical or emotional relationship or is someone making you feel afraid or unsafe? Denies 10/20/2023 Comments No Sex and Gender Information Value Date Recorded Sex Assigned at Not on file Legal Sex Female 5:01 AM SILVER SOLUTION MIXER Gender Identity Not on file Sexual Orientation [...] Insurance AETNA SELECT AETNA SELECT Care Teams Steel Rule Inspector Relationship Specialty Start Date End Date Steven Garcia MD [address] [address] PCP - General Family Medicine 10/20/23
--- OUTSIDE RECORDS SUMMARY | 2024-04-19 10:17 | XMS_ITS | Patient Health Summary ---
Author Organization [facility] Address [address] [place] [address] Care Team Providers Care Channel Lip Wetter Name Role Phone Maureen Rodriguez MD Primary Care Provider [phone] Mark Amaral-Johnny Unavailable [phone] Note from [facility],non-owned Affiliates and Associated Physician Practices is amultiple site organization consisting of ambulatory clinics and hospital sitesin [place], [place], [place] and [place]. This disclosure is being madepursuant to the Care Everywhere program and may not contain all information available regarding this patient. Last updated 17.[facility] Allergies No known active allergies Medications [...] affecting antepartum care of mother 07/08/2023 11/16/2023 NURSING HOME: abnormality in pr egnancy (HCC) - Bilateral [...] care, and heating? Not very hard 09/08/2023 [facility] of Occupat ional Health - Occupational Stress [...] place to sleep or slept in a alf (including now)? 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 * [...] 05/30/2018) * RENIN ACTIVITY(Performed 08/12/2017) Performed for Dale's disease (HCC) * BASIC METABOLIC PANEL (CALCIUM TOTAL)(Performed 08/12/2017) Performed for Merlin's disease (HCC) * ACTH(Performed 05/28/2017) * RENIN ACTIVITY(Performed 05/28/2017) * BASIC METABOLIC PANEL (CALCIUM TOTAL)(Performed 05/28/2017) * THYROID PEROXIDASE ANTIBODY(Performed 03/31/2017) Performed for Merlin's disease (HCC) * TSH(Performed 03/31/2017) Performed for Merlin's disease (HCC) * RENIN ACTIVITY(Performed 03/31/2017) Performed for Dale's disease (HCC) * ACTH(Performed 03/31/2017) Performed for Dale's disease (HCC) * BASIC METABOLIC PANEL (CALCIUM TOTAL)(Performed 03/31/2017) Performed for Merlin's disease (HCC) * MRI BRAIN WWO CONTRAST(Performed 01/20/2017) Performed for New daily persistent headache * RENIN ACTIVITY(Performed 11/17/2016) Performed for Dale disease (HCC), Nausea and vomiting, intractability of vomiting not specified,unspecified vomiting type * CBC W AUTO DIFFERENTIAL(Performed 11/17/2016) Performed for Dale disease (HCC), Nausea and vomiting, intractability of vomiting not specified,unspecified vomiting type * COMPREHENSIVE METABOLIC PANEL(Performed 11/17/2016) Performed for Merlin disease (HCC), Nausea and vomiting, intractability of vomiting not specified,unspecified vomiting type * ACTH(Performed 11/17/2016) Performed for Dale's disease (HCC) * ACTH(Performed 10/27/2016) * RENIN ACTIVITY(Performed 10/27/2016) * BASIC METABOLIC PANEL (CALCIUM TOTAL)(Performed 10/27/2016) * ACTH(Performed 08/05/2016) Performed for Dale's disease (HCC) * RENIN ACTIVITY(Performed 08/05/2016) Performed for Dale's disease (HCC) * BASIC METABOLIC PANEL (CALCIUM TOTAL)(Performed 08/05/2016) Performed for Merlin's disease (HCC) * TSH(Performed 02/06/2016) Performed for Dale's disease (HCC) * RENIN ACTIVITY(Performed 02/06/2016) Performed for Dale's disease (HCC) * ACTH(Performed 02/06/2016) Performed for Dale's disease (HCC) * BASIC METABOLIC PANEL (CALCIUM TOTAL)(Performed 02/06/2016) Performed for Merlin's disease (HCC) * RENIN ACTIVITY(Performed 10/16/2015) Performed for Merlin's disease (HCC) * ACTH(Performed 10/16/2015) Performed for Dale's disease (HCC) * BASIC METABOLIC PANEL (CALCIUM TOTAL)(Performed 10/16/2015) Performed for Merlin's disease (HCC) * ACTH(Performed 08/09/2015) * RENIN ACTIVITY(Performed 08/09/2015) * BASIC METABOLIC PANEL (CALCIUM TOTAL)(Performed 08/09/2015) * ACTH(Performed 03/25/2015) Performed for Merlin's disease (HCC) * BASIC METABOLIC PANEL (CALCIUM TOTAL)(Performed 03/25/2015) Performed for Dale's disease (HCC) * RENIN ACTIVITY(Performed 01/29/2015) Performed for Dale's disease (HCC) * BASIC METABOLIC PANEL (CALCIUM TOTAL)(Performed 01/29/2015) Performed for Merlin disease (HCC) * RENIN ACTIVITY(Performed 12/28/2014) Performed for Dale's disease (HCC) * BASIC METABOLIC PANEL (CALCIUM TOTAL)(Performed 12/28/2014) Performed for Merlin's disease (HCC) * TISSUE TRANSGLUTAMINASE AB IGA(Performed 12/28/2014) Performed for Merlin's disease (HCC) * RENIN ACTIVITY(Performed 12/04/2014) Performed for Merlin's disease (HCC), Hypercalcemia * BASIC METABOLIC PANEL (CALCIUM TOTAL)(Performed 12/04/2014) Performed for Merlin's disease (HCC), Hypercalcemia * ACTH(Performed 12/04/2014) Performed for Dale's disease (HCC), Hypercalcemia * RENIN ACTIVITY(Performed 10/25/2014) Performed for Dale's disease (HCC) * ACTH(Performed 10/25/2014) Performed for Merlin's disease (HCC) * BASIC METABOLIC PANEL (CALCIUM TOTAL)(Performed 10/25/2014) Performed for Dale's disease (HCC) * CBC W/O DIFFERENTIAL(Performed 09/14/2014) Performed for Merlin disease (HCC) * TISSUE TRANSGLUTAMINASE AB IGA(Performed 09/14/2014) Performed for Dale disease (HCC) * C-REACTIVE PROTEIN(Performed 09/14/2014) Performed for Dale disease (HCC) * ERYTHROCYTE SEDIMENTATION RATE(Performed 09/14/2014) Performed for Dale disease (HCC) * COMPREHENSIVE METABOLIC PANEL(Performed 09/14/2014) Performed for Dale disease (HCC) * RENIN ACTIVITY(Performed 09/14/2014) Performed for Merlin disease (HCC) * ACTH(Performed 09/14/2014) Performed for Dale disease (HCC) * CBC W AUTO DIFFERENTIAL(Performed 06/21/2014) Performed for Dale's disease (HCC) * FERRITIN(Performed 06/21/2014) Performed for Dale's disease (HCC) * IRON BLOOD(Performed 06/21/2014) Performed for Dale's disease (HCC) * PTH INTACT W/O CALCIUM(Performed 06/21/2014) Performed for Dale's disease (HCC) * COMPREHENSIVE METABOLIC PANEL(Performed 06/21/2014) Performed for Merlin's disease (HCC) * THYROID AB PANEL (TPO AB+THYROGLOB AB)(Performed 06/21/2014) Performed for Dale's disease (HCC) * T4 TOTAL(Performed 06/21/2014) Performed for Dale's disease (HCC) * T4 FREE(Performed 06/21/2014) Performed for Merlin's disease (HCC) * TSH(Performed 06/21/2014) Performed for Dale's disease (HCC) * RENIN ACTIVITY(Performed 06/21/2014) Performed for Merlin's disease (HCC) * ACTH(Performed 06/21/2014) Performed for Dale's disease (HCC) * MAGNESIUM BLOOD(Performed 03/19/2014) Performed for Dale's disease (HCC) * BASIC METABOLIC PANEL (CALCIUM TOTAL)(Performed 03/19/2014) Performed for Dale's disease (HCC) * RENIN ACTIVITY(Performed 02/06/2014) Performed for Dale's disease (HCC) * ACTH(Performed 02/06/2014) Performed for Dale's disease (HCC) * BASIC METABOLIC PANEL (CALCIUM [...] - 4.94 uIU/mL 09/13/2023 12:19 PM CDT [facility] Blood BLOOD SPECIMEN / Unknown Venipuncture / Unknown 09/13/2023 9:45 AM CDT 09/13/2023 11:39 AM CDT Domonique Tatum MD LAB - C HEMISTRY ORDERABLES [facility] [address] [place] [address] * T4 FREE (09/13/2023 9:45 AM CDT) Only the most recent of3 resultswithin the time period is included. T4 Free 1.05 0.70 - 1.50 ng/dL 09/13/2023 12:19 PM CDT [facility] Blood BLOOD SPECIMEN / Unknown Venipuncture / Unknown 09/13/2023 9:45 AM CDT 09/13/2023 11:39 AM CDT Domonique Tatum MD LAB - C HEMISTRY ORDERABLES Performing Organization Address City/[facility]/ZIP Co de Phone Number [facility] [address] [place] [address] * (ABNORMAL) URINALYSIS - POCT (IP) BEAKER INTERFACE (09/13/2023 9:04 AM CDT) Only the most recent of3 resultswithin the time period is included. Color UA POCT Light Yellow Straw, Yellow, Dark Yellow, Light Yellow 09/13/2023 9:05 AM CDT [facility] Clarity UA POCT Slightly Cloudy(A) Clear 09/13/2023 9:05 AM CDT [facility] Specific [place] UA POCT 1.015 1.005 - 1.030 09/13/2023 9:05 AM CDT [facility] pH UA POCT 7.0 5.0 - 8.0 pH 09/13/2023 9:05 AM CDT [facility] Protein UA POCT Negative Negative 9:05 AM CDT [facility] Blood UA POCT Negative Negative 09/13/2023 9:05 AM CDT [facility] Leukocyte UA POCT 2+(A) Negative 09/13/2023 9:05 AM CDT [facility] Nitrite UA POCT Negative Negative 9:05 AM CDT [facility] Glucose UA POCT Trace(A) Negative 9:05 AM CDT [facility] Ketone UA POCT Negative Negative 09/13/2023 9:05 AM CDT [facility] Bilirubin UA POCT Negative Negative 09/13/2023 9:05 AM CDT [facility] Urobilinogen UA POCT 0.2 0.1 - 1.0 EU/dL 09/13/2023 9:05 AM CDT [facility] Urine URINE / Unknown 09/13/2023 9 :04 AM CDT 09/13/2023 9:05 AM CDT Domonique Tatum MD LAB - P OINT OF CARE ORDERABLES [facility] [address] [place] [address] * SONOGRAM - COMPLETE (09/13/2023 8:31 AM CDT) Only the most recent of3 resultswithin the time period is included. Anatomical Region Laterality Modality Other 09/13/2023 8:31 AM CDT Narrative 09/13/2023 9:08 AM CDT [facility] PHONE: FAX: Pat. Name: MYA PAT Gina. 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 Hypothyroid on levothyroxine MEASUREMENTS & AGE GROWTH EVALUATION Measurement GA Range Srce %for GA Ratios ----- ---- ------- BPD 8.1 cm 32w3d (51n4p-94d3f) Hadl BPD 56% FL/BPD 0.73 (0.71 - 0.87) HC 29.0 cm 31w6d (48s6j-18x9a) Hadl HC 14% FL/AC 0.20 (0.20 - 0.24) AC 28.9 cm 32w6d (32s5a-17m0u) Hadl AC 76% HC/AC 1.00 (0.96 - 1.15) FL 5.9 cm 30w5d (58e8e-51e3v) Hadl FL 12% CI 0.81 (0.70 - 0.86) HL 5.2 cm 30w2d (67h1e-69g0g) Noe HL 25% Cere 3.9 cm 32w0d (04p5y-18o9g) Luc Cere53% GA for sonogram 32w0d (06y8b-17x7d) Weight Estimate: based on (BPD,HC,AC,FL) Avg Weight: [...] Signature> 09/13/2023 09:08am R Sachin Steven MD [facility] ORDERABLES * HEMOGLOBIN A1C (05/06/2023 12:02 PM CDT) Pathologist [facility] Hemoglobin A1c 4.8 <5.7 % 05/06/2023 12:55 PM CDT [facility] Estimated Average Glucose 91 mg/dL 05/06/2023 12:55 PM CDT [facility] Blood BLOOD SPECIMEN / Unknown Venipuncture [...] Ko MD LAB - CHEMISTRY DESIRAE CHARLES [facility] Organization Address City/State/ZIP Co de Phone Number [facility] [address] [place] [address] * (ABNORMAL) COMPREHENSIVE METABOLIC PANEL (05/06/2023 12:02 PM CDT) Only the most recent of5 resultswithin the time period is included. Glucose 76 70 - 105 mg/dL 05/06/2023 1:02 PM CDT [facility] Sodium 135(L) 136 - 145 mmol/L 05/06/2023 1:02 PM CDT [facility] Potassium 3.8 3.5 - 5.1 mmol/L 05/06/2023 1:02 PM CDT [facility] Chloride 104 98 - 107 mmol/L 05/06/2023 1:02 PM CDT [facility] CO2 23 22 - 29 mmol/L 05/06/2023 1:02 PM CDT [facility] Calcium 9.8 8.4 - 10.4 mg/dL 05/06/2023 1:02 PM T [facility] Anion Gap 8 6 - 16 mmol/L 05/06/2023 1:02 PM CDT [facility] BUN 6 5.3 - 18.7 mg/dL 05/06/2023 1:02 PM T [facility] Creatinine 0.69 0.57 - 1.11 mg/dL 05/06/2023 1:02 PM [facility] Alkaline Phosphatase 51 40 - 150 U/L 05/06/2023 1:02 PM CDT [facility] ALT 8 0 - 55 U/L 05/06/2023 1:02 PM T [facility] AST 14 5 - 34 U/L 05/06/2023 1:02 PM [facility] Protein Total 7.8 6.4 - 8.3 gm/dL 05/06/2023 1:02 PM [facility] Albumin 4.2 3.4 - 5.0 gm/dL 05/06/2023 1:02 PM [facility] Bilirubin Total 0.8 0.2 - 1.2 mg/dL 05/06/2023 1:02 PM [facility] eGFR by CKD-EPI >90 >=90 mL/min/1.7 3 m2 05/06/2023 1:02 PM [facility] Blood BLOOD SPECIMEN / Unknown Venipuncture / Unknown 05/06/2023 12:02 PM CDT 05/06/2023 12:42 PM CDT Atif Ko MD LAB - CHEMISTRY DESIRAE CHARLES Performing Organization Address City/[facility]/ZIP Co de Phone Number [facility] [address] [place] [address] * (ABNORMAL) RENIN ACTIVITY (05/30/2018 1:40 PM CDT) Only the most recent of19 resultswithin the time period is included. Pathologist [facility] Plasma Renin Activity 14.31(H) 0.25 - 5.82 ng/mL/h [facility] Comment: This test was developed and its analytical performance characteristics have been determined by [employer] [facility]. It has not been cleared or approved by FDA. This assay has been validated pursuant to the CLIA regulations and is used for clinical purposes. Test Performed at: [facility] [address] [place] [address] PEYTON MONTES MD,PHD,CHERRI 05/30/2018 1:40 PM CDT 05/30/2018 1:41 PM CDT Delma Solis MD LAB - CHEMISTRY DESIRAE CHARLES Performing Organization Address [facility] Co de Phone Number [facility] [address] [place] [address] * BASIC METABOLIC PANEL (CALCIUM TOTAL) (05/30/2018 [...] 10.4 mg/dL [facility] Comment: Test Performed at: [facility] [address] [place] [address] HOLLY GRAHAM DO,MPH 05/30/2018 1:40 PM CDT 05/30/2018 1:41 PM CDT Delma Solis MD LAB - CHEMISTRY DESIRAE CHARLES Performing Organization Address [facility] Co de Phone Number [facility] [address] [place] [address] * (ABNORMAL) ACTH (05/28/2017 9:16 AM CDT) Only the most recent of16 resultswithin the time period is included. ACTH 526(H) 6 - 50 pg/mL [facility] Comment: Reference range applies only to specimens collected between 7am-10am REPORT COMMENT: FASTING:NO Test Performed at: [place] [address] HOLLY GRAHAM DO,MPH 05/28/2017 9:16 AM CDT 05/28/2017 9:17 AM CDT Delma Solis MD LAB - CHEMISTRY DESIRAE CHARLES Performing Organization Address City/[facility] Co de Phone Number [facility] [address] [place] [address] * THYROID PEROXIDASE ANTIBODY (03/31/2017 11:16 AM BLASTING MACHINE OPERATOR) Thyroid Peroxidase TPO Antibody 16 0 - 26 IU/mL 04/01/2017 5:13 AM BLASTING MACHINE OPERATOR [facility] ([facility]) Blood BLOOD SPECIMEN / Unknown Lab Venipuncture / Unknown 03/31/2017 11:16 AM BLASTING MACHINE OPERATOR 03/31/2017 12:04 PM BLASTING MACHINE OPERATOR Narrative [facility] ([facility]) - 04/01/2017 5:13 AM BLASTING MACHINE OPERATOR Performed at: - [address] [id number] Youth Services Specialist: Tyler Grigsby PhD, Phone: [phone] Delma Solis MD LAB - CHEMISTRY DESIRAE CHARLES [facility] Organization Address City/State/ZIP Co de Phone Number [facility]) [address] [place] [address] * MRI BRAIN WITH AND WITHOUT CONTRAST (01/20/2017 3:21 PM BLASTING MACHINE OPERATOR) Only the most recent of2 resultswithin the time period is included. Anatomical Region Laterality Modality Head Magnetic Resonan ce 01/20/2017 3:45 PM BLASTING MACHINE OPERATOR Impressions 01/20/2017 4:16 PM BLASTING MACHINE OPERATOR 1. Normal MRI of the brain. Dictated by Astrid Arita on 01/20/2017 4:16 PM I, Driss Lal, have personally reviewed the images and I agree with this report. Narrative 01/20/2017 4:16 PM BLASTING MACHINE OPERATOR EXAMINATION: Magnetic resonance imaging (MRI) of the [...] I agree with this report. Deborah Still RECEPTIONIST DOCTOR'S OFFICE-TWX OPERATOR MR ORDERAB LES * CBC W [...] 0.5 % [facility] Comment: Test Performed at: [facility] [address] [place] [address] HOLLY GRAHAM DO,MPH Blood BLOOD SPECIMEN / Unknown 11/17/2016 10:16 AM CDT 11/17/2016 10:17 AM CDT Delma Solis MD LAB - HEMATOLOGY ORD ERABLES Performing Organization Address [facility] [place] [address] * TISSUE TRANSGLUTAMINASE AB IGA (12/28/2014 8:08 AM BLASTING MACHINE OPERATOR) Only the most recent of3 resultswithin the time period is included. [facility] TTG Antibody IgA 1 <4 U/mL [facility] Comment: Value Interpretation <4 U/mL: No Antibody Detected >or=4 U/mL: Antibody Detected REPORT COMMENT: 1 OF 2 FASTING:YES Test Performed at: [facility]/[address] [address] PAOLO BABCOCK MD,PHD Blood specimen (specimen) BLOOD SPECIMEN / Unknown 12/28/2014 8:08 AM BLASTING MACHINE OPERATOR 12/28/2014 8:09 AM BLASTING MACHINE OPERATOR Delma Solis MD LAB - SEROLOGY ORDER ARNAUD Performing Organization Address [facility] [place] [address] * CRP (INFLAMMATORY) (09/14/2014 8:49 AM CDT) Only the most recent of2 resultswithin the time period is included. [facility] C-Reactive Protein <0.10 <0.80 mg/dL [facility] Comment: Please be advised that patients taking Carboxypenicillins may exhibit falsely decreased C-Reactive Protein levels due to an analytical interference in this assay. Test Performed at: [facility] [address] [facility] [place] [address] HOLLY GRAHAM DO,MPH Blood specimen (specimen) BLOOD SPECIMEN / Unknown 09/14/2014 8:49 AM CDT 09/14/2014 8:51 AM CDT Delma Solis MD LAB - CHEMISTRY DESIRAE CHARLES Performing Organization Address [facility] Co de Phone Number [address] [address] * SED RATE WESTERGREN (09/14/2014 8:49 AM CDT) Only the most recent of2 resultswithin the time period is included. Pathologist [facility] Erythrocyte Sedimentation Rate Nashergren 5 < OR = 20 mm/h [facility] Comment: Test Performed at: [facility] [address] BRITTNEY VICK MD Blood specimen (specimen) BLOOD SPECIMEN / Unknown 09/14/2014 8:49 AM CDT 09/14/2014 8:51 AM CDT Delma Solis MD LAB - HEMATOLOGY ORD ERABLES Performing Organization Address [facility] [place] [address] * CBC NO DIFFERENTIAL (09/14/2014 8:49 AM [...] [place]/u L [facility] Comment: Test Performed at: [facility] [address] BRITTNEY VICK MD Blood specimen (specimen) BLOOD SPECIMEN / Unknown 09/14/2014 8:49 AM CDT 09/14/2014 8:51 AM CDT Delma Solis MD LAB - HEMATOLOGY ORD ERABLES Performing Organization Address [facility] [place] [address] * PTH INTACT W/O CALCIUM (06/21/2014 12:22 PM CDT) Pathologist [facility] PTH Intact 34 14 - 72 pg/mL 06/21/2014 3:56 PM CDT [facility] Blood BLOOD SPECIMEN / Unknown Lab Venipuncture / Unknown 06/21/2014 12:22 PM CDT 06/21/2014 12:42 PM CDT Delma Solis MD LAB - CHEMISTRY DESIRAE CHARLES [facility] [address] [place] [address] * THYROID AB PANEL (TPO AB+THYROGLOB AB) (06/21/2014 12:22 PM CDT) Only the most recent of2 resultswithin the time period is included. Pathologist [facility] Thyroid Peroxidase TPO Antibody 1.0 0.0 - 9.0 IU/mL 06/22/2014 10:18 AM CDT [facility] ([facility]) Thyroglobulin Antibody <0.9 0.0 - 4.0 IU/mL 06/22/2014 10:18 AM CDT [facility] ([facility]) Comment: INTERPRETIVE INFORMATION: Thyroglobulin Antibody A value of 4.0 IU/mL or less indicates a negative result for thyroglobulin antibodies. The Thyroglobulin Antibody assay is being performed using the [employer] Access DxI method. Blood specimen (specimen) BLOOD SPECIMEN / Unknown Lab Venipuncture / Unknown 06/21/2014 12:22 PM CDT 06/21/2014 12:42 PM CDT Delma Solis MD LAB - CHEMISTRY DESIRAE CHARLES [facility] ([facility]) [address] * IRON BLOOD (06/21/2014 12:22 PM CDT) Pathologist [facility] Iron 137 25 - 156 ug/dL 06/21/2014 1:42 PM CDT [facility] Blood BLOOD SPECIMEN / Unknown Lab Venipuncture / Unknown 06/21/2014 12:22 PM CDT 06/21/2014 12:41 PM CDT Delma Solis MD LAB - CHEMISTRY DESIRAE CHARLES Performing Organization Address [facility] Co de Phone Number [facility] [address] [place] [address] * T4 TOTAL (06/21/2014 12:22 PM CDT) Only the most recent of2 resultswithin the time period is included. [facility] T4 Total 4.91 4.87 - 11.7 ug/dL 06/21/2014 1:56 PM CDT [facility] Blood BLOOD SPECIMEN / Unknown Lab Venipuncture / Unknown 06/21/2014 12:22 PM CDT 06/21/2014 12:41 PM CDT Delma Solis MD LAB - CHEMISTRY DESIRAE CHARLES Performing Organization Address [facility] Co de Phone Number [facility] [address] [place] [address] * FERRITIN (06/21/2014 12:22 PM CDT) [facility] Ferritin 43 10 - 140 ng/mL 06/21/2014 1:44 PM CDT [facility] Blood BLOOD SPECIMEN / Unknown Lab Venipuncture / Unknown 06/21/2014 12:22 PM CDT 06/21/2014 12:41 PM CDT Delma Solis MD LAB - CHEMISTRY DESIRAE CHARLES Performing Organization Address [facility] de Phone Number [facility] [address] [place] [address] * MAGNESIUM BLOOD (03/19/2014 9:46 AM BLASTING MACHINE OPERATOR) Only the most recent of8 resultswithin the time period is included. [facility] Magnesium 2.2 1.5 - 2.5 mg/dL [facility] Comment: Test Performed at: [facility] [place] [address] [place] [address] HOLLY GRAHAM DO,MPH Blood specimen (specimen) BLOOD SPECIMEN / Unknown 03/19/2014 9:46 AM BLASTING MACHINE OPERATOR 03/19/2014 9:49 AM BLASTING MACHINE OPERATOR Delma Solis MD LAB - CHEMISTRY ORDVince PREMALEELA [facility] [address] [place] [address] * LAB RESULTS ORDER (01/30/2014 12:31 PM BLASTING MACHINE OPERATOR) Only the most recent of3 resultswithin the time period is included. Narrative 01/30/2014 12:31 PM BLASTING MACHINE OPERATOR Ordered by an unspecified provider. Scanned Document LAB - THERAPEUTIC DR EVELIA MONITORING ORDERABLES * HCG URINE QUALITATIVE - POCT (IP) BEAKER (01/25/2014 12:25 PM BLASTING MACHINE OPERATOR) Only the most recent of2 resultswithin the time period is included. HCG Qual Urine Negative Negative [facility] POCT TESTING QC Verified Yes Yes [facility] PO CT TESTING Urine specimen (specimen) URINE / Unknown 01/25/2014 12:25 PM BLASTING MACHINE OPERATOR Betty Cancino DO LAB - POINT OF CARE ORDERABLES Performing Organization Address [facility] Co de Phone Number [facility] POCT TESTING [address] * (ABNORMAL) DHEA SULFATE (01/25/2014 12:14 PM BLASTING MACHINE OPERATOR) Dehydroepiandrosterone Sulfate (DHEAS) 7(L) 22 - 255 ug/dL 01/26/2014 3:19 PM BLASTING MACHINE OPERATOR [facility] ([facility]) Comment: Brian Stage Reference Intervals Male Female Brian Stage I 7-209 ug/dL 7-126 ug/dL Brian Stage II 28-260 ug/dL 13-241 ug/dL Brian Stage III 39-390 ug/dL 32-446 ug/dL Brian Stage IV and V 81-488 ug/dL 65-371 ug/dL REFERENCE INTERVAL: DHEAS Access complete set of age- and/or gender-specific reference intervals for this test in the [facility] Test Directory ([employer]). Blood specimen (specimen) BLOOD SPECIMEN / Unknown 01/25/2014 12:14 PM BLASTING MACHINE OPERATOR 01/25/2014 12:25 PM BLASTING MACHINE OPERATOR Betty Cancino LAB - CHEMISTRY DESIRAE CHARLES Performing Organization Address [facility]/ZIP Co de Phone Number [employer] ([facility]) [address] * (ABNORMAL) DHEA (01/25/2014 12:14 PM BLASTING MACHINE OPERATOR) Dehydroepiandrosterone (DHEA) 0.329(L) 1.220 - 7.010 ng/mL 01/27/2014 7:35 AM BLASTING MACHINE OPERATOR [employer] ([facility]) Comment: INTERPRETIVE INFORMATION: Dehydroepiandrosterone, Female Brian Stage Brian Stage I 0.14-2.76 ng/mL Brian Stage II 0.83-4.87 ng/mL Brian Stage III 1.08-7.56 ng/mL Brian Stage IV-V 1.24-7.88 ng/mL REFERENCE INTERVAL: Dehydroepiandrosterone by [facility] Access complete set of age- and/or gender-specific reference intervals for this test in the [facility] Test Directory ([employer]). Test developed and characteristics determined by [employer]. See Compliance Statement B: [employer]OnBeep/ Blood specimen (specimen) BLOOD SPECIMEN / Unknown 01/25/2014 12:14 PM BLASTING MACHINE OPERATOR 01/25/2014 12:24 PM BLASTING MACHINE OPERATOR Betty Cancino DO LAB - CHEMISTRY DESIRAE CHARLES Performing Organization Address [facility]/ZIP Co de Phone Number [employer] ([facility]) [address] * IGA BLOOD (10/04/2013 1:24 PM CDT) IgA 115 65 - 421 mg/dL 10/04/2013 5:56 PM CDT [facility] Blood BLOOD SPECIMEN / Unknown Lab Venipuncture / Unknown 10/04/2013 1:24 PM CDT 10/04/2013 2:26 PM CDT Delma Solis MD LAB - CHEMISTRY DESIRAE CHARLES [facility] [address] [place] [address] * LAB MISC TEST (09/16/2013 10:06 AM CDT) Test Name 21 hydroxylsae antibody 10/09/2013 9:12 AM CDT [facility] Test Result See Scanned Report 10/09/2013 9:12 AM CDT [facility] Other (qualifier value) BLOOD SPECIMEN / Unknown 09/16/2013 10:06 AM CDT 09/16/2013 10:[address] Gonzalez DO LAB SEND OUT Performing Organization Address [facility] Co de Phone Number [facility] [address] [place] [address] * CMV ANTIBODY IGG IGM BLOOD PANEL (09/16/2013 10:06 AM CDT) Pathologist [facility] Cytomegalovirus Antibody IgG <0.20 U/mL 09/18/2013 4:12 AM [employer] AGT [employer] ([facility]) Comment: INTERPRETIVE INFORMATION: Cytomegalovirus Antibody, IgG 0.59 [...] <8.0 <=29.9 AU/mL 09/18/2013 4:12 AM T [employer] ([facility]) Comment: INTERPRETIVE INFORMATION: Cytomegalovirus Antibody, IgM 29.9 [...] Gonzalez DO LAB - CHEMISTRY DESIRAE CHARLES [facility]) [address] [place] [address] * (ABNORMAL) MADAN-BAR VIRUS PANEL (09/16/2013 10:06 AM CDT) Pathologist [facility] Madan-Barron Virus Antibody IgG Early Antigen <5.0 0.0 - 10.9 U/mL 09/18/2013 4:16 AM T [employer] ([facility]) Comment: INTERPRETIVE INFORMATION: Madan-Barron Virus Antibody to Early D Antigen (EA-D), IgG 8.9 U/mL or less........Not Detected 9.0-10.9 U/mL...........Indeterminate - Repeat testing in - may be helpful. 11.0 U/mL or greater....Detected Interpretive information regarding serologic features of EBV-associated diseases is available at www.[employer]OnBeep/ebvdx. Madan-Barron Virus Antibody IgG Viral Capsid Antigen 65.7(H) 0.0 - 21.9 U/mL 09/18/2013 4:16 AM CDT [employer] ([facility]) Comment: INTERPRETIVE INFORMATION: Madan-Barron Virus Antibody to Viral Capsid Antigen, IgG 17.9 U/mL or less.......Not Detected 18.0-21.9 U/mL..........Indeterminate - Repeat testing in 10-14 days may be helpful. 22.0 U/mL or greater....Detected Interpretive information regarding serologic features of EBV-associated diseases is available at www.[employer]/ebvdx. Madan-Barron Virus Antibody IgM Viral Capsid Antigen <10.0 0.0 - 43.9 U/mL 09/18/2013 4:16 AM CDT [facility] ([facility]) Comment: INTERPRETIVE INFORMATION: Madan-Barron Virus Antibody to Viral Capsid Antigen, IgM 35.9 U/mL or less.......Not Detected 36.0-43.9 U/mL..........Indeterminate - Repeat testing in 10-14 days may be helpful. 44.0 U/mL or greater....Detected Interpretive information regarding serologic features of EBV-associated diseases is available at www.[employer]/ebvdx. Madan-Barron Virus Antibody IgG Nuclear Antigen 562.0(H) 0.0 - 21.9 U/mL 09/18/2013 4:16 AM CDT [employer] ([facility]) Comment: INTERPRETIVE INFORMATION: Madan-Barron Virus Antibody to Nuclear Antigen, IgG 17.9 U/mL or less.......Not Detected 18.0-21.9 U/mL..........Indeterminate - Repeat testing in 10-14 days may be helpful. 22.0 U/mL or greater....Detected Interpretive information regarding serologic features of EBV-associated diseases is available at [email or web address]. Blood specimen (specimen) BLOOD SPECIMEN / Unknown 09/16/2013 10:06 AM CDT 09/16/2013 10:[address] Gonzalez DO LAB - CHEMISTRY DESIRAE Zamora Organization Address City/State/ZIP Co de Phone Number [facility] [employer] [facility]) [address] [place], [place] [address] * (ABNORMAL) PHOSPHORUS BLOOD (09/16/2013 12:39 AM CDT) Only the most recent of7 resultswithin the time period is included. Phosphorus 2.06(L) 2.94 - 5.67 mg/dL 09/16/2013 1:40 AM CDT [facility] Blood BLOOD SPECIMEN / Unknown 09/16/2013 12:39 AM CDT 09/16/2013 1:00 AM CDT Savannah Paige MD LAB - CHEMISTRY DESIRAE CHARLES [facility] Organization Address City/State/ZIP Co de Phone Number [facility] [address] [place] [address] * XR CHEST PORTABLE/BEDSIDE (09/15/2013 3:05 AM [...] is included. 09/13/2013 1:24 PM CDT Narrative [facility] - 09/13/2013 2:46 PM T [facility] , Transthoracic Echocardiogram 2D, M-mode, Doppler, and Color Doppler Name: MYA PAT MR #: [id number] Study date: 09/13/2013 Age: 13 years : 2000 Gender: Female Ht: 62.8 in / 159.5 cm Wt: 112.4 lb / 51.1 kg BSA: 1.51 m HR: BP: 78 mmHg / 36 mmHg age: CONNIE: Maternal age: MATHEMATICS LECTURER: Avtar Sweeney MD PEDIATRIC ECHO HORTICULTURE SUPERVISOR: Norman Higgins LUCIANO History/ Indications: Syncope. Hypotension. [...] mmHg Procedure Note Unknown, Provider - 09/13/2013 [facility] , Transthoracic Echocardiogram 2D, M-mode, Doppler, and Color Doppler Name: MYA PAT MR #: [id number] Study date: 09/13/2013 Age: 13 years : 2000 Gender: Female Ht: 62.8 in / 159.5 cm Wt: 112.4 lb / 51.1 kg BSA: 1.51 m HR: BP: 78 mmHg / 36 mmHg age: CONNIE: Maternal age: MATHEMATICS LECTURER: Avtar Sweeney MD PEDIATRIC ECHO HORTICULTURE SUPERVISOR: Norman Higgins RDCS History/ Indications: Syncope. Hypotension. [...] mmHg Jose D Bowman MD ECHO ORDERABLES [facility] [address] [place] [address] * MISAEL BLOOD SCREEN W/REFLEX TITER (09/13/2013 11:53 AM CDT) MISAEL Negative Negative 09/18/2013 11:13 AM CDT [facility] Blood BLOOD SPECIMEN / Unknown Venipuncture / Unknown 09/13/2013 11:53 AM CDT 09/13/2013 12:13 PM CDT Jose D Bowman MD LAB - CHEMISTRY ORD ERABLES Performing Organization Address [facility] Co de Phone Number [facility] [address] [place] [address] * CT ABDOMEN AND PELVIS WITH IV [...] - 7.45 pH 09/13/2013 3:53 AM T [facility] pCO2 Capillary 36 32 - 45 mm hg 09/13/2013 3:53 AM T [facility] pO2 Capillary 59(H) 40 - 50 mm hg 09/13/2013 3:53 AM T [facility] Hemoglobin Capillary 10.8(L) 12.0 - 16.0 gm/dL 09/13/2013 3:53 AM [facility] O2 Saturation Capillary 90(L) 95 - 99 % 09/13/2013 3:53 AM [facility] Oxyhemoglobin Capillary 88.4(L) 94 - 98 % 09/13/2013 3:53 AM [facility] Carboxyhemoglobin Capillary 0.9 0.5 - 1.5 % 09/13/2013 3:53 AM [facility] Methemoglobin Capillary 0.7 0.0 - 1.5 % 09/13/2013 3:53 AM [facility] O2 Content Capillary 13.5(L) 15.0 - 23.0 % 09/13/2013 3:53 AM [facility] BE Capillary -6.1(L) -2.0 - 2.0 mmol/L 09/13/2013 3:53 AM [facility] P50 Capillary 27.13(H) 25.3 - 26.8 mm hg 09/13/2013 3:53 AM [facility] Sodium Whole Blood 134(L) 136 - 146 mmol/L 09/13/2013 3:53 AM [facility] Potassium Whole Blood 4.6(H) 3.4 - 4.5 mmol/L 09/13/2013 3:53 AM [facility] Chloride WB 106 98 - 106 mmol/L 09/13/2013 3:53 AM [facility] TCO2 Capillary 19.8 18 - 27 mmol/L 09/13/2013 3:53 AM [facility] Glucose WB 121(H) 70 - 106 mg/dL 09/13/2013 3:53 AM [facility] Calcium Ionized 1.31 mmol/L 09/13/2013 3:53 AM [facility] Calcium Ionized Adjusted 1.26 1.15 - 1.29 mmol/L 09/13/2013 3:53 AM [facility] Temp 37.0 C 09/13/2013 3:53 AM [facility] Blood CAPILLARY BLOOD / Unknown Lab Venipuncture / Unknown 09/13/2013 3:47 AM T 09/13/2013 3:50 AM T Norman Orellana MD LAB - BLOOD GASES OR DERABLES Performing Organization Address City/[facility] Co de Phone Number [facility] [address] [place] [address] * CARDIAC RHYTHM STRIP ORDER (09/12/2013 10:28 PM CDT) Provider Unknown CARDIAC SERVICES ORD ERABLES * (ABNORMAL) PTH INTACT (09/12/2013 9:29 PM CDT) PTH Intact <6(L) 14 - 72 pg/mL 09/13/2013 1:04 PM CDT [facility] Calcium 9.1 8.5 - 10.1 mg/dL 09/13/2013 1:04 PM CDT [facility] Blood BLOOD SPECIMEN / Unknown Venipuncture / Unknown 09/12/2013 9:29 PM CDT 09/12/2013 9:48 PM CDT Betsy Young MD LAB - CHEMISTRY OR DERABLES Performing Organization Address City/[facility] Co de Phone Number [facility] [address] [place] [address] * CORTISOL BLOOD (09/12/2013 9:29 PM CDT) Cortisol <1.0 ug/dL 09/12/2013 10:44 PM CDT [facility] Blood BLOOD SPECIMEN / Unknown 09/12/2013 9:29 PM CDT 09/12/2013 9:48 PM CDT Narrative [facility] - 09/12/2013 10:44 PM CDT CORTISOL REFERENCE RANGE COMMENT Cortisol AM (7-10 a.m.) 3.70 - 19.40 ug/dl Cortisol PM (3-5 p.m.) 2.90 - 17.30 ug/dl Note: No reference range available for random cortisol levels. All results interpreted by ordering physician. Normal cortisol levels are generally highest in the morning hours and lowest from late evening through the golf cart maker hours (8 PM to 4 AM). The PM measurements of cortisol run approximately one-half to one-third of the AM values. Jose Oconnor MD LAB - CHEMISTRY ORDERABLES Performing Organization Address City/[facility]/ZIP Co de Phone Number [facility] [address] [place] [address] * (ABNORMAL) URINALYSIS ROUTINE AUTO (09/12/2013 9:03 PM CDT) Color UA Straw Straw, Yellow, Dark Yellow 09/12/2013 9:45 PM CDT [facility] Clarity UA Clear 09/12/2013 9:45 PM CDT [facility] Specific [place] UA <=1.005 1.005 - 1.030 09/12/2013 9:45 PM CDT [facility] pH UA 6.0 5.0 - 8.0 pH 09/12/2013 9:45 PM CDT [facility] Protein UA Negative Negative 09/12/2013 9:45 PM CDT [facility] Blood UA Negative Negative 09/12/2013 9:45 PM CDT [facility] Leukocyte UA Trace(A) Negative 09/12/2013 9:45 PM CDT [facility] Nitrite UA Negative Negative 09/12/2013 9:45 PM CDT [facility] Glucose UA Negative Negative 09/12/2013 9:45 PM CDT [facility] Ketone UA Negative Negative 09/12/2013 9:45 PM CDT [facility] Bilirubin UA Negative Negative 09/12/2013 9:45 PM CDT [facility] Urobilinogen UA 0.2 0.1 - 1.0 EU/dL 09/12/2013 9:45 PM T [facility] Urine URINE SPECIMEN OBTAINED BY CLEAN CATCH PROCEDURE / Unknown 09/12/2013 9:03 PM CDT 09/12/2013 9:30 PM CDT Betsy Young MD LAB - URINALYSIS O RDERABLES Performing Organization Address [facility] Co de Phone Number [facility] [address] [place] [address] * URINALYSIS MICROSCOPIC ONLY (09/12/2013 9:03 PM CDT) RBC UA 0-2 0-2, 2-5 # /hpf 09/12/2013 9:51 PM CDT [facility] WBC UA 2-5 0-2, 2-5 # /hpf 09/12/2013 9:51 PM CDT [facility] Bacteria UA None Seen None Seen, Trace 09/12/2013 9:51 PM CDT [facility] Epithelial Cell UA 2-5 0-2, 2-5 09/12/2013 9:51 PM CDT [facility] Urine URINE SPECIMEN OBTAINED BY CLEAN CATCH PROCEDURE / Unknown 09/12/2013 9:03 PM CDT 09/12/2013 9:30 PM CDT Betsy Young MD LAB - URINALYSIS O RDERABLES Performing Organization Address City/[facility]/ZIP Co de Phone Number [facility] [address] [place] [address] * CULTURE URINE (09/12/2013 9:03 PM CDT) [facility] Culture 10,000-50,000 CFU/mL normal urogenital ashley ANGEL 09/15/2013 10:00 AM CDT [facility] Urine URINE SPECIMEN OBTAINED BY CLEAN CATCH PROCEDURE / Unknown 09/12/2013 9:03 PM CDT 09/12/2013 9:31 PM CDT Betsy Young MD LAB - MICROBIOLOGY ORDERABLES Performing Organization Address City/[facility]/ZIP Co de Phone Number [facility] [address] * DRUG ABUSE URINE PANEL (09/12/2013 6:27 PM CDT) Amphetamines Screen Urine Not Detected Not Detected 09/12/2013 9:13 PM CDT [facility] Barbiturates Screen Urine Not Detected Not Detected 09/12/2013 9:13 PM CDT [facility] Benzodiazepines Screen Urine Not Detected Not Detected 09/12/2013 9:13 PM CDT [facility] Cannabinoids Screen Urine Not Detected Not Detected 09/12/2013 9:13 PM CDT [facility] Cocaine Screen Urine Not Detected Not Detected 09/12/2013 9:13 PM CDT [facility] Opiate Screen Urine Not Detected Not Detected 09/12/2013 9:13 PM CDT [facility] Phencyclidine Screen Urine Not Detected Not Detected 09/12/2013 9:13 PM CDT [facility] Urine URINE / Unknown 09/12/2013 6 :27 PM CDT 09/12/2013 6:33 PM CDT Narrative [facility] - 09/12/2013 9:13 PM CDT [...] URINE CHEMIS TRY ORDERABLES Performing Organization Address [facility] de Phone Number [facility] [address] [place], [place] [id number] * T3 FREE (09/12/2013 12:57 PM CDT) T3 Free 3.83 2.18 - 3.98 pg/mL 09/12/2013 4:01 PM CDT [facility] Blood BLOOD SPECIMEN / Unknown 09/12/2013 12:57 PM CDT 09/12/2013 1:10 PM CDT Donta Horvath MD LAB - CHEMISTRY DESIRAE CHARLES Performing Organization Address [facility] de Phone Number [facility] [address] [place] [address] * (ABNORMAL) PREALBUMIN (09/12/2013 12:04 PM CDT) Prealbumin 12.0(L) 16.0 - 38.0 mg/dL 09/12/2013 12:40 PM CDT [facility] Blood BLOOD SPECIMEN / Unknown 09/12/2013 12:04 PM CDT 09/12/2013 12:16 PM CDT Corey Butterfield MD LAB - CHEMISTRY ORDVince CHARLES Performing Organization Address [facility] Co de Phone Number [facility] [address] [place] [address] * LDH BLOOD (09/12/2013 12:03 PM CDT) [facility] LDH 202 140 - 260 U/L 09/12/2013 12:39 PM CDT [facility] Blood BLOOD SPECIMEN / Unknown 09/12/2013 12:03 PM CDT 09/12/2013 12:18 PM CDT Donta Horvath MD LAB - CHEMISTRY DESIRAE CHARLES Performing Organization Address [facility] Co de Phone Number [facility] [address] [place] [address] * GLUCOSE - POINT OF CARE (09/12/2013 10:49 AM CDT) Blood BLOOD SPECIMEN / Unknown 09/12/2013 10:49 AM CDT 09/12/2013 10:57 AM CDT Provider Unknown LAB - POINT OF CARE ORDERABLES Performing Organization Address [facility] Co de Phone Number [facility] [address] [place] [address] * EKG 15-LEAD (09/07/2013 10:12 AM CDT) [facility] Ventricular Rate 118 BPM CG MUSE Atrial Rate 118 BPM CG MUSE P-R Interval 148 ms CG MUSE QRS Duration ms 88 ms CG MUSE Q-T Interval ms 320 ms CG MUSE QTC Calculation (Bezet) 448 ms CG MUSE Calculated P [place] 67 degrees CG MUSE Calculated R [place] 88 degrees CG MUSE Calculated T [place] 57 degrees CG MUSE Interpretation EKG * Pediatric ECG Analysis * Normal sinus rhythm Normal ECG No previous ECGs available Confirmed by MD Abrams Wilson ([id number]) on 09/07/2013 10:53:23 AM CG MUSE 09/07/2013 10:1 2 AM CDT 09/07/2013 10:53 AM CDT Renny Abrams MD ECG ORDERABLES Performing Organization Address [facility]/State/ZIP Co de Phone Number CG MUSE * IMAGING/RADIOLOGY/XRAY RESULTS ORDER (05/10/2012 5:20 AM CDT) Anatomical Region Laterality Modality Other Narrative 05/10/2012 5:20 AM CDT Procedure Note Document, Scanned - 05/10/2012 5:20 AM CDT Scanned Document IMAGING Care Teams Channel Lip Wetter Relationship Specialty Start Date End Date Maureen Rodriguez MD PCP - General Pediatrics 03/31/12 Mark Amaral, PAAshleeC [facility] [place] [address] Covering Provider Orthopedic 04/05/12
--- OUTSIDE RECORDS SUMMARY | 2024-04-19 10:17 | XMS_ITS | Clinical Summary ---
Author Organization [facility] Address [facility] [place] [address] Care Team Providers Care Subeditor Name Role Phone None, Provider MD Primary [...] complete this topic Insurance [employer] Care Teams Subeditor Relationship Specialty Start Date End Date None, Provider, MD PCP - General UNKNOWN PHYSICIAN SPECIALTY 09/19/23
--- OUTSIDE RECORDS SUMMARY | 2024-04-19 10:17 | XMS_ITS | Encounter Summary ---
Author Organization [facility] Address [address] [facility] [place] [address] Care Team Providers Care Final Finisher Forging Dies Name Role Phone Maureen Rodriguez MD Primary Care Provider [phone] Mark Amaral-Johnny Unavailable [phone] Reason for Visit * Reason Onset Date Comments Refill Request 07/04/2014 Please call in D ex injection Encounter Details Date Type Department Care Team (Late st Contact Info) Description 07/04/2014 Telephone [facility] Pediatrics - Endocrinology [address] [place] [phone] Delma Solis MD [address] [place] [phone] Refill Request (Please call in Dex [...] on filedocumented in this encounter Care Teams Final Finisher Forging Dies Relationship Specialty Start Date End Date Maureen Rodriguez MD PCP - General Pediatrics 03/31/12 Mark Amaral, JOSEPHC [address] [place] [phone] Covering Provider Orthopedic 04/05/12 documented as of this encounter
--- OUTSIDE RECORDS SUMMARY | 2024-04-19 10:17 | XMS_ITS | Referral Summary ---
Author Organization [facility] Address [address] [place] [address] Care Team Providers Care Shank Skinner Name Role Phone Maureen Rodriguez MD Primary Care Provider [phone] Mark Amaral PA-C Unavailable [phone] Source Comments [facility],non-owned Affiliates and Associated Physician Practices is amultiple site organization consisting of ambulatory clinics and hospital sitesin [place], [place], [place] and [place]. This disclosure is being madepursuant to the Care Everywhere program and may not contain all information available regarding this patient. Last updated 17.[facility] Allergies No known active allergies Medications * Be aware that medications may not be up to date on this document. Alwaysverify current medications with the patient. 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 Continue [...] 12:43 PM CDT): Rafael has poorly controlled Fenton's disease due to medication noncompliance and lack [...] months. 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 - Wean maintenance hydrocortisone [...] months Assessment & Plan (01/09/2014 8:23 PM HOOD MAKER): 1. Cortef (5 mg tablet) 10 mg [...] ) at all times. 7. Child with Fenton's disease and at risk of adrenal insufficiency [...] I will contact Rafael's mother by telephone ([phone]) when I have received a copy of these test results and make the necessary medication dose adjustments. 10. Return appointment in two months. 11. I reviewed my impression and recommendations with Rafael's mother at the time of the office visit and she was in agreement. Assessment & Plan (12/29/2013 4:42 PM HOOD MAKER): Clinically stable. 1. Cortef (5 mg tablet) [...] ) at all times. 6. Child with Fenton's disease and at risk of adrenal insufficiency [...] I will contact Rafael's mother by telephone ([phone]) when I have received a copy of [...] 06/23 [facility]- Scheduled [facility] 07/07 US & Consult ALF: abnormality in pr egnancy (HCC) - Bilateral club feet 07/08/2023 11/16/2023 Overview (09/14/2023): Images from the original note were not included. Care Provider: Dr. Adolph Steven [place] [facility] consultants involved: RN-Aníbal; Ped Ortho- Moses Tijerina Diagnosis: Bilateral club feet Planned surveillance: Ortho consult only - Patient was not seen by MFM in ALF follow up per Pediatric Orthopedics: I invited Ms. Pat to contact us once the baby has been born to let us know whether the baby has a clubfoot or not. If the baby does, we would be happy to evaluate the baby and start casting at one to two months of age. To schedule, patient should call [phone], option 4 Vinyl Cutter: Care plan based on evaluation and is [...] care, and heating? Not very hard 09/08/2023 [facility] of Occupat ional Health - Occupational Stress [...] place to sleep or slept in a jail (including now)? No 09/08/2023 [place] Depression Scale Answer Date Recorded [place] Depression Scale Total 7 05/06/2023 The thought [...] of Treatment Not on file Care Teams Shank Skinner Relationship Specialty Start Date End Date Maureen Rodriguez MD PCP - General Pediatrics 03/31/12 Mark Amaral, PA-C [address] [place] [phone] Covering Provider Orthopedic 04/05/12
--- OUTSIDE RECORDS SUMMARY | 2024-04-19 10:17 | XMS_ITS | Encounter Summary ---
Author Organization [facility] Address [address] [place] [address] Care Team Providers Care Gifts Officer Name Role Phone Maureen Rodriguez MD Primary Care Provider [phone] Mark Amaral PA-C Unavailable [phone] Reason for Visit * Reason Onset Date Comments Results 02/19/2014 Mom called to [facility] lab results. Please call to discuss. Encounter Details Date Type Department Care Team (Late st Contact Info) Description 02/19/2014 Telephone [facility] Pediatrics - Endocrinology [address] [place] [address] Delma Solis MD [address] [place] [address] Results (Mom called to get lab [...] follow up for end of February 2014. INE OPERATIONS SUPERVISOR documented in this encounter Plan of Treatment Not on file documented as of this encounter Visit Diagnoses Diagnosis Adrenogenital disorders (HCC)- Primary Adrenogenital disorders documented in this encounter Care Teams Gifts Officer Relationship Specialty Start Date End Date Maureen Rodriguez MD PCP - General Pediatrics 03/31/12 Mark Amaral, JOSEPHC [address] [place] [address] Covering Provider Orthopedic 04/05/12 documented as of this encounter
--- OUTSIDE RECORDS SUMMARY | 2024-04-19 10:17 | XMS_ITS | Encounter Summary ---
Author Organization [facility] Address [address] [facility] [place] [address] Care Team Providers Care Wireworker Supervisor Name Role Phone Maureen Rodriguez MD Primary Care Provider [phone] Mark Amaral-Johnny Unavailable [phone] Reason for Visit * Reason Onset Date Comments Question 03/15/2014 Mom wanted to to uch base with you regarding treatment. She was supposed to call some time ago, but had a in the family. Encounter Details Date Type Department Care Team (Late st Contact Info) Description 03/15/2014 Telephone [facility] Pediatrics - Endocrinology [address] [place] [address] Delma Solis MD [address] [place] [address] Question (Mom wanted to touch base [...] on filedocumented in this encounter Care Teams Wireworker Supervisor Relationship Specialty Start Date End Date Maureen Rodriguez MD PCP - General Pediatrics 03/31/12 Mark Amaral, PAAshleeC [address] [place] [address] Covering Provider Orthopedic 04/05/12 documented as of this encounter
--- OUTSIDE RECORDS SUMMARY | 2024-04-19 10:17 | XMS_ITS | Encounter Summary ---
Author Organization [facility] Address [address] [place] [address] Care Team Providers Care Operations Intelligence Superintendent Name Role Phone Maureen Rodriguez MD Primary Care Provider [phone] Mark Amaral-C Unavailable [phone] Reason for Visit * Reason Onset Date Comments Letter for School or Work 04/08/2016 2nd re quest: Mother is requesting a letter stating Rafael should NOT participate in gym for the school year. Please fax to [phone], [place]. Encounter Details Date Type Department Care Team (Late st Contact Info) Description 04/08/2016 Telephone [facility] Pediatrics - Endocrinology [address] [place] [address] Delma Solis MD [address] [place] [address] Letter for School or Work (2nd request: Mother is requesting a letter stating Rafael should NOT participate in gym for the school year. Please fax to [phone], [place]. ) Social History Tobacco Use [...] on filedocumented in this encounter Care Teams Operations Intelligence Superintendent Relationship Specialty Start Date End Date Maureen Rodriguez MD PCP - General Pediatrics 03/31/12 Mark Amaral, PAAshleeC [address] [place] [address] Covering Provider Orthopedic 04/05/12 documented as of this encounter
--- OUTSIDE RECORDS SUMMARY | 2024-04-19 10:17 | XMS_ITS | Encounter Summary ---
Author Organization [facility] Address [address] [facility] [place] [address] Care Team Providers Care Folder Taper Operator Name Role Phone Maureen Rodriguez MD Primary Care Provider [phone] Mark Amaral-Johnny Unavailable [phone] Reason for Visit * Reason Onset Date Comments Results 06/23/2017 Please give mom a call with lab results. Encounter Details Date Type Department Care Team (Late st Contact Info) Description 06/23/2017 Telephone [facility] Pediatrics - Endocrinology [address] [place] [address] Delma Solis MD [address] [place] [phone] Results (Please give mom a call with [...] on filedocumented in this encounter Care Teams Folder Taper Operator Relationship Specialty Start Date End Date Maureen Rodriguez MD PCP - General Pediatrics 03/31/12 Mark Amaral, PAAshleeC [address] [place] [address] Covering Provider Orthopedic 04/05/12 documented as of this encounter
--- OUTSIDE RECORDS SUMMARY | 2024-04-19 10:17 | XMS_ITS | Clinical Summary ---
Author Organization [facility] Address [address] [facility] [place] [address] Care Team Providers Care Machine Cloth Measurer Name Role Phone Maureen Rodriguez MD Primary Care Provider [phone] Mark Amaral PA-C Unavailable [phone] Source Comments [facility],non-owned Affiliates and Associated Physician Practices is amultiple site organization consisting of ambulatory clinics and hospital sitesin [place], [place], [place] and [place]. This disclosure is being madepursuant to the Care Everywhere program and may not contain all information available regarding this patient. Last updated 17.[facility] Allergies No known active allergies Medications * Be aware that medications may not be up to date on this document. Alwaysverify current medications with the patient. Medication Sig Dispensed Refills Start Date End Date Status fludrocortisone (FLORINEF) 0.1 MG tabletIndication s:Parlin disease (HCC) Take 1 tab in AM [...] Active hydrocortisone sodium succinate PF (Solu-CORTEF) injectionIndicat ions:Parlin's disease (HCC) 100 (one hundred) mg by [...] Depression 09/22/2021 Anxiety 09/22/2021 Chronic headache 12/31/2016 Parlin's disease 10/17/2013 Overview (07/08/2023): Rafael was diagnosed [...] recent adrenal crisis, treated with steroids by food and nutrition services supervisor recent adrenal crisis, treated with steroids by food and nutrition services supervisor- 05/05 9AM [facility] & Consult Assessment & Plan (03/25/2015 5:03 PM MANAGER SIMULATION): 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 Continue [...] 12:43 PM CDT): Rafael has poorly controlled Parlin's disease due to medication noncompliance and lack [...] months. Assessment & Plan (04/01/2014 3:28 PM MANAGER SIMULATION): Rafael is a 13 year old girl with Parlin's disease/primary adrenal insufficiency. - Wean maintenance hydrocortisone [...] months Assessment & Plan (01/09/2014 8:23 PM MANAGER SIMULATION): 1. Cortef (5 mg tablet) 10 mg [...] ) at all times. 7. Child with Parlin's disease and at risk of adrenal insufficiency [...] I will contact Rafael's mother by telephone ([phone]) when I have received a copy of these test results and make the necessary medication dose adjustments. 10. Return appointment in two months. 11. I reviewed my impression and recommendations with Rafael's mother at the time of the office visit and she was in agreement. Assessment & Plan (12/29/2013 4:42 PM MANAGER SIMULATION): Clinically stable. 1. Cortef (5 mg tablet) [...] ) at all times. 6. Child with Parlin's disease and at risk of adrenal insufficiency [...] I will contact Rafael's mother by telephone ([phone]) when I have received a copy of [...] (07/08/2023): MFM Referral faxed 06/23 [facility]- Scheduled [facility] 07/07 US & Consult LONG TERM: abnormality in pr egnancy (HCC) - Bilateral club feet 07/08/2023 11/16/2023 Overview (09/14/2023): Images from the original note were not included. Care Provider: Dr. Adolph Steven [facility] [place] [facility] consultants involved: RN-Aníbal; Ped Ortho- Moses Tijerina Diagnosis: Bilateral club feet Planned surveillance: Ortho consult only - Patient was not seen by MFM in LONG TERM follow up per Pediatric Orthopedics: I invited Ms. Pat to contact us once the baby has been born to let us know whether the baby has a clubfoot or not. If the baby does, we would be happy to evaluate the baby and start casting at one to two months of age. To schedule, patient should call [phone], option 4 Tank Officer: Care plan based on evaluation and is [...] care, and heating? Not very hard 09/08/2023 [facility] of Occupat ional Health - Occupational Stress [...] place to sleep or slept in a m[facility]p (including now)? No 09/08/2023 [place] Depression Scale Answer Date Recorded [place] Depression Scale Total 7 05/06/2023 The thought [...] age to complete this topic Care Teams Machine Cloth Measurer Relationship Specialty Start Date End Date Maureen Rodriguez MD PCP - General Pediatrics 03/31/12 Mark Amaral PA-C [address] [place] [address] Covering Provider Orthopedic 04/05/12
--- OUTSIDE RECORDS SUMMARY | 2024-04-19 10:17 | XMS_ITS | Encounter Summary ---
Author Organization [facility] Address [address] [place] [address] Care Team Providers Care Recycler Forklift Driver Truck Driver Name Role Phone Maureen Rodriguez MD Primary Care Provider [phone] Mark Amaral-Johnny Unavailable [phone] Reason for Visit * Reason Onset Date Comments Results 10/06/2013 mom called for r courtney Encounter Details Date Type Department Care Team (Late st Contact Info) Description 10/06/2013 Telephone [facility] Pediatrics - Endocrinology [address] [place] [address] Delma Solis MD [address] [place] [address] Results (mom called for results) Social [...] on filedocumented in this encounter Care Teams Recycler Forklift Driver Truck Driver Relationship Specialty Start Date End Date Maureen Rodriguez MD PCP - General Pediatrics 03/31/12 Mark Amaral, JOSEPHC [address] [place] [phone] Covering Provider Orthopedic 04/05/12 documented as of this encounter
--- OUTSIDE RECORDS SUMMARY | 2024-04-19 10:17 | XMS_ITS | Encounter Summary ---
Author Organization [facility] Address [address] [facility] [place] [address] Care Team Providers Care Sculpture Conservator Name Role Phone Maureen Rodriguez MD Primary Care Provider [phone] Mark Amaral PA-C Unavailable [phone] Reason for Visit * Reason Onset Date Comments Update 05/25/2017 Patient was at [facility] last night complaining of back pain. PCP calling for instructions. (this message was left on the voicemail of the centralized scheduling department of [facility] at 4:16PM last night) Encounter Details Date Type Department Care Team (Late st Contact Info) Description 05/25/2017 Telephone 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 She was seen by Dr. Rodriguez who reports that Rafael had full range of motion, was able to move her legs, ambulate without problems and get up and off the exam table without problems. I am not aware of any Leslie's specific back pain beyondconcern for osteopenia causing [...] on filedocumented in this encounter Care Teams Sculpture Conservator Relationship Specialty Start Date End Date Maureen Rodriguez MD PCP - General Pediatrics 03/31/12 Mark Amaral PA-C [facility] [place] [address] Covering Provider Orthopedic 04/05/12 documented as of this encounter
[2024-04-19] MEDS: KETOROLAC 15 MG/ML VIAL (*BKC) IV PUSH (11:13)
[2024-04-19 12:14] VITALS: BP 85/59; PULSE 105; RESP 20; O2SAT 98
== END 2024-04-19 12:17 | disposition home or self-care (01) ==
PROVIDERS: Emergency Medicine; Emergency Provider Physician Assistant; PCP Family Medicine
DX: R51.9 Headache, unspecified (principal); E03.9 Hypothyroidism, unspecified; Z86.16 Personal history of COVID-19; Z79.899 Other long term (current) drug therapy; R94.31 Abnormal electrocardiogram [ECG] [EKG]
CPT/HCPCS: 36415; 70450; 80053; 81001; 81025; 83735; 84484; 85025; 87086; 93005; 96361; 96374; 96375; 99284; A9270; J1200; J1885; J2765; J7030

== ENCOUNTER 2024-10-02 07:00 | Emergency (ER) | payer OTHER, SELFPAY ==
--- NOTE | ~2024-10-02 | CT_ITS ---
EXAMINATION: CT abdomen pelvis wo con DATE: 10/02/2024 08:19 INDICATION: Left flank pain TECHNIQUE: Computed tomography (CT) of the abdomen and pelvis was performed without intravenous contr ast. The dose-length product was 599.35 mGy-cm. Automated exposure control and iterative reconstruction technique were employed. COMPARISON: None. FINDINGS: Lung bases are unremarkable. Heart size normal. No significant pleural or pericardial effus ion. There is diffuse bladder wall thickening with surrounding fatty infiltration and fluid, consiste nt with cystitis. There is left hydronephrosis without obstructing stone. Cannot exclude ascending ur inary tract infection. There is mild left periureteral edema. No free air or free fluid. Nonobstructi ve bowel pattern. There are small nonenlarged ileocolic and retroperitoneal lymph nodes, likely react chintan. No significant vascular abnormality. Mild osteoarthritis of the hips. Mild levocurvature of the lumbar spine. IMPRESSION: 1. Diffuse bladder wall thickening with surrounding fluid, mild left hydronephrosis with periureteral edema. Findings suspicious for cystitis with ascending urinary tract infection. Reviewed, dictated and finalized at location A. IMPRESSION: 1. Diffuse bladder wall thickening with surrounding fluid, mild left hydronephr osis with periureteral edema. Findings suspicious for cystitis with ascending u rinary tract infection.
--- OUTSIDE RECORDS SUMMARY | 2024-10-02 07:02 | XMS_ITS | Continuity of Care Document ---
Author Organization [facility] Address [address] [place] [address] Phone Care Team Providers Care Blood Splatter Analyst Name Role Phone Shearer OD, Marcin Unavailable Unavailable Procedures Procedure Date Eye Exam & Treatment Refraction CL Replacement - Vistakon Disp W/BW Soft Tax - Medical No Charge Contact Lens Check Eye Exam & Treatment Refraction Advance Directives Directive Yes / No Effective Date File Name No Information Encounters Encounter Description Practice Location Reason(s) For Visit Diagnoses Date Provider Providers Copied on Encounter [facility], [address] [place] [address] [address], [place], [place], [id number], tel:[phone] [facility] No Information 9-200 9 Shearer OD Marcin. [address], [place], [address], [place]. tel:[phone] [facility], [address] [place] [address] [address], [place], [place], [id number], tel:[phone] [facility] No Information 1-200 7 Shearer OD Marcin. [address] , [address], [place], [address], [place]. tel:[phone] [facility], [address], [place], [place], [id number], tel:[phone] [facility] No Information Nov-1 3-200 7 Shearer OD Marcin. [address], [place], [place], [facility], . tel:[phone] [facility], [address], [place], [place], [id number], tel:[phone] [facility] No Information Nov-0 6-200 7 Shearer OD Marcin. [address], [place], [address], . tel:[phone] Family History Family Member Type Diagnosis Age [...]
--- OUTSIDE RECORDS SUMMARY | 2024-10-02 07:02 | XMS_ITS | Encounter Summary ---
Author Organization [facility] Address [address] [place] [address] Care Team Providers Care Food Operations Manager Name Role Phone Maureen Rodriguez MD Primary Care Provider [phone] Mark Amaral-C Unavailable [phone] Steven Garcia MD Primary Care Provider [phone] Reason for Visit * Reason Onset Date Comments Refill Request 05/25/2018 injectable stres s dose Update 05/25/2018 Rafael was vomit ing yesterday, given injectable stress dose. Please call mom to discuss next appt and transfer of care due to age Encounter Details Date Type Department Care Team (Late st Contact Info) Description 05/25/2018 Telephone [facility] Pediatrics - Endocrinology [address] [place] [address] Kirsten Menjivar Refill Request (injectable stress dose); [...] at Not on file Legal Sex Female 9:56 AM MORNING NANNY Gender Identity Not on file Sexual Orientation Not on file documented as of this encounter Functional Status * Is person deaf or have serious hearing difficulty? Answer Date of Assessment Author No 09/16/2013 12:34 PM CDT Naomie Atwood RN * Is person blind or have serious difficulty seeing? Answer Date of Assessment Author No 09/16/2013 12:34 PM CDT Naomie Atwood RN * Does person have serious difficulty walking/climbing stairs? Answer Date of Assessment Author No 09/16/2013 12:34 PM CDT Naomie Atwood RN * Does person have difficulty dressing/bathing? Answer Date of Assessment Author No 09/16/2013 12:34 PM CDT Naomie Atwood RN * Does person have difficulty doing errands alone? Answer Date of Assessment Author No 09/16/2013 12:34 PM CDT Naomie Atwood RN documented as of this encounter Mental Status * Does person have difficulty concentrating/remembering/making decisions? Answer Entry Date Author No 09/16/2013 12:34 PM ANNT Naomie Atwood RN documented in this encounter Miscellaneous Notes * Telephone Encounter - Sherlyn Martinez DO - 06/14/2018 10:08 AM CDT Rafael had labs collected 05/30/18 at 1340 at [facility]. BMP is normal, TSH is normal. Her renin is elevated, though consistent with her recent baseline and decreased from last renin. documented in this encounter Plan of Treatment Not on file documented as of this encounter Visit Diagnoses Not on filedocumented in this encounter Care Teams Food Operations Manager Relationship Specialty Start Date End Date Maureen Rodriguez MD PCP - General Pediatrics 03/31/12 09/01/24 Steven Garcia [place] [address] [place] [address] PCP - General Family Medicine 09/02/24 Mark Amaral, PAAshleeC [address] [place] [address] Covering Provider Orthopedic 04/05/12 documented as of this encounter
--- OUTSIDE RECORDS SUMMARY | 2024-10-02 07:02 | XMS_ITS | Encounter Summary ---
Author Organization [facility] Address [address] [place] [address] Care Team Providers Care Splitting Machine Tender Name Role Phone Maueren Rodriguez MD Primary Care Provider [phone] Mark Amaral-C Unavailable [phone] Steven Garcia MD Primary Care Provider [phone] Reason for Visit * Reason Onset Date Comments Results 06/23/2017 Please give mom a call with lab results. Encounter Details Date Type Department Care Team (Late st Contact Info) Description 06/23/2017 Telephone [facility] Pediatrics - Endocrinology [address] [place] [address] Delma Solis MD [address] [place] [phone] Results (Please give mom a call with [...] on file Legal Sex Female 9:56 AM PLASTER PATTERN CASTER Gender Identity Not on file Sexual Orientation Not on file documented as of this encounter Functional Status * Is person deaf or have serious hearing difficulty? Answer Date of Assessment Author No 09/16/2013 12:34 PM CDT Leti cooper, Naomie Woodson RN * Is person blind or have [...] Entry Date Author No 09/16/2013 12:34 PM CDT Naomie Atwood RN documented in this encounter Miscellaneous Notes * Telephone Encounter - Delma Solis MD - 06/23/2017 2:43 PM CDT I returned the call to Rafael's mother and left a message for her to call back. documented in this encounter Plan of Treatment Not on file documented as of this encounter Visit Diagnoses Not on filedocumented in this encounter Care Teams Splitting Machine Tender Relationship Specialty Start Date End Date Maureen Rodriguez MD PCP - General Pediatrics 03/31/12 09/01/24 Steven Garcia MD [address] [place] [id number] PCP - General Family Medicine 09/02/24 Mark Amaral, JOSEPHC [address] [place] [address] Covering Provider Orthopedic 04/05/12 documented as of this encounter
--- OUTSIDE RECORDS SUMMARY | 2024-10-02 07:02 | XMS_ITS | Encounter Summary ---
Author Organization [facility] Address [address] [place] [address] Care Team Providers Care Pump And Still Operator Name Role Phone Maureen Rodriguez MD Primary Care Provider Mark Amaral PA-C Unavailable [phone] Steven Garcia MD Primary Care Provider [phone] Reason for Visit * Reason Onset Date Comments Request Lab Order 06/19/2014 Appt on 06/21 , mom need lab orders for renin,Dhea, and acth put in for [facility] Encounter Details Date Type Department Care Team (Late st Contact Info) Description 06/19/2014 Telephone [facility] Pediatrics - Endocrinology [address] [place] [address] [phone] Delma Solis MD [address] [place] [address] [phone] Request Lab Order (Appt on 06/21 , [...] on file Legal Sex Female 9:56 AM MOTH PROOFER Gender Identity Not on file Sexual Orientation [...] on filedocumented in this encounter Care Teams Pump And Still Operator Relationship Specialty Start Date End Date Maureen Rodriguez MD PCP - General Pediatrics 03/31/12 09/01/24 Steven Garcia [place] [address] [place] [address] [place] [id number] PCP - General Family Medicine 09/02/24 Mark Amaral PA-C [address] [place] [address] Covering Provider Orthopedic 04/05/12 documented as of this encounter
--- OUTSIDE RECORDS SUMMARY | 2024-10-02 07:02 | XMS_ITS | Clinical Summary ---
Author Organization [facility] Address [address] [place] [address] Care Team Providers Care Service Order Expediter Name Role Phone Mark Amaral PA-C Unavailable Steven Garcia MD Primary Care Provider [phone] Source Comments [facility],non-owned Affiliates and Associated Physician Practices is amultiple site organization consisting of ambulatory clinics and hospital sitesin [place], [place], [place] and [place]. This disclosure is being madepursuant to the Care Everywhere program and may not contain all information available regarding this patient. Last updated 17.[facility] Allergies No known active allergies Medications * Be aware that medications may not be up to date on this document. Alwaysverify current medications with the patient. fludrocortison e (FLORINEF) 0.1 MG tabletIndicati ons:Mount Pleasant disease (HCC) Take 1 tab in AM and 1 tab in the evening. 180 tablet 1 05/06/19 19 Active hydrocortisone (Cortef) 5 MG tablet TAKE 3 TABLETS WITH BREAKFAST, ONE TABLET WITH LUNCH AND TWO TABLETS WITH DINNER 11/02/19 23 Active levothyroxine (Synthroid) 100 MCG tablet 04/30/19 24 Active Vit-Fe Fumarate-FA ( vitamin) 28-0.8 MG tablet Take 1 (one) tablet by mouth once daily Activ e hydrocortisone sodium succinate PF (Solu-CORTEF) injectionIndic ations:[place] 's disease (HCC) 100 (one hundred) mg by Intravenous route as needed for Hypersensitivity (lightheadedness, unconsciousness, inability to tolerate oral mediations) 3 Each 1 07/09/19 24 Active Active Problems Problem Noted Date Diagnosed Date consult 09/10/2023 GERD (gastroesophageal reflux disease) 4 Chest pain 05/07/2023 Arnold-Chiari malformation 05/07/2023 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 Barrientos tapered UP, repeat labs 4-6 wks 100mcg/daily as of [address] 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 At her visit in September 2014, [...] recent adrenal crisis, treated with steroids by grants officer recent adrenal crisis, treated with steroids by grants officer- 05/[address] 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 Continue [...] 12:43 PM CDT): Rafael has poorly controlled Mount Pleasant's disease due to medication noncompliance and lack [...] months. Assessment & Plan (04/01/2014 3:28 PM DATA PROCESSING SUPERVISOR): Rafael is a 13 year old girl with Mount Pleasant's disease/primary adrenal insufficiency. - Wean maintenance hydrocortisone [...] months Assessment & Plan (01/09/2014 8:23 PM DATA PROCESSING SUPERVISOR): 1. Cortef (5 mg tablet) 10 mg [...] three times daily 6. Wear medic-alert identification (cortisol dependent) at all times. 7. Child with Mount Pleasant's disease and at risk of adrenal insufficiency [...] I will contact Rafael's mother by telephone ([phone]) when I have received a copy of these test results and make the necessary medication dose adjustments. 10. Return appointment in two months. 11. I reviewed my impression and recommendations with Rafael's mother at the time of the office visit and she was in agreement. Assessment & Plan (12/29/2013 4:42 PM DATA PROCESSING SUPERVISOR): Clinically stable. 1. Cortef (5 mg tablet) [...] pm 5. Obtain and wear medic-alert identification (cortisol dependent) at all times. 6. Child with Mount Pleasant's disease and at risk of adrenal insufficiency [...] I will contact Rafael's mother by telephone ([phone]) when I have received a copy of these test results and make the necessary medication dose adjustments. 9. Return appointment in three months. 10. I reviewed my impression and recommendations with Rafael's mother at the time of the office visit and she was in agreement. Assessment & Plan (10/17/2013 11:19 AM CDT): Rafael is a 13 year old girl with Mount Pleasant's disease. Screening for thyroid, celiac and hypocalcemia [...] care of mother 07/08/2023 11/16/2023 Overview (07/08/2023): MF Referral faxed 06/23 [facility] 07/07 US & Consult [facility]: abnormality in pr egnancy (HCC) - Bilateral club feet 07/08/2023 11/16/2023 Overview (09/14/2023): Images from the original note were not included. Care Provider: Dr. Adolph [facility] [place] [facility] consultants involved: RN-Aníbal; Ped Ortho- Moses Tijerina Diagnosis: Bilateral club feet Planned surveillance: Ortho consult only - Patient was not seen by MFM in [facility] follow up per Pediatric Orthopedics: I invited Ms. Pat to contact us once the baby has been born to let us know whether the baby has a clubfoot or not. If the baby does, we would be happy to evaluate the baby and start casting at one to two months of age. To schedule, patient should call [phone], option 4 Mint Wafer Depositor: Care plan based on evaluation and is subject to change based on assessment. See Images or Cardiac under Chart Review for US/ ECHO/ MRI reports. Encounters Date Type Department Care Team Description 09/01/2024 10:31 PM CDT - 09/02/2024 12:54 AM CDT Emergency [facility] [address] [place] [address] Jose Alberto Reilly MD Chest pain, unspecified type; Acute nonintractable headache, unspecified headache type Discharge Disposition: Home or Self Care 09/01/2024 Travel from Last 3 Months Immunizations Immunization Administration Dates Next Due INFLUENZA VACCINE, QUADR. (F LUZONE; FLULAVAL; FLUARIX; AFLURIA QUADRIVALENT; 6MO+), 0.5 ML (IIV4) 12/12/2021 Family History Medical History Relation Name Comments NM<65(female) Maternal Grandmother Other Paternal Grandfather palpita tions Arrhythmia Neg Hx CVA<55(male) Neg Hx CVA<65(female) Neg Hx Cardiomyopathy Neg Hx Congenital Heart defect Neg Hx Heart Surgery Neg Hx Long QT Syndrome Neg Hx NM<55(male) Neg Hx Marfan Syndrome Neg Hx Pacemaker [...] care, and heating? Not very hard 09/08/2023 [facility] Occupat ional [facility] - Occupational Stress [...] place to sleep or slept in a group home (including now)? No 09/08/2023 Florence Depression Scale Answer Date Recorded Florence Depression Scale Total 7 05/06/2023 The thought of harming myself has occurred to me . Hardly ever 05/06/2023 Comments No Sex and Gender Information Value Date Recorded Sex Assigned at Not on file Legal Sex Female 9:56 AM DATA PROCESSING SUPERVISOR Gender Identity Not on file Sexual Orientation Not on file Last Filed Vital Signs Vital Sign Reading Time Taken Comments Blood Pressure 113/74 09/01/2024 10:44 PM CDT Pulse 87 09/01/2024 11:52 PM CDT Temperature 36.4 C (97.6 F) 09/01/2024 5:18 PM CDT Respiratory Rate 16 09/01/2024 5:18 PM CDT Oxygen Saturation 96% 09/01/2024 11:52 PM CDT Inhaled Oxygen Concentration 100% 09/15/2013 7 :42 AM CDT Weight 70.3 kg (155 lb) 09/01/2024 5:14 PM CDT Height 157.5 cm (5' 2) 09/01/2024 5:14 PM CDT Body Mass Index 28.35 09/01/2024 5:14 PM CDT Plan of Treatment Health Maintenance Due Date Last Done Comments HPV VACCINE (1 - 3-dose series) 04/30/2014 HEPATITIS C SCREENING 04/26/2017 DTAP/TDAP/TD VACCINES (1 - Tdap) 04/30/2018 HEPATITIS B VACCINE (1 of 3 - 19+ 3-dose series) 04/30/2018 COVID-19 VACCINE (4 - 2023- season) 2023 05/30/2021, 03/26/2020, 02/27/2020 PAP SMEAR 11/16/2023 11/15/2020 DEPRESSION SCREENING 02/23/2024 INFLUENZA VACCINE (#1) 2024 12/12/2021 CHLAMYDIA/GONORRHEA SCREENING 10/28/2024 10/29/2023, 10/07/2023, 03/23/2023, Additional history exists ZOSTER VACCINE (1 of 2) 04/30/2049 HIV SCREENING Completed 08/19/2023, 04/26/2023 HIB VACCINE Aged Out No longer eligi ble based on patient's age to complete this topic MENINGOCOCCAL (Group B) VACCINE SHARED DECISION-MAKING Aged Out No longer eligible based on patient's age to complete this topic MENINGOCOCCAL GROUPS A/C/Y/W VACCINE Aged Out No longer eligible based on patient's age to complete this topic PNEUMOCOCCAL VACCINE Aged Out No long er eligible based on patient's age to complete this topic Procedures Procedure Name Priority Date/Time Associated Diagnosis Comments CARDIAC EKG ORDER 09/04/2024 10: 48 AM CDT TROPONIN-I HIGH SENSITIVE REFLEX 1HOUR Timed 09/01/2024 7:21 PM CDT TSH REFLEX FREE T4 STAT 09/01/2024 6: 16 PM CDT HCG BETA BLOOD QUANTITATIVE STAT 09/01/2024 6:16 PM CDT TROPONIN-I HIGH SENSITIVE BASELINE + 1HR STAT 09/01/2024 6:16 PM CDT MAGNESIUM BLOOD STAT 09/01/2024 6:16 PM CDT COMPREHENSIVE METABOLIC PANEL STAT 09/01/2024 6:16 PM CDT CBC W AUTO DIFFERENTIAL STAT 09/01/2024 6:16 PM CDT XR CHEST 2VW STAT 09/01/2024 5:38 PM CDT Chest pain, unspecified type EKG 12-LEAD Routine 09/01/2024 5:26 PM CDT Chest pain, unspecified type from Last 3 Months Results * CARDIAC EKG ORDER (09/04/2024 10:48 AM CDT) Narrative 09/04/2024 10:48 AM CDT Ordered by an unspecified provider. us Scanned Document CARDIAC SERVICES ORDERABLES Fin al Result * TROPONIN-I HIGH SENSITIVE REFLEX 1HOUR (09/01/2024 7:21 PM CDT) [facility] Troponin I High Sensitive <3 <=14 ng/L 09/01/2024 8:01 PM CDT [facility] Delta Troponin I HS 09/01/2024 8:01 PM CDT [facility] Comment:Result exceeds linea rity range. A delta value is unable to be calculated. Blood BLOOD SPECIMEN / Unknown Venipuncture / Unknown 09/01/2024 7:21 PM CDT 09/01/2024 7:26 PM CDT us Cyndy Alvarez PA-C LAB - CHEMISTRY ORDERABLES Final Result [facility] [address] [place] [address], [place] [phone] * TROPONIN-I HIGH SENSITIVE BASELINE + 1HR (09/01/2024 6:16 PM CDT) [facility] Troponin I High Sensitive <3 <=14 ng/L 09/01/2024 7:13 PM CDT [facility] Blood BLOOD SPECIMEN / Unknown Venipuncture / Unknown 09/01/2024 6:16 PM CDT 09/01/2024 6:22 PM CDT us Cyndy Alvarez PA-C LAB - CHEMISTRY ORDERABLES Final Result Performing Organization Address City/[facility]/ZIP Co de Phone Number [address] [address], [facility] [phone] * TSH REFLEX FREE T4 (09/01/2024 6:16 PM CDT) Pathologist [facility] TSH 2.960 0.350 - 4.940 uIU/mL 09/01/2024 7:13 PM CDT [facility] Blood BLOOD SPECIMEN / Unknown Venipuncture / Unknown 09/01/2024 6:16 PM CDT 09/01/2024 6:22 PM CDT us Holly Tuttle INFORMATICS EDUCATOR-POWDER LOADER LAB - CHEMISTRY ORDE RABLES Final Result Performing Organization Address [facility]/ZIP Co de Phone Number [address] [address], [facility] [phone] * CBC W AUTO DIFFERENTIAL (09/01/2024 6:16 PM CDT) WBC 9.2 4.0 - 10.7 x10E9/L 09/01/2024 6:26 PM CDT [facility] RBC Count 3.90 3.90 - 5.20 x10E12/L 09/01/2024 6:26 PM CDT [facility] Hemoglobin 12.2 11.9 - 15.8 g/dL 09/01/2024 6:26 PM CDT [facility] Hematocrit 35.5 34.8 - 46.1 % 09/01/2024 6:26 PM CDT [facility] MCV 91.0 80.0 - 98.0 fL 09/01/2024 6:26 PM CDT [facility] MCH 31.3 26.7 - 33.6 pg 09/01/2024 6:26 PM [facility] MCHC 34.4 31.7 - 36.3 g/dL 09/01/2024 6:26 PM [facility] RDW-CV 12.7 11.3 - 14.8 % 09/01/2024 6:26 PM [facility] Platelet Count 269 150 - 420 x10E9/L 09/01/2024 6:26 PM [facility] MPV 10.4 7.8 - 11.4 fL 09/01/2024 6:26 PM [facility] Neutrophil % 68.0 41.0 - 74.0 % 09/01/2024 6:26 PM [facility] Lymphocyte % 25.0 17.0 - 47.0 % 09/01/2024 6:26 PM [facility] Monocyte % 5.7 3.0 - 11.0 % 09/01/2024 6:26 PM [facility] Eosinophil % 0.6 0.0 - 7.0 % 09/01/2024 6:26 PM [facility] Basophil % 0.4 0.0 - 1.6 % 09/01/2024 6:26 PM [facility] Immature Granulocytes % 0.3 0.0 - 1.0 % 09/01/2024 6:26 PM [facility] Neutrophil Absolute 6.27 1.60 - 7.50 x10E9/L 09/01/2024 6:26 PM [facility] Lymphocyte Absolute 2.31 1.00 - 4.40 x10E9/L 09/01/2024 6:26 PM [facility] Monocyte Absolute 0.53 0.15 - 1.00 x10E9/L 09/01/2024 6:26 PM [facility] Eosinophil Absolute 0.06 0.00 - 0.60 x10E9/L 09/01/2024 6:26 PM [facility] Basophil Absolute 0.04 0.00 - 0.13 x10E9/L 09/01/2024 6:26 PM [facility] Blood BLOOD SPECIMEN / Unknown Venipuncture / Unknown 09/01/2024 6:16 PM CDT 09/01/2024 6:22 PM CDT us Cyndy Alvarez PA-C LAB - HEMATOLOGY ORDERABLES Final Result [facility] [address] [place] [address], [facility] [phone] * COMPREHENSIVE METABOLIC PANEL (09/01/2024 6:16 PM CDT) BUN 14 7 - 26 mg/dL 09/01/2024 6:55 PM [facility] Creatinine 0.86 0.56 - 0.96 mg/dL 09/01/2024 6:55 PM [facility] Sodium 139 136 - 145 mmol/L 09/01/2024 6:55 PM [facility] Potassium 3.9 3.5 - 4.5 mmol/L 09/01/2024 6:55 PM [facility] Chloride 107 98 - 107 mmol/L 09/01/2024 6:55 PM [facility] CO2 25 22 - 29 mmol/L 09/01/2024 6:55 PM [facility] Glucose 89 70 - 99 mg/dL 09/01/2024 6:55 PM [facility] Calcium 9.0 8.4 - 10.2 mg/dL 09/01/2024 6:55 PM [facility] Protein Total 6.8 6.0 - 8.3 g/dL 09/01/2024 6:55 PM [facility] Albumin 4.4 3.4 - 5.0 g/dL 09/01/2024 6:55 PM [facility] Bilirubin Total 0.3 0.2 - 1.2 mg/dL 09/01/2024 6:55 PM [facility] Alkaline Phosphatase 63 40 - 150 U/L 09/01/2024 6:55 PM [facility] ALT 7 5 - 55 U/L 09/01/2024 6:55 PM [facility] AST 13 5 - 34 U/L 09/01/2024 6:55 PM CDT [facility] Anion Gap 7 6 - 16 09/01/2024 6:55 PM [facility] BUN/Creatinine Ratio 16 7 - 23 09/01/2024 6:55 PM T [facility] Osmolality Calculated 288 275 - 295 mOsm/kg 09/01/2024 6:55 PM T [facility] Albumin/Globulin Ratio 1.8 1.1 - 2.3 09/01/2024 6:55 PM [facility] eGFR by CKD-EPI >90 >=90 mL/min/1.7 3 m2 09/01/2024 6:55 PM [facility] Comment:Estimated Glomerular Filtration Rate (eGFR) calculated using the CKD-EPI Creatinine Equation (2020), per the National Kidney Foundation and [place] [employer] Nephrology recommendations. Blood BLOOD SPECIMEN / Unknown Venipuncture / Unknown 09/01/2024 6:16 PM CDT 09/01/2024 6:22 PM CDT Cyndy Alvarez PA-C LAB - CHEMISTRY ORDERABLES Final Result [facility] [address] [place] [address], [facility] [phone] * HCG BETA BLOOD QUANTITATIVE (09/01/2024 6:16 PM CDT) Pathologist [facility] Beta-hCG Total Quantitative <3 mIU/mL 09/01/2024 7:15 PM T [facility] Comment: HCG Numeric Result Interpretation: Non- Females: < 5 mIU/mL Post-Menopausal Females: < 7 mIU/mL This assay is cleared for use in the early detection of only. It is not approved for any other uses such as tumor marker screening, tumor marker monitoring, etc. and should not be used for any other purposes. Blood BLOOD SPECIMEN / Unknown Venipuncture / Unknown 09/01/2024 6:16 PM CDT 09/01/2024 6:22 PM CDT Cyndy Alvarez PA-C LAB - CHEMISTRY ORDERABLES Final Result [address] [address], [facility] [phone] * MAGNESIUM BLOOD (09/01/2024 6:16 PM CDT) Magnesium 1.9 1.6 - 2.6 mg/dL 09/01/2024 6:55 PM CDT [facility] Blood BLOOD SPECIMEN / Unknown Venipuncture / Unknown 09/01/2024 6:16 PM CDT 09/01/2024 6:22 PM CDT us Cyndy Alvarez PA-C LAB - CHEMISTRY ORDERABLES Final Result Performing Organization Address [facility] Co de Phone Number [address] [address], [facility] [phone] * XR CHEST 2VW (09/01/2024 5:38 PM CDT) Anatomical Region Laterality Modality Chest Digital Radiogra phy 09/01/2024 5:56 PM CDT Narrative 09/02/2024 6:09 AM CDT PROCEDURE: XR CHEST 2VW, DATE/TIME OF EXAM: 09/01/2024 5:38 PM, LOCATION [facility] INDICATION: R07.9: Chest pain, unspecified type ADDITIONAL CLINICAL INFORMATION: Ordering Provider Reason For Exam: ro effusion vs other COMPARISON: Chest x-ray 09/15/2013 TECHNIQUE: PA and Lateral radiograph of the chest. FINDINGS/IMPRESSION: The lungs are clear. There is no focal consolidation, pleural effusion, or pneumothorax. The cardiomediastinal silhouette is normal. The visible bony thorax is intact. Report dictated by Vahe Villarreal MD, (Bait Digger). I, Bird Mon MD have personally reviewed and interpreted this examination/study. > Interpreting Provider: Bird Mon MD on 09/02/2024 6:09 AM Procedure Note Bird Mon MD - 09/02/2024 PROCEDURE: XR CHEST 2VW, DATE/TIME OF EXAM: 09/01/2024 5:38 PM, LOCATION [facility] INDICATION: R07.9: Chest pain, unspecified type ADDITIONAL CLINICAL INFORMATION: Ordering Provider Reason For Exam: ro effusion vs other COMPARISON: Chest x-ray 09/15/2013 TECHNIQUE: PA and Lateral radiograph of the chest. FINDINGS/IMPRESSION: The lungs are clear. There is no focal consolidation, pleural effusion,or pneumothorax. The cardiomediastinal silhouette is normal. The visiblebony thorax is intact. Report dictated by Vahe Villarreal MD, (Bait Digger). I, Bird Mno MD have personally reviewed and interpreted this examination/study. > Interpreting Provider: Bird Mon MD on 56:09 AM us Cyndy Alvarez PADeanna DIAGNOST[facility] IMAGING ORDERABL ES Final Result * EKG 12-Lead (09/01/2024 5:26 PM CDT) Ventricular Rate 79 BPM [facility] Atrial Rate 79 BPM [facility] P-R Interval 126 ms [facility] QRS Duration ms 86 ms [facility] Q-T Interval ms 356 ms [facility] QTC Calculation (Bezet) 408 ms [facility] Calculated P [place] 64 degrees [facility] Calculated R [place] 84 degrees [facility] Calculated T [place] 60 degrees [facility] Interpretation EKG NORMAL SINUS RHYTHM WITH SINUS ARRHYTHMIA POSSIBLE LATERAL INFARCT , AGE UNDETERMINED ABNORMAL ECG NO PREVIOUS ECGS AVAILABLE Confirmed by ED STEINBERG MD ([id number]) on 09/02/2024 2:50:20 PM H MUSE 09/01/2024 5:26 PM CDT 09/02/2024 2:50 PM CDT us Royer Hand MD ECG ORDERABLES Edited Result - Final [facility] MUSE from Last 3 Months Insurance AETNA AETNA AETNA Care Teams Service Order Expediter Relationship Specialty Start Date End Date Steven Garcia MD [address] [place] [phone] PCP - General Family Medicine 09/02/24 Mark Amaral, PAAshleeC [address] [place] [address] Covering Provider Orthopedic 04/05/12
--- OUTSIDE RECORDS SUMMARY | 2024-10-02 07:02 | XMS_ITS | Encounter Summary ---
Author Organization [facility] Address [address] [place] [address] Care Team Providers Care Documentation Consultant Name Role Phone Maureen Rodriguez MD Primary Care Provider [phone] Mark Amaral-Johnny Unavailable [phone] Steven Garcia MD Primary Care Provider [phone] Reason for Visit * Reason Onset Date Comments Update 05/25/2017 Patient was at [facility] last night complaining of back pain. PCP calling for instructions. (this message was left on the voicemail of the centralized scheduling department of [facility] at 4:16PM last night) Encounter Details Date Type Department Care Team (Late st Contact Info) Description 05/25/2017 Telephone [facility] Pediatrics - Endocrinology [address] [place] [address] Delma Solis MD [address] [place] [phone] Update (Patient was at PCP last night complaining of back pain. PCP calling for instructions. (this message was left on the voicemail of the centralized scheduling department of [facility] at 4:16PM last night)) Social History Tobacco Use Types Packs/Day Years Used Date Smoking Tobacco: Passive Smo ke Exposure - Never Smoker Smokeless Tobacco: Never Alcohol Use Standard Drinks/Week Comments No 0 (1 standard drink = 0.6 oz pur e alcohol) Comments No Sex and Gender Information Value Date Recorded Sex Assigned at Not on file Legal Sex Female 9:56 AM CIGARETTE MAKING EXAMINER Gender Identity Not on file Sexual Orientation Not on file documented as of this encounter Functional Status * Is person deaf or have serious hearing difficulty? Answer Date of Assessment Author No 09/16/2013 12:34 PM Naomie Kennedy RN * Is person blind or have serious difficulty seeing? Answer Date of Assessment Author No 09/16/2013 12:34 PM Naomie Kennedy RN * Does person have serious difficulty walking/climbing stairs? Answer Date of Assessment Author No 09/16/2013 12:34 PM Naomie Kennedy RN * Does person have difficulty dressing/bathing? Answer Date of Assessment Author No 09/16/2013 12:34 PM Naomie Kennedy RN * Does person have difficulty doing errands alone? Answer Date of Assessment Author No 09/16/2013 12:34 PM Naomie Kennedy RN documented as of this encounter Mental Status * Does person have difficulty concentrating/remembering/making decisions? Answer Entry Date Author No 09/16/2013 12:34 PM Naomie Kennedy RN documented in this encounter Miscellaneous Notes * Telephone Encounter - Delma Solis MD - 05/31/2017 4:32 PM CDT I spoke to a nurse and with Dr. Rodriguez who said that Rafael was seen last week complaining of back pain, which she gets when her Gray's disease flares up. She was seen by Dr. Rodriguez who reports that Rafael had full range of motion, was able to move her legs, ambulate without problems and get up and off the exam table without problems. I am not aware of any Gray's specific back pain beyondconcern for osteopenia causing [...] on filedocumented in this encounter Care Teams Documentation Consultant Relationship Specialty Start Date End Date Maureen Rodriguez MD PCP - General Pediatrics 03/31/12 09/01/24 Steven Garcia MD [address] [place] [address] PCP - General Family Medicine 09/02/24 Mark Amaral, JOSEPHC [address] [place] [address] Covering Provider Orthopedic 04/05/12 documented as of this encounter
--- OUTSIDE RECORDS SUMMARY | 2024-10-02 07:02 | XMS_ITS | Clinical Summary ---
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 Encounters Date Type Department Care Team Description 09/25/2024 Telephone [facility] Cardiology [address] [place] [address] Suraj Hutchison MD Records Needed from Last 3 Months Medical History Medical History Date Comments Personal history of other di seases of the nervous system and sense organs History of amblyop ia - (Added by TW Conv) Strabismic amblyopia Strabismic amblyopia - (Added by TW Conv) Kittson's disease (HCC) Diabetes mellitus (HCC) Mazin's disease [...] staff should administer the PHQ-9) 0 10/20/2023 [facility] - Occupational Stress Questionnaire Answer Date Recorded [...] any time in the past [facility], were you homeless or living in a [...] on file Legal Sex Female 5:01 AM MUD TEMPERER Gender Identity Not on file Sexual Orientation [...] 4:03 PM CDT Height 156.2 cm (5' 1.5) 11/02/2022 4:03 PM CDT Body Mass Index [...] Regular Well Visit/Exam 18-64 04/30/2017 Covid-19 Vaccine (4 - 2023-2 5 season) 2023 05/30/2021, 03/26/2020, 02/27/2020 Depression Screening 10/19/2024 10/20/2023 Influenza Vaccine (#1) 2024 12/12/2021 Pneumococcal vaccine <65 Aged Out No longer eligible based on patient's age to complete this topic Insurance AETNA SELECT AETNA SELECT Care Teams Heavy Equipment Rental Manager Relationship Specialty Start Date End Date Steven Garcia MD [address] [place] [address] PCP - General Family Medicine 09/25/24
--- OUTSIDE RECORDS SUMMARY | 2024-10-02 07:02 | XMS_ITS | Clinical Summary ---
Author Organization [facility] Address [facility] [place] [address] Care Team Providers Care Cutter Hand Name Role Phone None, Provider MD Primary [...] 11:14 PM CDT Height 157.5 cm (5' 2) 09/19/2023 11:14 PM CDT Body Mass Index 31.09 09/19/2023 11:14 PM CDT Plan of Treatment Health Maintenance Due Date Last Done Comments Cervical Cancer Screening Carmelo rockwell Smear (Age 21 to 29) Every 3 Years 1999 Cervical Cancer Screening 1999 Annual Physical 04/30/2002 HPV Vaccines (1 - 3-dose series) 04/30/2014 Hepatitis C 04/30/2017 DTaP, Tdap and Td Vaccines ( 1 - Tdap) 04/30/2018 Hepatitis B Vaccines (1 of 3 - 19+ 3-dose series) 04/30/2018 COVID-19 Vaccine (4 - 2023-2 5 season) 2023 05/30/2021, 03/26/2020, 02/27/2020 Meningococcal B Vaccine Aged Out No l onger eligible based on patient's age to complete this topic Meningococcal Vaccine Aged Out No clark eric eligible based on patient's age to complete this topic Pneumococcal Vaccine: Pediatrics (0 to 5 Years) and At-Risk Patients (6 to 49 Years) Aged Out No longer eligible b ased on patient's age to complete this topic RSV Immunizations Under 20 Months Aged Out No longer eligible b ased on patient's age to complete this topic Insurance AETNA Care Teams Cutter Hand Relationship Specialty Start Date End Date None, Provider, MD PCP - General UNKNOWN PHYSICIAN SPECIALTY 09/19/23
--- OUTSIDE RECORDS SUMMARY | 2024-10-02 07:02 | XMS_ITS | Encounter Summary ---
Author Organization [facility] Address [address] [place] [address] Care Team Providers Care Electric Spot Welder Name Role Phone Maureen Rodriguez MD Primary Care Provider [phone] Mark Amaral-C Unavailable [phone] Steven Garcia MD Primary Care Provider [phone] Reason for Visit * Reason Onset Date Comments Results 02/19/[address] [facility] lab results. Please call to discuss. Encounter Details Date Type Department Care Team (Late st Contact Info) Description 02/19/2014 Telephone [facility] Pediatrics - Endocrinology [address] [place] [address] Delma Solis MD [address] [place] [address] [phone] Results (Mom called to get lab results. Please call to discuss. ) Social History Tobacco Use Types Packs/Day Years Used Date Smoking Tobacco: Never Alcohol Use Standard Drinks/Week Comments No 0 (1 standard drink = 0.6 oz pur e alcohol) Comments No Sex and Gender Information Value Date Recorded Sex Assigned at Not on file Legal Sex Female 9:56 AM SLOT ATTENDANT Gender Identity Not on file Sexual Orientation Not on file documented as of this encounter Functional Status * Is person deaf or have serious hearing difficulty? Answer Date of Assessment Author No 09/16/2013 12:34 PM CDT Leti cooper, Naomie Woodson, RN * Is person blind or have [...] 24 Calcium 8.9 - 10.4 mg/dL 9.3 Rafale has been doing better. She is still [...] follow up for end of February 2014. ATTENDANT documented in this encounter Plan of Treatment Not on file documented as of this encounter Visit Diagnoses Diagnosis Adrenogenital disorders (HCC)- Primary Adrenogenital disorders documented in this encounter Care Teams Electric Spot Welder Relationship Specialty Start Date End Date Maureen Rodriguez MD PCP - General Pediatrics 03/31/12 09/01/24 Steven Garcia MD [address] [place] [address] PCP - General Family Medicine 09/02/24 Mark Amaral, JOSEPHC [address] [place] [address] Covering Provider Orthopedic 04/05/12 documented as of this encounter
--- OUTSIDE RECORDS SUMMARY | 2024-10-02 07:02 | XMS_ITS | Encounter Summary ---
Author Organization [facility] Address [address] [place] [address] Care Team Providers Care Pit Laborer Name Role Phone Maureen Rodriguez MD Primary Care Provider [phone] Mark Amaral PA-C Unavailable [phone] Steven Garcia MD Primary Care Provider [phone] Reason for Visit * Reason Onset Date Comments Question 03/15/2014 Mom wanted to to uch base with you regarding treatment. She was supposed to call some time ago, but had a in the family. Encounter Details Date Type Department Care Team (Late st Contact Info) Description 03/15/2014 Telephone [facility] Pediatrics - Endocrinology [address] [place] [address] Delma Solis MD [address] [place] [address] Question (Mom wanted to touch base [...] on file Legal Sex Female 9:56 AM PAYROLL SERVICES ANALYST Gender Identity Not on file Sexual Orientation [...] Naomie Kennedy RN documented in this encounter Plan of Treatment Not on file documented as of this encounter Visit Diagnoses Not on filedocumented in this encounter Care Teams Pit Laborer Relationship Specialty Start Date End Date Maureen Rodriguez MD PCP - General Pediatrics 03/31/12 09/01/24 Steven Garcia MD [address] [place] [address] PCP - General Family Medicine 09/02/24 Mark Amaral, JOSEPHC [address] [place] [address] Covering Provider Orthopedic 04/05/12 documented as of this encounter
--- OUTSIDE RECORDS SUMMARY | 2024-10-02 07:02 | XMS_ITS | Encounter Summary ---
Author Organization [facility] Address [address] [place] [address] Care Team Providers Care County Director Name Role Phone Maureen Rodriguez MD Primary Care Provider [phone] Mark Amaral-Johnny Unavailable [phone] Steven Garcia MD Primary Care Provider [phone] Reason for Visit * Reason Onset Date Comments Letter for School or Work 04/08/2016 2nd re quest: Mother is requesting a letter stating Rafael should NOT participate in gym for the school year. Please fax to [phone], [place]. Encounter Details Date Type Department Care Team (Late st Contact Info) Description 04/08/2016 Telephone [facility] Pediatrics - Endocrinology [address] [place] [address] [phone] Delma Solis MD [address] [place] [address] [phone] Letter for School or Work (2nd request: Mother is requesting a letter stating Rafael should NOT participate in gym for the school year. Please fax to [phone], [place]. ) Social History Tobacco Use Types Packs/Day Years Used Date Smoking Tobacco: Never Alcohol Use Standard Drinks/Week Comments No 0 (1 standard drink = 0.6 oz pur e alcohol) Comments No Sex and Gender Information Value Date Recorded Sex Assigned at Not on file Legal Sex Female 9:56 AM LOSS PREVENTION MANAGER Gender Identity Not on file Sexual Orientation [...] on filedocumented in this encounter Care Teams County Director Relationship Specialty Start Date End Date Maureen Rodriguez MD PCP - General Pediatrics 03/31/12 09/01/24 Steven Garcia MD [address] [place] [address] PCP - General Family Medicine 09/02/24 Mark Amaral, JOSEPHC [address] [place] [address] Covering Provider Orthopedic 04/05/12 documented as of this encounter
--- OUTSIDE RECORDS SUMMARY | 2024-10-02 07:02 | XMS_ITS | Encounter Summary ---
Author Organization [facility] Address [address] [place] [address] Care Team Providers Care Break Out Worker Name Role Phone Maureen Rodriguez MD Primary Care Provider [phone] Mark Amaral PA-C Unavailable [phone] Steven Garcia MD Primary Care Provider [phone] Reason for Visit * Reason Onset Date Comments Request Lab Order 03/07/2015 Mom is request ing an order for labs to be sent lab on file. Encounter Details Date Type Department Care Team (Late st Contact Info) Description 03/07/2015 Telephone [facility] Pediatrics - Endocrinology [address] [place] [address] Delma Solis MD [address] [place] [address] Request Lab Order (Mom is requesting an [...] on file Legal Sex Female 9:56 AM CONSULTING SENIOR PRACTICE DIRECTOR Gender Identity Not on file Sexual Orientation [...] on filedocumented in this encounter Care Teams Break Out Worker Relationship Specialty Start Date End Date Maureen Rodriguez MD PCP - General Pediatrics 03/31/12 09/01/24 Steven Garcia MD [address] [place] [phone] PCP - General Family Medicine 09/02/24 Mark Amaral, PAAshleeC [address] [place] [address] Covering Provider Orthopedic 04/05/12 documented as of this encounter
--- OUTSIDE RECORDS SUMMARY | 2024-10-02 07:02 | XMS_ITS | Patient Health Record ---
Author Organization [facility] Address [address] [place] [address] Care Team Providers Care News Camera Operator Name Role Phone Lashawn Acosta Unavailable [phone] Reason For Referral No Information Medications Medication SIG (Take, Route, Frequency, Duration) Notes Start Date End Date Status Benzonatate 100 MG Oral 05/13/2020 Active predniSONE 10 MG Oral 05/13/2020 Ac tive ARIPiprazole 10 MG Oral 05/13/2020 Active Prochlorperazine Maleate 10 MG Oral 05/13/2020 Active BOOSTRIX TDAP 2.5-8-5 Lf-mcg-Lf/0.5mL Intramuscular *Reorder from [employer] for eRx and Interaction Alerts* 05/13/2020 Active Hydrocortisone 5 MG Oral 05/13/2020 Active Solu-CORTEF 100 MG Injection 05/13/2020 Active ID Now COVID-19 In Vitro *Reorder from [employer] for eRx and Interaction Alerts* 05/13/2020 Active Triamcinolone Acetonide 0.1% External 05/13/2020 Active Levothyroxine Sodium 50 MCG Oral 05/13/2020 Active Fludrocortisone Acetate 0.1 MG Oral 05/13/2020 Active Escitalopram Oxalate 10 MG Oral 05/13/2020 Active traMADol HCl 50 MG Oral 05/13/2020 Active ELURYNG 0.12 MG-0.015 MG/24 HR VAGINAL RING *Reorder from [employer] for eRx and Interaction Alerts* 05/13/2020 Active Triamcinolone Acetonide 0.50% External 05/13/2020 Active Levothyroxine Sodium 25 MCG Oral 05/13/2020 Active hydrOXYzine Pamoate 25 MG Oral 05/13/2020 Active Azithromycin 250 MG Oral 05/13/2020 Active Immunizations Vaccine Route Administration Date Status Comme nts Tdap Unknown 02/22/2010 Administered Moderna Covid-19 Vaccine 1st dose Unknown 02/27/2020 Ad ministered Influenza virus vaccine, quadrivalent (IIV4), split virus, 0.25 mL dosage Unknown 11/22/2018 Administered Plan Of Treatment No Information Insurance Providers Payer Name Payer Address Payer Phone Subscriber Number Group Number Insured Name Patient Relationship to Insured Coverage Start Date Coverage End Date Aetna Pos [address] MORAIMA ELDRIDGE [phone] [id number] MYA GLEZ Self - patient is the insured
--- OUTSIDE RECORDS SUMMARY | 2024-10-02 07:02 | XMS_ITS | Encounter Summary ---
Author Organization [facility] Address [address] [place] [address] Care Team Providers Care Bliss Press Operator Name Role Phone Maureen Rodriguez MD Primary Care Provider [phone] Mark Amaral PA-C Unavailable [phone] Steven Garcia MD Primary Care Provider [phone] Reason for Visit * Reason Onset Date Comments Refill Request 07/04/2014 Please call in D ex injection Encounter Details Date Type Department Care Team (Late st Contact Info) Description 07/04/2014 Telephone [facility] Pediatrics - Endocrinology [address] [place] [address] Delma Solis MD [address] [place] [address] [phone] Refill Request (Please call in Dex injection) Social History Tobacco Use Types Packs/Day Years Used Date Smoking Tobacco: Never Alcohol Use Standard Drinks/Week Comments No 0 (1 standard drink = 0.6 oz pur e alcohol) Comments No Sex and Gender Information Value Date Recorded Sex Assigned at Not on file Legal Sex Female 9:56 AM ARCHITECTURAL WOOD MODEL MAKER Gender Identity Not on file Sexual Orientation Not on file documented as of this encounter Functional Status * Is person deaf or have serious hearing difficulty? Answer Date of Assessment Author No 09/16/2013 12:34 PM MCKENZIE cooper, Naomie Woodson RN * Is person [...] on filedocumented in this encounter Care Teams Bliss Press Operator Relationship Specialty Start Date End Date Maureen Rodriguez MD PCP - General Pediatrics 03/31/12 09/01/24 Steven Garcia MD [address] [place] [address] PCP - General Family Medicine 09/02/24 Mark Amaral PA-C [address] [place] [address] Covering Provider Orthopedic 04/05/12 documented as of this encounter
--- OUTSIDE RECORDS SUMMARY | 2024-10-02 07:02 | XMS_ITS | Clinical Summary ---
Author Organization [facility] Address [address] [place] [address] Phone Care Team Providers Care Space Scheduler Name Role Phone Jayden Noriega APRN, CNP [...] mg tablet Active Syringe/Needle , Disp, (SYRINGE 3CC/23GX1) 23G X 1 3 ML Misc To be used for dexamethasone administration 08/13/19 18 Active prochlorperazi ne (COMPAZINE) 10 MG Tablet prochlorperazine maleate 10 mg tablet Active predniSONE (DELTASONE) 1 MG Tablet prednisone 1 [...] BY MOUTH TWICE A DAY 180 Tablet 07/19/19 25 Active hydrocortisone (CORTEF) 5 MG Tablet 15 MG AT BREAKFAST, 5 MG IN THE AFTERNOON, AND 10 MG IN THE EVENING 540 Tablet 08/16/19 25 Active Rimegepant Sulfate (Nurtec) 75 MG TABLET DISPERSIBLE Take by mouth. Act chintan levothyroxine (SYNTHROID) 112 MCG Tablet Take 1 Tablet by mouth daily. 90 Tablet 1 09/14/19 25 Active levothyroxine (SYNTHROID) 100 MCG Tablet Take 1 Tablet by mouth daily. 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 Anxiety 09/22/2021 Depression 09/22/2021 Adrenal insufficiency (Merlin's disease) 2021 Hypothyroid 09/22/2021 Chronic hypotension 09/22/2021 Encounters Date Type Department Care Team Description 09/21/2024 Results Follow-Up [facility] [address] [place] [address] Floyd Hsieh MD THYROID STIMULATING HORMONE (TSH), THYROXINE (T4) FREE, TRIIODOTHYRININE (T3) TOTAL, ADRENOCORTICOTROPIC HORMONE, P, WEBB ACTH 09/13/2024 9:15 AM CDT Office Visit [facility] [address] [place] [address] Floyd Hsieh MD Adrenal insufficiency (Merlin's disease) (HCC) (Primary Dx); Acquired hypothyroidism Discharge Disposition: Discharged to home or Selfcare 09/13/2024 Telephone [facility] [address] [place] [address] Floyd Hsieh MD Results; Medication Management 09/13/2024 Travel 08/15/2024 Refill [facility] [address] [place] [address] Floyd Hsieh MD Medication Refill 07/16/2024 Refill [facility] [address] [place] [address] Floyd Hsieh MD Medication Refill from Last 3 Months Immunizations Immunization Administration Dates Next Due Influenza [...] Average Number of Drinks Not on file 020 Frequency of Binge Drinking Not on file 12/23 Comments Unknown Sex and Gender Information Value Date Recorded Sex Assigned at Female 03/08/2023 9:40 AM SUPERINTENDENT OVERHEAD DISTRIBUTION Legal Sex Female 10:15 PM SUPERINTENDENT OVERHEAD DISTRIBUTION Gender Identity Female 03/08/2023 9:40 AM SUPERINTENDENT OVERHEAD DISTRIBUTION Sexual Orientation Straight 03/08/2023 9: 40 AM SUPERINTENDENT OVERHEAD DISTRIBUTION Last Filed Vital Signs Vital Sign Reading Time Taken Comments Blood Pressure 114/76 09/13/2024 8:56 AM CDT Pulse 67 09/13/2024 8:56 AM CDT Temperature 36.5 C (97.7 F) 09/13/2024 8:56 AM CDT Respiratory Rate 22 09/13/2024 8:56 AM CDT Oxygen Saturation 100% 09/13/2024 8:56 AM CDT Inhaled Oxygen Concentration - - Weight 73.4 kg (161 lb 12.8 oz) 09/13/2024 8:56 AM CDT Height 157.5 cm (5' 2) 09/13/2024 8:56 AM CDT Body Mass Index 29.59 09/13/2024 8:56 AM CDT Plan of Treatment Upcoming Encounters Date Type Department Care Team (Late st Contact Info) Description 01/15/2025 9:00 AM SUPERINTENDENT OVERHEAD DISTRIBUTION Office Visit [facility] - Endocrinology [facility] [address] [place] [address] Floyd Hsieh MD [address] [address] Health Maintenance Due Date Last Done Comments Human Papillomavirus (HPV) Immunization (1 - 3-dose series) 04/30/2014 Hepatitis B Immunization (1 of 3 - 19+ 3-dose series) 04/30/2018 Pap Smear 04/30/2020 SARS-COV-2 Immunization ( season) 2023 05/30/2021, 03/26/2020, 02/27/2020 Influenza Immunization (#1) 10/23/202411/23, 11/22/2018 Respiratory Syncytial Virus (RSV) Immunization (Adult) (1 - 1-dose 75+ series) 04/30/2074 Hepatitis C Virus (HCV) Screening Completed 04/26/2023 DTaP/Tdap/Td Immunization Discontinued 2023, 02/22/2010 TdaP Immunization Completed 11/04/2023, 02/22/2010 Meningococcal Immunization (ACWY) Aged Out No longer eligible based on patient's age to complete this topic Pneumococcal Immunization Combined Aged Out No longer eligible based on patient's age to complete this topic Rotavirus Immunization Aged Out No lo nger eligible based on patient's age to complete this topic Procedures Procedure Name Priority Date/Time Associated Diagnosis Comments ADRENOCORTICOTROPIC HORMONE, P, WEBB ACTH Routine 09/13/2024 9:44 AM CDT Acquired hypothyroidism Adrenal insufficiency (Petersburg's disease) (HCC) TRIIODOTHYRININE (T3) TOTAL Routine 09/13/2024 9:44 AM CDT Acquired hypothyroidism THYROXINE (T4) FREE Routine 09/13/2024 9 :44 AM CDT Acquired hypothyroidism THYROID STIMULATING HORMONE (TSH) Routine 09/13/2024 9:44 AM CDT Acquired hypothyroidism from Last 3 Months Results * (ABNORMAL) ADRENOCORTICOTROPIC HORMONE, P, WEBB ACTH (09/13/2024 9:44 AM CDT) ADRENOCORTICOTROPIC HORMONE (ACTH) 348(H) pg/mL 09/14/2024 10:31 AM CDT [facility] [employer] Comment: REFERENCE VALUE 7.2-63 (a.m. collection) Test Performed by: [facility] [address] [place] [address] Occupational Therapist Assistant: Leo Raymundo Ph.D.; CLIA# [id number] Blood Venipuncture / Unknown 09/13/2024 9:44 AM CDT 09/13/2024 9:48 AM CDT us Floyd Hsieh MD LAB SEND OUTS Final Result [facility] * THYROXINE (T4) FREE (09/13/2024 9:44 AM CDT) T4 FREE 1.2 0.7 - 1.9 ng/dL 09/13/2024 11:04 AM CDT [facility] Blood Venipuncture / Unknown 09/13/2024 9:44 AM CDT 09/13/2024 10:21 AM CDT us Floyd Hsieh MD CHEMISTRY ORDERABLES Final Resul t Performing Organization Address [facility] Co de Phone Number [facility] [address] [place] [address] * (ABNORMAL) THYROID STIMULATING HORMONE (TSH) (09/13/2024 9:44 AM CDT) TSH 5.244(H) 0.300 - 5.000 mIU/L 09/13/2024 11:04 AM CDT [facility] Blood Venipuncture / Unknown 09/13/2024 9:44 AM CDT 09/13/2024 10:21 AM CDT us Floyd Hsieh MD CHEMISTRY ORDERABLES Final Resul t Performing Organization Address City/[facility]/ZIP Co de Phone Number [facility] [address] [place] [address] * TRIIODOTHYRININE (T3) TOTAL (09/13/2024 9:44 AM CDT) T3 101 40 - 193 ng/dL 09/13/2024 3:30 PM CDT [facility] Blood Venipuncture / Unknown 09/13/2024 9:44 AM CDT 09/13/2024 10:21 AM CDT us Floyd Hsieh MD CHEMISTRY ORDERABLES Final Resul t [facility] [address] [place] [address], [place] from Last 3 Months Insurance [employer] Advance Directives * Full Code (Latest Code Status on File) Date Activated Date Inactivated Comments 09/22/2021 3:36 PM 09/24/2021 3:33 PM CPR-Full Treat ment: FULL ARREST: Attempt Resuscitation/CPR wit intubation and mechanical ventilation. PRE-ARREST: Use entire range of life support measures to stabilize the patient. Care Teams Space Scheduler Relationship Specialty Start Date End Date Jayden Noriega APRN, PR INTERN [address] [place] [address] PCP - General Advanced Practice Nurse 01/04/20 Floyd Hsieh MD [address] [address] Consulting Physician Endocrinology 10/23/21
--- OUTSIDE RECORDS SUMMARY | 2024-10-02 07:02 | XMS_ITS | Encounter Summary ---
Author Organization [facility] Address [address] [place] [address] Care Team Providers Care Barrel Racer Name Role Phone Maureen Rodriguez MD Primary Care Provider [phone] Mark Amaral PA-C Unavailable [phone] Steven Garcia MD Primary Care Provider [phone] Reason for Visit * Reason Onset Date Comments Results 10/06/2013 mom called for r courtney Encounter Details Date Type Department Care Team (Late st Contact Info) Description 10/06/[address] [facility] Pediatrics - Endocrinology [address] [place] [address] Delma Solis MD [address] [place] [phone] Results (mom called for results) Social History Tobacco Use Types Packs/Day Years Used Date Smoking Tobacco: Never Alcohol Use Standard Drinks/Week Comments No 0 (1 standard drink = 0.6 oz pur e alcohol) Comments No Sex and Gender Information Value Date Recorded Sex Assigned at Not on file Legal Sex Female 9:56 AM LINOLEUM INSTALLER Gender Identity Not on file Sexual Orientation [...] Naomie Atwood RN documented in this encounter Plan of Treatment Not on file documented as of this encounter Visit Diagnoses Not on filedocumented in this encounter Care Teams Barrel Racer Relationship Specialty Start Date End Date Maureen Rodriguez MD PCP - General Pediatrics 03/31/12 09/01/24 Steven Garcia MD [address] [place] [address] PCP - General Family Medicine 09/02/24 Mark Amaral, JOSEPHC [address] [place] [address] Covering Provider Orthopedic 04/05/12 documented as of this encounter
[2024-10-02 07:17] VITALS: BP 110/73; PULSE 85; RESP 17; TEMP 36.5; O2SAT 100
[2024-10-02 07:22] VITALS: BP 110/73; PULSE 85; RESP 17; TEMP 36.5; O2SAT 100
[2024-10-02 07:29] LABS: Add Urine Microscopic? YES; Appearance Urine Cloudy (Clear); Glucose Urine UA Negative (Negative); Leukocyte Esterase Ur 3+ LEU/UL (Negative); Nitrate Urine Positive (Negative); Specific Grav Ur 1.018 (1.001-1.035)
--- OUTSIDE RECORDS SUMMARY | 2024-10-02 07:42 | XMS_ITS | Encounter Summary ---
Author Organization [facility] Address [address] [place] [address] Care Team Providers Care Controls Project Engineer Name Role Phone Maueren Rodriguez MD Primary Care Provider [phone] Mark Amaral-Johnny Unavailable [phone] Steven Garcia MD Primary Care Provider [phone] Reason for Visit * Reason Onset Date Comments Update 05/25/2017 Patient was at [facility] last night complaining of back pain. PCP calling for instructions. (this message was left on the voicemail of the centralized scheduling department of [facility] at 4:16PM last night) Encounter Details Date Type Department Care Team (Late st Contact Info) Description 05/25/[address] [facility] Pediatrics - Endocrinology [address] [place] [address] Delma Solis MD [address] [place] [phone] Update (Patient was at PCP last night complaining of back pain. PCP calling for instructions. (this message was left on the voicemail of the centralized scheduling department of [facility] at 4:16PM last night)) Social History Tobacco Use Types Packs/Day Years Used Date Smoking Tobacco: Passive Smo ke Exposure - Never Smoker Smokeless Tobacco: Never Alcohol Use Standard Drinks/Week Comments No 0 (1 standard drink = 0.6 oz pur e alcohol) Comments No Sex and Gender Information Value Date Recorded Sex Assigned at Not on file Legal Sex Female 9:56 AM MAGISTRATE Gender Identity Not on file Sexual Orientation [...] back pain, which she gets when her [place]'s disease flares up. She was seen by Dr. Rodriguez who reports that Rafael had full range of motion, was able to move her legs, ambulate without problems and get up and off the exam table without problems. I am not aware of any [place]'s specific back pain beyondconcern for osteopenia causing [...] on filedocumented in this encounter Care Teams Controls Project Engineer Relationship Specialty Start Date End Date Maureen Rodriguez MD PCP - General Pediatrics 03/31/12 09/01/24 Steven Garcia MD [address] [place] [address] PCP - General Family Medicine 09/02/24 Mark Amaral, JOSEPHC [address] [place] [address] Covering Provider Orthopedic 04/05/12 documented as of this encounter
--- OUTSIDE RECORDS SUMMARY | 2024-10-02 07:42 | XMS_ITS | Continuity of Care Document ---
Author Organization [facility] Address [address] [place] [address] Phone Care Team Providers Care Rn Cardiac Name Role Phone Shearer OD, Marcin Unavailable Unavailable Procedures Procedure Date Eye Exam & Treatment Refraction CL Replacement - Vistakon Disp W/BW Soft Tax - Medical No Charge Contact Lens Check Eye Exam & Treatment Refraction Advance Directives Directive Yes / No Effective Date File Name No Information Encounters Encounter Description Practice Location Reason(s) For Visit Diagnoses Date Provider Providers Copied on Encounter [facility], [address] [place] [address] [address], [place], [place], [id number], tel:[phone] [facility] No Information 9-200 9 Shearer OD Marcin. [address] , [address], [place], [address], [place]. tel:[phone] [facility], [address] [place] [address] [address], [place], [place], [id number], tel:[phone] [facility] No Information 1-200 7 Shearer OD Marcin. [address] , [address], [place], [address], [place]. tel:[phone] [facility], [address], [place], [place], [address], tel:[phone] [facility] No Information Nov-1 3-200 7 Shearer OD Marcin. [address] , [address], [place], [place], [facility], . tel:[phone] [facility], [address], [place], [place], [id number], tel:[phone] [facility] No Information Nov-0 6-200 7 Shearer OD Marcin. [address] , [address], [place], [address], . tel:[phone] Family History Family Member Type Diagnosis Age At Onset No Information Payers Payer name Insurance type Covered constitution party ID Authoriza tion(s) No Information Social History [...]
--- OUTSIDE RECORDS SUMMARY | 2024-10-02 07:42 | XMS_ITS | Clinical Summary ---
Author Organization [facility] Address [address] [place] [address] Phone Care Team Providers Care Transport Medic Name Role Phone Jayden Noriega APRN, CNP [...] Department Care Team Description 09/21/2024 Results Follow-Up [facility] [address] [place] [address] Floyd Hsieh MD THYROID STIMULATING HORMONE (TSH), THYROXINE (T4) FREE, TRIIODOTHYRININE (T3) TOTAL, ADRENOCORTICOTROPIC HORMONE, P, WEBB ACTH 09/13/2024 9:15 AM CDT Office Visit [facility] [address] [place] [address] Floyd Hsieh MD Adrenal insufficiency (Merlin's disease) (HCC) (Primary Dx); Acquired hypothyroidism Discharge Disposition: Discharged to home or Selfcare 09/13/2024 Telephone [facility] [address] [place] [address] Floyd Hsieh MD Results; Medication Management 09/13/2024 Travel 08/15/2024 Refill [facility] [address] [place] [address] Floyd Hsieh MD Medication Refill 07/16/2024 Refill [facility] [address] [place] [address] Floyd Hsieh MD Medication Refill from Last [...] Sex Assigned at Female 03/08/2023 9:40 AM TELEPHONIC CASE MANAGER Legal Sex Female 10:15 PM TELEPHONIC CASE MANAGER Gender Identity Female 03/08/2023 9:40 AM TELEPHONIC CASE MANAGER Sexual Orientation Straight 03/08/2023 9: 40 AM TELEPHONIC CASE MANAGER Last Filed Vital Signs Vital Sign [...] st Contact Info) Description 01/15/2025 9:00 AM TELEPHONIC CASE MANAGER Office Visit [facility] - Endocrinology [facility] [address] [place] [address] Floyd Hsieh MD [address] [address] Health Maintenance Due Date Last Done Comments [...] 9:44 AM CDT Acquired hypothyroidism Adrenal insufficiency (Rosebud's disease) (HCC) TRIIODOTHYRININE (T3) TOTAL Routine 09/13/2024 9:44 AM CDT Acquired hypothyroidism THYROXINE (T4) FREE Routine 09/13/2024 9 :44 AM CDT Acquired hypothyroidism THYROID STIMULATING HORMONE (TSH) Routine 09/13/2024 9:44 AM CDT Acquired hypothyroidism from Last 3 Months Results * (ABNORMAL) ADRENOCORTICOTROPIC HORMONE, P, WEBB ACTH (09/13/2024 9:44 AM CDT) ADRENOCORTICOTROPIC HORMONE (ACTH) 348(H) pg/mL 09/14/2024 10:31 AM CDT [employer] Comment: REFERENCE VALUE 7.2-63 (a.m. collection) Test Performed by: [facility] [address] [place] [address] [employer] Trader: Leo Raymundo Ph.D.; CLIA# [id number] Blood Venipuncture / Unknown 09/13/2024 9:44 AM CDT 09/13/2024 9:48 AM CDT us Floyd Hsieh MD LAB SEND OUTS Final Result [facility] * THYROXINE (T4) FREE (09/13/2024 9:44 AM CDT) T4 FREE 1.2 0.7 - 1.9 ng/dL 09/13/2024 11:04 AM CDT [facility] Blood Venipuncture / Unknown 09/13/2024 9:44 AM CDT 09/13/2024 10:21 AM CDT us Floyd Hsieh MD CHEMISTRY ORDERABLES Final Resul t Performing Organization Address [facility] Co de Phone Number [facility] [address] [place] [address] * (ABNORMAL) THYROID STIMULATING HORMONE (TSH) (09/13/2024 9:44 AM CDT) TSH 5.244(H) 0.300 - 5.000 mIU/L 09/13/2024 11:04 AM CDT [facility] Blood Venipuncture / Unknown 09/13/2024 9:44 AM CDT 09/13/2024 10:21 AM CDT us Floyd Hsieh MD CHEMISTRY ORDERABLES Final Resul t Performing Organization Address City/[facility]/ZIP Co de Phone Number [facility] [address] [place] [address] * TRIIODOTHYRININE (T3) TOTAL (09/13/2024 9:44 AM CDT) T3 101 40 - 193 ng/dL 09/13/2024 3:30 PM CDT [facility] Blood Venipuncture / Unknown 09/13/2024 9:44 AM CDT 09/13/2024 10:21 AM CDT us Floyd Hsieh MD CHEMISTRY ORDERABLES Final Resul t [facility] [address] [place] [address], [place] from Last 3 Months Insurance [email or web address] Advance Directives * Full Code (Latest Code Status on File) Date Activated Date Inactivated Comments 09/22/2021 3:36 PM 09/24/2021 3:33 PM CPR-Full Treat ment: FULL ARREST: Attempt Resuscitation/CPR wit intubation and mechanical ventilation. PRE-ARREST: Use entire range of life support measures to stabilize the patient. Care Teams Transport Medic Relationship Specialty Start Date End Date Jayden Noriega APRN, DEPENDENCY COUNSELOR [address] [place] [address] PCP - General Advanced Practice Nurse 01/04/20 Floyd Hsieh MD [address] [address] Consulting Physician Endocrinology 10/23/21
--- OUTSIDE RECORDS SUMMARY | 2024-10-02 07:42 | XMS_ITS | Clinical Summary ---
Author Organization [facility] Address [facility] [place] [address] Care Team Providers Care Hair Specialist Name Role Phone None, Provider MD Primary [...] complete this topic Insurance [employer] Care Teams Hair Specialist Relationship Specialty Start Date End Date None, Provider, MD PCP - General UNKNOWN PHYSICIAN SPECIALTY 09/19/23
--- OUTSIDE RECORDS SUMMARY | 2024-10-02 07:42 | XMS_ITS | Encounter Summary ---
Author Organization [facility] Address [address] [place] [address] Care Team Providers Care Shuttle Repairer Name Role Phone Maureen Rodriguez MD Primary Care Provider [phone] Mark Amaral PA-C Unavailable [phone] Steven Garcia MD Primary Care Provider [phone] Reason for Visit * Reason Onset Date Comments Request Lab Order 03/07/2015 Mom is request ing an order for labs to be sent lab on file. Encounter Details Date Type Department Care Team (Late st Contact Info) Description 03/07/2015 Telephone [facility] Pediatrics - Endocrinology [address] [place] [address] Delma Solis MD [address] [place] [phone] Request Lab Order (Mom is requesting an [...] on file Legal Sex Female 9:56 AM ED MANAGER Gender Identity Not on file Sexual [...] on filedocumented in this encounter Care Teams Shuttle Repairer Relationship Specialty Start Date End Date Maureen Rodriguez MD PCP - General Pediatrics 03/31/12 09/01/24 Steven Garcia MD [address] [place] [address] PCP - General Family Medicine 09/02/24 Mark Amaral, PAAshleeC [address] [place] [address] Covering Provider Orthopedic 04/05/12 documented as of this encounter
--- OUTSIDE RECORDS SUMMARY | 2024-10-02 07:42 | XMS_ITS | Clinical Summary ---
Author Organization [facility] Address [address] [place] [address] Care Team Providers Care Draw Machine Operator Name Role Phone Mark Amaral PA-C Unavailable [phone] Steven Garcia MD Primary Care Provider [phone] Source Comments [facility],non-owned Affiliates and Associated Physician Practices is amultiple site organization consisting of ambulatory clinics and hospital sitesin [place], [place], [place] and [place]. This disclosure is being madepursuant to the Care Everywhere program and may not contain all information available regarding this patient. Last updated 17.[facility] Allergies No known active allergies Medications * Be aware that medications may not be up to date on this document. Alwaysverify current medications with the patient. fludrocortison e (FLORINEF) 0.1 MG tabletIndicati ons:[place] disease (HCC) Take 1 tab in AM [...] e hydrocortisone sodium succinate PF (Solu-CORTEF) injectionIndic ations:[place] 's disease (HCC) 100 (one hundred) mg [...] Depression 09/22/2021 Anxiety 09/22/2021 Chronic headache 12/31/2016 [place]'s disease 10/17/2013 Overview (07/08/2023): Rafael was diagnosed [...] which were similar to her symptoms of [place]'s disease. At her visit in September 2014, [...] recent adrenal crisis, treated with steroids by commuter pilot recent adrenal crisis, treated with steroids by commuter pilot- 05/05 9AM [facility] & Consult Assessment & Plan (03/25/2015 5:03 PM SILO MAN): Rafael has [place]'s disease which clinically seems well controlled. Continue [...] 12:43 PM CDT): Rafael has poorly controlled [place]'s disease due to medication noncompliance and lack [...] months. Assessment & Plan (04/01/2014 3:28 PM SILO MAN): Rafael is a 13 year old girl with [place]'s disease/primary adrenal insufficiency. - Wean maintenance hydrocortisone [...] months Assessment & Plan (01/09/2014 8:23 PM SILO MAN): 1. Cortef (5 mg tablet) 10 mg [...] dependent) at all times. 7. Child with [place]'s disease and at risk of adrenal insufficiency [...] I will contact Rafael's mother by telephone ([phone]) when I have received a copy of these test results and make the necessary medication dose adjustments. 10. Return appointment in two months. 11. I reviewed my impression and recommendations with Rafael's mother at the time of the office visit and she was in agreement. Assessment & Plan (12/29/2013 4:42 PM SILO MAN): Clinically stable. 1. Cortef (5 mg tablet) [...] dependent) at all times. 6. Child with [place]'s disease and at risk of adrenal insufficiency [...] I will contact Rafael's mother by telephone ([phone]) when I have received a copy of these test results and make the necessary medication dose adjustments. 9. Return appointment in three months. 10. I reviewed my impression and recommendations with Rafael's mother at the time of the office visit and she was in agreement. Assessment & Plan (10/17/2013 11:19 AM CDT): Rafael is a 13 year old girl with [place]'s disease. Screening for thyroid, celiac and hypocalcemia [...] (07/08/2023): MF Referral faxed 06/23 [facility] Scheduled [facility] 07/07 US & Consult CORRE[place]: abnormality in pr egnancy (HCC) - Bilateral club feet 07/08/2023 11/16/2023 Overview (09/14/2023): Images from the original note were not included. Care Provider: Dr. Adolph [place] [facility] [place] consultants involved: RN-Aníbal; Ped Ortho- Moses Tijerina Diagnosis: Bilateral club feet Planned surveillance: Ortho consult only - Patient was not seen by MFM in [place] follow up per Pediatric Orthopedics: I invited Ms. Pat to contact us once the baby has been born to let us know whether the baby has a clubfoot or not. If the baby does, we would be happy to evaluate the baby and start casting at one to two months of age. To schedule, patient should call [phone], option 4 Autopsy Pathologist: Care plan based on evaluation and is subject to change based on assessment. See Images or Cardiac under Chart Review for US/ ECHO/ MRI reports. Encounters Date Type Department Care Team Description 09/01/2024 10:31 PM CDT - 09/02/2024 12:54 AM CDT Emergency [facility] EMERGENCY DEPARTMENT [address] [place] [address] Jose Alberto Reilly MD Chest pain, unspecified type; Acute nonintractable headache, unspecified headache type Discharge Disposition: Home or Self Care 09/01/2024 Travel from Last 3 Months Immunizations Immunization Administration Dates Next Due INFLUENZA VACCINE, QUADR. (F LUZONE; FLULAVAL; FLUARIX; AFLURIA QUADRIVALENT; 6MO+), 0.5 ML (IIV4) 12/12/2021 Family History Medical History Relation Name Comments [place]<65(female) Maternal Grandmother Other Paternal Grandfather palpita tions Arrhythmia Neg Hx CVA<55(male) Neg Hx CVA<65(female) Neg Hx Cardiomyopathy Neg Hx Congenital Heart defect Neg Hx Heart Surgery Neg Hx Long QT Syndrome Neg Hx [place]<55(male) Neg Hx Marfan Syndrome Neg Hx Pacemaker [...] care, and heating? Not very hard 09/08/2023 [facility] [place] of Occupat ional Health - Occupational Stress [...] place to sleep or slept in a fpc (including now)? No 09/08/2023 [place] Depression Scale Answer Date Recorded [place] Depression Scale Total 7 05/06/2023 The thought of harming myself has occurred to me . Hardly ever 05/06/2023 Comments No Sex and Gender Information Value Date Recorded Sex Assigned at Not on file Legal Sex Female 9:56 AM SILO MAN Gender Identity Not on file Sexual Orientation [...] SENSITIVE REFLEX 1HOUR (09/01/2024 7:21 PM CDT) [facility] Troponin I High Sensitive <3 <=14 ng/L 09/01/2024 8:01 PM CDT [facility] Delta Troponin I HS 09/01/2024 8:01 PM CDT [facility] Comment:Result exceeds linea rity range. A delta value is unable to be calculated. Blood BLOOD SPECIMEN / Unknown Venipuncture / Unknown 09/01/2024 7:21 PM CDT 09/01/2024 7:26 PM CDT us Cyndy Alvarez PA-C LAB - CHEMISTRY ORDERABLES Final Result [facility] [address] [place] [address], [place] [phone] * TROPONIN-I HIGH SENSITIVE BASELINE + 1HR (09/01/2024 6:16 PM CDT) [facility] Troponin I High Sensitive <3 <=14 ng/L 09/01/2024 7:13 PM CDT [facility] Blood BLOOD SPECIMEN / Unknown Venipuncture / Unknown 09/01/2024 6:16 PM CDT 09/01/2024 6:22 PM CDT us Cyndy Alvarez PA-C LAB - CHEMISTRY ORDERABLES Final Result Performing Organization Address City/[facility]/ZIP Co de Phone Number [address] [address], [facility] [phone] * TSH REFLEX FREE T4 (09/01/2024 6:16 PM CDT) Pathologist [facility] TSH 2.960 0.350 - 4.940 uIU/mL 09/01/2024 7:13 PM CDT [facility] Blood BLOOD SPECIMEN / Unknown Venipuncture / Unknown 09/01/2024 6:16 PM CDT 09/01/2024 6:22 PM CDT us Holly Tuttle PUBLIC HEALTH VETERINARIAN-DEVELOPMENT EDITOR LAB - CHEMISTRY ORDE RABLES Final Result Performing Organization Address [facility]/ZIP Co de Phone Number [address] [address], [facility] [phone] * CBC W AUTO DIFFERENTIAL (09/01/2024 6:16 PM CDT) WBC 9.2 4.0 - 10.7 x10E9/L 09/01/2024 6:26 PM CDT [facility] RBC Count 3.90 3.90 - 5.20 x10E12/L 09/01/2024 6:26 PM CDT [facility] Hemoglobin 12.2 11.9 - 15.8 g/dL 09/01/2024 6:26 PM CDT [facility] Hematocrit 35.5 34.8 - 46.1 % 09/01/2024 6:26 PM CDT [facility] MCV 91.0 80.0 - 98.0 fL 09/01/2024 6:26 PM CDT [facility] MCH 31.3 26.7 - 33.6 pg 09/01/2024 6:26 PM [facility] MCHC 34.4 31.7 - 36.3 g/dL 09/01/2024 6:26 PM [facility] RDW-CV 12.7 11.3 - 14.8 % 09/01/2024 6:26 PM [facility] Platelet Count 269 150 - 420 x10E9/L 09/01/2024 6:26 PM [facility] MPV 10.4 7.8 - 11.4 fL 09/01/2024 6:26 PM [facility] Neutrophil % 68.0 41.0 - 74.0 % 09/01/2024 6:26 PM [facility] Lymphocyte % 25.0 17.0 - 47.0 % 09/01/2024 6:26 PM [facility] Monocyte % 5.7 3.0 - 11.0 % 09/01/2024 6:26 PM [facility] Eosinophil % 0.6 0.0 - 7.0 % 09/01/2024 6:26 PM [facility] Basophil % 0.4 0.0 - 1.6 % 09/01/2024 6:26 PM [facility] Immature Granulocytes % 0.3 0.0 - 1.0 % 09/01/2024 6:26 PM [facility] Neutrophil Absolute 6.27 1.60 - 7.50 x10E9/L 09/01/2024 6:26 PM [facility] Lymphocyte Absolute 2.31 1.00 - 4.40 x10E9/L 09/01/2024 6:26 PM [facility] Monocyte Absolute 0.53 0.15 - 1.00 x10E9/L 09/01/2024 6:26 PM [facility] Eosinophil Absolute 0.06 0.00 - 0.60 x10E9/L 09/01/2024 6:26 PM [facility] Basophil Absolute 0.04 0.00 - 0.13 x10E9/L 09/01/2024 6:26 PM [facility] Blood BLOOD SPECIMEN / Unknown Venipuncture / Unknown 09/01/2024 6:16 PM CDT 09/01/2024 6:22 PM CDT us Cyndy Alvarez PA-C LAB - HEMATOLOGY ORDERABLES Final Result [facility] [address] [place] [address], [facility] [phone] * COMPREHENSIVE METABOLIC PANEL (09/01/2024 6:16 PM CDT) BUN 14 7 - 26 mg/dL 09/01/2024 6:55 PM [facility] Creatinine 0.86 0.56 - 0.96 mg/dL 09/01/2024 6:55 PM [facility] Sodium 139 136 - 145 mmol/L 09/01/2024 6:55 PM [facility] Potassium 3.9 3.5 - 4.5 mmol/L 09/01/2024 6:55 PM [facility] Chloride 107 98 - 107 mmol/L 09/01/2024 6:55 PM [facility] CO2 25 22 - 29 mmol/L 09/01/2024 6:55 PM [facility] Glucose 89 70 - 99 mg/dL 09/01/2024 6:55 PM [facility] Calcium 9.0 8.4 - 10.2 mg/dL 09/01/2024 6:55 PM [facility] Protein Total 6.8 6.0 - 8.3 g/dL 09/01/2024 6:55 PM [facility] Albumin 4.4 3.4 - 5.0 g/dL 09/01/2024 6:55 PM [facility] Bilirubin Total 0.3 0.2 - 1.2 mg/dL 09/01/2024 6:55 PM [facility] Alkaline Phosphatase 63 40 - 150 U/L 09/01/2024 6:55 PM [facility] ALT 7 5 - 55 U/L 09/01/2024 6:55 PM [facility] AST 13 5 - 34 U/L 09/01/2024 6:55 PM CDT [facility] Anion Gap 7 6 - 16 09/01/2024 6:55 PM [facility] BUN/Creatinine Ratio 16 7 - 23 09/01/2024 6:55 PM T [facility] Osmolality Calculated 288 275 - 295 mOsm/kg 09/01/2024 6:55 PM T [facility] Albumin/Globulin Ratio 1.8 1.1 - 2.3 09/01/2024 6:55 PM [facility] eGFR by CKD-EPI >90 >=90 mL/min/1.7 3 m2 09/01/2024 6:55 PM [facility] Comment:Estimated Glomerular Filtration Rate (eGFR) calculated using the CKD-EPI Creatinine Equation (2020), per the National Kidney Foundation and [place] Society of Nephrology recommendations. Blood BLOOD SPECIMEN / Unknown Venipuncture / Unknown 09/01/2024 6:16 PM CDT 09/01/2024 6:22 PM CDT Cyndy Alvarez PA-C LAB - CHEMISTRY ORDERABLES Final Result [facility] [address] [place] [address], [facility] [phone] * HCG BETA BLOOD QUANTITATIVE (09/01/2024 6:16 PM CDT) Pathologist [facility] Beta-hCG Total Quantitative <3 mIU/mL 09/01/2024 7:15 PM T [facility] Comment: HCG Numeric Result Interpretation: Non- [...] PA-C LAB - CHEMISTRY ORDERABLES Final Result [address] [address], [facility] [phone] * MAGNESIUM BLOOD (09/01/2024 6:16 PM CDT) Magnesium 1.9 1.6 - 2.6 mg/dL 09/01/2024 6:55 PM CDT [facility] Blood BLOOD SPECIMEN / Unknown Venipuncture / Unknown 09/01/2024 6:16 PM CDT 09/01/2024 6:22 PM CDT us Cyndy Alvarez PA-C LAB - CHEMISTRY ORDERABLES Final Result Performing Organization Address [facility] [[email or web address]] Co de Phone Number [address] [address], [facility] [phone] * XR CHEST 2VW (09/01/2024 5:38 PM CDT) Anatomical Region Laterality Modality Chest Digital Radiogra phy 09/01/2024 5:56 PM CDT Narrative 09/02/2024 6:09 AM CDT PROCEDURE: XR CHEST 2VW, DATE/TIME OF EXAM: 09/01/2024 5:38 PM, LOCATION [facility] INDICATION: R07.9: Chest pain, unspecified type ADDITIONAL CLINICAL INFORMATION: Ordering Provider Reason For Exam: ro effusion vs other COMPARISON: Chest x-ray 09/15/2013 TECHNIQUE: PA and Lateral radiograph of the chest. FINDINGS/IMPRESSION: The lungs are clear. There is no focal consolidation, pleural effusion, or pneumothorax. The cardiomediastinal silhouette is normal. The visible bony thorax is intact. Report dictated by Vahe Villarreal MD, (Manager Fine). I, Bird Mon MD have personally reviewed and interpreted this examination/study. > Interpreting Provider: Bird Mon MD on 09/02/2024 6:09 AM Procedure Note Bird Mon MD - 09/02/2024 PROCEDURE: XR CHEST 2VW, DATE/TIME OF EXAM: 09/01/2024 5:38 PM, LOCATION [facility] INDICATION: R07.9: Chest pain, unspecified type ADDITIONAL CLINICAL INFORMATION: Ordering Provider Reason For Exam: ro effusion vs other COMPARISON: Chest x-ray 09/15/2013 TECHNIQUE: PA and Lateral radiograph of the chest. FINDINGS/IMPRESSION: The lungs are clear. There is no focal consolidation, pleural effusion,or pneumothorax. The cardiomediastinal silhouette is normal. The visiblebony thorax is intact. Report dictated by Vahe Villarreal MD, (Manager Fine). I, Bird Mon MD have personally reviewed [...] (Bezet) 408 ms [facility] MUSE Calculated P Mcgee 64 degrees [facility] MUSE Calculated R Mcgee 84 degrees [facility] MUSE Calculated T Mcgee 60 degrees [facility] MUSE Interpretation EKG NORMAL SINUS RHYTHM WITH SINUS ARRHYTHMIA POSSIBLE LATERAL INFARCT , AGE UNDETERMINED ABNORMAL ECG NO PREVIOUS ECGS AVAILABLE Confirmed by ED STEINBERG MD ([id number]) on 09/02/2024 2:50:20 PM H MUSE 09/01/2024 5:26 PM CDT 09/02/2024 2:50 PM CDT us Royer Hand MD ECG ORDERABLES Edited Result - Final [facility] MUSE from Last 3 Months Insurance AETNA AETNA AETNA Care Teams Draw Machine Operator Relationship Specialty Start Date End Date Steven Garcia MD [address] [place] [phone] PCP - General Family Medicine 09/02/24 Mark Amaral, PAAshleeC [address] [place] [address] Covering Provider Orthopedic 04/05/12
--- OUTSIDE RECORDS SUMMARY | 2024-10-02 07:42 | XMS_ITS | Encounter Summary ---
Author Organization [facility] Address [address] [place] [address] Care Team Providers Care Drinking Water Technician Name Role Phone Maureen Rodriguez MD Primary Care Provider [phone] Mark Amaral PA-C Unavailable [phone] Steven Garcia MD Primary Care Provider [phone] Reason for Visit * Reason Onset Date Comments Results 10/06/2013 mom called for r courtney Encounter Details Date Type Department Care Team (Late st Contact Info) Description 10/06/2013 Telephone [facility] Pediatrics - Endocrinology [address] [place] [id number] Delma Solis MD [address] [place] [address] [phone] Results (mom called for results) Social History Tobacco Use Types Packs/Day Years Used Date Smoking Tobacco: Never Alcohol Use Standard Drinks/Week Comments No 0 (1 standard drink = 0.6 oz pur e alcohol) Comments No Sex and Gender Information Value Date Recorded Sex Assigned at Not on file Legal Sex Female 9:56 AM SALES REPRESENTATIVE ADVERTISING Gender Identity Not on file Sexual Orientation [...] on filedocumented in this encounter Care Teams Drinking Water Technician Relationship Specialty Start Date End Date Maureen Rodriguez MD PCP - General Pediatrics 03/31/12 09/01/24 Steven Garcia MD [address] [place] [address] PCP - General Family Medicine 09/02/24 Mark Amaral, JOSEPHC [address] [place] [address] Covering Provider Orthopedic 04/05/12 documented as of this encounter
--- OUTSIDE RECORDS SUMMARY | 2024-10-02 07:42 | XMS_ITS | Encounter Summary ---
Author Organization [facility] Address [address] [place] [address] Care Team Providers Care Systems Architecture Analyst Name Role Phone Maureen Rodriguez MD Primary Care Provider [phone] Mark Amaral-C Unavailable [phone] Steven Garcia MD Primary Care Provider [phone] Reason for Visit * Reason Onset Date Comments Refill Request 05/25/2018 injectable stres s dose Update 05/25/2018 Rafael was vomit ing yesterday, given injectable stress dose. Please call mom to discuss next appt and transfer of care due to age Encounter Details Date Type Department Care Team (Late st Contact Info) Description 05/25/2018 Telephone [facility] Pediatrics - Endocrinology [address] [place] [address] Kirsten Menjivar Refill Request (injectable stress dose); [...] on file Legal Sex Female 9:56 AM TIRE SERVICER Gender Identity Not on file Sexual Orientation [...] on filedocumented in this encounter Care Teams Systems Architecture Analyst Relationship Specialty Start Date End Date Maureen Rodriguez MD PCP - General Pediatrics 03/31/12 09/01/24 Steven Garcia [place] [address] [place] [address] [place] [address] PCP - General Family Medicine 09/02/24 Mark Amaral, PAAshleeC [address] [place] [phone] Covering Provider Orthopedic 04/05/12 documented as of this encounter
--- OUTSIDE RECORDS SUMMARY | 2024-10-02 07:42 | XMS_ITS | Encounter Summary ---
Author Organization [facility] Address [address] [place] [address] Care Team Providers Care Seismograph Recorder Name Role Phone Maureen Rodriguez MD Primary Care Provider [phone] Mark Amaral-C Unavailable [phone] Steven Garcia MD Primary Care Provider [phone] Reason for Visit * Reason Onset Date Comments Results 06/23/2017 Please give mom a call with lab results. Encounter Details Date Type Department Care Team (Late st Contact Info) Description 06/23/2017 Telephone [facility] Pediatrics - Endocrinology [address] [place] [phone] Delma Solis MD [address] [place] [address] [phone] Results (Please give mom a call with [...] on file Legal Sex Female 9:56 AM NATURE PHOTOGRAPHER Gender Identity Not on file Sexual Orientation [...] on filedocumented in this encounter Care Teams Seismograph Recorder Relationship Specialty Start Date End Date Maureen Rodriguez MD PCP - General Pediatrics 03/31/12 09/01/24 Steven Garcia [place] [address] [place] [phone] PCP - General Family Medicine 09/02/24 Mark Amaral, JOSEPHC [address] [place] [address] Covering Provider Orthopedic 04/05/12 documented as of this encounter
--- OUTSIDE RECORDS SUMMARY | 2024-10-02 07:42 | XMS_ITS | Clinical Summary ---
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 Encounters Date Type Department Care Team Description 09/25/2024 Telephone [facility] Cardiology [address] [place] [address] Suraj Hutchison MD Records Needed from Last 3 Months Medical History Medical History Date Comments Personal history of other di seases of the nervous system and sense organs History of amblyop ia - (Added by TW Conv) Strabismic amblyopia Strabismic amblyopia - (Added by TW Conv) [place]'s disease (HCC) Diabetes mellitus (HCC) Mazin's disease [...] staff should administer the PHQ-9) 0 10/20/2023 [facility] of Occupat ional [facility] - Occupational Stress Questionnaire Answer Date Recorded [...] any time in the past 12 m [facility], were you homeless or living in a fci (including now)? No 10/20/2023 Personal Safety Answer Date Recorded Have you ever been in or are you currently in a harmful physical or emotional relationship or is someone making you feel afraid or unsafe? Denies 10/20/2023 Comments No Sex and Gender Information Value Date Recorded Sex Assigned at Not on file Legal Sex Female 5:01 AM SPECIAL NEEDS BABYSITTER Gender Identity Not on file Sexual Orientation [...] Insurance AETNA SELECT AETNA SELECT Care Teams Supervisor Knitting Relationship Specialty Start Date End Date Steven Garcia MD [address] [place] [address] PCP - General Family Medicine 09/25/24
--- OUTSIDE RECORDS SUMMARY | 2024-10-02 07:42 | XMS_ITS | Encounter Summary ---
Author Organization [facility] Address [address] [place] [address] Care Team Providers Care Rubber Block Layer Name Role Phone Maureen Rodriguez MD Primary Care Provider Mark Amaral-Johnny Unavailable [phone] Steven Garcia MD Primary Care Provider [phone] Reason for Visit * Reason Onset Date Comments Letter for School or Work 04/08/2016 2nd re quest: Mother is requesting a letter stating Rafael should NOT participate in gym for the school year. Please fax to [phone], [place]. Encounter Details Date Type Department Care Team (Late st Contact Info) Description 04/08/2016 Telephone [facility] Pediatrics - Endocrinology [address] [place] [address] [phone] Delma Solis MD [address] [place] [address] [phone] Letter for School or Work (2nd request: Mother is requesting a letter stating Rafael should NOT participate in gym for the school year. Please fax to [phone], [place]. 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
--- OUTSIDE RECORDS SUMMARY | 2024-10-02 07:43 | XMS_ITS | Encounter Summary ---
Author Organization [facility] Address [address] [place] [address] Care Team Providers Care Clerical Production Worker Name Role Phone Maureen Rodriguez MD Primary Care Provider [phone] Mark Amaral PA-C Unavailable [phone] Steven Garcia MD Primary Care Provider [phone] Reason for Visit * Reason Onset Date Comments Request Lab Order 06/19/2014 Appt on 06/21 , mom need lab orders for renin,Dhea, and acth put in for [facility] Encounter Details Date Type Department Care Team (Late st Contact Info) Description 06/19/2014 Telephone [facility] Pediatrics - Endocrinology [address] [place] [address] [phone] Delma Solis MD [address] [place] [address] [phone] Request Lab Order (Appt on 06/21 , [...] on file Legal Sex Female 9:56 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
--- OUTSIDE RECORDS SUMMARY | 2024-10-02 07:43 | XMS_ITS | Encounter Summary ---
Author Organization [facility] Address [address] [place] [address] Care Team Providers Care Rating Specialist Name Role Phone Maureen Rodriguez MD Primary Care Provider [phone] Mark Amaral-C Unavailable [phone] Steven Garcia MD Primary Care Provider [phone] Reason for Visit * Reason Onset Date Comments Results 02/19/2014 Mom called to [facility] lab results. Please call to discuss. Encounter Details Date Type Department Care Team (Late st Contact Info) Description 02/19/2014 Telephone [facility] Pediatrics - Endocrinology [address] [place] [address] Delma Solis MD [address] [place] [address] [phone] Results (Mom called to get lab results. Please call to discuss. ) Social History Tobacco Use Types Packs/Day Years Used Date Smoking Tobacco: Never Alcohol Use Standard Drinks/Week Comments No 0 (1 standard drink = 0.6 oz pur e alcohol) Comments No Sex and Gender Information Value Date Recorded Sex Assigned at Not on file Legal Sex Female 9:56 AM FAMILY PSYCHOLOGIST Gender Identity Not on file Sexual Orientation [...] follow up for end of February 2014. LY PSYCHOLOGIST documented in this encounter Plan of Treatment Not on file documented as of this encounter Visit Diagnoses Diagnosis Adrenogenital disorders (HCC)- Primary Adrenogenital disorders documented in this encounter Care Teams Rating Specialist Relationship Specialty Start Date End Date Maureen Rodriguez MD PCP - General Pediatrics 03/31/12 09/01/24 Steven Garcia MD [address] [place] [address] PCP - General Family Medicine 09/02/24 Mark Amaral, JOSEPHC [address] [place] [address] Covering Provider Orthopedic 04/05/12 documented as of this encounter
--- OUTSIDE RECORDS SUMMARY | 2024-10-02 07:43 | XMS_ITS | Encounter Summary ---
Author Organization [facility] Address [address] [place] [address] Care Team Providers Care Mud Analysis Operator Name Role Phone Maureen Rodriguez MD Primary Care Provider [phone] Mark Amaral PA-C Unavailable [phone] Steven Garcia MD Primary Care Provider [phone] Reason for Visit * Reason Onset Date Comments Question 03/15/2014 Mom [place] regarding treatment. She was supposed to call some time ago, but had a in the family. Encounter Details Date Type Department Care Team (Late st Contact Info) Description 03/15/2014 Telephone 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
--- OUTSIDE RECORDS SUMMARY | 2024-10-02 07:43 | XMS_ITS | Encounter Summary ---
Author Organization [facility] Address [address] [place] [address] Care Team Providers Care Web Development Intern Name Role Phone Maureen Rodriguez MD Primary Care Provider [phone] Mark Amaral PA-C Unavailable [phone] Steven Garcia MD Primary Care Provider [phone] Reason for Visit * Reason Onset Date Comments Refill Request 07/04/2014 Please call in D ex injection Encounter Details Date Type Department Care Team (Late st Contact Info) Description 07/04/2014 Telephone [facility] Pediatrics - Endocrinology [address] [place] [address] Delma Solis MD [address] [place] [address] [phone] Refill Request (Please call in Dex injection) Social History Tobacco Use Types Packs/Day Years Used Date Smoking Tobacco: Never Alcohol Use Standard Drinks/Week Comments No 0 (1 standard drink = 0.6 oz pur e alcohol) Comments No Sex and Gender Information Value Date Recorded Sex Assigned at Not on file 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
[2024-10-02] MEDS: ONDANSETRON INJ 4 MG/2 ML VIAL IV PUSH (07:54)
[2024-10-02] MEDS: SODIUM CHLORIDE 0.9% IV 1,000 ML 999 ML IV CONT (07:54)
[2024-10-02] MEDS: KETOROLAC 15 MG/ML VIAL (*BKC) IV PUSH (07:54)
[2024-10-02 08:04] LABS: BEDSIDEPREGUCG Negative (Negative)
[2024-10-02 08:07] LABS: Hematocrit 36.0 % (37.0-47.0); Hemoglobin 12.2 g/dL (12.0-15.0); Immature Granulocyte Percent A 0.3 % (0-0.5); Lymphocytes Absolute Auto 1.98 K/mm3 (0.9-3.2); Mean Corpuscular HGB Conc 33.9 g/dl (32-36); Mean Corpuscular Hemoglobin 31.3 pg (26-34); Mean Corpuscular Volume 92.3 fl (80-100); Nucleated Red Blood Cells Absolute Auto 0.000 K/mm3 (0.0-0.012); Nucleated Red Blood Cells Perc 0.0 % (0.0-0.2); Platelet Count Result 228 k/mm3 (150-375); Red Blood Count 3.90 M/mm3 (4.2-5.4); White Blood Count 11.0 K/mm3 (4.5-10.0)
[2024-10-02 08:12] LABS: Alanine Aminotransferase 9 U/L (6-35); Albumin Level 4.2 g/dL (3.5-5.1); Alkaline Phosphatase 58 U/L (38-126); Anion Gap 7 mmol/L (4-12); Aspartate Amino Transferase 22 U/L (14-36); Bilirubin,Total 0.5 mg/dL (0.2-1.3); Blood Urea Nitrogen 11 mg/dL (7-17); Calcium 8.9 mg/dL (8.4-10.2); Carbon Dioxide 27 mmol/L (22-30); Chloride 104 mmol/L (98-107); Estimated CRCL calculation 93 ml/min; Estimated Glomerular Filt Rate > 60; Glucose 86 mg/dL (65-110); Lipase 36 U/L (23-300); Potassium 3.4 mmol/L (3.4-5.0); Sodium 138 mmol/L (137-145); Total Protein 7.3 g/dL (6.3-8.2)
--- NOTE | 2024-10-02 08:57 | ED.GENADULT ---
HPI - General Adult General Chief complaint: Urogenital-Female Stated complaint: uti x 4 days Time Seen by Provider: 10/02/24 07:37 History of Present Illness HPI narrative: Patient is 24-year-old female who presents emergency department with chief complaint of urinary tract infection. Patient reports last 4 days she has had flank pain and abdominal cramping. The patient states she has been taking Tylenol without relief the patient states she has had problems with urinary tract infections and reports that she has had all been nausea with this as well patient denies fever reports that she has had no prior hospitalizations for urinary tract infections. Related Data Home Medications ?Medication ?Instructions ?Recorded ?Confirmed ?Last Taken ?Type fludrocortisone 0.1 mg tablet 0.1 mg PO BID 01/28/19 09/20/24 11/02/23 20:00 History hydrocortisone 5 mg tablet 15 mg PO BID 12/15/23 09/20/24 Unknown History levothyroxine 112 mcg tablet 112 mcg PO DAILY 09/20/24 09/20/24 Unknown History Allergies Allergy/AdvReac Type Severity Reaction Status Date / Time prochlorperazine (From AdvReac Mild Hives Verified 10/02/24 07:36 Compazine) Review of Systems Review of Systems: A 10 system review of systems was completed on the patient and is negative except for what is stated in the HPI. Nursing and ancillary documentation was reviewed. [facility] Past Medical History Medical History Leukocytosis Bilateral edema of lower extremity BMI 27.0-27.9,adult BMI 32.0-32.9,adult BMI 28.0-28.9,adult Adult BMI 26.0-26.9 kg/sq m COVID-19 SARS-CoV-2 positive BMI 25.0-25.9,adult BMI 24.0-24.9, adult OCD (obsessive compulsive disorder) Depression Hypothyroidism Anxiety Addisons disease Surgical History Surgical History H/O wrist surgery Family History Family History Father Rheumatoid arthritis COVID-19 Mother COVID-19 Sibling COVID-19 Mental and behavioral disorders d/t use of alcohol, acute intoxication Grandparent Congestive heart failure Social History Social History Smoking status: Never smoker Second hand tobacco smoke exposure: No Alcohol intake: former Alcohol use details: occasionally Substance use: never Substance use type: does not use Do You Feel Safe in your Home?: Yes Lack of Transportation: No Lack of Food: Never True Current Housing: I Do Not Have Housing Concerned About Future Housing: No Difficulty Paying Gas/Electric Bills: No Difficulty Paying for Meds: No Currently Unemployed: No Education: High School Diploma/GED Difficulty w/ Childcare or Family Care: No Living arrangements: with family Additional living arrangements comments: Lives with boyfriend Fuad Gibbs [id number]. 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 HEAD: Normocephalic, atraumatic. EYES: PERRLA and EOMI. ENT: Nares clear, no rhinorrhea or epistaxis. Mucous membranes moist. NECK: Supple. CHEST: Clear to auscultation. No respiratory distress. HEART: Regular rate and rhythm. No murmur heard. Normal peripheral pulses. ABDOMEN: Soft, nontender, nondistended, normal active bowel sounds. Back: Mild left CVA tenderness EXTREMITIES: Normal range of motion. No edema. SKIN: Warm, dry, no rash. NEURO: No focal deficits. Alert and oriented x3. PSYCH: Normal mood and affect. Course Vital Signs Vital signs: Vital Signs Temperature 36.5 C 10/02/24 07:17 Pulse Rate 85 10/02/24 07:17 Respiratory Rate 17 10/02/24 07:17 Blood Pressure 110/73 10/02/24 07:17 Pulse Oximetry 100 10/02/24 07:17 Oxygen Delivery Room Air 10/02/24 07:17 Temperature 36.5 C 10/02/24 07:22 Pulse Rate 85 10/02/24 07:22 Respiratory Rate 17 10/02/24 07:22 Blood Pressure 110/73 10/02/24 07:22 Pulse Oximetry 100 10/02/24 07:22 Oxygen Delivery Room Air 10/02/24 07:17 Medical Decision Making MDM Narrative Medical decision making narrative: Differential diagnosis includes UTI, pyelonephritis, intra-abdominal infection, Laboratory studies were obtained on the patient showed a white count of 11.0 electrolytes are within normal limits urinalysis showed greater than 100 white blood cells and 03/13/2051 red blood cells 3+ leukocyte esterase 2+ bacteria patient was negative for CT scan of the abdomen pelvis showed 1. Diffuse bladder wall thickening with surrounding fluid, mild left hydronephrosis with periureteral edema. Findings suspicious for cystitis with ascending urinary tract infection. Vital Signs Vital Signs: Vital Signs Temperature 36.5 C 10/02/24 07:17 Pulse Rate 85 10/02/24 07:17 Respiratory Rate 17 10/02/24 07:17 Blood Pressure 110/73 10/02/24 07:17 Pulse Oximetry 100 10/02/24 07:17 Oxygen Delivery Room Air 10/02/24 07:17 Temperature 36.5 C 10/02/24 07:22 Pulse Rate 85 10/02/24 07:22 Respiratory Rate 17 10/02/24 07:22 Blood Pressure 110/73 10/02/24 07:22 Pulse Oximetry 100 10/02/24 07:22 Oxygen Delivery Room Air 10/02/24 07:17 Lab Data 10/02/24 07:55 10/02/24 07:55 Labs: Lab Results 10/02/24 10/02/24 10/02/24 Range/Units 07:13 07:55 08:00 WBC 11.0 H (4.5-10.0) K/mm3 RBC 3.90 L (4.2-5.4) M/mm3 Hgb 12.2 (12.0-15.0) g/dL Hct 36.0 L (37.0-47.0) % MCV 92.3 (80-100) fl MCH 31.3 (26-34) pg MCHC 33.9 (32-36) g/dl RDW 11.9 (11.5-14.5) % Plt Count 228 (150-375) k/mm3 MPV 10.3 (7.4-10.4) fl Immature Gran % (Auto) 0.3 (0-0.5) % Neut % (Auto) 75.0 H (45.5-73.1) % Lymph % (Auto) 18.0 L (18.3-44.2) % [place] % (Auto) 5.6 (2.6-8.5) % Eos % (Auto) 0.9 (0-4.4) % Baso % (Auto) 0.2 (0.2-1.2) % Lymph # (Auto) 1.98 (0.9-3.2) K/mm3 [place] # (Auto) 0.6 (0.1-0.6) K/mm3 Eos # (Auto) 0.1 (0-0.3) K/mm3 Baso # (Auto) 0.0 (0.0-0.1) K/mm3 Abs Immat Gran (auto) 0.03 (0.00-0.031) K/mm3 Absolute Neuts (auto) 8.2 H (1.3-6.7) K/mm3 Absolute Nucleated RBC 0.000 (0.0-0.012) K/mm3 Nucleated RBC % 0.0 (0.0-0.2) % Sodium 138 (137-145) mmol/L Potassium 3.4 (3.4-5.0) mmol/L Chloride 104 (98-107) mmol/L Carbon Dioxide 27 (22-30) mmol/L Anion Gap 7 (4-12) mmol/L BUN 11 (7-17) mg/dL Creatinine 0.77 (0.7-1.0) mg/dL Estim Creat Clear Calc 93 ml/min Estimated GFR > 60 (59 - ) Glucose 86 (65-110) mg/dL Calcium 8.9 (8.4-10.2) mg/dL Total Bilirubin 0.5 (0.2-1.3) mg/dL AST 22 (14-36) U/L ALT 9 (6-35) U/L Alkaline Phosphatase 58 (38-126) U/L Total Protein 7.3 (6.3-8.2) g/dL Albumin 4.2 (3.5-5.1) g/dL Lipase 36 (23-300) U/L Urine Color Dark yellow (Yellow) Urine Appearance Cloudy H (Clear) Urine pH 7.5 (5.0-9.0) Ur Specific [place] 1.018 (1.001-1.035) Urine Protein 2+ H (Negative) mg/dL Urine Glucose (UA) Negative (Negative) mg/dL Urine Ketones Negative (Negative) mg/dL Ur Blood (Man) 2+ H (Negative) Urine Nitrate Positive H (Negative) Urine Bilirubin Negative (Negative) Urine Urobilinogen 1.0 (<2.0) mg/dL Leukocyte Esterase Rfl 3+ H (Negative) ANDREA/UL Urine RBC 21-50 H (0-2) /hpf Urine WBC >100 H (0-3) /hpf Ur Squamous Epith Cells None seen (Few) /hpf Urine Bacteria 2+ H /hpf Urine Casts 3-5 POC Urine HCG, Qual Negative (Negative) Discharge Plan Discharge Clinical Impression: Pyelonephritis Patient Disposition: Home Condition: Stable Instructions: Antibiotic Form, Kidney Infection (ED) Patient Language: Bruneian Prescriptions: New cephalexin 500 mg capsule 500 mg PO TID 7 Days Qty: 21 0RF No Action fludrocortisone 0.1 mg tablet 0.1 mg PO BID hydrocortisone 5 mg tablet 15 mg PO BID Nurtec ODT 75 mg tablet,disintegrating 75 mg PO ONCE PRN (Reason: migraine headache) Qty: 8 0RF Rx Instructions: as a single dose. May repeat the dose 1 time after 24 hours if symptoms persist levothyroxine 112 mcg tablet 112 mcg PO DAILY Follow-up/Referrals: Steven Garcia MD [Primary Care Provider] - Stand Alone Forms: Work/School Release IP Time of Disposition: 09:15
[2024-10-02] MEDS: cefTRIAXone 1 GM in SODIUM CHLORIDE 0.9% IV 50 ML 100 ML IVPB (09:26)
[2024-10-02 09:39] VITALS: BP 100/61; PULSE 96; RESP 14; O2SAT 100
[2024-10-02 09:49] VITALS: BP 100/61; PULSE 95; RESP 14; O2SAT 100
== END 2024-10-02 09:58 | disposition home or self-care (01) ==
PROVIDERS: Student in an Organized Health Care Education/Training Program; Emergency Provider Emergency Medicine; PCP Family Medicine
DX: N12 Tubulo-interstitial nephritis, not specified as acute or chronic (principal); E03.9 Hypothyroidism, unspecified; F41.8 Other specified anxiety disorders; E27.1 Primary adrenocortical insufficiency; F42.9 Obsessive-compulsive disorder, unspecified
CPT/HCPCS: 36415; 74176; 80053; 81001; 81025; 83690; 85025; 87086; 96361; 96365; 96375; 99284; J0696; J1885; J2405; J7030

== ENCOUNTER 2024-10-10 08:34 | Outpatient (CLI) | payer OTHER, SELFPAY ==
--- OUTSIDE RECORDS SUMMARY | 2008-06-30 04:00 | XMS_ITS | Continuity of Care Document ---
Author Organization [facility] [place] Address [address] [place] [address] Phone Care Team Providers Care Intranet Specialist Name Role Phone Shearer OD, Marcin Unavailable Unavailable Procedures Procedure Date Eye Exam & Treatment Refraction CL Replacement - Vistakon Disp W/BW Soft Tax - Medical No Charge Contact Lens Check Eye Exam & Treatment Refraction Advance Directives Directive Yes / No Effective Date File Name No Information Encounters Encounter Description Practice Location Reason(s) For Visit Diagnoses Date Provider Providers Copied on Encounter [facility], [address] [place] [address] [address], [place], [place], [id number], tel:[phone] [facility] No Information 0 9-200 9 Shearer OD Marcin. [address] , [address], [place], [address], [place]. tel:[phone] [facility], [address] [place] [address] [address], [place], [place], [id number], tel:[phone] [facility] No Information 1-200 7 Shearer OD Marcin. [address] , [address], [place], [address], [place]. tel:[phone] [facility], [address], [place], [place], [id number], tel:[phone] [facility] No Information Nov-1 3-200 7 Shearer OD Marcin. [address] , [address], [place], [place], [facility], . tel:[phone] [facility], [address], [place], [place], [id number], tel:[phone] [facility] No Information Nov-0 6-200 7 Shearer OD Marcin. [address] , [address], [place], [address], . tel:[phone] Family History Family Member Type Diagnosis Age At Onset No Information Payers Payer name Insurance type Covered republican ID Authoriza tion(s) No Information Social History Type Description Quantity Date Captured Comments Sex Female Smoking Status No Information Chief Complaint And Reason For Visit No Information Reason For Referral Reason For Referral No Information History Of Present Illness Encounter Date Complaint History Of Prese nt Illness No Information Functional Status Date Functional Assessmen t No Information Instructions Date Instruction Additional Infor mation No Information Assessments Type Assessment Date No Information Patient Care Teams Name Effective Dates (start - stop) Status Members No Information
--- OUTSIDE RECORDS SUMMARY | 2024-10-10 08:56 | XMS_ITS | Encounter Summary ---
Author Organization [facility] Address [address] [place] [address] Care Team Providers Care Warp Tension Tester Name Role Phone Maureen Rodriguez MD Primary Care Provider [phone] Mark Amaral PA-C Unavailable [phone] Steven Garcia MD Primary Care Provider [phone] Reason for Visit * Reason Onset Date Comments Question 03/15/2014 Mom wanted [place] you regarding treatment. She was supposed to call some time ago, but had a in the family. 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
--- OUTSIDE RECORDS SUMMARY | 2024-10-10 08:56 | XMS_ITS | Encounter Summary ---
Author Organization [facility] Address [address] [place] [address] Care Team Providers Care Washerette Machine Operator Name Role Phone Maureen Rodriguez MD Primary Care Provider [phone] Mark Amaral-Johnny Unavailable [phone] Steven Garcia MD Primary Care Provider [phone] Reason for Visit * Reason Onset Date Comments Update 05/25/2017 Patient was at [facility] last night complaining of back pain. PCP calling for instructions. (this message was left on the voicemail of the centralized scheduling department of [facility] at 4:16PM last night) Encounter Details Date Type Department Care Team (Late st Contact Info) Description 05/25/2017 Telephone [facility] Pediatrics - Endocrinology [address] [place] [address] Delma Solis MD [address] [place] [address] Update (Patient was at PCP last night complaining of back pain. PCP calling for instructions. (this message was left on the voicemail of the centralized scheduling department of [facility] at 4:16PM last night)) Social History Tobacco Use Types Packs/Day Years Used Date Smoking Tobacco: Passive Smo ke Exposure - Never Smoker Smokeless Tobacco: Never Alcohol Use Standard Drinks/Week Comments No 0 (1 standard drink = 0.6 oz pur e alcohol) Comments No Sex and Gender Information Value Date Recorded Sex Assigned at Not on file Legal Sex Female 9:56 AM PARTNER Gender Identity Not on file Sexual Orientation [...] back pain, which she gets when her [place]'s disease flares up. She was seen by Dr. Rodriguez who reports that Rafael had full range of motion, was able to move her legs, ambulate without problems and get up and off the exam table without problems. I am not aware of any [place]'s specific back pain beyondconcern for osteopenia causing [...] on filedocumented in this encounter Care Teams Washerette Machine Operator Relationship Specialty Start Date End Date Maureen Rodriguez MD PCP - General Pediatrics 03/31/12 09/01/24 Steven Garcia MD [address] [place] [address] PCP - General Family Medicine 09/02/24 Mark Amaral, JOSEPHC [address] [place] [address] Covering Provider Orthopedic 04/05/12 documented as of this encounter
--- OUTSIDE RECORDS SUMMARY | 2024-10-10 08:56 | XMS_ITS | Clinical Summary ---
Author Organization [facility] Address [address] [place] [address] Care Team Providers Care Baby Formula Worker Name Role Phone Mark Amaral PA-C Unavailable [phone] Steven Garcia MD Primary Care Provider [phone] Source Comments [facility],non-owned Affiliates and Associated Physician Practices is amultiple site organization consisting of ambulatory clinics and hospital sitesin [place], [place], [place] and [place]. This disclosure is being madepursuant to the Care Everywhere program and may not contain all information available regarding this patient. Last updated 17.[facility] Allergies No known active allergies Medications * Be aware that medications may not be up to date on this document. Alwaysverify current medications with the patient. fludrocortison e (FLORINEF) 0.1 MG tabletIndicati ons:[place] disease (HCC) Take 1 tab in AM [...] e hydrocortisone sodium succinate PF (Solu-CORTEF) injectionIndic ations:[place] 's disease (HCC) 100 (one hundred) mg [...] Depression 09/22/2021 Anxiety 09/22/2021 Chronic headache 12/31/2016 [place]'s disease 10/17/2013 Overview (07/08/2023): Rafael was diagnosed [...] which were similar to her symptoms of [place]'s disease. At her visit in September 2014, [...] recent adrenal crisis, treated with steroids by superintendent building recent adrenal crisis, treated with steroids by superintendent building- 05/05 9AM [facility] & Consult Assessment & Plan (03/25/2015 5:03 PM INSTRUCTOR MILITARY SCIENCE): Rafael has [place]'s disease which clinically seems well controlled. Continue [...] 12:43 PM CDT): Rafael has poorly controlled [place]'s disease due to medication noncompliance and lack [...] months. Assessment & Plan (04/01/2014 3:28 PM INSTRUCTOR MILITARY SCIENCE): Rafael is a 13 year old girl with [place]'s disease/primary adrenal insufficiency. - Wean maintenance hydrocortisone [...] months Assessment & Plan (01/09/2014 8:23 PM INSTRUCTOR MILITARY SCIENCE): 1. Cortef (5 mg tablet) 10 mg [...] dependent) at all times. 7. Child with [place]'s disease and at risk of adrenal insufficiency [...] I will contact Rafael's mother by telephone ([phone]) when I have received a copy of these test results and make the necessary medication dose adjustments. 10. Return appointment in two months. 11. I reviewed my impression and recommendations with Rafael's mother at the time of the office visit and she was in agreement. Assessment & Plan (12/29/2013 4:42 PM INSTRUCTOR MILITARY SCIENCE): Clinically stable. 1. Cortef (5 mg tablet) [...] dependent) at all times. 6. Child with [place]'s disease and at risk of adrenal insufficiency [...] I will contact Rafael's mother by telephone ([phone]) when I have received a copy of these test results and make the necessary medication dose adjustments. 9. Return appointment in three months. 10. I reviewed my impression and recommendations with Rafael's mother at the time of the office visit and she was in agreement. Assessment & Plan (10/17/2013 11:19 AM CDT): Rafael is a 13 year old girl with [place]'s disease. Screening for thyroid, celiac and hypocalcemia [...] Referral faxed 06/23 [facility]- Scheduled [facility] 07/07 US & Consult [facility]: abnormality in pr egnancy (HCC) - Bilateral club feet 07/08/2023 11/16/2023 Overview (09/14/2023): Images from the original note were not included. Care Provider: Dr. Adolph Steven [place] [facility] [place] consultants involved: RN-Aníbal; Ped Ortho- Moses Tijerina Diagnosis: Bilateral club feet Planned surveillance: Ortho consult only - Patient was not seen by MFM in [facility] follow up per Pediatric Orthopedics: I invited Ms. Pat to contact us once the baby has been born to let us know whether the baby has a clubfoot or not. If the baby does, we would be happy to evaluate the baby and start casting at one to two months of age. To schedule, patient should call [phone], option 4 Fancy Sewer: Care plan based on evaluation and is subject to change based on assessment. See Images or Cardiac under Chart Review for US/ ECHO/ MRI reports. Encounters Date Type Department Care Team Description 09/01/2024 10:31 PM CDT - 09/02/2024 12:54 AM CDT Emergency [facility] EM[facility] [address] [place] [address] Jose Alberto Reilly MD Chest pain, unspecified type; Acute nonintractable headache, unspecified headache type Discharge Disposition: Home or Self Care 09/01/2024 Travel from Last 3 Months Immunizations Immunization Administration Dates Next Due INFLUENZA VACCINE, QUADR. (F LUZONE; FLULAVAL; FLUARIX; AFLURIA QUADRIVALENT; 6MO+), 0.5 ML (IIV4) 12/12/2021 Family History Medical History Relation Name Comments FL<65(female) Maternal Grandmother Other Paternal Grandfather palpita tions Arrhythmia Neg Hx CVA<55(male) Neg Hx CVA<65(female) Neg Hx Cardiomyopathy Neg Hx Congenital Heart defect Neg Hx Heart Surgery Neg Hx Long QT Syndrome Neg Hx FL<55(male) Neg Hx Marfan Syndrome Neg Hx Pacemaker [...] care, and heating? Not very hard 09/08/2023 [facility] [place] of Occupat ional Health - Occupational Stress [...] in a usp (including now)? No 09/08/2023 [place] Depression Scale Answer Date Recorded [place] Depression Scale Total 7 05/06/2023 The thought of harming myself has occurred to me . Hardly ever 05/06/2023 Comments No Sex and Gender Information Value Date Recorded Sex Assigned at Not on file Legal Sex Female 9:56 AM INSTRUCTOR MILITARY SCIENCE Gender Identity Not on file Sexual Orientation [...] SENSITIVE REFLEX 1HOUR (09/01/2024 7:21 PM CDT) [facility] Troponin I High Sensitive <3 <=14 ng/L 09/01/2024 8:01 PM CDT [facility] Delta Troponin I HS 09/01/2024 8:01 PM CDT [facility] Comment:Result exceeds linea rity range. A delta value is unable to be calculated. Blood BLOOD SPECIMEN / Unknown Venipuncture / Unknown 09/01/2024 7:21 PM CDT 09/01/2024 7:26 PM CDT us Cyndy Alvarez PA-C LAB - CHEMISTRY ORDERABLES Final Result [facility] [address] [place] [address], [place] [phone] * TROPONIN-I HIGH SENSITIVE BASELINE + 1HR (09/01/2024 6:16 PM CDT) [facility] Troponin I High Sensitive <3 <=14 ng/L 09/01/2024 7:13 PM CDT [facility] Blood BLOOD SPECIMEN / Unknown Venipuncture / Unknown 09/01/2024 6:16 PM CDT 09/01/2024 6:22 PM CDT us Cyndy Alvarez PA-C LAB - CHEMISTRY ORDERABLES Final Result Performing Organization Address City/[facility]/ZIP Co de Phone Number [address] [address], [facility] [phone] * TSH REFLEX FREE T4 (09/01/2024 6:16 PM CDT) Pathologist [facility] TSH 2.960 0.350 - 4.940 uIU/mL 09/01/2024 7:13 PM CDT [facility] Blood BLOOD SPECIMEN / Unknown Venipuncture / Unknown 09/01/2024 6:16 PM CDT 09/01/2024 6:22 PM CDT us Holly Tuttle [employer] OFFICER-BOILER REPAIRMAN LAB - CHEMISTRY ORDE RABLES Final Result Performing Organization Address [facility]/ZIP Co de Phone Number [address] [address], [facility] [phone] * CBC W AUTO DIFFERENTIAL (09/01/2024 6:16 PM CDT) WBC 9.2 4.0 - 10.7 x10E9/L 09/01/2024 6:26 PM CDT [facility] RBC Count 3.90 3.90 - 5.20 x10E12/L 09/01/2024 6:26 PM CDT [facility] Hemoglobin 12.2 11.9 - 15.8 g/dL 09/01/2024 6:26 PM CDT [facility] Hematocrit 35.5 34.8 - 46.1 % 09/01/2024 6:26 PM CDT [facility] MCV 91.0 80.0 - 98.0 fL 09/01/2024 6:26 PM CDT [facility] MCH 31.3 26.7 - 33.6 pg 09/01/2024 6:26 PM [facility] MCHC 34.4 31.7 - 36.3 g/dL 09/01/2024 6:26 PM [facility] RDW-CV 12.7 11.3 - 14.8 % 09/01/2024 6:26 PM [facility] Platelet Count 269 150 - 420 x10E9/L 09/01/2024 6:26 PM [facility] MPV 10.4 7.8 - 11.4 fL 09/01/2024 6:26 PM [facility] Neutrophil % 68.0 41.0 - 74.0 % 09/01/2024 6:26 PM [facility] Lymphocyte % 25.0 17.0 - 47.0 % 09/01/2024 6:26 PM [facility] Monocyte % 5.7 3.0 - 11.0 % 09/01/2024 6:26 PM [facility] Eosinophil % 0.6 0.0 - 7.0 % 09/01/2024 6:26 PM [facility] Basophil % 0.4 0.0 - 1.6 % 09/01/2024 6:26 PM [facility] Immature Granulocytes % 0.3 0.0 - 1.0 % 09/01/2024 6:26 PM [facility] Neutrophil Absolute 6.27 1.60 - 7.50 x10E9/L 09/01/2024 6:26 PM [facility] Lymphocyte Absolute 2.31 1.00 - 4.40 x10E9/L 09/01/2024 6:26 PM [facility] Monocyte Absolute 0.53 0.15 - 1.00 x10E9/L 09/01/2024 6:26 PM [facility] Eosinophil Absolute 0.06 0.00 - 0.60 x10E9/L 09/01/2024 6:26 PM [facility] Basophil Absolute 0.04 0.00 - 0.13 x10E9/L 09/01/2024 6:26 PM [facility] Blood BLOOD SPECIMEN / Unknown Venipuncture / Unknown 09/01/2024 6:16 PM CDT 09/01/2024 6:22 PM CDT us Cyndy Alvarez PA-C LAB - HEMATOLOGY ORDERABLES Final Result [facility] [address] [place] [address], [facility] [phone] * COMPREHENSIVE METABOLIC PANEL (09/01/2024 6:16 PM CDT) BUN 14 7 - 26 mg/dL 09/01/2024 6:55 PM [facility] Creatinine 0.86 0.56 - 0.96 mg/dL 09/01/2024 6:55 PM [facility] Sodium 139 136 - 145 mmol/L 09/01/2024 6:55 PM [facility] Potassium 3.9 3.5 - 4.5 mmol/L 09/01/2024 6:55 PM [facility] Chloride 107 98 - 107 mmol/L 09/01/2024 6:55 PM [facility] CO2 25 22 - 29 mmol/L 09/01/2024 6:55 PM [facility] Glucose 89 70 - 99 mg/dL 09/01/2024 6:55 PM [facility] Calcium 9.0 8.4 - 10.2 mg/dL 09/01/2024 6:55 PM [facility] Protein Total 6.8 6.0 - 8.3 g/dL 09/01/2024 6:55 PM [facility] Albumin 4.4 3.4 - 5.0 g/dL 09/01/2024 6:55 PM [facility] Bilirubin Total 0.3 0.2 - 1.2 mg/dL 09/01/2024 6:55 PM [facility] Alkaline Phosphatase 63 40 - 150 U/L 09/01/2024 6:55 PM [facility] ALT 7 5 - 55 U/L 09/01/2024 6:55 PM [facility] AST 13 5 - 34 U/L 09/01/2024 6:55 PM CDT [facility] Anion Gap 7 6 - 16 09/01/2024 6:55 PM [facility] BUN/Creatinine Ratio 16 7 - 23 09/01/2024 6:55 PM T [facility] Osmolality Calculated 288 275 - 295 mOsm/kg 09/01/2024 6:55 PM T [facility] Albumin/Globulin Ratio 1.8 1.1 - 2.3 09/01/2024 6:55 PM [facility] eGFR by CKD-EPI >90 >=90 mL/min/1.7 3 m2 09/01/2024 6:55 PM [facility] Comment:Estimated Glomerular Filtration Rate (eGFR) calculated using the CKD-EPI Creatinine Equation (2020), per the National Kidney Foundation and [place] Society of Nephrology recommendations. Blood BLOOD SPECIMEN / Unknown Venipuncture / Unknown 09/01/2024 6:16 PM CDT 09/01/2024 6:22 PM CDT Cyndy Alvarez PA-C LAB - CHEMISTRY ORDERABLES Final Result [facility] [address] [place] [address], [facility] [phone] * HCG BETA BLOOD QUANTITATIVE (09/01/2024 6:16 PM CDT) Pathologist [facility] Beta-hCG Total Quantitative <3 mIU/mL 09/01/2024 7:15 PM T [facility] Comment: HCG Numeric Result Interpretation: Non- [...] PA-C LAB - CHEMISTRY ORDERABLES Final Result [address] [address], [facility] [phone] * MAGNESIUM BLOOD (09/01/2024 6:16 PM CDT) Magnesium 1.9 1.6 - 2.6 mg/dL 09/01/2024 6:55 PM CDT [facility] Blood BLOOD SPECIMEN / Unknown Venipuncture / Unknown 09/01/2024 6:16 PM CDT 09/01/2024 6:22 PM CDT us Cyndy Alvarez PA-C LAB - CHEMISTRY ORDERABLES Final Result Performing Organization Address [facility] Co de Phone Number [address] [address], [facility] [phone] * XR CHEST 2VW (09/01/2024 5:38 PM CDT) Anatomical Region Laterality Modality Chest Digital Radiogra phy 09/01/2024 5:56 PM CDT Narrative 09/02/2024 6:09 AM CDT PROCEDURE: XR CHEST 2VW, DATE/TIME OF EXAM: 09/01/2024 5:38 PM, LOCATION [facility] INDICATION: R07.9: Chest pain, unspecified type ADDITIONAL CLINICAL INFORMATION: Ordering Provider Reason For Exam: ro effusion vs other COMPARISON: Chest x-ray 09/15/2013 TECHNIQUE: PA and Lateral radiograph of the chest. FINDINGS/IMPRESSION: The lungs are clear. There is no focal consolidation, pleural effusion, or pneumothorax. The cardiomediastinal silhouette is normal. The visible bony thorax is intact. Report dictated by Vahe Villarreal MD, (Apartment Maintenance Manager). I, Bird Mon MD have personally reviewed and interpreted this examination/study. > Interpreting Provider: Bird Mon MD on 09/02/2024 6:09 AM Procedure Note Bird Mon MD - 09/02/2024 PROCEDURE: XR CHEST 2VW, DATE/TIME OF EXAM: 09/01/2024 5:38 PM, LOCATION [facility] INDICATION: R07.9: Chest pain, unspecified type ADDITIONAL CLINICAL INFORMATION: Ordering Provider Reason For Exam: ro effusion vs other COMPARISON: Chest x-ray 09/15/2013 TECHNIQUE: PA and Lateral radiograph of the chest. FINDINGS/IMPRESSION: The lungs are clear. There is no focal consolidation, pleural effusion,or pneumothorax. The cardiomediastinal silhouette is normal. The visiblebony thorax is intact. Report dictated by Vahe Villarreal MD, (Apartment Maintenance Manager). I, Bird Mon MD have personally reviewed [...] (Bezet) 408 ms SLH MUSE Calculated P Polson 64 degrees SLH MUSE Calculated R Polson 84 degrees SLH MUSE Calculated T Polson 60 degrees SLH MUSE Interpretation EKG NORMAL SINUS RHYTHM WITH SINUS ARRHYTHMIA POSSIBLE LATERAL INFARCT , AGE UNDETERMINED ABNORMAL ECG NO PREVIOUS ECGS AVAILABLE Confirmed by ED STEINBERG MD ([id number]) on 09/02/2024 2:50:20 PM H MUSE 09/01/2024 5:26 PM CDT 09/02/2024 2:50 PM CDT us Royer Hand MD ECG ORDERABLES Edited Result - Final [facility] MUSE from Last 3 Months Insurance AETNA AETNA AETNA Care Teams Baby Formula Worker Relationship Specialty Start Date End Date Steven Garcia MD [address] [place] [phone] PCP - General Family Medicine 09/02/24 Mark Amaral, PAAshleeC [address] [place] [address] Covering Provider Orthopedic 04/05/12
--- OUTSIDE RECORDS SUMMARY | 2024-10-10 08:56 | XMS_ITS | Patient Health Record ---
Author Organization [facility] [employer] Address [address] [place] [address] Care Team Providers Care Geomorphologist Name Role Phone Lashawn Acosta Unavailable [phone] Reason For Referral No Information Medications Medication SIG (Take, Route, Frequency, Duration) Notes Start Date End Date Status Benzonatate 100 MG Capsule Oral 05/13/2020 Active predniSONE 10 MG Tablet Oral 05/13/2020 Active ARIPiprazole 10 MG Tablet Oral 05/13/2020 Active Prochlorperazine Maleate 10 MG Tablet Oral 05/13/2020 Active BOOSTRIX TDAP 2.5-8-5 Lf-mcg-Lf/0.5mL Suspension Intramuscular *Reorder from [facility] for eRx and Interaction Alerts* 05/13/2020 Active Hydrocortisone 5 MG Tablet Oral 05/13/2020 Active Solu-CORTEF 100 MG Solution Reconstituted Injection 05/13/2020 Activ e ID Now COVID-19 Kit In Vitro *Reorder [facility] for eRx and Interaction Alerts* 05/13/2020 Active Triamcinolone Acetonide 0.1% Cream External 05/13/2020 Active Levothyroxine Sodium 50 MCG Tablet Oral 05/13/2020 Active Fludrocortisone Acetate 0.1 MG Tablet Oral 05/13/2020 Active Escitalopram Oxalate 10 MG Tablet Oral 05/13/2020 Active traMADol HCl 50 MG Tablet Oral 05/13/2020 Active ELURYNG 0.12 MG-0.015 MG/24 HR VAGINAL RING *Reorder from [facility] for eRx and Interaction Alerts* 05/13/2020 Active Triamcinolone Acetonide 0.50% Cream External 05/13/2020 Active Levothyroxine Sodium 25 MCG Tablet Oral 05/13/2020 Active hydrOXYzine Pamoate 25 MG Capsule Oral 05/13/2020 Active Azithromycin 250 MG Tablet Oral 05/13/2020 Active Immunizations Vaccine Route Administration Date Status Comme nts Influenza virus vaccine, quadrivalent (IIV4), split virus, 0.25 mL dosage Unknown 11/22/2018 Administered Moderna Covid-19 Vaccine 1st dose Unknown 02/27/2020 Ad ministered Tdap Unknown 02/22/2010 Administered Social History Social History Additional Details Category Social Info Options Details Migrated Social History Migrated Social History Alcohol Intake: Occasional 10/12/2019,Tobacco Years: Never smoker 10/12/2019 Plan Of Treatment No Information Insurance Providers Payer Name Payer Address Payer Phone Subscriber Number Group Number Insured Name Patient Relationship to Insured Coverage Start Date Coverage End Date Aetna Pos [address] [place] [id number] MYA GLEZ Self - patient is the insured
--- OUTSIDE RECORDS SUMMARY | 2024-10-10 08:56 | XMS_ITS | Encounter Summary ---
Author Organization [facility] Address [address] [place] [address] Care Team Providers Care Cadmium Burner Name Role Phone Maureen Rodriguez MD Primary Care Provider [phone] Mark Amaral PA-C Unavailable Steven Garcia MD Primary Care Provider [phone] Reason for Visit * Reason Onset Date Comments Refill Request 07/04/2014 Please call in D ex injection Encounter Details Date Type Department Care Team (Late st Contact Info) Description 07/04/2014 Telephone [facility] Pediatrics - Endocrinology [address] [place] [id number] Delma Solis MD [address] [place] [address] [phone] Refill Request (Please call in Dex injection) Social History Tobacco Use Types Packs/Day Years Used Date Smoking Tobacco: Never Alcohol Use Standard Drinks/Week Comments No 0 (1 standard drink = 0.6 oz pur e alcohol) Comments No Sex and Gender Information Value Date Recorded Sex Assigned at Not on file Legal Sex Female 9:56 AM INSPECTOR AGRICULTURAL 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
--- OUTSIDE RECORDS SUMMARY | 2024-10-10 08:56 | XMS_ITS | Encounter Summary ---
Author Organization [facility] Address [address] [place] [address] Care Team Providers Care Building Custodian Name Role Phone Maureen Rodriguez MD Primary Care Provider [phone] Mark Amaral-Johnny Unavailable [phone] Steven Garcia MD Primary Care Provider [phone] Reason for Visit * Reason Onset Date Comments Letter for School or Work 04/08/2016 2nd re quest: Mother is requesting a letter stating Rafael should NOT participate in gym for the school year. Please fax to [phone], [place]. Encounter Details Date Type Department Care Team (Late st Contact Info) Description 04/08/2016 Telephone [facility] Pediatrics - Endocrinology [address] [place] [phone] Delma Solis MD [address] [place] [address] [phone] Letter for School or Work (2nd request: Mother is requesting a letter stating Rafael should NOT participate in gym for the school year. Please fax to [phone], [place]. 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
--- OUTSIDE RECORDS SUMMARY | 2024-10-10 08:56 | XMS_ITS | Clinical Summary ---
Author Organization [facility] Address [address] [place] [address] Care Team Providers Care Cold Roll Packer Sheet Iron Name Role Phone Steven Garcia MD Primary Care Provider [phone] Allergies No known active allergies Medications hydrocortisone (CORTEF) 5 mg tablet 1 tablet (5 mg total) 4 tabs in morning, 2 in afternoon 3 Active fludrocortisone 0.1 mg tablet Take 1 tablet (0.1 mg total) by mouth 2 (two) times a day 9 Active levothyroxine (SYNTHROID) 100 mcg tablet Take 1 tablet (100 mcg total) by mouth line cleaner before breakfast Active Active Problems Problem Noted Date Diagnosed Date 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 - Occupational Stress Questionnaire Answer Date [...] any time in the past 12 m [facility], were you homeless or living in a senior living (including now)? No 10/20/2023 Personal Safety Answer Date Recorded Have you ever been in or are you currently in a harmful physical or emotional relationship or is someone making you feel afraid or unsafe? Denies 10/20/2023 Comments No Sex and Gender Information Value Date Recorded Sex Assigned at Not on file Legal Sex Female 5:01 AM NEEDLE MAKER Gender Identity Not on file Sexual [...] Insurance AETNA SELECT AETNA SELECT Care Teams Cold Roll Packer Sheet Iron Relationship Specialty Start Date End Date Steven Garcia MD [address] [place] [address] PCP - General Family Medicine 09/25/24
--- OUTSIDE RECORDS SUMMARY | 2024-10-10 08:56 | XMS_ITS | Encounter Summary ---
Author Organization [facility] Address [address] [place] [address] Care Team Providers Care Branch Director Name Role Phone Maureen Rodriguez MD Primary Care Provider Mark Amaral-C Unavailable [phone] Steven Garcia MD Primary Care Provider [phone] Reason for Visit * Reason Onset Date Comments Refill Request 05/25/2018 injectable stres s dose Update 05/25/2018 Rafael was vomit ing yesterday, given injectable stress dose. Please call mom to discuss next appt and transfer of care due to age Encounter Details Date Type Department Care Team (Late st Contact Info) Description 05/25/[address] 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
--- OUTSIDE RECORDS SUMMARY | 2024-10-10 08:56 | XMS_ITS | Encounter Summary ---
Author Organization [facility] Address [address] [place] [address] Care Team Providers Care Horse Buyer Name Role Phone Maureen Rodriguez MD Primary Care Provider [phone] Mark Amaral PA-C Unavailable [phone] Steven Garcia MD Primary Care Provider [phone] Reason for Visit * Reason Onset Date Comments Results 10/06/2013 mom called for r courtney Encounter Details Date Type Department Care Team (Late st Contact Info) Description 10/06/2013 Telephone [facility] Pediatrics - Endocrinology [address] [place] [address] Delma Solis MD [address] [place] [address] [phone] Results (mom called for results) Social History Tobacco Use Types Packs/Day Years Used Date Smoking Tobacco: Never Alcohol Use Standard Drinks/Week Comments No 0 (1 standard drink = 0.6 oz pur e alcohol) Comments No Sex and Gender Information Value Date Recorded Sex Assigned at Not on file Legal Sex Female 9:56 AM HYDROELECTRIC STATION OPERATOR Gender Identity Not on file Sexual [...] on filedocumented in this encounter Care Teams Horse Buyer Relationship Specialty Start Date End Date Maureen Rodriguez MD PCP - General Pediatrics 03/31/12 09/01/24 Steven Garcia MD [place] [address] PCP - General Family Medicine 09/02/24 Mark Amaral, JOSEPHC [address] [place] [address] Covering Provider Orthopedic 04/05/12 documented as of this encounter
--- OUTSIDE RECORDS SUMMARY | 2024-10-10 08:56 | XMS_ITS | Encounter Summary ---
Author Organization [facility] Address [address] [place] [address] Care Team Providers Care Program Admin Name Role Phone Maureen Rodriguez MD Primary Care Provider [phone] Mark Amaral PA-C Unavailable [phone] Steven Garcia MD Primary Care Provider [phone] Reason for Visit * Reason Onset Date Comments Request Lab Order 03/07/2015 Mom is request ing an order for labs to be sent lab on file. 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
--- OUTSIDE RECORDS SUMMARY | 2024-10-10 08:56 | XMS_ITS | Encounter Summary ---
Author Organization [facility] Address [address] [place] [address] Care Team Providers Care Feller Machine Operator Name Role Phone Maureen Rodriguez MD Primary Care Provider [phone] Mark Amaral-C Unavailable [phone] Steven Garcia MD Primary Care Provider [phone] Reason for Visit * Reason Onset Date Comments Results 06/23/2017 Please give mom a call with lab results. 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
--- OUTSIDE RECORDS SUMMARY | 2024-10-10 08:56 | XMS_ITS | Clinical Summary ---
Author Organization [facility] Address [address] [place] [address] Phone Care Team Providers Care Huller Operator Name Role Phone Jayden Noriega APRN, CNP [...] Department Care Team Description 09/21/2024 Results Follow-Up [facility] [place] [address] Floyd Hsieh MD THYROID STIMULATING HORMONE (TSH), THYROXINE (T4) FREE, TRIIODOTHYRININE (T3) TOTAL, ADRENOCORTICOTROPIC HORMONE, P, WEBB ACTH 09/13/2024 9:15 AM CDT Office Visit [facility] [place] [address] Floyd Hsieh MD Adrenal insufficiency (Merlin's disease) (HCC) (Primary Dx); Acquired hypothyroidism Discharge Disposition: Discharged to home or Selfcare 09/13/2024 Telephone [facility] [place] [address] Floyd Hsieh MD Results; Medication Management 09/13/2024 Travel 08/15/2024 Refill [facility] [place] [address] Floyd Hsieh MD Medication Refill 07/16/2024 Refill [facility] [place] [address] Floyd Hsieh MD Medication Refill from Last [...] Sex Assigned at Female 03/08/2023 9:40 AM REPAIRER PUMP Legal Sex Female 10:15 PM REPAIRER PUMP Gender Identity Female 03/08/2023 9:40 AM REPAIRER PUMP Sexual Orientation Straight 03/08/2023 9: 40 AM REPAIRER PUMP Last Filed Vital Signs Vital Sign Reading [...] st Contact Info) Description 01/15/2025 9:00 AM REPAIRER PUMP Office Visit [facility] - Endocrinology [facility] [place] [address] Floyd Hsieh MD [address] [address] Health Maintenance Due Date Last Done Comments [...] 9:44 AM CDT Acquired hypothyroidism Adrenal insufficiency (Randolph's disease) (HCC) TRIIODOTHYRININE (T3) TOTAL Routine 09/13/2024 9:44 AM CDT Acquired hypothyroidism THYROXINE (T4) FREE Routine 09/13/2024 9 :44 AM CDT Acquired hypothyroidism THYROID STIMULATING HORMONE (TSH) Routine 09/13/2024 9:44 AM CDT Acquired hypothyroidism from Last 3 Months Results * (ABNORMAL) ADRENOCORTICOTROPIC HORMONE, P, WEBB ACTH (09/13/2024 9:44 AM CDT) ADRENOCORTICOTROPIC HORMONE (ACTH) 348(H) pg/mL 09/14/2024 10:31 AM CDT [employer] Comment: REFERENCE VALUE 7.2-63 (a.m. collection) Test Performed by: [facility] [address] [place] [address] [employer] Assembler: Leo Raymundo Ph.D.; CLIA# [id number] Blood Venipuncture / Unknown 09/13/2024 9:44 AM CDT 09/13/2024 9:48 AM CDT us Floyd Hsieh MD LAB SEND OUTS Final Result [facility] US * THYROXINE (T4) FREE (09/13/2024 9:44 AM CDT) T4 FREE 1.2 0.7 - 1.9 ng/dL 09/13/2024 11:04 AM CDT [facility] Blood Venipuncture / Unknown 09/13/2024 9:44 AM CDT 09/13/2024 10:21 AM CDT us Floyd Hsieh MD CHEMISTRY ORDERABLES Final Resul t Performing Organization Address [facility] Co de Phone Number [facility] [place] [address] * (ABNORMAL) THYROID STIMULATING HORMONE (TSH) (09/13/2024 9:44 AM CDT) TSH 5.244(H) 0.300 - 5.000 mIU/L 09/13/2024 11:04 AM CDT [facility] Blood Venipuncture / Unknown 09/13/2024 9:44 AM CDT 09/13/2024 10:21 AM CDT us Floyd Hsieh MD CHEMISTRY ORDERABLES Final Resul t Performing Organization Address City/[facility]/ZIP Co de Phone Number [facility] [place] [address] * TRIIODOTHYRININE (T3) TOTAL (09/13/2024 9:44 AM CDT) T3 101 40 - 193 ng/dL 09/13/2024 3:30 PM CDT [facility] Blood Venipuncture / Unknown 09/13/2024 9:44 AM CDT 09/13/2024 10:21 AM CDT us Floyd Hsieh MD CHEMISTRY ORDERABLES Final Resul t [facility] [address] [place] [address], [place] from Last 3 Months Insurance [employer] Advance Directives * Full Code (Latest Code Status on File) Date Activated Date Inactivated Comments 09/22/2021 3:36 PM 09/24/2021 3:33 PM CPR-Full Treat ment: FULL ARREST: Attempt Resuscitation/CPR wit intubation and mechanical ventilation. PRE-ARREST: Use entire range of life support measures to stabilize the patient. Care Teams Huller Operator Relationship Specialty Start Date End Date Jayden Noriega APRN, [employer] [address] [place] [address] PCP - General Advanced Practice Nurse 01/04/20 Floyd Hsieh MD [address] [address] Consulting Physician Endocrinology 10/23/21
--- OUTSIDE RECORDS SUMMARY | 2024-10-10 08:56 | XMS_ITS | Encounter Summary ---
Author Organization [facility] Address [address] [place] [address] Care Team Providers Care Leaflet Distributor Name Role Phone Maureen Rodriguez MD Primary Care Provider [phone] Mark Amaral-C Unavailable [phone] Steven Garcia MD Primary Care Provider [phone] Reason for Visit * Reason Onset Date Comments Results 02/19/2014 Mom called to [facility] lab results. Please call to discuss. Encounter Details Date Type Department Care Team (Late st Contact Info) Description 02/19/2014 Telephone [facility] Pediatrics - Endocrinology [address] [place] [address] Delma Solis MD [address] [place] [address] [phone] Results (Mom called to get lab results. Please call to discuss. 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 Rafeal is working with a counselor and will [...] follow up for end of February 2014. CLUB TRAVEL COUNSELOR documented in this encounter Plan of Treatment Not on file documented as of this encounter Visit Diagnoses Diagnosis Adrenogenital disorders (HCC)- Primary Adrenogenital disorders documented in this encounter Care Teams Leaflet Distributor Relationship Specialty Start Date End Date Maureen Rodriguez MD PCP - General Pediatrics 03/31/12 09/01/24 Steven Garcia MD [address] [place] [address] PCP - General Family Medicine 09/02/24 Mark Amaral, JOSEPHC [address] [place] [address] Covering Provider Orthopedic 04/05/12 documented as of this encounter
--- OUTSIDE RECORDS SUMMARY | 2024-10-10 08:56 | XMS_ITS | Encounter Summary ---
Author Organization [facility] Address [address] [place] [address] Care Team Providers Care Mold Yarn Supervisor Name Role Phone Maureen Rodriguez MD Primary Care Provider [phone] Mark Amaral PA-C Unavailable [phone] Steven Garcia MD Primary Care Provider [phone] Reason for Visit * Reason Onset Date Comments Request Lab Order 06/19/2014 Appt on 06/21 , mom need lab orders for renin,Dhea, and acth put in for [facility] Encounter Details Date Type Department Care Team (Late st Contact Info) Description 06/19/2014 Telephone [facility] Pediatrics - Endocrinology [address] [place] [phone] Delma Solis MD [address] [place] [phone] Request Lab Order (Appt on 06/21 , [...] on file 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
--- NOTE | 2024-10-10 09:00 | EST_ITS ---
Patient Info Name: Rafael Pat Age: 24 years : 2000 Gender: Female Ht: 62 in Wt: 170 lbs BSA: 1.87 m2 HR: 81 bpm BP: 95 / 66 mmHg Exam Date: 10/10/2024 9:00 AM Patient Status: O Admit Date: 10/10/2024 Exam Type: CA stress test treadmill A treadmill exercise stress test was performed. Staff Attending Provider: Axel Nelson DO Exercise Technologist: Ramandeep Gaines Exercise Physician: Axel Nelson DO Summary 1. 1. Negative Albert exercise stress test for ischemic ST changes by ECG criteria. 2. 2. Good functional capacity, achieving 10 METs of workload. 3. 3. Appropriate HR response to exercise. 4. 4. Appropriate HR recovery at 1 minute post exercise. 5. 5. No imaging with stress testing. 6. 6. Patient informed of the above results. Protocol: Albert Stress ECG Details Stage: REST Duration (min): 1 min : 32 sec Speed (mph): 0.0 Grade (%): 0 HR (bpm): 82 SBP (mmHg): 95 DBP (mmHg): 66 METS: --- Stage: REST Duration (min): 3 min : 12 sec Speed (mph): 0.0 Grade (%): 0 HR (bpm): 80 SBP (mmHg): 95 DBP (mmHg): 66 METS: --- Stage: STAGE 1 Duration (min): 1 min : 0 sec Speed (mph): 1.7 Grade (%): 10 HR (bpm): 124 SBP (mmHg): 95 DBP (mmHg): 66 METS: --- Stage: STAGE 1 Duration (min): 2 min : 0 sec Speed (mph): 1.7 Grade (%): 10 HR (bpm): 135 SBP (mmHg): 95 DBP (mmHg): 66 METS: --- Stage: STAGE 1 Duration (min): 3 min : 0 sec Speed (mph): 1.7 Grade (%): 10 HR (bpm): 134 SBP (mmHg): 135 DBP (mmHg): 73 METS: --- Stage: STAGE 2 Duration (min): 1 min : 0 sec Speed (mph): 2.5 Grade (%): 12 HR (bpm): 150 SBP (mmHg): 135 DBP (mmHg): 73 METS: --- Stage: STAGE 2 Duration (min): 2 min : 0 sec Speed (mph): 2.5 Grade (%): 12 HR (bpm): 151 SBP (mmHg): 119 DBP (mmHg): 72 METS: --- Stage: STAGE 2 Duration (min): 3 min : 0 sec Speed (mph): 2.5 Grade (%): 12 HR (bpm): 162 SBP (mmHg): 119 DBP (mmHg): 72 METS: --- Stage: STAGE 3 Duration (min): 1 min : 0 sec Speed (mph): 3.4 Grade (%): 14 HR (bpm): 170 SBP (mmHg): 154 DBP (mmHg): 80 METS: --- Stage: STAGE 3 Duration (min): 2 min : 0 sec Speed (mph): 3.4 Grade (%): 14 HR (bpm): 167 SBP (mmHg): 154 DBP (mmHg): 80 METS: --- Stage: STAGE 3 Duration (min): 2 min : 0 sec Speed (mph): 3.4 Grade (%): 14 HR (bpm): 167 SBP (mmHg): 154 DBP (mmHg): 80 METS: --- Stage: RECOVERY Duration (min): 0 min : 59 sec Speed (mph): 0.0 Grade (%): 0 HR (bpm): 121 SBP (mmHg): 140 DBP (mmHg): 69 METS: --- Stage: RECOVERY Duration (min): 1 min : 59 sec Speed (mph): 0.0 Grade (%): 0 HR (bpm): 94 SBP (mmHg): 140 DBP (mmHg): 69 METS: --- Stage: RECOVERY Duration (min): 2 min : 59 sec Speed (mph): 0.0 Grade (%): 0 HR (bpm): 99 SBP (mmHg): 114 DBP (mmHg): 73 METS: --- Stage: RECOVERY Duration (min): 3 min : 59 sec Speed (mph): 0.0 Grade (%): 0 HR (bpm): 95 SBP (mmHg): 114 DBP (mmHg): 73 METS: --- Stage: RECOVERY Duration (min): 4 min : 59 sec Speed (mph): 0.0 Grade (%): 0 HR (bpm): 94 SBP (mmHg): 114 DBP (mmHg): 73 METS: --- Stage: RECOVERY Duration (min): 5 min : 56 sec Speed (mph): 0.0 Grade (%): 0 HR (bpm): 94 SBP (mmHg): 108 DBP (mmHg): 74 METS: --- Rest HR: 80 bpm Peak HR: 172 bpm Rest Sys BP: 95 mmHg Peak Sys BP: 154 mmHg Max Pred HR: 195 bpm % Max Pred HR: 88 % Target HR: 166 bpm Max RPP: 26,488 bpm*mmHg Collier Score: 1 Termination Reason: Reached target heart rate or workload Cardiac Symptoms: Shortness of breath Max ST Seg Deviation: -1.50 mm Total Time: 8 min : [address] BP: [address] BP: 80 mmHg Angina Score: None Total METS: 10.3 Resting ECG Sinus rhythm. Stress ECG No ST changes. Arrhythmias None. Report Signatures
== END 2024-10-10 08:35 | disposition home or self-care (01) ==
PROVIDERS: PCP Family Medicine; Visit Provider Internal Medicine Cardiovascular Disease
DX: R07.89 Other chest pain (principal)
CPT/HCPCS: 93017

== ENCOUNTER 2024-12-14 10:31 | Outpatient (CLI) | payer OTHER, SELFPAY ==
--- NOTE | ~2024-12-14 | XR_ITS ---
EXAMINATION: XR shoulder LT min 2V, 12/14/2024 10:36 CDT HISTORY: M25.512 - Pain in left shoulder COMPARISON: No comparisons available. Findings: No acute fracture or malalignment. No significant degenerative changes. Soft tissues unremarkable. Impression: No acute fracture or malalignment. Reviewed, dictated and finalized at location P. Impression: No acute fracture or malalignment.
== END 2024-12-14 10:32 | disposition home or self-care (01) ==
LOC: MICIMG 10:33
PROVIDERS: PCP Family Medicine
DX: M25.512 Pain in left shoulder (principal)
CPT/HCPCS: 73030